=== PATIENT | female | born 1945 | race Caucasian/White ===

== ENCOUNTER → 2017-07-02 | Outpatient (CLI) | payer MEDICARE ==
--- NOTE | 2017-07-02 13:10 | RADIOLOGY REPORT (SQ) ---
EXAM DESCRIPTION: CHEST PA/LATERAL COMPLETED DATE/TIME: 07/02/2017 12:53 pm REASON FOR STUDY: PNEUMONIA, UNSPECIFIED ORGANISM COMPARISON: Chest films 01/21/2016, 07/30/2016, 08/10/2016 EXAM PARAMETERS: NUMBER OF VIEWS: two views TECHNIQUE: Digital Frontal and Lateral radiographic views of the chest acquired. RADIATION DOSE: NA LIMITATIONS: none FINDINGS: LUNGS AND PLEURA: No opacities, masses or pneumothorax. No pleural effusion. MEDIASTINUM AND HILAR STRUCTURES: No masses or contour abnormalities. HEART AND VASCULAR STRUCTURES: Heart normal size. No evidence for failure. BONES: Old left lateral rib fractures HARDWARE: Surgical clips left chest post left mastectomy. Right-sided permanent central line tip sup erior vena cava OTHER: No other significant finding. IMPRESSION: No acute finding TECHNICAL DOCUMENTATION: JOB ID: [id number]- All Rights Reserved
== END ==
LOC: OD 12:43
PROVIDERS: ATTEND Family Medicine
DX: J18.9 Pneumonia, unspecified organism (principal)
CPT/HCPCS: 71020

== ENCOUNTER 2017-07-03 13:16 | Observation (INO) | payer MEDICARE ==
[2017-07-03] MEDS ORDERED: HYDROCODONE/ACETAMINOPHEN 5-325 MG TABLET PO ONE (14:14)
--- NOTE | 2017-07-03 14:15 | ER Document Report ---
ED Medical Screen (RME) - General Chief Complaint: Chest Pain Stated Complaint: CHEST PAIN Time Seen by Provider: 07/03/17 14:07 Notes: 71-year-old female patient past history of CHF and aortic stenosis but no coronary artery disease. She is allergic to aspirin, she is taking Plavix. She has had URI symptoms with a cough for several days, complained of chest tightness for several days. Was seen by her PCP yesterday had a chest x-ray done at this facility which was read as normal. She was diagnosed with pneumonia and started on antibiotics. She reports onset today of sharp chest pain in the right parasternal region which is made worse with deep breath and cough. It is a reproducible pain on palpation and deep breathing and cough. I have greeted and performed a rapid initial assessment of this patient. A comprehensive ED assessment and evaluation of the patient, analysis of test results and completion of the medical decision making process will be conducted by additional ED providers. TRAVEL OUTSIDE OF THE [place] IN LAST 30 DAYS: No - Related Data Allergies/Adverse Reactions: aspirin [Aspirin] Allergy (Verified 07/03/17 13:32) azithromycin Allergy (Verified 07/03/17 14:05) codeine [Codeine] Allergy (Verified 07/03/17 13:32) erythromycin base [Erythromycin Base] Allergy (Verified 07/03/17 13:32) hydrocodone Allergy (Verified 07/03/17 13:32) levofloxacin [From Levaquin] Allergy (Verified 07/03/17 13:32) Penicillins Allergy (Verified 07/03/17 13:32) Sulfa (Sulfonamide Antibiotics) Allergy (Verified 07/03/17 13:32) Home Medications: Current Home Medications Allopurinol [Zyloprim 100 mg Tablet] 100 mg PO BID 07/03/17 [History] Cefdinir 300 mg PO BID 07/03/17 [History] Furosemide [Lasix 20 mg Tablet] 20 mg PO Q48HP PRN 07/03/17 [History] Gabapentin 300 mg PO QHS 07/03/17 [History] Past Medical History - Past Medical History Cardiac Medical History: Reports: Hx Congestive Heart Failure, Hx Coronary Artery Disease, Hx Hypertension, Hx Heart Murmur Pulmonary Medical History: Reports: Hx Bronchitis Neurological Medical History: Denies: Hx Migraine, Hx Seizures Renal/ Medical History: Denies: Hx Peritoneal Dialysis Malignancy Medical History: Reports: Hx Breast Cancer - left Musculoskeltal Medical History: Reports Hx Arthritis, Reports Hx Musculoskeletal Trauma Psychiatric Medical History: Denies: Hx Depression Traumatic Medical History: Reports: Hx Fractures Past Surgical History: Reports: Hx Abdominal Surgery - umbilical hernia, Hx Appendectomy, Hx Breast Surgery - L breast mast 2004, Hx Hysterectomy, Hx Tonsillectomy, Hx Umbilical Hernia - Immunizations Immunizations up to date: Yes Hx Diphtheria, Pertussis, Tetanus Vaccination: Yes - 2006 Physical Exam - Vital signs Vitals: Temp Pulse Resp BP Pulse Ox 98.4 F 72 22 H 102/59 L 99 07/03/17 13:35 07/03/17 13:35 07/03/17 13:35 07/03/17 13:35 07/03/17 13:35 Course - Vital Signs Vital signs: Temp Pulse Resp BP Pulse Ox 98.4 F 72 22 H 102/59 L 99 07/03/17 13:35 07/03/17 13:35 07/03/17 13:35 07/03/17 13:35 07/03/17 13:35
[2017-07-03 14:52] LABS: ABSOLUTE EOSINOPHILS # (AUTO) 0.1 10^3/uL (0.0-0.6); ABSOLUTE LYMPHOCYTES (AUTO) 0.8 10^3/uL (0.5-4.7); ABSOLUTE MONOCYTES (AUTO) 0.5 10^3/uL (0.1-1.4); ABSOLUTE NEUT (AUTO) 3.9 10^3/uL (1.7-8.2); BASOPHILS % (AUTO) 0.6 % (0-2); HEMATOCRIT 31.9 % (36.0-47.0); HEMOGLOBIN 10.8 g/dL (12.0-15.5); HGB HCT DIFFERENCE 0.5; LYMPHOCYTES % (AUTO) 14.6 % (13-45); MEAN CORPUSCULAR HGB CONC 33.9 g/dL (32.0-36.0); MEAN CORPUSCULAR VOLUME 103 fl (80-97); MONOCYTES % (AUTO) 8.6 % (3-13); RED BLOOD COUNT 3.09 10^6/uL (3.72-5.28); RED CELL DISTRIBUTION WIDTH 14.1 % (11.5-14.0); SEGMENTED NEUTROPHILS % (AUTO) 74.2 % (42-78); WHITE BLOOD COUNT 5.3 10^3/uL (4.0-10.5)
--- NOTE | 2017-07-03 15:02 | ER Document Report ---
ED Cardiac - General Chief Complaint: Chest Pain Stated Complaint: CHEST PAIN Time Seen by Provider: 07/03/17 14:07 Mode of Arrival: Ambulatory Information source: Patient TRAVEL OUTSIDE OF THE [place] IN LAST 30 DAYS: No - HPI Patient complains to provider of: Chest pain Was the onset of pain: Sudden When did pain begin: THIS AM Is the pain a: New problem Chest pain location: Under breast Quality of pain: Pressure Chest pain radiation location: None Severity now: Mild Severity at worst: Moderate Pain level currently: 1 Chest pain precipitating factors: At Rest Cardiac risk factors: Hypertension, Hx MT Positive cardiac history: Yes Associated symptoms: Nausea/vomiting, Shortness of breath Exacerbated by: Other - WALKING FROM [id number] Relieved by: NTG - SLIGHT Similar symptoms previously: Yes - NOT RECENT Recently seen / treated by doctor: No - Related Data Allergies/Adverse Reactions: aspirin [Aspirin] Allergy (Verified 07/03/17 13:32) azithromycin Allergy (Verified 07/03/17 14:05) codeine [Codeine] Allergy (Verified 07/03/17 13:32) erythromycin base [Erythromycin Base] Allergy (Verified 07/03/17 13:32) hydrocodone Allergy (Verified 07/03/17 13:32) levofloxacin [From Levaquin] Allergy (Verified 07/03/17 13:32) Penicillins Allergy (Verified 07/03/17 13:32) Sulfa (Sulfonamide Antibiotics) Allergy (Verified 07/03/17 13:32) Home Medications: Current Home Medications Allopurinol [Zyloprim 100 mg Tablet] 100 mg PO BID 07/03/17 [History] Cefdinir [Omnicef 300 mg Capsule] 300 mg PO BID 07/03/17 [History] Cholecalciferol (Vitamin D3) [Vitamin D3 400 Unit Tablet] 400 unit PO DAILY 08/11 [History] Clopidogrel Bisulfate [Plavix 75 mg Tablet] 75 mg PO DAILY 07/03/17 [History] Furosemide [Lasix 20 mg Tablet] 20 mg PO Q2D 07/03/17 [History] Gabapentin [Neurontin 300 mg Capsule] 300 mg PO QHS 07/03/17 [History] Lisinopril [Prinivil] 20 mg PO Q12 07/03/17 [History] Metoprolol Succinate [Toprol Xl 25 mg Tab.sr] 25 mg PO QAM 07/03/17 [History] Potassium Chloride [Klor-Con 10] 10 meq PO DAILY 07/03/17 [History] Sertraline HCl [Zoloft 50 mg Tablet] 50 mg PO DAILY 07/03/17 [History] Simvastatin [Zocor 20 mg Tablet] 20 mg PO QHS 07/03/17 [History] Past Medical History - General Information source: Patient - Social History Smoking Status: Never Smoker Cigarette use (# per day): No Chew tobacco use (# tins/day): No Frequency of alcohol use: None Drug Abuse: None Family History: Reviewed & Not Pertinent Patient has suicidal ideation: No - Past Medical History Cardiac Medical History: Reports: Hx Congestive Heart Failure, Hx Coronary Artery Disease, Hx Hypertension, Hx Heart Murmur Pulmonary Medical History: Reports: Hx Bronchitis Neurological Medical History: Denies: Hx Migraine, Hx Seizures Endocrine Medical History: Reports: None Renal/ Medical History: Denies: Hx Peritoneal Dialysis Malignancy Medical History: Reports: Hx Breast Cancer - left Musculoskeltal Medical History: Reports Hx Arthritis, Reports Hx Musculoskeletal Trauma Psychiatric Medical History: Denies: Hx Depression Traumatic Medical History: Reports: Hx Fractures Past Surgical History: Reports: Hx Abdominal Surgery - umbilical hernia, Hx Appendectomy, Hx Breast Surgery - L breast mast 2004, Hx Hysterectomy, Hx Tonsillectomy, Hx Umbilical Hernia - Immunizations Immunizations up to date: Yes Hx Diphtheria, Pertussis, Tetanus Vaccination: Yes - 2006 Hx Pneumococcal Vaccination: 11/26/13 Review of Systems - Review of Systems Constitutional: No symptoms reported EENT: No symptoms reported Cardiovascular: See HPI Respiratory: See HPI Gastrointestinal: See HPI Female Genitourinary: Post menopausal Musculoskeletal: No symptoms reported Skin: No symptoms reported Neurological/Psychological: No symptoms reported Physical Exam - Vital signs Vitals: Temp Pulse Resp BP Pulse Ox 98.4 F 72 22 H 102/59 L 99 07/03/17 13:35 07/03/17 13:35 07/03/17 13:35 07/03/17 13:35 07/03/17 13:35 Interpretation: Hypotensive, Tachypneic. No: Tachycardic, Febrile - General General appearance: Appears well, Alert In distress: None - HEENT Head: Normocephalic Eyes: Normal Conjunctiva: Normal Ears: Normal Nasal: Normal Mouth/Lips: Normal Mucous membranes: Normal Neck: Normal - Respiratory Respiratory status: No respiratory distress Chest status: Nontender Breath sounds: Normal - Cardiovascular Rhythm: Regular Heart sounds: Normal auscultation Murmur: No - Abdominal Inspection: Normal Distension: No distension Bowel sounds: Normal - Extremities General upper extremity: Normal inspection General lower extremity: Normal inspection. No: Edema - Neurological Neuro grossly intact: Yes Cognition: Normal Orientation: AAOx4 - Psychological Associated symptoms: Normal affect, Normal mood - Skin Skin Temperature: Warm Skin Moisture: Dry Skin Color: Normal Skin Turgor: Elastic Course - Vital Signs Vital signs: Temp Pulse Resp BP Pulse Ox 98.4 F 72 15 113/59 L 100 07/03/17 13:35 07/03/17 13:35 07/03/17 21:04 07/03/17 21:04 07/03/17 21:04 - Laboratory Result Diagrams: 07/03/17 14:20 07/03/17 14:20 Laboratory results interpreted by me: 07/03/17 07/03/17 14:20 14:20 RBC 3.09 L Hgb 10.8 L Hct 31.9 L MCV 103 H MCH 35.0 H RDW 14.1 H Potassium 5.1 H BUN 32 H Creatinine 1.49 H Est GFR ( Amer) 42 L Est GFR (Non-Af Amer) 35 L Alkaline Phosphatase 138 H - Diagnostic Test Radiology reviewed: Image reviewed, Reports reviewed - EKG Interpretation by Tx EKG shows normal: Sinus rhythm. abnormal: [place], QRS Complexes Rate: Normal Rhythm: NSR [place]/QRS: LBBB When compared to previous EKG there are: No significant change - Consults DR. CAST Time consulted: 17:32 Consulted provider: will come to ER Discharge - Discharge Clinical Impression: Hyperkalemia Chest pain Qualifiers: Chest pain type: unspecified Qualified Code(s): R07.9 - Chest pain, unspecified Admitting Provider: Hospitalist Unit Admitted: Telemetry
[2017-07-03 15:20] LABS: ALANINE AMINOTRANSFERASE 28 U/L (9-52); ALBUMIN 3.7 g/dL (3.5-5.0); ALKALINE PHOSPHATASE 138 U/L (38-126); ANION GAP 11 (5-19); ASPARTATE AMINO TRANSFERASE 19 U/L (14-36); BILIRUBIN,DIRECT 0.4 mg/dL (0.0-0.4); BILIRUBIN,TOTAL 0.4 mg/dL (0.2-1.3); BLOOD UREA NITROGEN 32 mg/dL (7-20); CALCIUM 8.7 mg/dL (8.4-10.2); CARBON DIOXIDE 22 mmol/L (22-30); CHLORIDE 106 mmol/L (98-107); CREATINE KINASE 63 U/L (30-135); CREATININE RESULT 1.49 mg/dL (0.52-1.25); GLUCOSE 110 mg/dL (75-110); POTASSIUM 5.1 mmol/L (3.6-5.0); SODIUM 139.3 mmol/L (137-145); TOTAL PROTEIN 6.8 g/dL (6.3-8.2)
[2017-07-03] MEDS ORDERED: NITROGLYCERIN 2% OINTMENT 1 GM PACKET TP ONE (16:02)
[2017-07-03] MEDS ORDERED: NORMAL SALINE 1000 ML 500 ML IV ONE (16:07)
[2017-07-03] MEDS ORDERED: ONDANSETRON HCL INJ/PF 4 MG/2 ML SDV IV PRN (17:44)
[2017-07-03] MEDS: NORMAL SALINE 1000 ML 1,000 ML IV PRN (18:13)
[2017-07-03] MEDS ORDERED: HYDRALAZINE HCL INJ/PF 20 MG/1 ML SDV IV PRN (18:32)
--- NOTE | 2017-07-03 18:37 | PDOC H&P ---
History of Present Illness Admission Date/PCP: 07/03/17 18:07 JENAE MARS MD Patient complains of: Chest pain History of Present Illness: ENE HOLGUIN is a 71 year old female with past medical history of coronary artery disease, congestive heart failure secondary to moderate aortic stenosis presents with onset this morning of substernal chest pain. Pain was nonradiating. She had associated nausea but no vomiting. She had no shortness of breath. Pain was partially relieved at home by nitroglycerin sublingual 2. Apparently patient has known coronary artery disease with last cardiac cath in 2014 showing nonamenable coronary artery disease according to her daughter is present at the bedside. Daughter states that she had a "60% blockage" and that she had a "leaky valve". Review of prior records show that she had echocardiogram 08/14/2016 with normal EF, grade 2/4 diastolic dysfunction, moderate aortic stenosis. It is also noted that patient was started on antibiotics yesterday for pneumonia. Chest x-ray however showed no acute airspace disease. She has been having a cough. No documented fevers. Past Medical History Cardiac Medical History: Reports: Congestive Heart Failure, Coronary Artery Disease, Hypertension, Heart Murmur Pulmonary Medical History: Reports: Bronchitis Neurological Medical History: Denies: Migraine, Seizures Malignancy Medical History: Reports: Breast Cancer - left Musculoskeltal Medical History: Reports: Arthritis Psychiatric Medical History: Denies: Depression Past Surgical History Past Surgical History: Reports: Appendectomy, Hysterectomy, Tonsillectomy Social History Information Source: Patient Lives with: Spouse/Significant other Smoking Status: Never Smoker Frequency of Alcohol Use: None Hx Recreational Drug Use: No Hx Prescription Drug Abuse: No - Advance Directive Resuscitation Status: Full Code Family History Family History: Reviewed & Not Pertinent Parental Family History Reviewed: Yes Children Family History Reviewed: Yes Sibling(s) Family History Reviewed.: Yes Medication/Allergy Home Medications: Metoprolol Succinate 25 mg PO DAILY 01/21/16 Simvastatin 20 mg PO QHS 01/21/16 Clopidogrel Bisulfate [Clopidogrel] 75 mg PO DAILY 05/22/16 Potassium Chloride 10 meq PO DAILY 05/22/16 Sertraline HCl 50 mg PO DAILY 05/22/16 Lisinopril 20 mg PO DAILY #30 08/14/16 Allopurinol [Zyloprim 100 mg Tablet] 100 mg PO BID 07/03/17 Cefdinir 300 mg PO BID 07/03/17 Furosemide [Lasix 20 mg Tablet] 20 mg PO Q48HP PRN 07/03/17 Gabapentin 300 mg PO QHS 07/03/17 Allergies/Adverse Reactions: aspirin [Aspirin] Allergy (Verified 07/03/17 13:32) azithromycin Allergy (Verified 07/03/17 14:05) codeine [Codeine] Allergy (Verified 07/03/17 13:32) erythromycin base [Erythromycin Base] Allergy (Verified 07/03/17 13:32) hydrocodone Allergy (Verified 07/03/17 13:32) levofloxacin [From Levaquin] Allergy (Verified 07/03/17 13:32) Penicillins Allergy (Verified 07/03/17 13:32) Sulfa (Sulfonamide Antibiotics) Allergy (Verified 07/03/17 13:32) Review of Systems Constitutional: ABSENT: chills, fever(s), headache(s), weight gain, weight loss Eyes: ABSENT: visual disturbances Ears: ABSENT: hearing changes Cardiovascular: PRESENT: chest pain. ABSENT: dyspnea on exertion, edema, orthropnea, palpitations Respiratory: PRESENT: cough. ABSENT: hemoptysis Gastrointestinal: ABSENT: abdominal pain, constipation, diarrhea, hematemesis, hematochezia, nausea, vomiting Genitourinary: ABSENT: dysuria, hematuria Musculoskeletal: ABSENT: joint swelling Integumentary: ABSENT: rash, wounds Neurological: ABSENT: abnormal gait, abnormal speech, confusion, dizziness, focal weakness, syncope Psychiatric: ABSENT: anxiety, depression, homidical ideation, suicidal ideation Endocrine: ABSENT: cold intolerance, heat intolerance, polydipsia, polyuria Hematologic/Lymphatic: ABSENT: easy bleeding, easy bruising Physical Exam Vital Signs: Temp Pulse Resp BP Pulse Ox 98.4 F 72 22 H 102/59 L 99 07/03/17 13:35 07/03/17 13:35 07/03/17 13:35 07/03/17 13:35 07/03/17 13:35 PHYSICAL EXAM: GENERAL: Appears well, no acute distress HEENT: Normocephalic, no scleral icterus, conjunctiva clear, EOEM intact, PERRLA , moist mucous membranes NECK: trachea midline, no thyromegally RESPIRATORY: Clear to auscultation, no wheezes/rhonchi CARDIAC: Regular rate and rhythm, systolic murmur noted ABDOMEN: Soft, no distension, no tenderness, no guarding, normal bowel sounds, negative Contreras sign RECTAL: deferred : deferred EXTREMITIES: No edema, cyanosis, clubbing MUSCULOSKELETAL: No joint swelling or deformity VASCULAR: normal peripheral pulses NEUROLOGIC: Alert, oriented to person/place/time, normal speech, cranial nerves grossly intact, 5/5 strength in all extremities, tactile sensation intact in all extremities SKIN: No rash, no wounds, no worrisome skin lesions PSYCHIATRIC: Normal mood, normal affect Results Laboratory Results: Labs- All tests 24 hr 07/03/17 07/03/17 07/03/17 14:20 14:20 14:20 WBC 5.3 RBC 3.09 L Hgb 10.8 L Hct 31.9 L MCV 103 H MCH 35.0 H MCHC 33.9 RDW 14.1 H Plt Count 206 Seg Neutrophils % 74.2 Lymphocytes % 14.6 Monocytes % 8.6 Eosinophils % 2.0 Basophils % 0.6 Absolute Neutrophils 3.9 Absolute Lymphocytes 0.8 Absolute Monocytes 0.5 Absolute Eosinophils 0.1 Absolute Basophils 0.0 Sodium 139.3 Potassium 5.1 H Chloride 106 Carbon Dioxide 22 Anion Gap 11 BUN 32 H Creatinine 1.49 H Est GFR ( Amer) 42 L Est GFR (Non-Af Amer) 35 L Glucose 110 Calcium 8.7 Total Bilirubin 0.4 Direct Bilirubin 0.4 Indirect Bilirubin Not Reportable Neonat Total Bilirubin Not Reportable AST 19 ALT 28 Alkaline Phosphatase 138 H Creatine Kinase 63 Troponin I < 0.012 Total Protein 6.8 Albumin 3.7 EKG Comments: Sinus rhythm, old left bundle branch block Impressions: Chest x-ray 07/02/2017: No acute findings Assessment & Plan - Diagnosis (1) Chest pain Qualifiers: Chest pain type: unspecified Qualified Code(s): R07.9 - Chest pain, unspecified Is this a current diagnosis for this admission?: YesPlan: Placed in observation status on telemetry monitoring. Serial cardiac enzymes. Continue Plavix, statin. Stress test in a.m. Patient is normally followed by Dr. Mooney of cardiology as an outpatient. (2) CAD (coronary artery disease) Qualifiers: Coronary Disease-Associated Artery/Lesion type: [place] artery [place] vs. transplanted heart: [place] heart Associated angina: without angina Qualified Code(s): I25.10 - Atherosclerotic heart disease of [place] coronary artery without angina pectoris Is this a current diagnosis for this admission?: Yes (3) Hyperkalemia Is this a current diagnosis for this admission?: YesPlan: Hold KHALIF inhibitor and potassium supplement. Gentle IV fluid. (4) Acute renal failure Qualifiers: Acute renal failure type: unspecified Qualified Code(s): N17.9 - Acute kidney failure, unspecified Is this a current diagnosis for this admission?: YesPlan: Hold KHALIF inhibitor. Gentle IV fluid. Repeat renal function in the morning. (5) Bronchitis Is this a current diagnosis for this admission?: YesPlan: Continue cefpodoxime prescribed on 07/02/2017. (6) Chronic diastolic (congestive) heart failure Is this a current diagnosis for this admission?: YesPlan: Clinically compensated at this time. Hold metoprolol for stress test. (7) HTN (hypertension) Is this a current diagnosis for this admission?: Yes (8) Left bundle branch block Is this a current diagnosis for this admission?: YesPlan: Old is compared to prior EKG - Time Time Spent: Greater than 70 Minutes
[2017-07-03 20:16] LABS: CREATINE KINASE MB 1.77 ng/mL (<4.55)
[2017-07-03 20:18] LABS: TROPONIN I < 0.012 ng/mL
[2017-07-03] MEDS ORDERED: SIMVASTATIN 10 MG TABLET PO SCH (22:00)
[2017-07-03] MEDS ORDERED: (PENDING PHARMACY ID) (Simvastatin [Simvastatin] 20 MG) PO SCH (22:00)
[2017-07-03] MEDS ORDERED: GABAPENTIN 300 MG CAPSULE PO SCH (22:00)
[2017-07-03] MEDS: ACETAMINOPHEN 325 MG TABLET PO PRN (22:11)
[2017-07-03] MEDS: HEPARIN SOD (PORCINE) 5,000 UNIT/ML 1 ML SYRINGE SUBCUT SCH (22:20)
[2017-07-04 01:52] LABS: CREATINE KINASE MB 2.16 ng/mL (<4.55)
[2017-07-04 02:00] LABS: TROPONIN I < 0.012 ng/mL
[2017-07-04] MEDS: HEPARIN SOD (PORCINE) 5,000 UNIT/ML 1 ML SYRINGE SUBCUT SCH ×2 (05:21→14:41)
[2017-07-04] MEDS: ACETAMINOPHEN 325 MG TABLET PO PRN ×2 (06:14→12:00)
[2017-07-04] MEDS: NORMAL SALINE 1000 ML 1,000 ML IV PRN (07:30)
[2017-07-04 08:11] LABS: ABSOLUTE EOSINOPHILS # (AUTO) 0.1 10^3/uL (0.0-0.6); ABSOLUTE LYMPHOCYTES (AUTO) 0.8 10^3/uL (0.5-4.7); ABSOLUTE MONOCYTES (AUTO) 0.3 10^3/uL (0.1-1.4); ABSOLUTE NEUT (AUTO) 2.8 10^3/uL (1.7-8.2); BASOPHILS % (AUTO) 0.6 % (0-2); EOSINOPHILS % (AUTO) 3.7 % (0-6); HEMATOCRIT 26.9 % (36.0-47.0); HEMOGLOBIN 9.2 g/dL (12.0-15.5); HGB HCT DIFFERENCE 0.7; LYMPHOCYTES % (AUTO) 18.8 % (13-45); MEAN CORPUSCULAR HEMOGLOBIN 35.3 pg (27.0-33.4); MEAN CORPUSCULAR HGB CONC 34.2 g/dL (32.0-36.0); MEAN CORPUSCULAR VOLUME 103 fl (80-97); MONOCYTES % (AUTO) 8.1 % (3-13); RED BLOOD COUNT 2.61 10^6/uL (3.72-5.28); RED CELL DISTRIBUTION WIDTH 13.9 % (11.5-14.0); SEGMENTED NEUTROPHILS % (AUTO) 68.8 % (42-78)
[2017-07-04 08:28] LABS: ANION GAP 10 (5-19); BLOOD UREA NITROGEN 21 mg/dL (7-20); CALCIUM 8.2 mg/dL (8.4-10.2); CARBON DIOXIDE 19 mmol/L (22-30); CHLORIDE 112 mmol/L (98-107); CREATININE RESULT 1.01 mg/dL (0.52-1.25); GLUCOSE 88 mg/dL (75-110); SODIUM 140.9 mmol/L (137-145)
[2017-07-04 08:34] LABS: POTASSIUM 4.1 mmol/L (3.6-5.0)
[2017-07-04 08:39] LABS: CREATINE KINASE MB 1.64 ng/mL (<4.55)
[2017-07-04 08:44] LABS: TROPONIN I < 0.012 ng/mL
[2017-07-04] MEDS ORDERED: SERTRALINE HCL 50 MG TABLET PO SCH (10:00)
[2017-07-04] MEDS ORDERED: CLOPIDOGREL BISULFATE 75 MG TABLET PO SCH (10:00)
[2017-07-04] MEDS ORDERED: METOPROLOL SUCCINATE 25 MG TAB.SR.24H PO SCH (10:00)
[2017-07-04] MEDS ORDERED: CEFDINIR 300 MG PO SCH (10:00)
--- NOTE | 2017-07-04 13:23 | EKG REPORT ---
SEVERITY:- ABNORMAL ECG - SINUS RHYTHM LEFT BUNDLE BRANCH BLOCK : Confirmed by: Kaitlyn Beckman 04-Jul-2017 13:23:04
[2017-07-04] MEDS ORDERED: REGADENOSON INJ 0.4 MG/5 ML DISP.SYRIN IV ONE (13:25)
[2017-07-04] MEDS ORDERED: ONDANSETRON HCL INJ/PF 4 MG/2 ML SDV IV PRN (14:41)
[2017-07-04 15:31] VITALS: BP 123/48
--- NOTE | 2017-07-04 16:59 | PDOC DISCHARGE SUMMARY ---
General - Admit/Disc Date/PCP Admission Date/Primary Care Provider: 07/03/17 17:44 JENAE MARS MD Discharge Date: 07/04/17 - Discharge Diagnosis (1) Chest pain Is this a current diagnosis for this admission?: Yes (2) CAD (coronary artery disease) Is this a current diagnosis for this admission?: Yes (3) Hyperkalemia Is this a current diagnosis for this admission?: Yes (4) Acute renal failure Is this a current diagnosis for this admission?: Yes (5) Bronchitis Is this a current diagnosis for this admission?: Yes (6) Chronic diastolic (congestive) heart failure Is this a current diagnosis for this admission?: Yes (7) HTN (hypertension) Is this a current diagnosis for this admission?: Yes (8) Left bundle branch block Is this a current diagnosis for this admission?: Yes - Additional Information Resuscitation Status: Full Code Discharge Diet: Cardiac Discharge Activity: Activity As Tolerated Home Medications: Allopurinol [Zyloprim 100 mg Tablet] 100 mg PO BID 07/03/17 Cefdinir [Omnicef 300 mg Capsule] 300 mg PO BID 07/03/17 Cholecalciferol (Vitamin D3) [Vitamin D3 400 Unit Tablet] 400 unit PO DAILY 08/11 Clopidogrel Bisulfate [Plavix 75 mg Tablet] 75 mg PO DAILY 07/03/17 Furosemide [Lasix 20 mg Tablet] 20 mg PO Q2D 07/03/17 Gabapentin [Neurontin 300 mg Capsule] 300 mg PO QHS 07/03/17 Metoprolol Succinate [Toprol Xl 25 mg Tab.sr] 25 mg PO QAM 07/03/17 Sertraline HCl [Zoloft 50 mg Tablet] 50 mg PO DAILY 07/03/17 Simvastatin [Zocor 20 mg Tablet] 20 mg PO QHS 07/03/17 History of Present Illness Patient complains of: Chest pain History of Present Illness: ENE HOLGUIN is a 71 year old female with past medical history of coronary artery disease, congestive heart failure secondary to moderate aortic stenosis presents with onset this morning of substernal chest pain. Pain was nonradiating. She had associated nausea but no vomiting. She had no shortness of breath. Pain was partially relieved at home by nitroglycerin sublingual 2. Apparently patient has known coronary artery disease with last cardiac cath in 2014 showing nonamenable coronary artery disease according to her daughter is present at the bedside. Daughter states that she had a "60% blockage" and that she had a "leaky valve". Review of prior records show that she had echocardiogram 08/14/2016 with normal EF, grade 2/4 diastolic dysfunction, moderate aortic stenosis. It is also noted that patient was started on antibiotics yesterday for pneumonia. Chest x-ray however showed no acute airspace disease. She has been having a cough. No documented fevers. Hospital Course Hospital Course: Patient was admitted to telemetry monitoring. Serial cardiac enzymes negative. Stress test negative per Dr. Mooney of cardiology. Dr. Mooney has evaluated patient and will see patient as an outpatient. He is advised discharge home. Patient is in stable condition at time of discharge. With regard to acute kidney injury patient was taken off lisinopril. She was given gentle IV fluids and kidney function significantly improved over course of hospitalization. We will have her stay off of lisinopril and potassium supplement until follow-up with her primary care provider. Physical Exam Vital Signs: Temp Pulse Resp BP Pulse Ox 98.3 F 85 15 123/48 L 96 07/04/17 15:29 07/04/17 15:29 07/04/17 15:29 07/04/17 15:29 07/04/17 15:29 Intake & Output 07/03/17 07/04/17 07/05/17 06:59 06:59 06:59 Intake Total 1434 570 Balance 1434 570 Weight 71.2 kg Results Laboratory Results: 07/04/17 07:49 07/04/17 07:49 07/04/17 07/04/17 07:49 07:49 WBC 4.0 RBC 2.61 L Hgb 9.2 L Hct 26.9 L MCV 103 H MCH 35.3 H MCHC 34.2 RDW 13.9 Plt Count 161 Seg Neutrophils % 68.8 Lymphocytes % 18.8 Monocytes % 8.1 Eosinophils % 3.7 Basophils % 0.6 Absolute Neutrophils 2.8 Absolute Lymphocytes 0.8 Absolute Monocytes 0.3 Absolute Eosinophils 0.1 Absolute Basophils 0.0 Sodium 140.9 Potassium 4.1 D Chloride 112 H Carbon Dioxide 19 L Anion Gap 10 BUN 21 H Creatinine 1.01 Est GFR ( Amer) > 60 Est GFR (Non-Af Amer) 54 L Glucose 88 Calcium 8.2 L 07/03/17 07/03/17 07/04/17 18:55 18:55 01:04 Creatine Kinase 80 82 CK-MB (CK-2) 1.77 Troponin I < 0.012 07/04/17 07/04/17 07/04/17 01:04 07:49 07:49 Creatine Kinase 81 CK-MB (CK-2) 2.16 1.64 Troponin I < 0.012 < 0.012 Labs- Entire Visit 07/03/17 07/03/17 07/03/17 14:20 14:20 14:20 WBC 5.3 RBC 3.09 L Hgb 10.8 L Hct 31.9 L MCV 103 H MCH 35.0 H MCHC 33.9 RDW 14.1 H Plt Count 206 Seg Neutrophils % 74.2 Lymphocytes % 14.6 Monocytes % 8.6 Eosinophils % 2.0 Basophils % 0.6 Absolute Neutrophils 3.9 Absolute Lymphocytes 0.8 Absolute Monocytes 0.5 Absolute Eosinophils 0.1 Absolute Basophils 0.0 Sodium 139.3 Potassium 5.1 H Chloride 106 Carbon Dioxide 22 Anion Gap 11 BUN 32 H Creatinine 1.49 H Est GFR ( Amer) 42 L Est GFR (Non-Af Amer) 35 L Glucose 110 Calcium 8.7 Total Bilirubin 0.4 Direct Bilirubin 0.4 Indirect Bilirubin Not Reportable Neonat Total Bilirubin Not Reportable AST 19 ALT 28 Alkaline Phosphatase 138 H Creatine Kinase 63 CK-MB (CK-2) Troponin I < 0.012 Total Protein 6.8 Albumin 3.7 07/03/17 07/03/17 07/04/17 18:55 18:55 01:04 WBC RBC Hgb Hct MCV MCH MCHC RDW Plt Count Seg Neutrophils % Lymphocytes % Monocytes % Eosinophils % Basophils % Absolute Neutrophils Absolute Lymphocytes Absolute Monocytes Absolute Eosinophils Absolute Basophils Sodium Potassium Chloride Carbon Dioxide Anion Gap BUN Creatinine Est GFR ( Amer) Est GFR (Non-Af Amer) Glucose Calcium Total Bilirubin Direct Bilirubin Indirect Bilirubin Neonat Total Bilirubin AST ALT Alkaline Phosphatase Creatine Kinase 80 82 CK-MB (CK-2) 1.77 Troponin I < 0.012 Total Protein Albumin 07/04/17 07/04/17 07/04/17 01:04 07:49 07:49 WBC RBC Hgb Hct MCV MCH MCHC RDW Plt Count Seg Neutrophils % Lymphocytes % Monocytes % Eosinophils % Basophils % Absolute Neutrophils Absolute Lymphocytes Absolute Monocytes Absolute Eosinophils Absolute Basophils Sodium Potassium Chloride Carbon Dioxide Anion Gap BUN Creatinine Est GFR ( Amer) Est GFR (Non-Af Amer) Glucose Calcium Total Bilirubin Direct Bilirubin Indirect Bilirubin Neonat Total Bilirubin AST ALT Alkaline Phosphatase Creatine Kinase 81 CK-MB (CK-2) 2.16 1.64 Troponin I < 0.012 < 0.012 Total Protein Albumin 07/04/17 07/04/17 07:49 07:49 WBC 4.0 RBC 2.61 L Hgb 9.2 L Hct 26.9 L MCV 103 H MCH 35.3 H MCHC 34.2 RDW 13.9 Plt Count 161 Seg Neutrophils % 68.8 Lymphocytes % 18.8 Monocytes % 8.1 Eosinophils % 3.7 Basophils % 0.6 Absolute Neutrophils 2.8 Absolute Lymphocytes 0.8 Absolute Monocytes 0.3 Absolute Eosinophils 0.1 Absolute Basophils 0.0 Sodium 140.9 Potassium 4.1 D Chloride 112 H Carbon Dioxide 19 L Anion Gap 10 BUN 21 H Creatinine 1.01 Est GFR ( Amer) > 60 Est GFR (Non-Af Amer) 54 L Glucose 88 Calcium 8.2 L Total Bilirubin Direct Bilirubin Indirect Bilirubin Neonat Total Bilirubin AST ALT Alkaline Phosphatase Creatine Kinase CK-MB (CK-2) Troponin I Total Protein Albumin Qualifiers PATEINT BEING DISCHARGED WITH ANY OF THE FOLLOWING DIAGNOSIS?: No Plan Time Spent: Less than 30 Minutes
--- NOTE | 2017-07-04 18:55 | DRAGON STRESS TEST REPORT ---
Intravenous Lexiscan Cardiolite stress test using single photon emmision computerized tomography. Date of procedure: 07/04/2017 Ordering Provider: Dr. Garth Dwyer. Patient's status: In patient. Indication: Chest pain. Coronary risk factors: Age, hypertension, dyslipidemia , and family history of coronary artery disease. Resting EKG: Sinus Rhythm. Left bundle branch block pattern. Stress EKG: Due to left bundle branch block pattern EKG is nondiagnostic of ischemia. Reason for termination: Protocol. The patient had no chest pain or discomfort, and there were no arrhythmias seen. Conclusions: Normal EKG and hemodynamic response to IV Lexiscan. Nuclear data: At rest the patient was given 10.1 month millicuries of technetium 99m sestamibi injected intravenously. As per protocol rest non gated SPECT images were obtained. Subsequently the patient was given intravenous Lexiscan at a dose of 0.4 mg in 5 mL intravenously, followed by flush with normal saline. Subsequently the stress dose of 29.7 millicuries of technetium 99m sestamibi was injected intravenously. As per protocol stress gated images were obtained. Nuclear interpretation: Review of images showed that all segments of the myocardium had normal perfusion at rest, and normal perfusion post stress with IV Lexiscan. All segments of the myocardium had normal motion, contraction, and thickening by gated study. T. I D. ratio was read as abnormal at 1.26. Visually P IT ratio is normal. Computer read rest, and stress left ventricular ejection fraction were 51 %, and 54 %, respectively. Visually both the stress and rest ejection fractions were normal, and greater than 55%. Conclusion: 1. There is no scintigraphic evidence of Lexiscan induced myocardial ischemia. 2. There is no scintigraphic evidence of myocardial infarction/scar. Recommendations: Aggressive risk factor modification, and treating the underlying co- morbidities. [facility]
== END 2017-07-04 16:47 | disposition home or self-care (01) ==
LOC: ER 13:16 → EH 17:44 → UNDOADMOB 18:07 → EH 18:07 → 4S 21:55 → EH 21:55
PROVIDERS: ADMIT Family Medicine; ATTEND Family Medicine
DX: R07.9 Chest pain, unspecified (principal); I25.10 Atherosclerotic heart disease of native coronary artery without angina pectoris; E87.5 Hyperkalemia; N17.9 Acute kidney failure, unspecified; J40 Bronchitis, not specified as acute or chronic; I11.0 Hypertensive heart disease with heart failure; I50.32 Chronic diastolic (congestive) heart failure; I44.7 Left bundle-branch block, unspecified; I35.0 Nonrheumatic aortic (valve) stenosis; I95.9 Hypotension, unspecified; R06.82 Tachypnea, not elsewhere classified; I25.2 Old myocardial infarction; Z79.899 Other long term (current) drug therapy; Z79.02 Long term (current) use of antithrombotics/antiplatelets; Z85.3 Personal history of malignant neoplasm of breast; Z90.49 Acquired absence of other specified parts of digestive tract
CPT/HCPCS: 93005; 99285; 36415 ×2; 82553 ×2; 82550 ×2; 85025 ×2; 80048; 80053; 84484 ×2; 93017; 78452; 93010; G0378 ×3; A9500; J2785; A9270 ×8; J7030 ×2; Q9969; J1644

== ENCOUNTER 2018-04-04 14:12 | Emergency (ER) | payer MEDICARE ==
[2018-04-04] MEDS ORDERED: IPRATROPIUM/ALBUTEROL 0.5-2.5 MG/3 ML AMPUL NEB ONE (14:15)
--- NOTE | 2018-04-04 14:25 | ER Document Report ---
ED General - General Chief Complaint: Shortness Of Breath Stated Complaint: DIFFICULTY BREATHING Time Seen by Provider: 04/04/18 14:15 Mode of Arrival: Medic Information source: Patient, Emergency Med Personnel TRAVEL OUTSIDE OF THE [place] IN LAST 30 DAYS: No - Related Data Allergies/Adverse Reactions: aspirin [Aspirin] Allergy (Verified 04/04/18 14:13) azithromycin Allergy (Verified 04/04/18 14:13) codeine [Codeine] Allergy (Verified 04/04/18 14:13) erythromycin base [Erythromycin Base] Allergy (Verified 04/04/18 14:13) hydrocodone Allergy (Verified 04/04/18 14:13) levofloxacin [From Levaquin] Allergy (Verified 04/04/18 14:13) Penicillins Allergy (Verified 04/04/18 14:13) Sulfa (Sulfonamide Antibiotics) Allergy (Verified 04/04/18 14:13) Past Medical History - Social History Family History: Reviewed & Not Pertinent - Past Medical History Cardiac Medical History: Reports: Hx Congestive Heart Failure, Hx Coronary Artery Disease, Hx Hypertension, Hx Heart Murmur Pulmonary Medical History: Reports: Hx Bronchitis Neurological Medical History: Denies: Hx Migraine, Hx Seizures Renal/ Medical History: Denies: Hx Peritoneal Dialysis Malignancy Medical History: Reports: Hx Breast Cancer - left Musculoskeltal Medical History: Reports Hx Arthritis, Reports Hx Musculoskeletal Trauma Psychiatric Medical History: Denies: Hx Depression Traumatic Medical History: Reports: Hx Fractures Past Surgical History: Reports: Hx Abdominal Surgery - umbilical hernia, Hx Appendectomy, Hx Breast Surgery - L breast mast 2004, Hx Hysterectomy, Hx Tonsillectomy, Hx Umbilical Hernia - Immunizations Immunizations up to date: Yes Hx Diphtheria, Pertussis, Tetanus Vaccination: Yes - 2006 Hx Pneumococcal Vaccination: 11/26/13
--- NOTE | 2018-04-04 15:17 | ER Document Report ---
ED Medical Screen (RME) - General Chief Complaint: Shortness Of Breath Stated Complaint: DIFFICULTY BREATHING Time Seen by Provider: 04/04/18 14:15 Mode of Arrival: Ambulatory Information source: Patient, Relative TRAVEL OUTSIDE OF THE [place] IN LAST 30 DAYS: No - HPI Notes: 04/04/18 15:15 RAPID MEDICAL EVALUATION DISCLOSURE I have seen this patient as part of a Rapid Medical Evaluation and, if applicable, placed any initially appropriate orders. The patient will be seen and fully evaluated, including a full history and physical exam, by a provider ( in Main ED or Fast Track) when a room becomes available. Pt. c/o SOB, worse with exertion over last few days. Mild CP as well. No wheezing, fevers, N/V/D. +nonproductive cough. H/O CHF. - Related Data Allergies/Adverse Reactions: aspirin [Aspirin] Allergy (Verified 04/04/18 14:13) azithromycin Allergy (Verified 04/04/18 14:13) codeine [Codeine] Allergy (Verified 04/04/18 14:13) erythromycin base [Erythromycin Base] Allergy (Verified 04/04/18 14:13) hydrocodone Allergy (Verified 04/04/18 14:13) levofloxacin [From Levaquin] Allergy (Verified 04/04/18 14:13) Penicillins Allergy (Verified 04/04/18 14:13) Sulfa (Sulfonamide Antibiotics) Allergy (Verified 04/04/18 14:13) Past Medical History - Social History Chew tobacco use (# tins/day): No Frequency of alcohol use: None Drug Abuse: None - Past Medical History Cardiac Medical History: Reports: Hx Congestive Heart Failure, Hx Coronary Artery Disease, Hx Hypertension, Hx Heart Murmur Pulmonary Medical History: Reports: Hx Bronchitis Neurological Medical History: Denies: Hx Migraine, Hx Seizures Renal/ Medical History: Denies: Hx Peritoneal Dialysis Malignancy Medical History: Reports: Hx Breast Cancer - left Musculoskeltal Medical History: Reports Hx Arthritis, Reports Hx Musculoskeletal Trauma Psychiatric Medical History: Denies: Hx Depression Traumatic Medical History: Reports: Hx Fractures Past Surgical History: Reports: Hx Abdominal Surgery - umbilical hernia, Hx Appendectomy, Hx Breast Surgery - L breast mast 2004, Hx Hysterectomy, Hx Tonsillectomy, Hx Umbilical Hernia - Immunizations Immunizations up to date: Yes Hx Diphtheria, Pertussis, Tetanus Vaccination: Yes - 2006 Physical Exam - Vital signs Vitals: Temp Pulse Resp BP Pulse Ox 98.7 F 77 18 138/80 H 96 04/04/18 14:26 04/04/18 14:26 04/04/18 14:26 04/04/18 14:26 04/04/18 14:26 Course - Vital Signs Vital signs: Temp Pulse Resp BP Pulse Ox 98.7 F 77 18 138/80 H 96 04/04/18 14:26 04/04/18 14:26 04/04/18 14:26 04/04/18 14:26 04/04/18 14:26 Doctor's Discharge - Discharge Referrals: JENAE MARS MD [Primary Care Provider] - Follow up as needed
--- NOTE | 2018-04-04 16:11 | RADIOLOGY REPORT (SQ) ---
EXAM DESCRIPTION: CHEST SINGLE VIEW COMPLETED DATE/TIME: 04/04/2018 4:01 pm REASON FOR STUDY: sob COMPARISON: 08/10/2016 EXAM PARAMETERS: NUMBER OF VIEWS: One view. TECHNIQUE: Single frontal radiographic view of the chest acquired. RADIATION DOSE: NA LIMITATIONS: None. FINDINGS: LUNGS AND PLEURA: Pulmonary vascular congestion. Cannot exclude mild pulmonary edema. MEDIASTINUM AND HILAR STRUCTURES: No masses. Contour normal. HEART AND VASCULAR STRUCTURES: Cardiomegaly. Cannot exclude mild pulmonary edema. BONES: No acute findings. HARDWARE: Injection port on the right. Surgical clips in the left axilla. OTHER: No other significant finding. IMPRESSION: Cardiomegaly. Cannot exclude mild pulmonary edema. TECHNICAL DOCUMENTATION: JOB ID: [id number] [employer]- All Rights Reserved Reading location - IP/workstation name: [email or web address]
[2018-04-04 16:31] LABS: ABSOLUTE BASOPHILS # (AUTO) 0.1 10^3/uL (0.0-0.2); ABSOLUTE EOSINOPHILS # (AUTO) 0.6 10^3/uL (0.0-0.6); ABSOLUTE LYMPHOCYTES (AUTO) 1.6 10^3/uL (0.5-4.7); ABSOLUTE MONOCYTES (AUTO) 0.8 10^3/uL (0.1-1.4); ABSOLUTE NEUT (AUTO) 6.6 10^3/uL (1.7-8.2); BASOPHILS % (AUTO) 0.5 % (0-2); EOSINOPHILS % (AUTO) 6.1 % (0-6); HEMATOCRIT 35.1 % (36.0-47.0); HEMOGLOBIN 11.6 g/dL (12.0-15.5); LYMPHOCYTES % (AUTO) 16.7 % (13-45); MEAN CORPUSCULAR HEMOGLOBIN 33.8 pg (27.0-33.4); MEAN CORPUSCULAR VOLUME 103 fl (80-97); MONOCYTES % (AUTO) 8.2 % (3-13); PLATELET COUNT 278 10^3/uL (150-450); RED BLOOD COUNT 3.42 10^6/uL (3.72-5.28); RED CELL DISTRIBUTION WIDTH 14.8 % (11.5-14.0); SEGMENTED NEUTROPHILS % (AUTO) 68.5 % (42-78); TOTAL CELLS COUNTED % (AUTO) 100 %; WHITE BLOOD COUNT 9.6 10^3/uL (4.0-10.5)
[2018-04-04 16:50] LABS: ALANINE AMINOTRANSFERASE 31 U/L (9-52); ALBUMIN 4.3 g/dL (3.5-5.0); ALKALINE PHOSPHATASE 180 U/L (38-126); ANION GAP 14 (5-19); ASPARTATE AMINO TRANSFERASE 30 U/L (14-36); BILIRUBIN,DIRECT 0.3 mg/dL (0.0-0.4); BILIRUBIN,TOTAL 0.4 mg/dL (0.2-1.3); BLOOD UREA NITROGEN 27 mg/dL (7-20); CALCIUM 9.7 mg/dL (8.4-10.2); CARBON DIOXIDE 28 mmol/L (22-30); CHLORIDE 102 mmol/L (98-107); GLUCOSE 99 mg/dL (75-110); POTASSIUM 4.4 mmol/L (3.6-5.0); TOTAL PROTEIN 7.5 g/dL (6.3-8.2)
[2018-04-04 17:04] LABS: NT PRO BNP 3000 pg/mL (5-900)
[2018-04-04 17:06] LABS: TROPONIN I < 0.012 ng/mL
[2018-04-04] MEDS ORDERED: FUROSEMIDE INJ/PF 40 MG/4 ML SDV IV ONE (17:06)
[2018-04-04] MEDS ORDERED: FUROSEMIDE 40 MG TABLET PO ONE (17:19)
--- NOTE | 2018-04-04 17:20 | ER Document Report ---
ED General - General Chief Complaint: Shortness Of Breath Stated Complaint: DIFFICULTY BREATHING Time Seen by Provider: 04/04/18 14:15 Mode of Arrival: Ambulatory TRAVEL OUTSIDE OF THE [place] IN LAST 30 DAYS: No - HPI Patient complains to provider of: Dyspnea Notes: Patient coming in today for dyspnea. Ongoing for the last few weeks. Patient coming in with dyspnea on exertion and also lying flat. Patient does have history of CHF. Patient states compliance with her medication regimen. Denies any fevers chills nausea vomiting denies any cough. Patient denies anyRecent travel denies any chest pain at this time. Patient resting comfortably - Related Data Allergies/Adverse Reactions: aspirin [Aspirin] Allergy (Verified 04/04/18 14:13) azithromycin Allergy (Verified 04/04/18 14:13) codeine [Codeine] Allergy (Verified 04/04/18 14:13) erythromycin base [Erythromycin Base] Allergy (Verified 04/04/18 14:13) hydrocodone Allergy (Verified 04/04/18 14:13) levofloxacin [From Levaquin] Allergy (Verified 04/04/18 14:13) Penicillins Allergy (Verified 04/04/18 14:13) Sulfa (Sulfonamide Antibiotics) Allergy (Verified 04/04/18 14:13) Past Medical History - General Information source: Patient, Relative - Social History Smoking Status: Former Smoker Chew tobacco use (# tins/day): No Frequency of alcohol use: None Drug Abuse: None Family History: Reviewed & Not Pertinent Patient has suicidal ideation: No Patient has homicidal ideation: No - Past Medical History Cardiac Medical History: Reports: Hx Congestive Heart Failure, Hx Coronary Artery Disease, Hx Hypertension, Hx Heart Murmur Pulmonary Medical History: Reports: Hx Bronchitis Neurological Medical History: Denies: Hx Migraine, Hx Seizures Renal/ Medical History: Denies: Hx Peritoneal Dialysis Malignancy Medical History: Reports: Hx Breast Cancer - left Musculoskeltal Medical History: Reports Hx Arthritis, Reports Hx Musculoskeletal Trauma Psychiatric Medical History: Denies: Hx Depression Traumatic Medical History: Reports: Hx Fractures Past Surgical History: Reports: Hx Abdominal Surgery - umbilical hernia, Hx Appendectomy, Hx Breast Surgery - L breast mast 2004, Hx Hysterectomy, Hx Tonsillectomy, Hx Umbilical Hernia - Immunizations Immunizations up to date: Yes Hx Diphtheria, Pertussis, Tetanus Vaccination: Yes - 2006 Hx Pneumococcal Vaccination: 11/26/13 Review of Systems - Review of Systems Constitutional: No symptoms reported EENT: No symptoms reported Cardiovascular: No symptoms reported Respiratory: No symptoms reported Gastrointestinal: Abdominal pain Genitourinary: No symptoms reported Female Genitourinary: No symptoms reported Musculoskeletal: No symptoms reported Skin: No symptoms reported Hematologic/Lymphatic: No symptoms reported Neurological/Psychological: No symptoms reported -: Yes All other systems reviewed and negative Physical Exam - Vital signs Vitals: Temp Pulse Resp BP Pulse Ox 98.7 F 77 18 138/80 H 96 04/04/18 14:26 04/04/18 14:26 04/04/18 14:26 04/04/18 14:04/04/18 14:26 Interpretation: Normal - General General appearance: Appears well, Alert - HEENT Head: Normocephalic, Atraumatic Eyes: Normal Pupils: PERRL - Respiratory Respiratory status: No respiratory distress Chest status: Nontender Breath sounds: Normal Chest palpation: Normal - Cardiovascular Rhythm: Regular Heart sounds: Normal auscultation Murmur: No - Abdominal Inspection: Normal Distension: No distension Bowel sounds: Normal Tenderness: Nontender Organomegaly: No organomegaly - Back Back: Normal, Nontender - Extremities General upper extremity: Normal inspection, Nontender, Normal color, Normal ROM , Normal temperature General lower extremity: Normal inspection, Nontender, Normal color, Normal ROM , Normal temperature, Normal weight bearing. No: William's sign - Neurological Neuro grossly intact: Yes Cognition: Normal Orientation: AAOx4 [place] Coma Scale Eye Opening: Spontaneous [place] Coma Scale Verbal: Oriented [place] Coma Scale Motor: Obeys Commands [place] Coma Scale Total: 15 Speech: Normal Motor strength normal: LUE, RUE, LLE, RLE Sensory: Normal - Psychological Associated symptoms: Normal affect, Normal mood - Skin Skin Temperature: Warm Skin Moisture: Dry Skin Color: Normal Course - Re-evaluation Re-evalutation: 04/04/18 22:57 Patient coming with slight elevation in her BNP is and slight changes on chest x -ray showing for her CHF. Otherwise patient remained stable here no signs of hypoxia. And tachycardia and tachypnea. Do believe the patient be stable for discharge homeWith increasing her Lasix 40 mg twice daily for the next 48 hours. Family and patient agree with this plan. - Vital Signs Vital signs: Temp Pulse Resp BP Pulse Ox 98.7 F 77 21 H 126/73 H 97 04/04/18 14:26 04/04/18 14:26 04/04/18 17:47 04/04/18 17:47 04/04/18 17:47 - Laboratory Result Diagrams: 04/04/18 13:51 04/04/18 13:51 Laboratory results interpreted by me: 04/04/18 04/04/18 04/04/18 13:51 13:51 13:51 RBC 3.42 L Hgb 11.6 L Hct 35.1 L MCV 103 H MCH 33.8 H RDW 14.8 H Eosinophils % 6.1 H BUN 27 H Est GFR ( Amer) 58 L Est GFR (Non-Af Amer) 48 L Alkaline Phosphatase 180 H NT-Pro-B Natriuret Pep 3000 H Discharge - Discharge Clinical Impression: CHF (congestive heart failure) Qualifiers: Heart failure type: other Qualified Code(s): I50.9 - Heart failure, unspecified Dyspnea Qualifiers: Dyspnea type: unspecified Qualified Code(s): R06.00 - Dyspnea, unspecified Condition: Good Disposition: HOME, SELF-CARE Instructions: Congestive Heart Failure ([facility]), Lasix Additional Instructions: Your laboratory studies today EKG did not show any significant pathology. Your chest x-ray shows very mild fluid overload and you have a slight elevation in your congestive heart failure laboratory studies call your BMP. I do believe with vital signs being normal that we would just give you an extra dose of Lasix today an extra dose of Lasix tomorrow. Please make sure you watch her water intake and your sodium intake. Return to ER symptoms worsen follow-up with your primary care physician in the next 3-5 days. Referrals: JENAE MARS MD [Primary Care Provider] - Follow up as needed
[2018-04-04 17:57] VITALS: BP 126/73
--- NOTE | 2018-04-04 18:50 | EKG REPORT ---
SEVERITY:- ABNORMAL ECG - SINUS RHYTHM LEFT BUNDLE BRANCH BLOCK : Confirmed by: Robel Mena MD 04-Apr-2018 18:49:57
== END 2018-04-04 17:57 | disposition home or self-care (01) ==
LOC: ER 14:12
DX: I11.0 Hypertensive heart disease with heart failure (principal); I50.9 Heart failure, unspecified; Z79.899 Other long term (current) drug therapy; I25.10 Atherosclerotic heart disease of native coronary artery without angina pectoris; Z88.6 Allergy status to analgesic agent; Z88.1 Allergy status to other antibiotic agents; Z88.5 Allergy status to narcotic agent; Z88.0 Allergy status to penicillin; Z88.2 Allergy status to sulfonamides; Z87.891 Personal history of nicotine dependence; Z85.3 Personal history of malignant neoplasm of breast
CPT/HCPCS: 93005; 99285; 96374; 36415; 83735; 85025; 80053; 84484; 83880; 71045; 93010; J1940; A9270

== ENCOUNTER 2018-06-15 11:29 | Inpatient (IN) | payer MEDICARE ==
--- NOTE | 2018-06-15 11:38 | ER Document Report ---
ED Respiratory Problem - General Stated Complaint: RESPIRATORY DISTRESS Time Seen by Provider: 06/15/18 11:37 Notes: 72-year-old female to the emergency department with chief complaint of respiratory distress. Patient has some baseline dementia. DNR, DNI. History of COPD. History of congestive heart failure. EMS arrived and patient had oxygen saturations in the 70s. Placed on BiPAP. Solu-Medrol. Albuterol given. Patient sleepy and somnolent on arrival. Family members are present on arrival to the ER and confirm the patient is a DO NOT RESUSCITATE. DO NOT INTUBATE. Patient denies any complaints at this time. Sleepy. TRAVEL OUTSIDE OF THE [place] IN LAST 30 DAYS: No - HPI Patient complains to provider of: CHF, COPD, Cough, Short of breath - Related Data Allergies/Adverse Reactions: aspirin [Aspirin] Allergy (Verified 04/04/18 14:13) azithromycin Allergy (Verified 04/04/18 14:13) codeine [Codeine] Allergy (Verified 04/04/18 14:13) erythromycin base [Erythromycin Base] Allergy (Verified 04/04/18 14:13) hydrocodone Allergy (Verified 04/04/18 14:13) levofloxacin [From Levaquin] Allergy (Verified 04/04/18 14:13) Penicillins Allergy (Verified 04/04/18 14:13) Sulfa (Sulfonamide Antibiotics) Allergy (Verified 04/04/18 14:13) Past Medical History - General Information source: Relative, [facility] Records Cannot obtain history due to: Altered mental status - Social History Smoking Status: Former Smoker Cigarette use (# per day): No Frequency of alcohol use: None Drug Abuse: None Lives with: Family Family History: Reviewed & Not Pertinent - Past Medical History Cardiac Medical History: Reports: Hx Congestive Heart Failure, Hx Coronary Artery Disease, Hx Hypertension, Hx Heart Murmur Pulmonary Medical History: Reports: Hx Bronchitis Neurological Medical History: Denies: Hx Migraine, Hx Seizures Renal/ Medical History: Denies: Hx Peritoneal Dialysis Malignancy Medical History: Reports: Hx Breast Cancer - left Musculoskeletal Medical History: Reports Hx Arthritis, Reports Hx Musculoskeletal Trauma Psychiatric Medical History: Denies: Hx Depression Traumatic Medical History: Reports: Hx Fractures Past Surgical History: Reports: Hx Abdominal Surgery - umbilical hernia, Hx Appendectomy, Hx Breast Surgery - L breast mast 2004, Hx Hysterectomy, Hx Tonsillectomy, Hx Umbilical Hernia - Immunizations Immunizations up to date: Yes Hx Diphtheria, Pertussis, Tetanus Vaccination: Yes - 2006 Hx Pneumococcal Vaccination: 11/26/13 Review of Systems - Review of Systems -: Yes ROS unobtainable due to patient's medical condition - Altered mental status Physical Exam - Vital signs Vitals: Resp Pulse Ox 23 H 99 06/15/18 11:39 06/15/18 11:39 Interpretation: Normal, Tachycardic, Hypoxic, Tachypneic - General General appearance: Lethargic In distress: Moderate - HEENT Head: Normocephalic, Atraumatic Eyes: Normal Pupils: PERRL - Respiratory Respiratory status: Respiratory distress, Labored, Tachypnea Chest status: Nontender Breath sounds: Rales, Rhonchi Chest palpation: Normal - Cardiovascular Rhythm: Tachycardia Heart sounds: Normal auscultation Murmur: No - Abdominal Inspection: Normal Distension: No distension Bowel sounds: Normal Tenderness: Nontender Organomegaly: No organomegaly - Back Back: Normal, Nontender - Extremities General upper extremity: Normal inspection, Nontender, Normal color, Normal ROM , Normal temperature General lower extremity: Normal inspection, Nontender, Normal color, Normal ROM , Normal temperature, Normal weight bearing. No: Edema, William's sign - Neurological Neuro grossly intact: Yes Cognition: Confused Falcon Coma Scale Eye Opening: Spontaneous Falcon Coma Scale Motor: Obeys Commands Speech: Normal Motor strength normal: LUE, RUE, LLE, RLE Sensory: Normal - Skin Skin Temperature: Warm Skin Moisture: Dry Skin Color: Normal Course - Re-evaluation Re-evalutation: 06/15/18 12:24 Patient in severe respiratory distress on arrival. BiPAP started. Patient sounded extremely wet on exam. Rales bilaterally. History of CHF so gave 20 of Lasix IV. IV established. Patient with a wide complex tachycardia with left bundle branch block. Concerning. Amiodarone bolus ordered. Amiodarone drip started. Advised the family members of patient's critical status at this time. Patient does not want to be shocked or intubated or resuscitated. Patient could have pneumonia as well based on her history of COPD. Chest x-ray shows pulmonary edema and questionable infiltrates. Blood cultures and lactic acid obtained. Antibiotics started however antibiotics are going to be suboptimal based on all of the patient's allergies. Patient has allergy to penicillin, sulfa, macrolides as well as Levaquin. Will start on Rocephin right now. Tolerating BiPAP at this time. Heart rate coming down now after amiodarone bolus and BiPAP. Anticipate admission at this time. She is in guarded condition. 06/15/18 12:36 Laboratory 06/15/18 06/15/18 06/15/18 11:34 11:34 11:34 WBC 24.6 H RBC 3.52 L Hgb 11.9 L Hct 36.9 MCV 105 H MCH 33.8 H MCHC 32.3 RDW 14.8 H Plt Count 457 H Total Counted 100 Seg Neutrophils % Not Reportable Seg Neuts % (Manual) 90 H Lymphocytes % Not Reportable Lymphocytes % (Manual) 8 L Monocytes % Not Reportable Monocytes % (Manual) 2 L Eosinophils % Not Reportable Eosinophils % (Manual) 0 Basophils % Not Reportable Basophils % (Manual) 0 Absolute Neutrophils Not Reportable Abs Neuts (Manual) 22.1 H Absolute Lymphocytes Not Reportable Abs Lymphs (Manual) 2.0 Absolute Monocytes Not Reportable Abs Monocytes (Manual) 0.5 Absolute Eosinophils Not Reportable Absolute Eos (Manual) 0.0 Absolute Basophils Not Reportable Abs Basophils (Manual) 0.0 Clumped Platelets PRESENT Platelet Comment INCREASED Anisocytosis SLIGHT Macrocytosis 2+ Carbonic Acid HCO3/H2CO3 Ratio ABG pH ABG pCO2 ABG pO2 ABG HCO3 ABG Total CO2 ABG O2 Saturation ABG Base Excess FiO2 Sodium 144.1 Potassium 4.1 Chloride 104 Carbon Dioxide 24 Anion Gap 16 BUN 19 Creatinine 0.96 Est GFR ( Amer) > 60 Est GFR (Non-Af Amer) 57 L Glucose 171 H Lactic Acid Calcium 9.3 Total Bilirubin 0.5 Direct Bilirubin 0.3 Neonat Total Bilirubin Not Reportable Neonat Direct Bilirubin Not Reportable Neonat Indirect Bili Not Reportable AST 36 ALT 32 Alkaline Phosphatase 173 H Creatine Kinase 517 H CK-MB (CK-2) 16.60 H Troponin I 0.240 NT-Pro-B Natriuret Pep 44022 H Total Protein 7.7 Albumin 4.3 06/15/18 06/15/18 11:34 11:40 WBC RBC Hgb Hct MCV MCH MCHC RDW Plt Count Total Counted Seg Neutrophils % Seg Neuts % (Manual) Lymphocytes % Lymphocytes % (Manual) Monocytes % Monocytes % (Manual) Eosinophils % Eosinophils % (Manual) Basophils % Basophils % (Manual) Absolute Neutrophils Abs Neuts (Manual) Absolute Lymphocytes Abs Lymphs (Manual) Absolute Monocytes Abs Monocytes (Manual) Absolute Eosinophils Absolute Eos (Manual) Absolute Basophils Abs Basophils (Manual) Clumped Platelets Platelet Comment Anisocytosis Macrocytosis Carbonic Acid 1.70 H HCO3/H2CO3 Ratio 13:1 ABG pH 7.23 L ABG pCO2 56.5 H ABG pO2 99.7 ABG HCO3 23.3 ABG Total CO2 25.0 ABG O2 Saturation 96.3 ABG Base Excess -4.8 FiO2 40% Sodium Potassium Chloride Carbon Dioxide Anion Gap BUN Creatinine Est GFR ( Amer) Est GFR (Non-Af Amer) Glucose Lactic Acid 1.5 Calcium Total Bilirubin Direct Bilirubin Neonat Total Bilirubin Neonat Direct Bilirubin Neonat Indirect Bili AST ALT Alkaline Phosphatase Creatine Kinase CK-MB (CK-2) Troponin I NT-Pro-B Natriuret Pep Total Protein Albumin Chest X-Ray 06/15/18 11:38 IMPRESSION: Cardiomegaly with bilateral pulmonary interstitial infiltrates consistent with interstitial edema. - Vital Signs Vital signs: Temp Pulse Resp BP Pulse Ox 23 H 99 06/15/18 11:39 06/15/18 11:39 - Laboratory Result Diagrams: 06/15/18 11:34 06/15/18 11:34 Laboratory results interpreted by me: 06/15/18 06/15/18 06/15/18 11:34 11:34 11:34 WBC 24.6 H RBC 3.52 L Hgb 11.9 L MCV 105 H MCH 33.8 H RDW 14.8 H Plt Count 457 H Seg Neuts % (Manual) 90 H Lymphocytes % (Manual) 8 L Monocytes % (Manual) 2 L Abs Neuts (Manual) 22.1 H Carbonic Acid ABG pH ABG pCO2 Est GFR (Non-Af Amer) 57 L Glucose 171 H Alkaline Phosphatase 173 H Creatine Kinase 517 H CK-MB (CK-2) 16.60 H NT-Pro-B Natriuret Pep 52203 H 06/15/18 11:40 WBC RBC Hgb MCV MCH RDW Plt Count Seg Neuts % (Manual) Lymphocytes % (Manual) Monocytes % (Manual) Abs Neuts (Manual) Carbonic Acid 1.70 H ABG pH 7.23 L ABG pCO2 56.5 H Est GFR (Non-Af Amer) Glucose Alkaline Phosphatase Creatine Kinase CK-MB (CK-2) NT-Pro-B Natriuret Pep Critical Care Note - Critical Care Note Total time excluding time spent on procedures (mins): 45 Comments: Respiratory distress, altered mental status, acidosis Discharge - Discharge Clinical Impression: Acute respiratory failure Qualifiers: Respiratory failure complication: hypercapnia Qualified Code(s): J96.02 - Acute respiratory failure with hypercapnia Condition: Poor Disposition: ADMITTED INPATIENT Admitting Provider: Hospitalist - [facility] Admitted: IMCU Referrals: JENAE MARS MD [Primary Care Provider] - Follow up as needed
[2018-06-15] MEDS ORDERED: FUROSEMIDE INJ/PF 20 MG/2 ML SDV IV ONE (11:39)
[2018-06-15] MEDS ORDERED: AMIODARONE HCL 150 MG in DEXTROSE 5%-WATER 100 ML IV ONE (11:42)
[2018-06-15] MEDS ORDERED: AMIODARONE HCL INJ 150 MG/3 ML VIAL IV ONE ×2 (11:53→12:34)
[2018-06-15 11:54] LABS: HEMATOCRIT 36.9 % (36.0-47.0); HEMOGLOBIN 11.9 g/dL (12.0-15.5); MEAN CORPUSCULAR HEMOGLOBIN 33.8 pg (27.0-33.4); MEAN CORPUSCULAR HGB CONC 32.3 g/dL (32.0-36.0); MEAN CORPUSCULAR VOLUME 105 fl (80-97); PLATELET COUNT 457 10^3/uL (150-450); RED BLOOD COUNT 3.52 10^6/uL (3.72-5.28); RED CELL DISTRIBUTION WIDTH 14.8 % (11.5-14.0); WHITE BLOOD COUNT 24.6 10^3/uL (4.0-10.5)
[2018-06-15 11:59] LABS: ARTERIAL BLOOD BASE EXCESS -4.8 mmol/L; ARTERIAL BLOOD HCO3 23.3 mmol/L (20-26); ARTERIAL BLOOD O2 SATURATION 96.3 % (94-98); ARTERIAL BLOOD PCO2 56.5 mmHg (35-45); ARTERIAL BLOOD PH 7.23 (7.35-7.45); ARTERIAL BLOOD PO2 99.7 mmHg (80-100)
[2018-06-15 12:00] LABS: ARTERIAL BLOOD FIO2 40%
[2018-06-15 12:14] LABS: ABSOLUTE MONOCYTES # (MANUAL) 0.5 10^3/uL (0.1-1.4); ABSOLUTE NEUTROPHILS# (MANUAL) 22.1 10^3/uL (1.7-8.2); BASOPHILS % (MANUAL) 0 % (0-2); EOSINOPHILS % (MANUAL) 0 % (0-6); LYMPHOCYTES % (MANUAL) 8 % (13-45); MONOCYTES % (MANUAL) 2 % (3-13); SEGMENTED NEUTROPHILS % (MAN) 90 % (42-78); TOTAL CELLS COUNTED 100
[2018-06-15 12:15] LABS: ANISOCYTOSIS SLIGHT; PLATELET CLUMPS PRESENT; PLATELET COMMENT INCREASED
[2018-06-15] MEDS ORDERED: CEFTRIAXONE 1 GM/D5W RTU 1 GM/50 ML RTUPB IV ONE (12:17)
[2018-06-15] MEDS ORDERED: DEXTROSE 5%-WATER 500 ML with AMIODARONE HCL 900 MG IV PRN ×2 (12:20)
--- NOTE | 2018-06-15 12:20 | RADIOLOGY REPORT (SQ) ---
EXAM DESCRIPTION: CHEST SINGLE VIEW COMPLETED DATE/TIME: 06/15/2018 12:03 pm REASON FOR STUDY: sob COMPARISON: 04/04/2018. EXAM PARAMETERS: NUMBER OF VIEWS: One view. TECHNIQUE: Single frontal radiographic view of the chest acquired. RADIATION DOSE: NA LIMITATIONS: None. FINDINGS: LUNGS AND PLEURA: Bilateral pulmonary interstitial infiltrates more prominent on the right . . MEDIASTINUM AND HILAR STRUCTURES: No masses. Contour normal. HEART AND VASCULAR STRUCTURES: Borderline cardiomegaly and aortic atherosclerosis. BONES: Dorsal spon dylosis. Old healed left rib fracture. HARDWARE: Port-A-Cath with tip overlying SVC. OTHER: Surgical clips left axilla. IMPRESSION: Cardiomegaly with bilateral pulmonary interstitial infiltrates consistent with interstit ial edema. TECHNICAL DOCUMENTATION: JOB ID: [id number] [id number] 2010 [employer]- All Rights Reserved Reading location - IP/workstation name: [email or web address]
[2018-06-15 12:21] LABS: ALANINE AMINOTRANSFERASE 32 U/L (9-52); ALBUMIN 4.3 g/dL (3.5-5.0); ALKALINE PHOSPHATASE 173 U/L (38-126); ANION GAP 16 (5-19); ASPARTATE AMINO TRANSFERASE 36 U/L (14-36); BILIRUBIN,DIRECT 0.3 mg/dL (0.0-0.4); BILIRUBIN,TOTAL 0.5 mg/dL (0.2-1.3); BLOOD UREA NITROGEN 19 mg/dL (7-20); CALCIUM 9.3 mg/dL (8.4-10.2); CARBON DIOXIDE 24 mmol/L (22-30); CHLORIDE 104 mmol/L (98-107); CREATINE KINASE 517 U/L (30-135); GLUCOSE 171 mg/dL (75-110); POTASSIUM 4.1 mmol/L (3.6-5.0); SODIUM 144.1 mmol/L (137-145); TOTAL PROTEIN 7.7 g/dL (6.3-8.2)
[2018-06-15 12:26] LABS: CREATINE KINASE MB 16.6 ng/mL (<4.55)
[2018-06-15 12:30] LABS: TROPONIN I 0.24 ng/mL
[2018-06-15] MEDS ORDERED: ASPIRIN 300 MG SUPP, RECTAL PR ONE (12:35)
[2018-06-15] MEDS ORDERED: CEFTRIAXONE INJ 1000 MG VIAL ONE (12:41)
[2018-06-15] MEDS ORDERED: NITROGLYCERIN 0.4 MG/TAB 25 TAB/BOTTLE SL PRN (13:11)
[2018-06-15] MEDS ORDERED: MAG HYDROX/AL HYDROX/SIMETH SUSP 30 ML UDCUP PO PRN (13:11)
[2018-06-15] MEDS ORDERED: ONDANSETRON 4 MG TAB.RAPDIS PO PRN (13:11)
--- NOTE | 2018-06-15 16:07 | PDOC H&P ---
History of Present Illness Admission Date/PCP: 06/15/18 12:49 JENAE MARS MD Patient complains of: Dyspnea History of Present Illness: ENE HOLGUIN is a 72 year old female with past medical history of grade 2/4 diastolic dysfunction, moderate aortic stenosis, COPD not on home oxygen and mild dementia; was found by her son this morning to be in acute respiratory distress. EMS was called. Patient was found to have an oxygen saturation 70% on room air and heart rate of 140s. She was placed on nonrebreather and transported to [place] emergency department. ABG on arrival shows the patient to be hypercapnic with a PCO2 of 56, PaO2 had improved to 99 on 40% FiO2. She was placed on BiPAP therapy. Chest x-ray shows pulmonary vasculature overload and cardiomegaly. She was given Lasix 20 mg IV 1. She was started on IV amiodarone for her wide-complex tachycardia. Blood pressure was noted to be 130 /90. Patient remains on BiPAP at the present time. She is initially lethargic but does awaken with verbal stimuli. She is able to answer questions appropriately. Her daughter is at the bedside, much of her history is obtained from her. Past Medical History Cardiac Medical History: Reports: Congestive Heart Failure, Coronary Artery Disease, Hypertension, Heart Murmur Pulmonary Medical History: Reports: Bronchitis Neurological Medical History: Denies: Migraine, Seizures Renal/ Medical History: Reports: None Malignancy Medical History: Reports: Breast Cancer - left GI Medical History: Reports: None Musculoskeltal Medical History: Reports: Arthritis Skin Medical History: Reports: None Psychiatric Medical History: Reports: Dementia Denies: Depression Traumatic Medical History: Reports: None Hematology: Reports: None Infectious Medical History: Reports: None Past Surgical History Past Surgical History: Reports: Appendectomy, Hysterectomy, Tonsillectomy Social History Information Source: Relative, Emergency Med Personnel, [facility] Records Lives with: Family Smoking Status: Former Smoker Frequency of Alcohol Use: None Hx Recreational Drug Use: No Hx Prescription Drug Abuse: No - Advance Directive Resuscitation Status: Do Not Resuscitate Surrogate healthcare decision maker:: DaughterDena Family History Family History: Hypertension Parental Family History Reviewed: Yes Children Family History Reviewed: Yes Sibling(s) Family History Reviewed.: Yes Medication/Allergy Home Medications: Allopurinol [Zyloprim 100 mg Tablet] 100 mg PO ACHS 07/03/17 Cholecalciferol (Vitamin D3) [Vitamin D3 400 Unit Tablet] 400 unit PO DAILY 08/11 Clopidogrel Bisulfate [Plavix 75 mg Tablet] 75 mg PO DAILY 07/03/17 Furosemide [Lasix 20 mg Tablet] 40 mg PO DAILY 07/03/17 Gabapentin [Neurontin 300 mg Capsule] 300 mg PO QHS 07/03/17 Metoprolol Succinate [Toprol Xl 25 mg Tab.sr] 25 mg PO QAM 07/03/17 Sertraline HCl [Zoloft 50 mg Tablet] 50 mg PO QPM 07/03/17 Simvastatin [Zocor 20 mg Tablet] 20 mg PO QHS 07/03/17 Fexofenadine/Pseudoephedrine [Mercedes-D 24 Hour Tablet] 1 each PO DAILY Folic Acid 1 mg PO DAILY 04/04/18 Simvastatin 20 mg PO QPM 04/04/18 Allergies/Adverse Reactions: aspirin [Aspirin] Allergy (Verified 04/04/18 14:13) azithromycin Allergy (Verified 04/04/18 14:13) codeine [Codeine] Allergy (Verified 04/04/18 14:13) erythromycin base [Erythromycin Base] Allergy (Verified 04/04/18 14:13) hydrocodone Allergy (Verified 04/04/18 14:13) levofloxacin [From Levaquin] Allergy (Verified 04/04/18 14:13) Penicillins Allergy (Verified 04/04/18 14:13) Sulfa (Sulfonamide Antibiotics) Allergy (Verified 04/04/18 14:13) Review of Systems ROS unobtainable: Due to mental status Physical Exam Vital Signs: Temp Pulse Resp BP Pulse Ox 98.1 F 26 H 100/45 L 98 06/15/18 11:35 06/15/18 13:01 06/15/18 13:01 06/15/18 13:01 General appearance: PRESENT: no acute distress, well-developed, well-nourished, other - lethargic on BIPAP Head exam: PRESENT: atraumatic, normocephalic Eye exam: PRESENT: conjunctiva pink, EOMI, PERRLA. ABSENT: scleral icterus Ear exam: PRESENT: normal external ear exam Mouth exam: PRESENT: moist, tongue midline Neck exam: ABSENT: carotid bruit, JVD, lymphadenopathy, thyromegaly Respiratory exam: PRESENT: crackles - bilaterally, symmetrical, unlabored Cardiovascular exam: PRESENT: RRR, +S1, +S2 - 2/6 systolic murmur, systolic murmur Pulses: PRESENT: normal carotid pulses, normal radial pulses Vascular exam: PRESENT: normal capillary refill GI/Abdominal exam: PRESENT: normal bowel sounds, soft. ABSENT: distended, guarding, mass, organolmegaly, rebound, tenderness Rectal exam: PRESENT: deferred Extremities exam: PRESENT: full ROM Musculoskeletal exam: PRESENT: full ROM, normal inspection Neurological exam: PRESENT: alert, awake, oriented to person, oriented to place , CN II-XII grossly intact. ABSENT: motor sensory deficit Psychiatric exam: PRESENT: other - lethargic Skin exam: PRESENT: dry, intact, warm. ABSENT: cyanosis, rash Results Impressions: Chest X-Ray 06/15/18 11:38 IMPRESSION: Cardiomegaly with bilateral pulmonary interstitial infiltrates consistent with interstitial edema. Assessment & Plan - Diagnosis (1) Acute and chronic respiratory failure with hypoxia Is this a current diagnosis for this admission?: Yes Plan: Patient was placed on BiPAP presently on 40% FiO2 15/10. She was diuresed and given 1 dose of IV Rocephin (2) Acute on chronic diastolic heart failure due to valvular disease Is this a current diagnosis for this admission?: Yes Plan: Patient is a NTBMP is elevated at 12,800. He has a history of grade 2/4 diastolic dysfunction secondary to moderate aortic stenosis. Her daughter states she had a complete cardiac workup done by her clocksmith Dr. Fuller 2 months ago, with a stress test and echocardiogram. States her mother has not had any upper respiratory type symptoms prior to today. (3) CAD (coronary artery disease) Qualifiers: Coronary Disease-Associated Artery/Lesion type: [place] artery [place] vs. transplanted heart: [place] heart Associated angina: without angina Qualified Code(s): I25.10 - Atherosclerotic heart disease of [place] coronary artery without angina pectoris Is this a current diagnosis for this admission?: Yes Plan: She has not had any chest pain recently. Daughter reports a negative stress test in 2 months ago (4) Leukocytosis Qualifiers: Leukocytosis type: unspecified Qualified Code(s): D72.829 - Elevated white blood cell count, unspecified Is this a current diagnosis for this admission?: Yes Plan: WBCs elevated at 24,000, daughter reports no upper respiratory symptoms prior to today. She reports no nausea, vomiting, diarrhea or dysuria. She was given 1 dose of IV ceftriaxone in the emergency department. Blood cultures 2 were obtained prior. (5) Elevated troponin Is this a current diagnosis for this admission?: Yes Plan: Likely type II from hypoxemia and tachycardia. EKG showed left bundle branch block she has had prior (6) HTN (hypertension) Qualifiers: Hypertension type: essential hypertension Qualified Code(s): I10 - Essential (primary) hypertension Is this a current diagnosis for this admission?: Yes (10) Atrial fib/flutter, transient Is this a current diagnosis for this admission?: Yes Plan: IV amiodarone she is now normal sinus rhythm with heart rate of 80 - Time Time Spent: 50 to 70 Minutes Critical Time spent with patient: 25-34 minutes Medications reviewed and adjusted accordingly: Yes - Inpatient Certification Based on my medical assessment, after consideration of the patient's comorbidities, presenting symptoms, or acuity I expect that the services needed warrant INPATIENT care.: Yes I certify that my determination is in accordance with my understanding of Medicare's requirements for reasonable and necessary INPATIENT services [42 CFR 412.3e].: Yes Medical Necessity: Significant Comorbidiites Make Outpatient Treatment Too Risky , Need For Continuous Telemetry Monitoring, Risk of Complication if Not Cared For in Hospital
[2018-06-15] MEDS ORDERED: (PENDING PHARMACY ID) (Simvastatin [Simvastatin] 20 MG) PO SCH (18:00)
--- NOTE | 2018-06-15 18:43 | PDOC CONSULTATION ---
Consultation Consult Date: 06/15/18 Attending physician:: ANTONI ALMARAZ Consult reason:: A FIB rvr History of Present Illness Admission Date/PCP: 06/15/18 12:49 JENAE MARS MD Patient complains of: Shortness of breath History of Present Illness: ENE HOLGUIN is a 72 year old female with past medical history of grade 2/4 diastolic dysfunction, moderate aortic stenosis, COPD not on home oxygen and mild dementia; was found by her son this morning to be in acute respiratory distress. EMS was called. Patient was found to have an oxygen saturation 70% on room air and heart rate of 140s. She was placed on nonrebreather and transported to [facility] emergency department. ABG on arrival shows the patient to be hypercapnic with a PCO2 of 56, PaO2 had improved to 99 on 40% FiO2. She was placed on BiPAP therapy. Chest x-ray shows pulmonary vasculature overload and cardiomegaly. She was given Lasix 20 mg IV 1. She was started on IV amiodarone for her wide-complex tachycardia. Blood pressure was noted to be 130 /90. Patient remains on BiPAP at the present time. She is initially lethargic but does awaken with verbal stimuli. She is able to answer questions appropriately. Her daughter is at the bedside, much of her history is obtained from her. Patient's daughter is the surrogate decision maker. On questioning, there is no prior history of myocardial infarction, atrial fibrillation, left bundle branch block pattern, prior strokes or mini strokes. Patient claims that she did have recent cardiac evaluation with a 2D echo and nuclear stress test but these were noted to be relatively unremarkable and nothing was mentioned being abnormal. Past Medical History Cardiac Medical History: Reports: Congestive Heart Failure, Coronary Artery Disease, Hypertension, Heart Murmur Pulmonary Medical History: Reports: Bronchitis Neurological Medical History: Denies: Migraine, Seizures Renal/ Medical History: Reports: None Malignancy Medical History: Reports: Breast Cancer - left GI Medical History: Reports: None Musculoskeltal Medical History: Reports: Arthritis Skin Medical History: Reports: None Psychiatric Medical History: Reports: Dementia Denies: Depression Traumatic Medical History: Reports: None Hematology: Reports: None Infectious Medical History: Reports: None Past Surgical History Past Surgical History: Reports: Appendectomy, Hysterectomy, Tonsillectomy Social History Information Source: Patient Lives with: Family Smoking Status: Former Smoker Frequency of Alcohol Use: None Hx Recreational Drug Use: No Hx Prescription Drug Abuse: No - Advance Directive Resuscitation Status: Do Not Resuscitate Surrogate healthcare decision maker:: Patient's daughter is the surrogate decision-maker Family History Family History: Hypertension Parental Family History Reviewed: Yes Children Family History Reviewed: Yes Sibling(s) Family History Reviewed.: Yes Medication/Allergy Home Medications: Allopurinol [Zyloprim 100 mg Tablet] 100 mg PO Q12 06/15/18 Cholecalciferol (Vitamin D3) [Vitamin D3 400 Unit Tablet] 400 unit PO DAILY Clopidogrel Bisulfate [Plavix 75 mg Tablet] 75 mg PO DAILY 06/15/18 Folic Acid [Folvite 1 mg Tablet] 1 mg PO DAILY 06/15/18 Furosemide [Lasix 40 mg Tablet] 40 mg PO DAILY 06/15/18 Gabapentin [Neurontin 300 mg Capsule] 300 mg PO QHS 06/15/18 Metoprolol Succinate [Toprol Xl 25 mg Tab.sr] 25 mg PO DAILY 06/15/18 Potassium Chloride [Klor-Con 10 Meq Capsule ER] 10 meq PO DAILY 06/15/18 Sertraline HCl [Zoloft 50 mg Tablet] 50 mg PO QPM 06/15/18 Simvastatin [Zocor 20 mg Tablet] 20 mg PO QHS 06/15/18 Allergies/Adverse Reactions: aspirin [Aspirin] Allergy (Verified 04/04/18 14:13) azithromycin Allergy (Verified 04/04/18 14:13) codeine [Codeine] Allergy (Verified 04/04/18 14:13) erythromycin base [Erythromycin Base] Allergy (Verified 04/04/18 14:13) hydrocodone Allergy (Verified 04/04/18 14:13) levofloxacin [From Levaquin] Allergy (Verified 04/04/18 14:13) Penicillins Allergy (Verified 04/04/18 14:13) Sulfa (Sulfonamide Antibiotics) Allergy (Verified 04/04/18 14:13) Review of Systems ROS unobtainable: Other - Patient in severe respiratory distress on BiPAP therapy. However currently not having any chest pains. Physical Exam Vital Signs: Temp Pulse Resp BP Pulse Ox 98.1 F 22 H 95/51 L 97 06/15/18 11:35 06/15/18 16:30 06/15/18 14:01 06/15/18 16:30 Pulse Oximeter Continuous Start: 06/15/18 13: 14 Freq: RTQ4 Status: Active Document 06/15/18 16:30 JDR (Rec: 06/15/18 17:07 JDR [id number]) Pulse Oximetry Assessment Equipment Usage Equipment Standby Continuous SpO2 Machine # 0 Additional RT Notes Other pt on er monitor Exam: GENERAL: well-nourished and in no acute distress. Alert and oriented x3 HEAD: Atraumatic, normocephalic. EYES: Pupils equal round and reactive to light, extraocular movements intact, sclera anicteric, conjunctiva are normal. ENT: TMs normal, nares patent, oropharynx clear without exudates. Moist mucous membranes. No oral ulcerations or bleeding gums noted NECK: supple without lymphadenopathy. Trachea is central. No cervical or axillary lymphadenopathy noted. Carotids are 2+, JVD 10 cm LUNGS: Respiration seems nonlabored, no significant accessory muscle action noted. Bibasilar fine crackles and few a scattered wheezes rales or rhonchi noted. No significant dullness noted on percussion. CHEST: Palpation of the chest wall shows no significant chest wall tenderness. HEART: [place] H[employer]OWER, No PSH, 1/6 JASON aortic area, 1/6 becker systolic murmur mitral area, no rubs, no gallops. ABDOMEN: Soft, no significant tenderness appreciated, normoactive bowel sounds. No guarding, no rebound. No rigidity noted . No masses appreciated. EXTREMITIES: Pedal pulses are 1-2+, no calf tenderness noted. No clubbing or cyanosis. 1-2+ pedal edema noted NEUROLOGICAL: Focused neurological exam showed no significant neurologic deficit. Normal speech, no focal weakness appreciated. PSYCH: Normal mood, normal affect. Judgment and insight within normal limits. SKIN: No significant ecchymosis, skin is noted to be warm. MUSCULOSKELETAL EXAM: No significant acute joint swelling noted. Results Laboratory Results: 06/15/18 17:25 Troponin I 0.292 EKG Comments: Twelve-lead EKG shows wide-complex tachycardia, possibly ventricular tachycardia versus atrial flutter with 2-1 conduction and underlying left bundle branch block. Impressions: Chest X-Ray 06/15/18 11:38 IMPRESSION: Cardiomegaly with bilateral pulmonary interstitial infiltrates consistent with interstitial edema. Assessment & Plan - Diagnosis (1) Non-STEMI (non-ST elevated myocardial infarction) Is this a current diagnosis for this admission?: Yes (2) Acute and chronic respiratory failure with hypoxia Is this a current diagnosis for this admission?: Yes (3) Acute on chronic diastolic heart failure due to valvular disease Is this a current diagnosis for this admission?: Yes (4) Elevated troponin Is this a current diagnosis for this admission?: Yes (5) Chronic diastolic (congestive) heart failure Is this a current diagnosis for this admission?: Yes (6) Nonsustained ventricular tachycardia Is this a current diagnosis for this admission?: Yes (7) CAD (coronary artery disease) Qualifiers: Coronary Disease-Associated Artery/Lesion type: [place] artery [place] vs. transplanted heart: [place] heart Associated angina: without angina Qualified Code(s): I25.10 - Atherosclerotic heart disease of [place] coronary artery without angina pectoris Is this a current diagnosis for this admission?: Yes (8) HTN (hypertension) Qualifiers: Hypertension type: essential hypertension Qualified Code(s): I10 - Essential (primary) hypertension Is this a current diagnosis for this admission?: Yes (9) Left bundle branch block Is this a current diagnosis for this admission?: Yes (10) Atrial flutter with rapid ventricular response Is this a current diagnosis for this admission?: Yes - Notes Notes: Non-STEMI: Most likely type II brought on by supply demand mismatch because of cardiac dysrhythmia. At this point will continue antiplatelet therapy, statins , beta-bill, add Ranexa. Recommend Lovenox therapy. Atrial flutter fibrillation with rapid ventricular response: Patient noted to have this and is suspected to have this. Patient responded to amiodarone IV bolus and drip protocol. Will recommend continuing amiodarone as she does not tolerate going into atrial flutter fibrillation possibly because of aortic stenosis. Acute on chronic respiratory failure with hypoxemia: Patient gives history of COPD. Current respiratory failure predominantly related to pulmonary edema from CHF. CHF precipitated by cardiac dysrhythmia. Recommend diuretic therapy , continue with intermittent positive pressure ventilation, oxygen supplementation etc. Acute on chronic diastolic heart failure: Treated with diuretics, Ranexa, rate controlled with beta-blockers, may use Cardizem. Aortic stenosis/valvular heart disease: Patient is noted to have moderate aortic stenosis. Possibly it could be worse. Will consider repeating a 2D echo. Coronary artery disease: Managed with risk factor modification and medical management. Patient declines to pursue heart catheterization. Hypertension: Blood pressure goal should be 140/90 but a more stricter goal of 135/85 can be entertained. Left bundle branch block: Presumably new onset possibly ischemia related possibly rate related. Will follow expectantly. As noted above patient does not want invasive evaluation. - Time Time Spent: 50 to 70 Minutes - CODE STATUS : was discussed, patient remains DO NOT RESUSCITATE. Surrogate decision-maker unchanged. Multiple medical problems were addressed. More than 50% of the time spent coordinating care, discussing management plans with involved caregivers. Management plans discussed with involved personnels. Medical decision making was of moderate to high complexity, patient's has multiple comorbidities. Medications reviewed and adjusted accordingly: Yes
[2018-06-15] MEDS: SIMVASTATIN 10 MG TABLET PO SCH (18:54)
[2018-06-15] MEDS: SERTRALINE HCL 50 MG TABLET PO SCH (18:54)
[2018-06-15] MEDS: GABAPENTIN 300 MG CAPSULE PO SCH (21:52)
[2018-06-15] MEDS: RANOLAZINE 500 MG TAB.SR.12H PO SCH (21:52)
[2018-06-15] MEDS: ALLOPURINOL 100 MG TABLET PO SCH (21:52)
[2018-06-15] MEDS: ENOXAPARIN SODIUM INJ 80 MG/0.8 ML DISP.SYRIN SUBCUT SCH (21:53)
[2018-06-15] MEDS: FUROSEMIDE INJ/PF 40 MG/4 ML SDV IV SCH (21:54)
--- NOTE | 2018-06-15 23:06 | EKG REPORT ---
SEVERITY:- ABNORMAL ECG - SINUS RHYTHM LEFT BUNDLE BRANCH BLOCK : Confirmed by: Kaitlyn Beckman 15-Jun-2018 23:06:04
--- NOTE | 2018-06-15 23:06 | EKG REPORT ---
SEVERITY:- ABNORMAL ECG - WIDE COMPLEX TACHYCARDIA LEFT BUNDLE BRANCH BLOCK : Confirmed by: Kaitlyn Beckman 15-Jun-2018 23:06:16
[2018-06-16 06:06] LABS: ABSOLUTE LYMPHOCYTES (AUTO) 0.8 10^3/uL (0.5-4.7); ABSOLUTE MONOCYTES (AUTO) 0.5 10^3/uL (0.1-1.4); ABSOLUTE NEUT (AUTO) 12.3 10^3/uL (1.7-8.2); HEMATOCRIT 26.9 % (36.0-47.0); LYMPHOCYTES % (AUTO) 5.8 % (13-45); MEAN CORPUSCULAR HEMOGLOBIN 33.9 pg (27.0-33.4); MEAN CORPUSCULAR HGB CONC 33.1 g/dL (32.0-36.0); MEAN CORPUSCULAR VOLUME 103 fl (80-97); MONOCYTES % (AUTO) 3.8 % (3-13); PLATELET COUNT 259 10^3/uL (150-450); RED BLOOD COUNT 2.62 10^6/uL (3.72-5.28); RED CELL DISTRIBUTION WIDTH 14.5 % (11.5-14.0); SEGMENTED NEUTROPHILS % (AUTO) 90.4 % (42-78); TOTAL CELLS COUNTED % (AUTO) 100 %; WHITE BLOOD COUNT 13.6 10^3/uL (4.0-10.5)
[2018-06-16 06:19] LABS: HEMOGLOBIN 8.9 g/dL (12.0-15.5)
[2018-06-16 06:25] LABS: ANION GAP 14 (5-19); BLOOD UREA NITROGEN 35 mg/dL (7-20); CALCIUM 8.9 mg/dL (8.4-10.2); CARBON DIOXIDE 23 mmol/L (22-30); CHLORIDE 102 mmol/L (98-107); GLUCOSE 134 mg/dL (75-110); POTASSIUM 4.6 mmol/L (3.6-5.0); SODIUM 138.8 mmol/L (137-145)
[2018-06-16] MEDS: ALLOPURINOL 100 MG TABLET PO SCH ×4 (09:15→21:33)
[2018-06-16] MEDS: DOCUSATE SODIUM 100 MG CAPSULE PO SCH (09:15)
[2018-06-16] MEDS: RANOLAZINE 500 MG TAB.SR.12H PO SCH ×2 (09:15→21:33)
[2018-06-16] MEDS: METOPROLOL SUCCINATE 25 MG TAB.SR.24H PO SCH (09:19)
[2018-06-16] MEDS: FUROSEMIDE INJ/PF 40 MG/4 ML SDV IV SCH ×2 (09:19→21:33)
[2018-06-16] MEDS: FOLIC ACID 1 MG TABLET PO SCH (09:23)
--- NOTE | 2018-06-16 09:28 | PDOC PROGRESS REPORT ---
Subjective Progress Note for:: 06/16/18 Subjective:: Patient is seen resting in bed. She is awake, alert and oriented 3. She is now on nasal cannula 2 L/min. Oxygen saturations have been good overnight. She has had no more shortness of breath or dyspnea at rest. She has been diuresing. She denies any chest pain or palpitations. She denies any nausea, vomiting, or abdominal pain. She denies diarrhea. She states she feels slightly weak but overall much better than yesterday. Remaining review of systems are negative. Reason For Visit: ACUTE ON CHRONIC RESPIRATORY FAILURE WITH HYPOXIA Physical Exam Vital Signs: Temp Pulse Resp BP Pulse Ox 98.2 F 75 19 95/62 L 100 06/16/18 07:13 06/16/18 07:13 06/16/18 07:13 06/16/18 07:13 06/16/18 07:13 Pulse Oximeter Continuous Start: 06/15/18 13: 14 Freq: RTQ4 Status: Active Document 06/16/18 04:00 LRO (Rec: 06/16/18 04:50 LRO [id number]) Pulse Oximetry Assessment Oxygen Saturation (92-100) 97 Oxygen Delivery Method Bi-pap Fraction of Inspired Oxygen (FIO2) 28 Equipment Usage Equipment Standby Continuous SpO2 Machine # 0 Intake & Output 06/15/18 06/16/18 06/17/18 06:59 06:59 06:59 Intake Total 208 Output Total 275 Balance -67 Weight 81.5 kg General appearance: PRESENT: no acute distress, obese, well-developed, well- nourished Head exam: PRESENT: atraumatic, normocephalic Eye exam: PRESENT: conjunctiva pale, PERRLA Ear exam: PRESENT: normal external ear exam Mouth exam: PRESENT: moist, tongue midline Neck exam: ABSENT: carotid bruit, JVD, lymphadenopathy, thyromegaly Respiratory exam: PRESENT: crackles - Bibasilar, symmetrical, unlabored Cardiovascular exam: PRESENT: +S1, +S2, systolic murmur - 3/6 at left sternal border Pulses: PRESENT: normal carotid pulses, normal radial pulses Vascular exam: PRESENT: normal capillary refill GI/Abdominal exam: PRESENT: normal bowel sounds, soft. ABSENT: distended, guarding, mass, organolmegaly, rebound, tenderness Rectal exam: PRESENT: deferred Extremities exam: PRESENT: full ROM, pedal edema, +1 edema Musculoskeletal exam: PRESENT: ambulatory, full ROM, normal inspection Neurological exam: PRESENT: alert, awake, oriented to person, oriented to place , oriented to time, oriented to situation, CN II-XII grossly intact. ABSENT: motor sensory deficit Psychiatric exam: PRESENT: appropriate affect, normal mood. ABSENT: homicidal ideation, suicidal ideation Skin exam: PRESENT: dry, intact, warm. ABSENT: cyanosis, rash Results Laboratory Results: 06/16/18 05:20 06/16/18 05:20 06/16/18 06/16/18 05:20 05:20 WBC 13.6 H RBC 2.62 L Hgb 8.9 L D Hct 26.9 L MCV 103 H MCH 33.9 H MCHC 33.1 RDW 14.5 H Plt Count 259 Seg Neutrophils % 90.4 H Lymphocytes % 5.8 L Monocytes % 3.8 Eosinophils % 0.0 Basophils % 0.0 Absolute Neutrophils 12.3 H Absolute Lymphocytes 0.8 Absolute Monocytes 0.5 Absolute Eosinophils 0.0 Absolute Basophils 0.0 Sodium 138.8 Potassium 4.6 Chloride 102 Carbon Dioxide 23 Anion Gap 14 BUN 35 H Creatinine 1.37 H Est GFR ( Amer) 46 L Est GFR (Non-Af Amer) 38 L Glucose 134 H Calcium 8.9 Magnesium 2.3 06/15/18 06/15/18 06/16/18 17:25 23:17 05:20 Troponin I 0.292 0.274 0.243 NT-Pro-B Natriuret Pep 06/16/18 05:20 Troponin I NT-Pro-B Natriuret Pep [id number] H Impressions: Chest X-Ray 06/15/18 11:38 IMPRESSION: Cardiomegaly with bilateral pulmonary interstitial infiltrates consistent with interstitial edema. Assessment & Plan - Diagnosis (1) Acute and chronic respiratory failure with hypoxia Is this a current diagnosis for this admission?: Yes Plan: Patient was placed on BiPAP presently on 40% FiO2 15/10. She was diuresed and given 1 dose of IV Rocephin (2) Acute on chronic diastolic heart failure due to valvular disease Is this a current diagnosis for this admission?: Yes Plan: Patient is a NTBMP is elevated at 12,800. He has a history of grade 2/4 diastolic dysfunction secondary to moderate aortic stenosis. Her daughter states she had a complete cardiac workup done by her aircraft engine dismantler Dr. Fuller 2 months ago, with a stress test and echocardiogram. States her mother has not had any upper respiratory type symptoms prior to today. (3) CAD (coronary artery disease) Qualifiers: Coronary Disease-Associated Artery/Lesion type: [place] artery [place] vs. transplanted heart: [place] heart Associated angina: without angina Qualified Code(s): I25.10 - Atherosclerotic heart disease of [place] coronary artery without angina pectoris Is this a current diagnosis for this admission?: Yes Plan: She has not had any chest pain recently. Daughter reports a negative stress test in 2 months ago (4) Leukocytosis Qualifiers: Leukocytosis type: unspecified Qualified Code(s): D72.829 - Elevated white blood cell count, unspecified Is this a current diagnosis for this admission?: Yes Plan: WBCs elevated at 24,000, daughter reports no upper respiratory symptoms prior to today. Today WBCs are 13.9k. She reports no nausea, vomiting, diarrhea or dysuria. She was given 1 dose of IV ceftriaxone in the emergency department. Blood cultures 2 were obtained prior and are pending. (5) Elevated troponin Is this a current diagnosis for this admission?: Yes Plan: Likely type II from hypoxemia and tachycardia. Cardiology is following EKG showed left bundle branch block she has had prior (6) HTN (hypertension) Qualifiers: Hypertension type: essential hypertension Qualified Code(s): I10 - Essential (primary) hypertension Is this a current diagnosis for this admission?: Yes Plan: She is presently normotensive (7) History of malignant neoplasm of left breast Is this a current diagnosis for this admission?: Yes (8) Hyperlipidemia Is this a current diagnosis for this admission?: Yes Plan: Continue statin (9) Left bundle branch block Is this a current diagnosis for this admission?: Yes Plan: Chronic (10) Atrial fib/flutter, transient Is this a current diagnosis for this admission?: Yes Plan: IV amiodarone. She quickly converted to NSR. She is on full dose lovenox for now - Time Time Spent with patient: 25-34 minutes Total Critical Time (Minutes): 20 Medications reviewed and adjusted accordingly: Yes Anticipated discharge: Home with Homehealth
[2018-06-16] MEDS ORDERED: CLOPIDOGREL BISULFATE 75 MG TABLET PO SCH (10:00)
[2018-06-16] MEDS ORDERED: ENOXAPARIN SODIUM INJ 40 MG/0.4 ML DISP.SYRIN SUBCUT SCH (10:00)
[2018-06-16] MEDS: ENOXAPARIN SODIUM INJ 80 MG/0.8 ML DISP.SYRIN SUBCUT SCH ×2 (10:58→21:33)
[2018-06-16] MEDS ORDERED: AMIODARONE HCL 200 MG TABLET PO ONE (14:00)
[2018-06-16] MEDS: SERTRALINE HCL 50 MG TABLET PO SCH (17:58)
[2018-06-16] MEDS: SIMVASTATIN 10 MG TABLET PO SCH (17:59)
--- NOTE | 2018-06-16 19:55 | PDOC PROGRESS REPORT ---
Subjective Progress Note for:: 06/16/18 Subjective:: Patient seems to be doing better with gradual improvement. Pt is denying any chest arm or neck discomfort. Patient denying any PND, orthopnea. Patient denied any sustained palpitations, dizziness, syncope, near syncope. Patient denying any fever chills. Patient denying any other significant discomfort. Patient is maintaining sinus rhythm, having converted from sinus rhythm. Review of systems: Rest review of systems negative. Medications: Medications have been reviewed. Reason For Visit: ACUTE ON CHRONIC RESPIRATORY FAILURE WITH HYPOXIA Physical Exam Vital Signs: Temp Pulse Resp BP Pulse Ox 98.8 F 85 18 93/68 L 99 06/16/18 19:09 06/16/18 19:09 06/16/18 19:09 06/16/18 19:09 06/16/18 19:09 Pulse Oximeter Continuous Start: 06/15/18 13: 14 Freq: RTQ4 Status: Complete Document 06/16/18 12:00 LDA (Rec: 06/16/18 12:43 LDA [id number]) Pulse Oximetry Assessment Equipment Usage Equipment Standby Continuous SpO2 Machine # 0 Intake & Output 06/15/18 06/16/18 06/17/18 06:59 06:59 06:59 Intake Total 208 620 Output Total 275 525 Balance -67 95 Weight 81.5 kg 81.5 kg Exam: GENERAL: well-nourished and in no acute distress. Alert and oriented x3 HEAD: Atraumatic, normocephalic. EYES: Pupils equal round and reactive to light, extraocular movements intact, sclera anicteric, conjunctiva are normal. ENT: TMs normal, nares patent, oropharynx clear without exudates. Moist mucous membranes. No oral ulcerations or bleeding gums noted NECK: supple without lymphadenopathy. Trachea is central. No cervical or axillary lymphadenopathy noted. Carotids are 2+, JVD WNL LUNGS: Respiration seems nonlabored, no significant accessory muscle action noted. Breath sounds clear to auscultation bilaterally and equal noted. No wheezes rales or rhonchi noted. No significant dullness noted on percussion. CHEST: Palpation of the chest wall shows no significant chest wall tenderness. 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 ABDOMEN: Soft, no significant tenderness appreciated, normoactive bowel sounds. No guarding, no rebound. No rigidity noted . No masses appreciated. EXTREMITIES: Pedal pulses are 1-2+, no calf tenderness noted. No clubbing or cyanosis. negative pedal edema noted NEUROLOGICAL: Focused neurological exam showed no significant neurologic deficit. Normal speech, no focal weakness appreciated. PSYCH: Normal mood, normal affect. Judgment and insight within normal limits. SKIN: No significant ecchymosis, skin is noted to be warm. MUSCULOSKELETAL EXAM: No significant acute joint swelling noted. Results Laboratory Results: 06/16/18 05:20 06/16/18 05:20 06/16/18 06/16/18 05:20 05:20 WBC 13.6 H RBC 2.62 L Hgb 8.9 L D Hct 26.9 L MCV 103 H MCH 33.9 H MCHC 33.1 RDW 14.5 H Plt Count 259 Seg Neutrophils % 90.4 H Lymphocytes % 5.8 L Monocytes % 3.8 Eosinophils % 0.0 Basophils % 0.0 Absolute Neutrophils 12.3 H Absolute Lymphocytes 0.8 Absolute Monocytes 0.5 Absolute Eosinophils 0.0 Absolute Basophils 0.0 Sodium 138.8 Potassium 4.6 Chloride 102 Carbon Dioxide 23 Anion Gap 14 BUN 35 H Creatinine 1.37 H Est GFR ( Amer) 46 L Est GFR (Non-Af Amer) 38 L Glucose 134 H Calcium 8.9 Magnesium 2.3 06/15/18 06/15/18 06/16/18 17:25 23:17 05:20 Troponin I 0.292 0.274 0.243 NT-Pro-B Natriuret Pep 06/16/18 05:20 Troponin I NT-Pro-B Natriuret Pep [id number] H Impressions: Chest X-Ray 06/15/18 11:38 IMPRESSION: Cardiomegaly with bilateral pulmonary interstitial infiltrates consistent with interstitial edema. Assessment & Plan - Diagnosis (1) Non-STEMI (non-ST elevated myocardial infarction) Is this a current diagnosis for this admission?: Yes (2) Acute and chronic respiratory failure with hypoxia Is this a current diagnosis for this admission?: Yes (3) Acute on chronic diastolic heart failure due to valvular disease Is this a current diagnosis for this admission?: Yes (4) Elevated troponin Is this a current diagnosis for this admission?: Yes (5) Chronic diastolic (congestive) heart failure Is this a current diagnosis for this admission?: Yes (6) Nonsustained ventricular tachycardia Is this a current diagnosis for this admission?: Yes (7) CAD (coronary artery disease) Qualifiers: Coronary Disease-Associated Artery/Lesion type: [place] artery [place] vs. transplanted heart: [place] heart Associated angina: without angina Qualified Code(s): I25.10 - Atherosclerotic heart disease of [place] coronary artery without angina pectoris Is this a current diagnosis for this admission?: Yes (8) HTN (hypertension) Qualifiers: Hypertension type: essential hypertension Qualified Code(s): I10 - Essential (primary) hypertension Is this a current diagnosis for this admission?: Yes (9) Left bundle branch block Is this a current diagnosis for this admission?: Yes (10) Atrial flutter with rapid ventricular response Is this a current diagnosis for this admission?: Yes - Notes Notes: Continue current management plan, patient noted to be improving on current therapeutic plan. Non-STEMI: Most likely type II brought on by supply demand mismatch because of cardiac dysrhythmia. At this point will continue antiplatelet therapy, statins , beta-bill, continue Ranexa. Recommend Lovenox therapy. May consider switch to Eliquis at a later date. Atrial flutter fibrillation with rapid ventricular response: Patient noted to have this and is suspected to have this. Patient responded to amiodarone IV bolus and drip protocol. Will recommend continuing amiodarone as she does not tolerate going into atrial flutter fibrillation possibly because of aortic stenosis. Acute on chronic respiratory failure with hypoxemia: Patient gives history of COPD. Current respiratory failure predominantly related to pulmonary edema from CHF. CHF precipitated by cardiac dysrhythmia. Recommend diuretic therapy , continue with intermittent positive pressure ventilation, oxygen supplementation etc. Acute on chronic diastolic heart failure: Treated with diuretics, Ranexa, rate controlled with beta-blockers, may use Cardizem if additional agents are needed. Aortic stenosis/valvular heart disease: Patient is noted to have moderate aortic stenosis. Possibly it could be worse. Will consider repeating a 2D echo. Coronary artery disease: Managed with risk factor modification and medical management. Patient declines to pursue heart catheterization. Hypertension: Blood pressure goal should be 140/90 but a more stricter goal of 135/85 can be entertained. Left bundle branch block: Presumably new onset possibly ischemia related possibly rate related. Will follow expectantly. As noted above patient does not want invasive evaluation. - Time Time with patient: Greater than 35 minutes - CODE STATUS : was discussed, patient remains DO NOT RESUSCITATE. Surrogate decision-maker unchanged. Multiple medical problems were addressed. More than 50% of the time spent coordinating care, discussing management plans with involved caregivers. Management plans discussed with involved personnels. Medical decision making was of moderate to high complexity, patient's has multiple comorbidities. Medications reviewed and adjusted accordingly: Yes
[2018-06-16] MEDS: AMIODARONE HCL 200 MG TABLET PO SCH (21:33)
[2018-06-16] MEDS: GABAPENTIN 300 MG CAPSULE PO SCH (21:33)
[2018-06-16] MEDS: ACETAMINOPHEN 325 MG TABLET PO PRN (21:39)
[2018-06-17 05:25] LABS: ABSOLUTE EOSINOPHILS # (AUTO) 0.1 10^3/uL (0.0-0.6); ABSOLUTE LYMPHOCYTES (AUTO) 1.7 10^3/uL (0.5-4.7); ABSOLUTE MONOCYTES (AUTO) 0.8 10^3/uL (0.1-1.4); ABSOLUTE NEUT (AUTO) 9.2 10^3/uL (1.7-8.2); BASOPHILS % (AUTO) 0.2 % (0-2); EOSINOPHILS % (AUTO) 0.9 % (0-6); HEMATOCRIT 27.7 % (36.0-47.0); HEMOGLOBIN 9.2 g/dL (12.0-15.5); LYMPHOCYTES % (AUTO) 14.2 % (13-45); MEAN CORPUSCULAR HEMOGLOBIN 34.1 pg (27.0-33.4); MEAN CORPUSCULAR HGB CONC 33.1 g/dL (32.0-36.0); MEAN CORPUSCULAR VOLUME 103 fl (80-97); MONOCYTES % (AUTO) 6.6 % (3-13); PLATELET COUNT 269 10^3/uL (150-450); RED BLOOD COUNT 2.69 10^6/uL (3.72-5.28); RED CELL DISTRIBUTION WIDTH 14.3 % (11.5-14.0); SEGMENTED NEUTROPHILS % (AUTO) 78.1 % (42-78); TOTAL CELLS COUNTED % (AUTO) 100 %; WHITE BLOOD COUNT 11.8 10^3/uL (4.0-10.5)
[2018-06-17 05:57] LABS: ANION GAP 12 (5-19); BLOOD UREA NITROGEN 51 mg/dL (7-20); CALCIUM 9.1 mg/dL (8.4-10.2); CARBON DIOXIDE 25 mmol/L (22-30); CHLORIDE 105 mmol/L (98-107); GLUCOSE 99 mg/dL (75-110); POTASSIUM 4.4 mmol/L (3.6-5.0); SODIUM 141.5 mmol/L (137-145)
[2018-06-17] MEDS: METOPROLOL SUCCINATE 25 MG TAB.SR.24H PO SCH (08:12)
[2018-06-17] MEDS: ALLOPURINOL 100 MG TABLET PO SCH ×4 (08:12→22:26)
[2018-06-17] MEDS: DOCUSATE SODIUM 100 MG CAPSULE PO SCH (10:07)
[2018-06-17] MEDS: FOLIC ACID 1 MG TABLET PO SCH (10:07)
[2018-06-17] MEDS: AMIODARONE HCL 200 MG TABLET PO SCH ×2 (10:07→22:26)
[2018-06-17] MEDS: ENOXAPARIN SODIUM INJ 80 MG/0.8 ML DISP.SYRIN SUBCUT SCH ×2 (10:07→22:26)
[2018-06-17] MEDS: RANOLAZINE 500 MG TAB.SR.12H PO SCH ×2 (10:07→22:26)
[2018-06-17] MEDS: FUROSEMIDE INJ/PF 40 MG/4 ML SDV IV SCH ×2 (10:07→22:26)
--- NOTE | 2018-06-17 15:41 | PDOC PROGRESS REPORT ---
Subjective Progress Note for:: 06/17/18 Subjective:: Admitted with difficulty breathing and shortness of breath. Currently on BiPAP. She appears to be quite comfortable Reason For Visit: ACUTE ON CHRONIC RESPIRATORY FAILURE WITH HYPOXIA Physical Exam Vital Signs: Temp Pulse Resp BP Pulse Ox 98.2 F 79 16 110/55 L 99 06/17/18 13:04 06/17/18 14:00 06/17/18 13:04 06/17/18 13:04 06/17/18 13:04 Pulse Oximeter Continuous Start: 06/15/18 13: 14 Freq: RTQ4 Status: Complete Document 06/16/18 12:00 LDA (Rec: 06/16/18 12:43 LDA [id number]) Pulse Oximetry Assessment Equipment Usage Equipment Standby Continuous SpO2 Machine # 0 Intake & Output 06/16/18 06/17/18 06/18/18 06:59 06:59 06:59 Intake Total 208 1164 540 Output Total 275 1325 1675 Balance -67 161 1133 Weight 81.5 kg 81.2 kg General appearance: PRESENT: no acute distress, well-developed, well-nourished Head exam: PRESENT: atraumatic, normocephalic Eye exam: PRESENT: conjunctiva pink, EOMI, PERRLA. ABSENT: scleral icterus Ear exam: PRESENT: normal external ear exam Mouth exam: PRESENT: moist, tongue midline Neck exam: ABSENT: carotid bruit, JVD, lymphadenopathy, thyromegaly Respiratory exam: PRESENT: clear to auscultation isael. ABSENT: rales, rhonchi, wheezes Cardiovascular exam: PRESENT: RRR. ABSENT: diastolic murmur, rubs, systolic murmur Pulses: PRESENT: normal dorsalis pedis pul Vascular exam: PRESENT: normal capillary refill GI/Abdominal exam: PRESENT: normal bowel sounds, soft. ABSENT: distended, guarding, mass, organolmegaly, rebound, tenderness Rectal exam: PRESENT: deferred Extremities exam: PRESENT: full ROM. ABSENT: calf tenderness, clubbing, pedal edema Neurological exam: PRESENT: alert, oriented to time. ABSENT: motor sensory deficit Psychiatric exam: ABSENT: homicidal ideation, suicidal ideation Skin exam: PRESENT: dry, intact, warm. ABSENT: cyanosis, rash Results Laboratory Results: 06/17/18 04:44 06/17/18 04:44 06/17/18 06/17/18 04:44 04:44 WBC 11.8 H RBC 2.69 L Hgb 9.2 L Hct 27.7 L MCV 103 H MCH 34.1 H MCHC 33.1 RDW 14.3 H Plt Count 269 Seg Neutrophils % 78.1 H Lymphocytes % 14.2 Monocytes % 6.6 Eosinophils % 0.9 Basophils % 0.2 Absolute Neutrophils 9.2 H Absolute Lymphocytes 1.7 Absolute Monocytes 0.8 Absolute Eosinophils 0.1 Absolute Basophils 0.0 Sodium 141.5 Potassium 4.4 Chloride 105 Carbon Dioxide 25 Anion Gap 12 BUN 51 H Creatinine 1.66 H Est GFR ( Amer) 37 L Est GFR (Non-Af Amer) 31 L Glucose 99 Calcium 9.1 Magnesium 2.4 H 06/15/18 06/15/18 06/16/18 17:25 23:17 05:20 Troponin I 0.292 0.274 0.243 NT-Pro-B Natriuret Pep 06/16/18 05:20 Troponin I NT-Pro-B Natriuret Pep 13456 H Impressions: Chest X-Ray 06/15/18 11:38 IMPRESSION: Cardiomegaly with bilateral pulmonary interstitial infiltrates consistent with interstitial edema. Assessment & Plan - Time Time Spent with patient: 15-24 minutes Medications reviewed and adjusted accordingly: Yes Anticipated discharge: SNF Within: within 48 hours - Plan Summary Plan Summary: 1. Acute on chronic respiratory failure currently being weaned off BiPAP. We will continue to taper as tolerated 2. Acute on chronic diastolic heart failure with a BNP of more than 12,000 3. Stable coronary artery disease 4. Leukocytosis 5. Elevated troponin secondary to hypoxemia and tachycardia. Patient has a chronic left bundle branch block #6 hypertension controlled 7. Atrial fibrillation flutter paroxysmal. She is currently in sinus rhythm
[2018-06-17] MEDS: SIMVASTATIN 10 MG TABLET PO SCH (17:07)
[2018-06-17] MEDS: SERTRALINE HCL 50 MG TABLET PO SCH (17:08)
[2018-06-17] MEDS: GABAPENTIN 300 MG CAPSULE PO SCH (22:26)
[2018-06-18] MEDS: ALLOPURINOL 100 MG TABLET PO SCH ×4 (07:59→22:56)
[2018-06-18] MEDS: METOPROLOL SUCCINATE 25 MG TAB.SR.24H PO SCH (07:59)
[2018-06-18] MEDS: AMIODARONE HCL 200 MG TABLET PO SCH ×2 (09:04→22:56)
[2018-06-18] MEDS: RANOLAZINE 500 MG TAB.SR.12H PO SCH ×2 (09:04→22:56)
[2018-06-18] MEDS: DOCUSATE SODIUM 100 MG CAPSULE PO SCH (09:05)
[2018-06-18] MEDS: ENOXAPARIN SODIUM INJ 80 MG/0.8 ML DISP.SYRIN SUBCUT SCH ×2 (09:05→22:57)
[2018-06-18] MEDS: FOLIC ACID 1 MG TABLET PO SCH (09:05)
[2018-06-18] MEDS: FUROSEMIDE INJ/PF 40 MG/4 ML SDV IV SCH ×2 (09:05→22:57)
[2018-06-18] MEDS: ACETAMINOPHEN 325 MG TABLET PO PRN ×2 (10:14→22:58)
--- NOTE | 2018-06-18 14:50 | PDOC PROGRESS REPORT ---
Subjective Progress Note for:: 06/18/18 Subjective:: patient is much better today in fact she is awake and alert and sitting up in bed and says she feels like a new person Reason For Visit: ACUTE ON CHRONIC RESPIRATORY FAILURE WITH HYPOXIA Physical Exam Vital Signs: Temp Pulse Resp BP Pulse Ox 98.0 F 75 16 127/47 H 97 06/18/18 07:59 06/18/18 14:00 06/18/18 07:59 06/18/18 07:59 06/18/18 07:59 Pulse Oximeter Continuous Start: 06/15/18 13: 14 Freq: RTQ4 Status: Complete Document 06/16/18 12:00 LDA (Rec: 06/16/18 12:43 LDA [id number]) Pulse Oximetry Assessment Equipment Usage Equipment Standby Continuous SpO2 Machine # 0 Intake & Output 06/17/18 06/18/18 06/19/18 06:59 06:59 06:59 Intake Total 1164 1788 Output Total 1325 2975 Balance -161 -1187 Weight 81.2 kg 80.1 kg General appearance: PRESENT: no acute distress, well-developed, well-nourished Head exam: PRESENT: atraumatic, normocephalic Eye exam: PRESENT: conjunctiva pink, EOMI, PERRLA. ABSENT: scleral icterus Ear exam: PRESENT: normal external ear exam Mouth exam: PRESENT: moist, tongue midline Neck exam: ABSENT: carotid bruit, JVD, lymphadenopathy, thyromegaly Respiratory exam: PRESENT: clear to auscultation isael. ABSENT: rales, rhonchi, wheezes Cardiovascular exam: PRESENT: RRR. ABSENT: diastolic murmur, rubs, systolic murmur Pulses: PRESENT: normal dorsalis pedis pul Vascular exam: PRESENT: normal capillary refill GI/Abdominal exam: PRESENT: normal bowel sounds, soft. ABSENT: distended, guarding, mass, organolmegaly, rebound, tenderness Rectal exam: PRESENT: deferred Extremities exam: PRESENT: full ROM. ABSENT: calf tenderness, clubbing, pedal edema Neurological exam: PRESENT: alert, awake, oriented to person, oriented to place , oriented to time, oriented to situation, CN II-XII grossly intact. ABSENT: motor sensory deficit Psychiatric exam: PRESENT: appropriate affect, normal mood. ABSENT: homicidal ideation, suicidal ideation Skin exam: PRESENT: dry, intact, warm. ABSENT: cyanosis, rash Results Laboratory Results: 06/17/18 04:44 06/17/18 04:44 06/15/18 06/15/18 06/16/18 17:25 23:17 05:20 Troponin I 0.292 0.274 0.243 NT-Pro-B Natriuret Pep 06/16/18 05:20 Troponin I NT-Pro-B Natriuret Pep 08855 H Impressions: Chest X-Ray 06/15/18 11:38 IMPRESSION: Cardiomegaly with bilateral pulmonary interstitial infiltrates consistent with interstitial edema. Assessment & Plan - Time Time Spent with patient: 15-24 minutes Medications reviewed and adjusted accordingly: Yes Anticipated discharge: Home Within: within 24 hours - Plan Summary Plan Summary: Acute non-STEMI likely type II secondary to respiratory status and cardiac dysrhythmia. 2. Atrial fibrillation and flutter treated with IV amiodarone 3. Acute on chronic respiratory failure with hypoxemia-tracheal status is improved and patient is currently off BiPAP with hopes to get off oxygen as tolerated 4. Acute on chronic diastolic heart failure as per cardiology 5. Aortic stenosis as noted on echo 6. Coronary artery disease-patient has apparently declined cardiac catheterization 7. Plan is for DC home in a.m. if stable
[2018-06-18] MEDS: SIMVASTATIN 10 MG TABLET PO SCH (17:30)
[2018-06-18] MEDS: SERTRALINE HCL 50 MG TABLET PO SCH (17:30)
--- NOTE | 2018-06-18 19:55 | PDOC PROGRESS REPORT ---
Subjective Progress Note for:: 06/18/18 Subjective:: Patient was seen on morning rounds. Patient seems to be doing better with gradual improvement. Patient however has not ambulated much. She was encouraged to ambulate. Pt is denying any chest arm or neck discomfort. Patient denying any PND, orthopnea. Patient denied any sustained palpitations, dizziness, syncope, near syncope. Patient denying any fever chills. Patient denying any other significant discomfort. Patient is maintaining sinus rhythm, having converted from sinus rhythm. Review of systems: Rest review of systems negative. Medications: Medications have been reviewed. Reason For Visit: ACUTE ON CHRONIC RESPIRATORY FAILURE WITH HYPOXIA Physical Exam Vital Signs: Temp Pulse Resp BP Pulse Ox 98.6 F 75 18 117/50 L 96 06/18/18 19:43 06/18/18 19:43 06/18/18 19:43 06/18/18 19:43 06/18/18 19:43 Pulse Oximeter Continuous Start: 06/15/18 13: 14 Freq: RTQ4 Status: Complete Document 06/16/18 12:00 [facility] (Rec: 06/16/18 12:43 [facility] [id number]) Pulse Oximetry Assessment Equipment Usage Equipment Standby Continuous SpO2 Machine # 0 Intake & Output 06/17/18 06/18/18 06/19/18 06:59 06:59 06:59 Intake Total 1164 1788 1039 Output Total 1325 2975 1050 Balance -161 -1187 -11 Weight 81.2 kg 80.1 kg Exam: GENERAL: well-nourished and in no acute distress. Alert and oriented x3 HEAD: Atraumatic, normocephalic. EYES: Pupils equal round and reactive to light, extraocular movements intact, sclera anicteric, conjunctiva are normal. ENT: TMs normal, nares patent, oropharynx clear without exudates. Moist mucous membranes. No oral ulcerations or bleeding gums noted NECK: supple without lymphadenopathy. Trachea is central. No cervical or axillary lymphadenopathy noted. Carotids are 2+, JVD WNL LUNGS: Respiration seems nonlabored, no significant accessory muscle action noted. Few bibasilar crackles are noted. No wheezes rales or rhonchi noted. No significant dullness noted on percussion. CHEST: Palpation of the chest wall shows no significant chest wall tenderness. 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 ABDOMEN: Soft, no significant tenderness appreciated, normoactive bowel sounds. No guarding, no rebound. No rigidity noted . No masses appreciated. EXTREMITIES: Pedal pulses are 1-2+, no calf tenderness noted. No clubbing or cyanosis. 1+ pedal edema noted NEUROLOGICAL: Focused neurological exam showed no significant neurologic deficit. Normal speech, no focal weakness appreciated. PSYCH: Normal mood, normal affect. Judgment and insight within normal limits. SKIN: No significant ecchymosis, skin is noted to be warm. MUSCULOSKELETAL EXAM: No significant acute joint swelling noted. Results Laboratory Results: 06/17/18 04:44 06/17/18 04:44 06/15/18 06/15/18 06/16/18 17:25 23:17 05:20 Troponin I 0.292 0.274 0.243 NT-Pro-B Natriuret Pep 06/16/18 05:20 Troponin I NT-Pro-B Natriuret Pep [id number] H EKG Comments: Telemetry shows patient maintaining sinus rhythm with occasional APCs and VPCs. Impressions: Chest X-Ray 06/15/18 11:38 IMPRESSION: Cardiomegaly with bilateral pulmonary interstitial infiltrates consistent with interstitial edema. Assessment & Plan - Diagnosis (1) Non-STEMI (non-ST elevated myocardial infarction) Is this a current diagnosis for this admission?: Yes (2) Acute and chronic respiratory failure with hypoxia Is this a current diagnosis for this admission?: Yes (3) Acute on chronic diastolic heart failure due to valvular disease Is this a current diagnosis for this admission?: Yes (4) Elevated troponin Is this a current diagnosis for this admission?: Yes (5) Chronic diastolic (congestive) heart failure Is this a current diagnosis for this admission?: Yes (6) Nonsustained ventricular tachycardia Is this a current diagnosis for this admission?: Yes (7) CAD (coronary artery disease) Qualifiers: Coronary Disease-Associated Artery/Lesion type: [place] artery [place] vs. transplanted heart: [place] heart Associated angina: without angina Qualified Code(s): I25.10 - Atherosclerotic heart disease of [place] coronary artery without angina pectoris Is this a current diagnosis for this admission?: Yes (8) HTN (hypertension) Qualifiers: Hypertension type: essential hypertension Qualified Code(s): I10 - Essential (primary) hypertension Is this a current diagnosis for this admission?: Yes (9) Left bundle branch block Is this a current diagnosis for this admission?: Yes (10) Atrial flutter with rapid ventricular response Is this a current diagnosis for this admission?: Yes - Notes Notes: Continue current management plans. Patient seems stable on current regimen. Non-STEMI: Most likely type II brought on by supply demand mismatch because of cardiac dysrhythmia. Continue with antiplatelet therapy, statins, beta-bill , add Ranexa. Continue Lovenox therapy. Chronic anticoagulation issue may be best to left with admissions representative and primary care web engineer. Atrial flutter fibrillation with rapid ventricular response: Patient noted to have this and is suspected to have this. Patient responded to amiodarone IV bolus and drip protocol. Will recommend continuing amiodarone as she does not tolerate going into atrial flutter fibrillation possibly because of aortic stenosis. Recommend amiodarone at 200 mg p.o. twice daily for at least a month if not longer. Duration to be decided on follow-up. Acute on chronic respiratory failure with hypoxemia: Patient gives history of COPD. Current respiratory failure predominantly related to pulmonary edema from CHF. CHF precipitated by cardiac dysrhythmia. Recommend diuretic therapy , continue with intermittent positive pressure ventilation as needed, oxygen supplementation etc. Acute on chronic diastolic heart failure: Treated with diuretics, Ranexa, rate controlled with beta-blockers. Today seems compensated on clinical exam. Aortic stenosis/valvular heart disease: Patient is noted to have moderate aortic stenosis. Possibly it could be worse. Will consider repeating a 2D echo. Coronary artery disease: Managed with risk factor modification and medical management. Patient declines to pursue heart catheterization. Hypertension: Blood pressure goal should be 140/90 but a more stricter goal of 135/85 can be entertained. Left bundle branch block: Presumably new onset possibly ischemia related possibly rate related. Will follow expectantly. As noted above patient does not want invasive evaluation. Patient has been encouraged to ambulate. - Time Time with patient: 15-25 minutes - CODE STATUS : was discussed, patient remains DO NOT RESUSCITATE. Surrogate decision-maker unchanged. Multiple medical problems were addressed. More than 50% of the time spent coordinating care, discussing management plans with involved caregivers. Management plans discussed with involved personnels. Medical decision making was of moderate to high complexity, patient's has multiple comorbidities. Medications reviewed and adjusted accordingly: Yes
[2018-06-18] MEDS: GABAPENTIN 300 MG CAPSULE PO SCH (22:56)
[2018-06-19] MEDS: ALLOPURINOL 100 MG TABLET PO SCH ×2 (07:49→10:29)
[2018-06-19] MEDS: METOPROLOL SUCCINATE 25 MG TAB.SR.24H PO SCH (07:49)
[2018-06-19] MEDS: RANOLAZINE 500 MG TAB.SR.12H PO SCH (10:29)
[2018-06-19] MEDS: FOLIC ACID 1 MG TABLET PO SCH (10:29)
[2018-06-19] MEDS: AMIODARONE HCL 200 MG TABLET PO SCH (10:29)
[2018-06-19] MEDS: DOCUSATE SODIUM 100 MG CAPSULE PO SCH (10:29)
[2018-06-19] MEDS: FUROSEMIDE INJ/PF 40 MG/4 ML SDV IV SCH (10:29)
[2018-06-19] MEDS: ENOXAPARIN SODIUM INJ 80 MG/0.8 ML DISP.SYRIN SUBCUT SCH (10:30)
--- NOTE | 2018-06-19 10:48 | PDOC DISCHARGE SUMMARY ---
General - Admit/Disc Date/PCP Admission Date/Primary Care Provider: 06/15/18 12:49 JENAE MARS MD Discharge Date: 06/19/18 - Discharge Diagnosis (1) Acute and chronic respiratory failure with hypoxia Is this a current diagnosis for this admission?: Yes (2) Acute on chronic diastolic heart failure Is this a current diagnosis for this admission?: Yes (3) Atrial fib/flutter, transient Is this a current diagnosis for this admission?: Yes (4) Non-STEMI (non-ST elevated myocardial infarction) Is this a current diagnosis for this admission?: Yes (5) Acute renal failure Is this a current diagnosis for this admission?: Yes (6) Nonsustained ventricular tachycardia Is this a current diagnosis for this admission?: Yes (7) CAD (coronary artery disease) Is this a current diagnosis for this admission?: Yes (8) Elevated troponin Is this a current diagnosis for this admission?: Yes (9) Leukocytosis Is this a current diagnosis for this admission?: Yes (10) Left bundle branch block Is this a current diagnosis for this admission?: Yes (11) Anemia Is this a current diagnosis for this admission?: Yes Summary: Chronic, stable - Additional Information Resuscitation Status: Do Not Resuscitate Discharge Diet: Cardiac Discharge Activity: Activity As Tolerated, Balance Activity w/Rest, Weigh Daily Prescriptions: Butalb/Acetaminophen/Caffeine [Fioricet (50-325-40 mg) Tablet] 1 tab PO Q6HP PRN #30 tab PRN Reason: For Headache Amiodarone HCl [Cordarone 200 mg Tablet] 200 mg PO Q12 #60 tablet Apixaban [Eliquis 5 mg Tablet] 5 mg PO BID #60 tablet Ranolazine [Ranexa 500 mg Tab.sr] 500 mg PO Q12 #60 tab.sr.12h Home Medications: Allopurinol [Zyloprim 100 mg Tablet] 100 mg PO Q12 06/15/18 Cholecalciferol (Vitamin D3) [Vitamin D3 400 Unit Tablet] 400 unit PO DAILY Clopidogrel Bisulfate [Plavix 75 mg Tablet] 75 mg PO DAILY 06/15/18 Folic Acid [Folvite 1 mg Tablet] 1 mg PO DAILY 06/15/18 Furosemide [Lasix 40 mg Tablet] 40 mg PO DAILY 06/15/18 Gabapentin [Neurontin 300 mg Capsule] 300 mg PO QHS 06/15/18 Metoprolol Succinate [Toprol Xl 25 mg Tab.sr] 25 mg PO DAILY 06/15/18 Potassium Chloride [Klor-Con 10 Meq Capsule ER] 10 meq PO DAILY 06/15/18 Sertraline HCl [Zoloft 50 mg Tablet] 50 mg PO QPM 06/15/18 Simvastatin [Zocor 20 mg Tablet] 20 mg PO QHS 06/15/18 Amiodarone HCl [Cordarone 200 mg Tablet] 200 mg PO Q12 #60 tablet 06/19/18 Apixaban [Eliquis 5 mg Tablet] 5 mg PO BID #60 tablet 06/19/18 Butalb/Acetaminophen/Caffeine [Fioricet (50-325-40 mg) Tablet] 1 tab PO Q6HP PRN #30 tab 06/19/18 Ranolazine [Ranexa 500 mg Tab.sr] 500 mg PO Q12 #60 tab.sr.12h 06/19/18 History of Present Illness History of Present Illness: ENE HOLGUIN is a 72 year old female with past medical history of grade 2/4 diastolic dysfunction, moderate aortic stenosis, COPD not on home oxygen and mild dementia; was found by her son this morning to be in acute respiratory distress. EMS was called. Patient was found to have an oxygen saturation 70% on room air and heart rate of 140s. She was placed on nonrebreather and transported to [place] emergency department. ABG on arrival shows the patient to be hypercapnic with a PCO2 of 56, PaO2 had improved to 99 on 40% FiO2. She was placed on BiPAP therapy. Chest x-ray shows pulmonary vasculature overload and cardiomegaly. She was given Lasix 20 mg IV 1. She was started on IV amiodarone for her wide-complex tachycardia. Blood pressure was noted to be 130/90. Patient remains on BiPAP at the present time. She is initially lethargic but does awaken with verbal stimuli. She is able to answer questions appropriately. Her daughter is at the bedside, much of her history is obtained from her. Hospital Course Hospital Course: Patient was admitted with difficulty breathing and shortness of breath found to be in acute respiratory distress. She was initially placed on BiPAP. She was treated for acutely decompensated CHF. She was seen by cardiology due to the CHF. Patient does have a history of moderate aortic stenosis. No echocardiogram was done during this admission as she apparently had a recent one. She was also found to have a non-STEMI which was thought to be due to the 5 demand mismatch because of a cardiac arrhythmia and respiratory failure. She was continued on chronic anti-anginal medications and Lovenox was added to her regimen while in hospital but she has been discharged on Eliquis as patient also had atrial flutter with fibrillation with a rapid ventricular response. She was treated with amiodarone IV bolus and drip protocol and she is being discharged on oral amiodarone to be reevaluated as of patient. Although patient has a known history of coronary artery disease it appears she has declined to pursue heart catheterization and so she is been medically managed. Patient had initial white count of 24.6 as well as thrombocytosis and she was started on intravenous antibiotics however since her leukocytosis was thought to be reactive antibiotics have been stopped and her white count has normalized. Physical Exam Vital Signs: Temp Pulse Resp BP Pulse Ox 98.3 F 67 17 111/48 L 95 06/19/18 07:17 06/19/18 07:17 06/19/18 07:17 06/19/18 07:17 06/19/18 07:17 Pulse Oximeter Continuous Start: 06/15/18 13: 14 Freq: RTQ4 Status: Complete Document 06/16/18 12:00 [facility] (Rec: 06/16/18 12:43 [facility] [id number]) Pulse Oximetry Assessment Equipment Usage Equipment Standby Continuous SpO2 Machine # 0 Intake & Output 06/18/18 06/19/18 06/20/18 06:59 06:59 06:59 Intake Total 1788 1601 Output Total 0849 5547 Balance -1187 349 Weight 80.1 kg 78.5 kg General appearance: PRESENT: no acute distress, well-developed, well-nourished Head exam: PRESENT: atraumatic, normocephalic Eye exam: PRESENT: conjunctiva pink, EOMI, PERRLA. ABSENT: scleral icterus Ear exam: PRESENT: normal external ear exam Mouth exam: PRESENT: moist, tongue midline Neck exam: ABSENT: carotid bruit, JVD, lymphadenopathy, thyromegaly Respiratory exam: PRESENT: clear to auscultation isael. ABSENT: rales, rhonchi, wheezes Cardiovascular exam: PRESENT: RRR, +S1, +S2, systolic murmur. ABSENT: diastolic murmur, rubs Pulses: PRESENT: normal dorsalis pedis pul Vascular exam: PRESENT: normal capillary refill GI/Abdominal exam: PRESENT: normal bowel sounds, soft. ABSENT: distended, guarding, mass, organolmegaly, rebound, tenderness Rectal exam: PRESENT: deferred Extremities exam: PRESENT: full ROM. ABSENT: calf tenderness, clubbing, pedal edema Neurological exam: PRESENT: alert, awake, oriented to person, oriented to place , oriented to time, oriented to situation, CN II-XII grossly intact. ABSENT: motor sensory deficit Psychiatric exam: PRESENT: appropriate affect, normal mood. ABSENT: homicidal ideation, suicidal ideation Skin exam: PRESENT: dry, intact, warm. ABSENT: cyanosis, rash Results Laboratory Results: 06/17/18 04:44 06/17/18 04:44 06/15/18 06/15/18 06/16/18 17:25 23:17 05:20 Troponin I 0.292 0.274 0.243 NT-Pro-B Natriuret Pep 06/16/18 05:20 Troponin I NT-Pro-B Natriuret Pep [id number] H Impressions: Chest X-Ray 06/15/18 11:38 IMPRESSION: Cardiomegaly with bilateral pulmonary interstitial infiltrates consistent with interstitial edema. Qualifiers - * PATIENT BEING DISCHARGED WITH ANY OF THE FOLLOWING DIAGNOSIS: OH OH Pt being discharged on Aspirin therapy?: Yes OH Pt being discharged on Statins?: Yes OH Pt discharged ACEI/ARBS?: Yes HF Pt with Afib discharged with Warfarin?: Yes HF Pt discharged on evidence-based Beta Sylvain:: Yes Plan Time Spent: Greater than 30 Minutes
[2018-06-19 11:09] VITALS: BP 128/78
--- NOTE | 2018-06-19 19:21 | PDOC PROGRESS REPORT ---
Subjective Progress Note for:: 06/17/18 Subjective:: Patient was seen on morning rounds but somehow progress report got missed. Patient seems to be doing better with gradual improvement. Pt is denying any chest arm or neck discomfort. Patient denying any PND, orthopnea. Patient denied any sustained palpitations, dizziness, syncope, near syncope. Patient denying any fever chills. Patient denying any other significant discomfort. Patient is maintaining sinus rhythm, having converted from sinus rhythm. Review of systems: Rest review of systems negative. Medications: Medications have been reviewed. Reason For Visit: ACUTE ON CHRONIC RESPIRATORY FAILURE WITH HYPOXIA Physical Exam Vital Signs: Temp Pulse Resp BP Pulse Ox 98.6 F 75 18 117/50 L 96 06/18/18 19:43 06/18/18 19:43 06/18/18 19:43 06/18/18 19:43 06/18/18 19:43 Pulse Oximeter Continuous Start: 06/15/18 13: 14 Freq: RTQ4 Status: Complete Document 06/16/18 12:00 LDA (Rec: 06/16/18 12:43 LDA [id number]) Pulse Oximetry Assessment Equipment Usage Equipment Standby Continuous SpO2 Machine # 0 Intake & Output 06/17/18 06/18/18 06/19/18 06:59 06:59 06:59 Intake Total 1164 1788 1039 Output Total 1325 2975 1050 Balance -161 -1187 -11 Weight 81.2 kg 80.1 kg Exam: GENERAL: well-nourished and in no acute distress. Alert and oriented x3 HEAD: Atraumatic, normocephalic. EYES: Pupils equal round and reactive to light, extraocular movements intact, sclera anicteric, conjunctiva are normal. ENT: TMs normal, nares patent, oropharynx clear without exudates. Moist mucous membranes. No oral ulcerations or bleeding gums noted NECK: supple without lymphadenopathy. Trachea is central. No cervical or axillary lymphadenopathy noted. Carotids are 2+, JVD WNL LUNGS: Respiration seems nonlabored, no significant accessory muscle action noted. Bibasilar fine crackles are noted. No wheezes rales or rhonchi noted. No significant dullness noted on percussion. CHEST: Palpation of the chest wall shows no significant chest wall tenderness. HEART: [place] [employer], No PSH, 2-3/6 JASON aortic area, 1/6 becker systolic murmur mitral area, no rubs, no gallops. ABDOMEN: Soft, no significant tenderness appreciated, normoactive bowel sounds. No guarding, no rebound. No rigidity noted . No masses appreciated. EXTREMITIES: Pedal pulses are 1-2+, no calf tenderness noted. No clubbing or cyanosis. 1+ pedal edema noted NEUROLOGICAL: Focused neurological exam showed no significant neurologic deficit. Normal speech, no focal weakness appreciated. PSYCH: Normal mood, normal affect. Judgment and insight within normal limits. SKIN: No significant ecchymosis, skin is noted to be warm. MUSCULOSKELETAL EXAM: No significant acute joint swelling noted. Results Laboratory Results: 06/17/18 04:44 06/17/18 04:44 06/15/18 06/15/18 06/16/18 17:25 23:17 05:20 Troponin I 0.292 0.274 0.243 NT-Pro-B Natriuret Pep 06/16/18 05:20 Troponin I NT-Pro-B Natriuret Pep 54471 H Impressions: Chest X-Ray 06/15/18 11:38 IMPRESSION: Cardiomegaly with bilateral pulmonary interstitial infiltrates consistent with interstitial edema. Assessment & Plan - Diagnosis (1) Non-STEMI (non-ST elevated myocardial infarction) Is this a current diagnosis for this admission?: Yes (2) Acute and chronic respiratory failure with hypoxia Is this a current diagnosis for this admission?: Yes (3) Acute on chronic diastolic heart failure due to valvular disease Is this a current diagnosis for this admission?: Yes (4) Elevated troponin Is this a current diagnosis for this admission?: Yes (5) Chronic diastolic (congestive) heart failure Is this a current diagnosis for this admission?: Yes (6) Nonsustained ventricular tachycardia Is this a current diagnosis for this admission?: Yes (7) CAD (coronary artery disease) Qualifiers: Coronary Disease-Associated Artery/Lesion type: [place] artery [place] vs. transplanted heart: [place] heart Associated angina: without angina Qualified Code(s): I25.10 - Atherosclerotic heart disease of [place] coronary artery without angina pectoris Is this a current diagnosis for this admission?: Yes (8) HTN (hypertension) Qualifiers: Hypertension type: essential hypertension Qualified Code(s): I10 - Essential (primary) hypertension Is this a current diagnosis for this admission?: Yes (9) Left bundle branch block Is this a current diagnosis for this admission?: Yes (10) Atrial flutter with rapid ventricular response Is this a current diagnosis for this admission?: Yes - Notes Notes: Remains very stable on current regimen. No medication changes recommended. Telemetry strips reviewed shows patient maintaining sinus rhythm. Non-STEMI: Most likely type II brought on by supply demand mismatch because of cardiac dysrhythmia. At this point will continue antiplatelet therapy, statins , beta-bill, add Ranexa. Continue Lovenox therapy. Atrial flutter fibrillation with rapid ventricular response: Patient noted to have this and is suspected to have this. Patient responded to amiodarone IV bolus and drip protocol. Will recommend continuing amiodarone as she does not tolerate going into atrial flutter fibrillation possibly because of aortic stenosis. Acute on chronic respiratory failure with hypoxemia: Patient gives history of COPD. Current respiratory failure predominantly related to pulmonary edema from CHF. CHF precipitated by cardiac dysrhythmia. Recommend diuretic therapy , continue with intermittent positive pressure ventilation as needed, oxygen supplementation etc. Acute on chronic diastolic heart failure: Treated with diuretics, Ranexa, rate controlled with beta-blockers. Aortic stenosis/valvular heart disease: Patient is noted to have moderate aortic stenosis. Possibly it could be worse. Will consider repeating a 2D echo. Coronary artery disease: Managed with risk factor modification and medical management. Patient declines to pursue heart catheterization. Hypertension: Blood pressure goal should be 140/90 but a more stricter goal of 135/85 can be entertained. Left bundle branch block: Presumably new onset possibly ischemia related possibly rate related. Will follow expectantly. As noted above patient does not want invasive evaluation. Patient has been encouraged to ambulate. - Time Time with patient: Greater than 35 minutes - CODE STATUS : was discussed, patient remains DO NOT RESUSCITATE. Surrogate decision-maker unchanged. Multiple medical problems were addressed. More than 50% of the time spent coordinating care, discussing management plans with involved caregivers. Management plans discussed with involved personnels. Medical decision making was of moderate to high complexity, patient's has multiple comorbidities. Medications reviewed and adjusted accordingly: Yes
--- NOTE | 2018-06-19 19:29 | PDOC PROGRESS REPORT ---
Subjective Progress Note for:: 06/19/18 Subjective:: Patient was seen on morning rounds. Patient is suspecting to be discharged today. Medical regimen reviewed with the patient and also hospitalist. Patient has made significant improvement. Patient claims she is ready to get discharged. This was confirmed with the hospitalist. She was encouraged to ambulate. Pt is denying any chest arm or neck discomfort. Patient denying any PND, orthopnea. Patient denied any sustained palpitations, dizziness, syncope, near syncope. Patient denying any fever chills. Patient denying any other significant discomfort. Patient is maintaining sinus rhythm, no other significant cardiac dysrhythmia noted. Review of systems: Rest review of systems negative. Medications: Medications have been reviewed. Reason For Visit: ACUTE ON CHRONIC RESPIRATORY FAILURE WITH HYPOXIA Physical Exam Vital Signs: Temp Pulse Resp BP Pulse Ox 98.3 F 67 17 128/78 H 95 06/19/18 11:08 06/19/18 11:08 06/19/18 11:08 06/19/18 11:08 06/19/18 11:08 Pulse Oximeter Continuous Start: 06/15/18 13: 14 Freq: RTQ4 Status: Complete Document 06/16/18 12:00 LDA (Rec: 06/16/18 12:43 LDA [id number]) Pulse Oximetry Assessment Equipment Usage Equipment Standby Continuous SpO2 Machine # 0 Intake & Output 06/18/18 06/19/18 06/20/18 06:59 06:59 06:59 Intake Total 1788 1601 Output Total 2975 9164 Balance -1187 -349 Weight 80.1 kg 78.5 kg Exam: GENERAL: well-nourished and in no acute distress. Alert and oriented x3 HEAD: Atraumatic, normocephalic. EYES: Pupils equal round and reactive to light, extraocular movements intact, sclera anicteric, conjunctiva are normal. ENT: TMs normal, nares patent, oropharynx clear without exudates. Moist mucous membranes. No oral ulcerations or bleeding gums noted NECK: supple without lymphadenopathy. Trachea is central. No cervical or axillary lymphadenopathy noted. Carotids are 2+, JVD WNL LUNGS: Respiration seems nonlabored, no significant accessory muscle action noted. Breath sounds clear to auscultation bilaterally and equal noted. No wheezes rales or rhonchi noted. No significant dullness noted on percussion. CHEST: Palpation of the chest wall shows no significant chest wall tenderness. HEART: [place] [employer], No PSH, 2-3/6 JASON aortic area, 1/6 becker systolic murmur mitral area, no rubs, no gallops. ABDOMEN: Soft, no significant tenderness appreciated, normoactive bowel sounds. No guarding, no rebound. No rigidity noted . No masses appreciated. EXTREMITIES: Pedal pulses are 1-2+, no calf tenderness noted. No clubbing or cyanosis. Trace to 1+ pedal edema noted NEUROLOGICAL: Focused neurological exam showed no significant neurologic deficit. Normal speech, no focal weakness appreciated. PSYCH: Normal mood, normal affect. Judgment and insight within normal limits. SKIN: No significant ecchymosis, skin is noted to be warm. MUSCULOSKELETAL EXAM: No significant acute joint swelling noted. Results Laboratory Results: 06/17/18 04:44 06/17/18 04:44 06/15/18 06/15/18 06/16/18 17:25 23:17 05:20 Troponin I 0.292 0.274 0.243 NT-Pro-B Natriuret Pep 06/16/18 05:20 Troponin I NT-Pro-B Natriuret Pep 76276 H EKG Comments: Telemetry shows sinus rhythm without any sustained tachycardia or bradycardia. Impressions: Chest X-Ray 06/15/18 11:38 IMPRESSION: Cardiomegaly with bilateral pulmonary interstitial infiltrates consistent with interstitial edema. Assessment & Plan - Diagnosis (1) Non-STEMI (non-ST elevated myocardial infarction) Is this a current diagnosis for this admission?: Yes (2) Acute and chronic respiratory failure with hypoxia Is this a current diagnosis for this admission?: Yes (3) Acute on chronic diastolic heart failure due to valvular disease Is this a current diagnosis for this admission?: Yes (4) Elevated troponin Is this a current diagnosis for this admission?: Yes (5) Chronic diastolic (congestive) heart failure Is this a current diagnosis for this admission?: Yes (6) Nonsustained ventricular tachycardia Is this a current diagnosis for this admission?: Yes (7) CAD (coronary artery disease) Qualifiers: Coronary Disease-Associated Artery/Lesion type: [place] artery [place] vs. transplanted heart: [place] heart Associated angina: without angina Qualified Code(s): I25.10 - Atherosclerotic heart disease of [place] coronary artery without angina pectoris Is this a current diagnosis for this admission?: Yes (8) HTN (hypertension) Qualifiers: Hypertension type: essential hypertension Qualified Code(s): I10 - Essential (primary) hypertension Is this a current diagnosis for this admission?: Yes (9) Left bundle branch block Is this a current diagnosis for this admission?: Yes (10) Atrial flutter with rapid ventricular response Is this a current diagnosis for this admission?: Yes - Notes Notes: Medical management plans and discharge medications reviewed with the patient and hospitalist. Non-STEMI: Most likely type II brought on by supply demand mismatch because of cardiac dysrhythmia. At this point will continue antiplatelet therapy, statins , beta-bill, continue with Ranexa. Patient switch to Eliquis at 5 mg p.o. twice daily. Atrial flutter fibrillation with rapid ventricular response: Patient noted to have this and is suspected to have this. Patient responded to amiodarone IV bolus and drip protocol. Will recommend continuing amiodarone as she does not tolerate going into atrial flutter fibrillation possibly because of aortic stenosis. Recommend continuing amiodarone at 200 mg p.o. twice daily for at least a month. Further adjustment can be made by primary care teacher associate. Have also recommended that patient goes on to Eliquis at 5 mg p.o. twice daily. Further adjustment can be made by the primary care teacher associate. Acute on chronic respiratory failure with hypoxemia: Patient gives history of COPD. Current respiratory failure predominantly related to pulmonary edema from CHF. CHF precipitated by cardiac dysrhythmia. Recommend maintenance p.o. Lasix at 40 mg p.o. daily. Acute on chronic diastolic heart failure: Treated with diuretics, Ranexa, rate controlled with beta-blockers. Today noted to be compensated at Lasix 40 mg p.o. daily. Aortic stenosis/valvular heart disease: Patient is noted to have moderate aortic stenosis. Possibly it could be worse. May consider repeating the 2D echo but will leave this decision to primary care teacher associate.. Coronary artery disease: Managed with risk factor modification and medical management. Patient declines to pursue heart catheterization. Hypertension: Blood pressure goal should be 140/90 but a more stricter goal of 135/85 can be entertained. Left bundle branch block: Presumably new onset possibly ischemia related possibly rate related. Will follow expectantly. As noted above patient does not want invasive evaluation. Patient to report any angina or angina equivalent symptoms. Patient was informed about this. Patient has been encouraged to ambulate. - Time Time with patient: Greater than 35 minutes - CODE STATUS was discussed, patient remains DNR. Surrogate decision-maker unchanged. Multiple medical problems were addressed. More than 50% of the time spent coordinating care, discussing management plans with involved caregivers. Management plans discussed with involved personnels. Medical decision making was of moderate to high complexity , patient's has multiple comorbidities. Medications reviewed and adjusted accordingly: Yes
--- NOTE | 2018-06-25 19:46 | PDOC H&P ---
History of Present Illness Admission Date/PCP: 06/15/18 12:49 JENAE MARS MD Patient complains of: SOB History of Present Illness: ENE HOLGUIN is a 72 year old female with a past medical history of grade 2/4 diastolic dysfunction, moderate aortic stenosis, COPD not on home oxygen and mild dementia who presented with increasing shortness of breath. Patient was recently admitted for CHF exacerbation and was discharged on June 20. She said that she has been compliant with salt and fluid restriction since she was discharged. She has also been compliant with her home medications. However since then the she has been having recurrence of increasing shortness of breath again. She also had mild increase in her pedal edema. She also had worsening orthopnea. She denies chest pain. She did mention she had minimal nonproductive cough. She denies any fever or chills. In the ER, patient was noted to be initially hypoxic at 88% on room air. This improved to 90 5% on 2 L of nasal cannula. Patient's x-ray was also noted to have pulmonary congestion. She was given 40 mg of Lasix and she diuresed well. She did get some relief from the shortness of breath after the diuresis. Past Medical History Cardiac Medical History: Reports: Congestive Heart Failure, Coronary Artery Disease, Hypertension, Heart Murmur Pulmonary Medical History: Reports: Bronchitis Neurological Medical History: Denies: Migraine, Seizures Renal/ Medical History: Reports: None Malignancy Medical History: Reports: Breast Cancer - left GI Medical History: Reports: None Musculoskeltal Medical History: Reports: Arthritis Skin Medical History: Reports: None Psychiatric Medical History: Reports: Dementia Denies: Depression Traumatic Medical History: Reports: None Hematology: Reports: None Infectious Medical History: Reports: None Past Surgical History Past Surgical History: Reports: Appendectomy, Hysterectomy, Tonsillectomy Social History Lives with: Family Smoking Status: Former Smoker Cigarettes Packs Per Day: 0.1 Number of Years Smokin Last Time Smoked: 1981 Frequency of Alcohol Use: None Hx Recreational Drug Use: No Hx Prescription Drug Abuse: No - Advance Directive Resuscitation Status: Do Not Resuscitate Family History Family History: Hypertension Parental Family History Reviewed: Yes Children Family History Reviewed: No Sibling(s) Family History Reviewed.: No Medication/Allergy Home Medications: Allopurinol [Zyloprim 100 mg Tablet] 100 mg PO BID 06/25/18 Amiodarone HCl [Cordarone 200 mg Tablet] 200 mg PO Q12 06/25/18 Apixaban [Eliquis] 5 mg PO Q12 06/25/18 Fluticasone Propionate [Flonase Nasal [place] 50 Mcg/[place] 16 gm] 1 spray NASL DAILY 06/25/18 Folic Acid [Folvite 1 mg Tablet] 1 mg PO DAILY 06/25/18 Furosemide [Lasix 40 mg Tablet] 40 mg PO DAILY 06/25/18 Gabapentin [Neurontin 300 mg Capsule] 300 mg PO QHS 06/25/18 Metoprolol Succinate [Toprol Xl 25 mg Tab.sr] 25 mg PO DAILY 06/25/18 Nitroglycerin [Nitro-Dur 2.5 mg (0.1 mg/Hr) Transdermal Ptch] 1 patch TOP DAILY 06/25/18 Potassium Chloride [Klor-Con M10] 10 meq PO DAILY 06/25/18 Ranolazine [Ranexa] 500 mg PO Q12 06/25/18 Sertraline HCl [Zoloft 50 mg Tablet] 50 mg PO QPM 06/25/18 Simvastatin [Zocor 20 mg Tablet] 20 mg PO QPM 06/25/18 Allergies/Adverse Reactions: aspirin [Aspirin] Allergy (Verified 04/04/18 14:13) azithromycin Allergy (Verified 04/04/18 14:13) codeine [Codeine] Allergy (Verified 04/04/18 14:13) erythromycin base [Erythromycin Base] Allergy (Verified 04/04/18 14:13) hydrocodone Allergy (Verified 04/04/18 14:13) levofloxacin [From Levaquin] Allergy (Verified 04/04/18 14:13) Penicillins Allergy (Verified 04/04/18 14:13) Sulfa (Sulfonamide Antibiotics) Allergy (Verified 04/04/18 14:13) Review of Systems Constitutional: ABSENT: chills, fever(s), headache(s), weight gain, weight loss Eyes: ABSENT: visual disturbances Cardiovascular: PRESENT: as per HPI Respiratory: PRESENT: as per HPI Gastrointestinal: ABSENT: abdominal pain, constipation, diarrhea, hematemesis, hematochezia, nausea, vomiting Genitourinary: ABSENT: dysuria, hematuria Musculoskeletal: PRESENT: as per HPI Integumentary: ABSENT: rash, wounds Neurological: ABSENT: abnormal gait, abnormal speech, confusion, dizziness, focal weakness, syncope Physical Exam Vital Signs: Temp Pulse Resp BP Pulse Ox 98.3 F 67 17 128/78 H 95 06/19/18 11:08 06/19/18 11:08 06/19/18 11:08 06/19/18 11:08 06/19/18 11:08 Pulse Oximeter Continuous Start: 06/15/18 13: 14 Freq: RTQ4 Status: Complete Document 06/16/18 12:00 LDA (Rec: 06/16/18 12:43 LDA [id number]) Pulse Oximetry Assessment Equipment Usage Equipment Standby Continuous SpO2 Machine # 0 General appearance: PRESENT: no acute distress, other - Patient does not appear to be in acute distress but appears slightly tachypneic. Head exam: PRESENT: atraumatic, normocephalic Neck exam: ABSENT: carotid bruit, JVD, lymphadenopathy, thyromegaly Respiratory exam: PRESENT: crackles, other - Crackles in mid to base lung mcdonald bilaterally. Cardiovascular exam: PRESENT: systolic murmur, tachycardia - Note of a grade 2/ 6 systolic murmur more prominent on the aortic area with radiation to the carotid area. Pulses: PRESENT: normal dorsalis pedis pul Vascular exam: PRESENT: normal capillary refill GI/Abdominal exam: PRESENT: normal bowel sounds, soft. ABSENT: distended, guarding, mass, organolmegaly, rebound, tenderness Rectal exam: PRESENT: deferred Extremities exam: PRESENT: pedal edema, +2 edema Neurological exam: PRESENT: alert, awake, oriented to person, oriented to place , oriented to time, oriented to situation, CN II-XII grossly intact. ABSENT: motor sensory deficit Skin exam: PRESENT: dry, intact, warm. ABSENT: cyanosis, rash Results Laboratory Results: 06/17/18 04:44 06/17/18 04:44 06/15/18 06/15/18 06/16/18 17:25 23:17 05:20 Troponin I 0.292 0.274 0.243 NT-Pro-B Natriuret Pep 06/16/18 05:20 Troponin I NT-Pro-B Natriuret Pep [id number] H Impressions: Chest X-Ray 06/15/18 11:38 IMPRESSION: Cardiomegaly with bilateral pulmonary interstitial infiltrates consistent with interstitial edema. Assessment & Plan - Diagnosis (1) Acute respiratory failure with hypoxia Is this a current diagnosis for this admission?: Yes Plan: Acute hypoxic respiratory failure secondary to acute exacerbation of CHF. Patient's saturation improved after placing her on 2 L of nasal cannula. We will continue to monitor respiratory status. (2) Acute on chronic diastolic heart failure Is this a current diagnosis for this admission?: Yes Plan: Patient has received 4 milligrams of IV Lasix. We will continue to diurese her with 40 mg of IV Lasix twice daily. Strict ROGELIO's. Patient was supposed to follow-up with Dr. Princess ocampo. Will consult Dr. Mooney for further recommendations. Patient's daughter reports that patient had a recent echo in April which showed an EF of 50%. Her echo on record in 2015 showed moderate aortic stenosis and grade 2 diastolic dysfunction. (3) Atrial fibrillation Qualifiers: Atrial fibrillation type: paroxysmal Qualified Code(s): I48.0 - Paroxysmal atrial fibrillation Is this a current diagnosis for this admission?: Yes Plan: Patient has a history of paroxysmal atrial fibrillation. Patient is currently not in A. fib at the moment. We will hold off on beta-blockers for now due to acute congestive heart failure. We will resume Eliquis. (4) Left bundle branch block Is this a current diagnosis for this admission?: Yes Plan: EKG shows left bundle branch block. This is not a new LBBB. Per Sgarbossa's criteria, patient scored 2 points and unlikely has ID. Troponin is within normal limits. Patient does not complain of chest pain.
== END 2018-06-19 12:15 | disposition home health service (06) | DRG 280 ==
LOC: ER 11:29 → EH 12:49 → 3W 19:16
PROVIDERS: ADMIT Internal Medicine; ATTEND Internal Medicine
PROC: 5A09557 Assistance with Respiratory Ventilation, Greater than 96 Consecutive Hours, Continuous Positive Airway Pressure (ICD-10-PCS; principal; 2018-06-15)
DX: I11.0 Hypertensive heart disease with heart failure (principal); J96.02 Acute respiratory failure with hypercapnia; I21.A1 Myocardial infarction type 2; N17.9 Acute kidney failure, unspecified; I50.43 Acute on chronic combined systolic (congestive) and diastolic (congestive) heart failure; F03.90 Unspecified dementia, unspecified severity, without behavioral disturbance, psychotic disturbance, mood disturbance, and anxiety; Z66 Do not resuscitate; J44.9 Chronic obstructive pulmonary disease, unspecified; I25.10 Atherosclerotic heart disease of native coronary artery without angina pectoris; I48.0 Paroxysmal atrial fibrillation; I44.7 Left bundle-branch block, unspecified; I35.0 Nonrheumatic aortic (valve) stenosis; M19.90 Unspecified osteoarthritis, unspecified site; Z88.6 Allergy status to analgesic agent; Z88.2 Allergy status to sulfonamides; Z88.0 Allergy status to penicillin; Z88.1 Allergy status to other antibiotic agents; Z87.891 Personal history of nicotine dependence; Z85.3 Personal history of malignant neoplasm of breast; Z90.49 Acquired absence of other specified parts of digestive tract; Z90.710 Acquired absence of both cervix and uterus; Z82.49 Family history of ischemic heart disease and other diseases of the circulatory system; Z79.02 Long term (current) use of antithrombotics/antiplatelets
CPT/HCPCS: 36415; 36600; 51702; 71045; 80048; 80053; 82550; 82553; 82803; 83605; 83735; 83880; 84484; 85025; 87040; 93005; 93010; 94660; 96374; 96375; 96376; 99291; J0282; J0696; J1650; J1940; J3490; J7060

== ENCOUNTER 2018-06-25 12:21 | Observation (INO) | payer MEDICARE ==
[2018-06-25 12:48] LABS: ABSOLUTE BASOPHILS # (AUTO) 0.1 10^3/uL (0.0-0.2); ABSOLUTE EOSINOPHILS # (AUTO) 0.1 10^3/uL (0.0-0.6); ABSOLUTE LYMPHOCYTES (AUTO) 1.1 10^3/uL (0.5-4.7); ABSOLUTE MONOCYTES (AUTO) 0.8 10^3/uL (0.1-1.4); ABSOLUTE NEUT (AUTO) 9.7 10^3/uL (1.7-8.2); BASOPHILS % (AUTO) 0.5 % (0-2); EOSINOPHILS % (AUTO) 0.8 % (0-6); HEMOGLOBIN 10.6 g/dL (12.0-15.5); LYMPHOCYTES % (AUTO) 9.2 % (13-45); MEAN CORPUSCULAR HGB CONC 33.1 g/dL (32.0-36.0); MEAN CORPUSCULAR VOLUME 103 fl (80-97); MONOCYTES % (AUTO) 7.1 % (3-13); PLATELET COUNT 281 10^3/uL (150-450); RED BLOOD COUNT 3.12 10^6/uL (3.72-5.28); RED CELL DISTRIBUTION WIDTH 14.5 % (11.5-14.0); SEGMENTED NEUTROPHILS % (AUTO) 82.4 % (42-78); TOTAL CELLS COUNTED % (AUTO) 100 %; WHITE BLOOD COUNT 11.7 10^3/uL (4.0-10.5)
--- NOTE | 2018-06-25 12:50 | ER Document Report ---
ED General - General Chief Complaint: Breathing Difficulty Stated Complaint: DEFICULTY BREATHING Time Seen by Provider: 06/25/18 12:39 TRAVEL OUTSIDE OF THE [place] IN LAST 30 DAYS: No - HPI Notes: 72-year-old female presents to the emergency department complaining of difficulty breathing. Patient has a history of CHF. Patient began having difficulty breathing last night. Describes cough orthopnea and difficulty will getting up and walking around. Patient has not noticed any leg swelling. No calf pain. Denies any fever chills has had a nonproductive cough. The patient was recently admitted and had to be on BiPAP for most of the day. She states she is only on 20 mg of Lasix however increasing the Lasix will cause her to go into kidney failure. - Related Data Allergies/Adverse Reactions: aspirin [Aspirin] Allergy (Verified 04/04/18 14:13) azithromycin Allergy (Verified 04/04/18 14:13) codeine [Codeine] Allergy (Verified 04/04/18 14:13) erythromycin base [Erythromycin Base] Allergy (Verified 04/04/18 14:13) hydrocodone Allergy (Verified 04/04/18 14:13) levofloxacin [From Levaquin] Allergy (Verified 04/04/18 14:13) Penicillins Allergy (Verified 04/04/18 14:13) Sulfa (Sulfonamide Antibiotics) Allergy (Verified 04/04/18 14:13) Past Medical History - Social History Smoking Status: Unknown if Ever Smoked Family History: Hypertension - Past Medical History Cardiac Medical History: Reports: Hx Congestive Heart Failure, Hx Coronary Artery Disease, Hx Hypertension, Hx Heart Murmur Pulmonary Medical History: Reports: Hx Bronchitis Neurological Medical History: Denies: Hx Migraine, Hx Seizures Renal/ Medical History: Denies: Hx Peritoneal Dialysis Malignancy Medical History: Reports: Hx Breast Cancer - left Musculoskeletal Medical History: Reports Hx Arthritis, Reports Hx Musculoskeletal Trauma Psychiatric Medical History: Reports: Hx Dementia Denies: Hx Depression Traumatic Medical History: Reports: Hx Fractures Past Surgical History: Reports: Hx Abdominal Surgery - umbilical hernia, Hx Appendectomy, Hx Breast Surgery - L breast mast 2004, Hx Hysterectomy, Hx Tonsillectomy, Hx Umbilical Hernia - Immunizations Immunizations up to date: Yes Hx Diphtheria, Pertussis, Tetanus Vaccination: Yes - 2006 Hx Pneumococcal Vaccination: 07/26/17 Review of Systems - Review of Systems Cardiovascular: denies: Chest pain Respiratory: Cough, Hemoptysis, Short of breath Gastrointestinal: denies: Nausea, Vomiting -: Yes All other systems reviewed and negative Physical Exam - Vital signs Vitals: Resp BP 20 131/94 H 06/25/18 12:28 06/25/18 12:28 - Notes Notes: GENERAL_APPEARANCE: well_nourished, alert, cooperative, peers to have noticeable difficulty breathing VITALS: reviewed, see vital signs table. HEAD: no_swelling\tenderness on the head. EYES: PERRL, EOMI, conjunctiva_clear. NOSE: no_nasal_discharge. MOUTH: (-)decreased moisture. THROAT:no_airway_obstruction. no_lymphadenopathy NECK: supple, no_neck_tenderness, (-)thyromegaly. BACK: no_back_tenderness. CHEST_WALL: no_chest_tenderness. LUNGS: no_wheezing, basilar_rales, no_rhonchi, (-)accessory muscle use, good air exchange bilateral. HEART: normal_rate, normal_rhythm, 5/6 systolic ejection murmur ABDOMEN: soft, no_abd_tenderness, (-)guarding, (-)rebound, no_organomegaly, no_ abd_masses. EXTREMITIES: good pulses in all_extremities, no_swelling\tenderness in the extremities, 1+_edema. SKIN: warm, dry, good_color, no_rash. MENTAL_STATUS: speech_clear, oriented_X_3, normal_affect, responds_ appropriately to questions. Course - Re-evaluation Re-evalutation: 06/25/18 12:49 72-year-old female presents with difficulty breathing. Patient has history of rheumatic heart disease as a child and set a murmur since age 9. The patient has a history of CHF and has been admitted for before. She comes in with difficulty breathing was 88% on room air but seems to have stabilized. Patient will have a workup for CHF. 06/25/18 15:51 The patient's BNP is elevated at 11,500. She does have an oxygen requirement I given the patient additional Lasix. I spoke with the daughter who works here as a healthcare provider. She is not comfortable taking her home this is more likely mild exacerbation which she has had in the past and will keep her overnight and continue to diurese her. - Vital Signs Vital signs: Temp Pulse Resp BP Pulse Ox 17 108/47 L 98 06/25/18 15:01 06/25/18 15:01 06/25/18 15:01 - Laboratory Result Diagrams: 06/25/18 12:29 06/25/18 12:29 Laboratory results interpreted by me: 06/25/18 06/25/18 06/25/18 12:29 12:29 12:29 WBC 11.7 H RBC 3.12 L Hgb 10.6 L Hct 32.0 L MCV 103 H MCH 34.0 H RDW 14.5 H Seg Neutrophils % 82.4 H Lymphocytes % 9.2 L Absolute Neutrophils 9.7 H BUN 21 H Est GFR ( Amer) 58 L Est GFR (Non-Af Amer) 48 L Glucose 122 H Alkaline Phosphatase 142 H NT-Pro-B Natriuret Pep 77788 H - Diagnostic Test Radiology reviewed: Image reviewed Radiology results interpreted by me: 06/25/18 15:53 Chest X-Ray 06/25/18 12:30 IMPRESSION: STABLE CARDIOMEGALY. INTERSTITIAL EDEMA HAS IMPROVED COMPARED TO THE PRIOR STUDY. - EKG Interpretation by Me EKG shows normal: Sinus rhythm Rate: Normal Rhythm: NSR Voltage: Consistant with LVH Discharge - Discharge Clinical Impression: Acute on chronic diastolic heart failure due to valvular disease Condition: Fair Disposition: ADMITTED OBSERVATION Unit Admitted: Telemetry Referrals: JENAE MARS MD [Primary Care Provider] - Follow up as needed
--- NOTE | 2018-06-25 13:06 | RADIOLOGY REPORT (SQ) ---
EXAM DESCRIPTION: CHEST SINGLE VIEW COMPLETED DATE/TIME: 06/25/2018 12:58 pm REASON FOR STUDY: sob COMPARISON: 06/15/2018. EXAM PARAMETERS: NUMBER OF VIEWS: One view. TECHNIQUE: Single frontal radiographic view of the chest acquired. RADIATION DOSE: NA LIMITATIONS: None. FINDINGS: LUNGS AND PLEURA: Interstitial prominence has improved since the prior study. No large pl eural effusion. MEDIASTINUM AND HILAR STRUCTURES: No masses. Contour normal. HEART AND VASCULAR STRUCTURES: Stable cardiomegaly. BONES: No acute findings. HARDWARE: Vascular access port. Surgical clips in the soft tissues on the left. OTHER: No other significant finding. IMPRESSION: STABLE CARDIOMEGALY. INTERSTITIAL EDEMA HAS IMPROVED COMPARED TO THE PRIOR STUDY. TECHNICAL DOCUMENTATION: JOB ID: [id number] [employer]- All Rights Reserved Reading location - IP/workstation name: [facility]
[2018-06-25 13:10] LABS: ALANINE AMINOTRANSFERASE 25 U/L (9-52); ALBUMIN 3.9 g/dL (3.5-5.0); ALKALINE PHOSPHATASE 142 U/L (38-126); ANION GAP 10 (5-19); ASPARTATE AMINO TRANSFERASE 25 U/L (14-36); BILIRUBIN,DIRECT 0.3 mg/dL (0.0-0.4); BILIRUBIN,TOTAL 0.6 mg/dL (0.2-1.3); BLOOD UREA NITROGEN 21 mg/dL (7-20); CALCIUM 8.9 mg/dL (8.4-10.2); CARBON DIOXIDE 30 mmol/L (22-30); CHLORIDE 103 mmol/L (98-107); CREATINE KINASE 84 U/L (30-135); GLUCOSE 122 mg/dL (75-110); POTASSIUM 4.2 mmol/L (3.6-5.0); TOTAL PROTEIN 7.2 g/dL (6.3-8.2)
[2018-06-25 13:22] LABS: CREATINE KINASE MB 2.86 ng/mL (<4.55); TROPONIN I 0.029 ng/mL
[2018-06-25] MEDS ORDERED: FUROSEMIDE INJ/PF 40 MG/4 ML SDV IV ONE (15:24)
[2018-06-25 16:20] LABS: APPEARANCE,URINE CLEAR; BILIRUBIN,URINE NEGATIVE (NEGATIVE); COLOR,URINE YELLOW; GLUCOSE, URINE NEGATIVE (NEGATIVE); KETONES,URINE NEGATIVE (NEGATIVE); LEUKOCYTE ESTERASE,URINE NEGATIVE (NEGATIVE); NITRITE,URINE NEGATIVE (NEGATIVE); PROTEIN,URINE NEGATIVE (NEGATIVE); URINE SPECIFIC GRAVITY 1.013; UROBILINOGEN,URINE NEGATIVE mg/dL (<2.0)
[2018-06-25] MEDS ORDERED: APIXABAN 5 MG TABLET PO SCH (18:00)
--- NOTE | 2018-06-25 21:58 | EKG REPORT ---
SEVERITY:- ABNORMAL ECG - SINUS RHYTHM LEFT BUNDLE BRANCH BLOCK : Confirmed by: Kaitlyn Beckman 25-Jun-2018 21:58:04
--- NOTE | 2018-06-25 21:58 | EKG REPORT ---
SEVERITY:- ABNORMAL ECG - SINUS RHYTHM LEFT BUNDLE BRANCH BLOCK : Confirmed by: Kaitlyn Beckman 25-Jun-2018 21:57:53
[2018-06-25] MEDS: APIXABAN 5 MG TABLET PO SCH (22:36)
[2018-06-25] MEDS: FUROSEMIDE INJ/PF 40 MG/4 ML SDV IV SCH (22:37)
[2018-06-26] MEDS ORDERED: ACETAMINOPHEN 325 MG TABLET PO ONE (06:15)
[2018-06-26 07:13] LABS: ANION GAP 12 (5-19); BLOOD UREA NITROGEN 23 mg/dL (7-20); CALCIUM 8.6 mg/dL (8.4-10.2); CARBON DIOXIDE 28 mmol/L (22-30); CHLORIDE 102 mmol/L (98-107); GLUCOSE 101 mg/dL (75-110); POTASSIUM 4.1 mmol/L (3.6-5.0); SODIUM 141.9 mmol/L (137-145)
[2018-06-26] MEDS: APIXABAN 5 MG TABLET PO SCH ×2 (10:33→22:18)
[2018-06-26] MEDS: FUROSEMIDE INJ/PF 40 MG/4 ML SDV IV SCH ×2 (10:33→22:18)
[2018-06-26] MEDS: CLOPIDOGREL BISULFATE 75 MG TABLET PO SCH (10:35)
[2018-06-26] MEDS: ACETAMINOPHEN 325 MG TABLET PO PRN (15:51)
--- NOTE | 2018-06-26 17:13 | PDOC H&P ---
History of Present Illness Admission Date/PCP: 06/25/18 16:48 JENAE MARS MD Patient complains of: SOB History of Present Illness: ENE HOLGUIN is a 72 year old female with a past medical history of congestive heart failure, grade 2 diastolic dysfunction, moderate aortic stenosis, COPD, mild dementia, coronary artery disease and atrial fibrillation on Eliquis who presented with progressive shortness of breath. She was recently admitted for CHF exacerbation and was just discharged on June 19 to same episode. During the time, patient apparently developed atrial fibrillation and was treated for her A. fib and was sent home on Eliquis. Patient says that she was discharged home and then on Saturday she started developing progressive shortness of breath again. She also noticed increasing leg swelling and orthopnea. She denies palpitations or chest pain. No dizziness or headaches. She says she has been compliant with her salt restriction and fluid oral intake restriction. She denies noncompliance to her medications. Past Medical History Cardiac Medical History: Reports: Atrial Fibrillation, Congestive Heart Failure , Coronary Artery Disease, Myocardial Infarction, Hypertension, Heart Murmur Pulmonary Medical History: Reports: Bronchitis, Chronic Obstructive Pulmonary Disease (COPD), Pneumonia Neurological Medical History: Denies: Migraine, Seizures Malignancy Medical History: Reports: Breast Cancer - left GI Medical History: Reports: Gastroesophageal Reflux Disease Musculoskeltal Medical History: Reports: Arthritis Psychiatric Medical History: Reports: Dementia Denies: Depression Hematology: Reports: Anemia Past Surgical History Past Surgical History: Reports: Appendectomy, Hysterectomy, Tonsillectomy Social History Smoking Status: Never Smoker Frequency of Alcohol Use: None Hx Recreational Drug Use: No Drugs: None Hx Prescription Drug Abuse: No - Advance Directive Resuscitation Status: Do Not Resuscitate Family History Family History: Hypertension Parental Family History Reviewed: Yes Children Family History Reviewed: No Sibling(s) Family History Reviewed.: No Medication/Allergy Home Medications: Allopurinol [Zyloprim 100 mg Tablet] 100 mg PO BID 06/25/18 Amiodarone HCl [Cordarone 200 mg Tablet] 200 mg PO Q12 06/25/18 Apixaban [Eliquis] 5 mg PO Q12 06/25/18 Fluticasone Propionate [Flonase Nasal [place] 50 Mcg/[place] 16 gm] 1 spray NASL DAILY 06/25/18 Folic Acid [Folvite 1 mg Tablet] 1 mg PO DAILY 06/25/18 Furosemide [Lasix 40 mg Tablet] 40 mg PO DAILY 06/25/18 Gabapentin [Neurontin 300 mg Capsule] 300 mg PO QHS 06/25/18 Metoprolol Succinate [Toprol Xl 25 mg Tab.sr] 25 mg PO DAILY 06/25/18 Nitroglycerin [Nitro-Dur 2.5 mg (0.1 mg/Hr) Transdermal Ptch] 1 patch TOP DAILY 06/25/18 Potassium Chloride [Klor-Con M10] 10 meq PO DAILY 06/25/18 Ranolazine [Ranexa] 500 mg PO Q12 06/25/18 Sertraline HCl [Zoloft 50 mg Tablet] 50 mg PO QPM 06/25/18 Simvastatin [Zocor 20 mg Tablet] 20 mg PO QPM 06/25/18 Allergies/Adverse Reactions: aspirin [Aspirin] Allergy (Verified 04/04/18 14:13) azithromycin Allergy (Verified 04/04/18 14:13) codeine [Codeine] Allergy (Verified 04/04/18 14:13) erythromycin base [Erythromycin Base] Allergy (Verified 04/04/18 14:13) hydrocodone Allergy (Verified 04/04/18 14:13) levofloxacin [From Levaquin] Allergy (Verified 04/04/18 14:13) Penicillins Allergy (Verified 04/04/18 14:13) Sulfa (Sulfonamide Antibiotics) Allergy (Verified 04/04/18 14:13) Review of Systems All systems: reviewed and no additional remarkable complaints except as stated - As mentioned in HPI Physical Exam Vital Signs: Temp Pulse Resp BP Pulse Ox 98.8 F 80 18 115/45 L 93 06/26/18 11:57 06/26/18 11:57 06/26/18 11:57 06/26/18 11:57 06/26/18 11:57 Pulse Oximeter Continuous Start: 06/25/18 17: 48 Freq: RTQ4 Status: Active Document 06/26/18 11:28 [facility] (Rec: 06/26/18 11:29 [facility] [id number]) Pulse Oximetry Assessment Oxygen Saturation (92-100) 93 Oxygen Delivery Method Room Air Equipment Usage Equipment in Use Continuous SpO2 Machine # 3 Intake & Output 06/25/18 06/26/18 06/27/18 06:59 06:59 06:59 Intake Total 300 Output Total 4300 Balance -4000 Weight 171 lb 11.841 oz General appearance: PRESENT: mild distress Head exam: PRESENT: atraumatic, normocephalic Eye exam: PRESENT: conjunctiva pink, EOMI, PERRLA. ABSENT: scleral icterus Neck exam: ABSENT: carotid bruit, JVD, lymphadenopathy, thyromegaly Respiratory exam: PRESENT: crackles, other - Note of crackles on bilateral lung mcdonald Cardiovascular exam: PRESENT: systolic murmur, tachycardia Pulses: PRESENT: normal dorsalis pedis pul GI/Abdominal exam: PRESENT: normal bowel sounds, soft. ABSENT: distended, guarding, mass, organolmegaly, rebound, tenderness Rectal exam: PRESENT: deferred Extremities exam: PRESENT: +2 edema Musculoskeletal exam: PRESENT: full ROM Neurological exam: PRESENT: alert, awake, oriented to person, oriented to place , oriented to time, oriented to situation, CN II-XII grossly intact. ABSENT: motor sensory deficit Skin exam: PRESENT: dry, intact, warm. ABSENT: cyanosis, rash Results Laboratory Results: 06/26/18 05:52 06/26/18 05:52 Sodium 141.9 Potassium 4.1 Chloride 102 Carbon Dioxide 28 Anion Gap 12 BUN 23 H Creatinine 1.18 Est GFR ( Amer) 55 L Est GFR (Non-Af Amer) 45 L Glucose 101 Calcium 8.6 06/25/18 20:15 Troponin I 0.030 Impressions: Chest X-Ray 06/25/18 12:30 IMPRESSION: STABLE CARDIOMEGALY. INTERSTITIAL EDEMA HAS IMPROVED COMPARED TO THE PRIOR STUDY. Assessment & Plan - Diagnosis (1) Acute respiratory failure with hypoxia Is this a current diagnosis for this admission?: Yes Plan: This is secondary to acute exacerbation of CHF. She was given IV Lasix in the ER and she diuresed well. This also gave her significant relief. We will continue diuresis with IV Lasix. Continue strict ROGELIO's. Continue salt and fluid restriction. (2) Acute on chronic diastolic heart failure due to valvular disease Is this a current diagnosis for this admission?: Yes Plan: Per patient's daughter, patient had a recent echo in April 2018 which showed an EF of 50%. BNP is elevated at 11,400. Ask daughter to provide us a copy of the echo report. Her last echo in record shows a preserved EF with moderate aortic stenosis and grade 2 diastolic dysfunction. Patient was supposed to follow-up soon with Dr. Sánchez but unfortunately developed CHF exacerbation symptoms. We will consult Dr. Sánchez for further recommendations. (3) Atrial fibrillation Qualifiers: Atrial fibrillation type: paroxysmal Qualified Code(s): I48.0 - Paroxysmal atrial fibrillation Plan: Patient is currently not in atrial fibrillation. We will resume Eliquis. Hold beta-blockers for neurology to acute exacerbation. - Time Time Spent: 50 to 70 Minutes Critical Time spent with patient: 25-34 minutes
--- NOTE | 2018-06-26 17:15 | PDOC PROGRESS REPORT ---
Subjective Progress Note for:: 06/26/18 Subjective:: Patient was admitted for acute exacerbation of seizure. No acute event overnight. Patient says that her breathing is much better and she is close to her baseline. She is saturating well on nasal cannula. She has been very single. She is tolerating that well. Denies any chest pain or palpitations. No fever chills. No cough. Reason For Visit: CHF EXACERBATION Physical Exam Vital Signs: Temp Pulse Resp BP Pulse Ox 98.8 F 80 18 115/45 L 93 06/26/18 11:57 06/26/18 11:57 06/26/18 11:57 06/26/18 11:57 06/26/18 11:57 Pulse Oximeter Continuous Start: 06/25/18 17: 48 Freq: RTQ4 Status: Active Document 06/26/18 11:28 [facility] (Rec: 06/26/18 11:29 [facility] [id number]) Pulse Oximetry Assessment Oxygen Saturation (92-100) 93 Oxygen Delivery Method Room Air Equipment Usage Equipment in Use Continuous SpO2 Machine # 3 Intake & Output 06/25/18 06/26/18 06/27/18 06:59 06:59 06:59 Intake Total 300 Output Total 4300 Balance -4000 Weight 171 lb 11.841 oz General appearance: PRESENT: no acute distress Head exam: PRESENT: atraumatic, normocephalic Eye exam: PRESENT: conjunctiva pink, EOMI, PERRLA. ABSENT: scleral icterus Neck exam: ABSENT: carotid bruit, JVD, lymphadenopathy, thyromegaly Respiratory exam: PRESENT: crackles - Occasional crackles in the bases Cardiovascular exam: PRESENT: systolic murmur Vascular exam: PRESENT: normal capillary refill GI/Abdominal exam: PRESENT: normal bowel sounds, soft. ABSENT: distended, guarding, mass, rebound, tenderness Rectal exam: PRESENT: deferred Extremities exam: PRESENT: full ROM, +1 edema. ABSENT: calf tenderness, clubbing, pedal edema Neurological exam: PRESENT: alert, awake, oriented to person, oriented to place , oriented to time, oriented to situation, CN II-XII grossly intact. ABSENT: motor sensory deficit Skin exam: PRESENT: abrasion Results Laboratory Results: 06/26/18 05:52 06/26/18 05:52 Sodium 141.9 Potassium 4.1 Chloride 102 Carbon Dioxide 28 Anion Gap 12 BUN 23 H Creatinine 1.18 Est GFR ( Amer) 55 L Est GFR (Non-Af Amer) 45 L Glucose 101 Calcium 8.6 06/25/18 20:15 Troponin I 0.030 Impressions: Chest X-Ray 06/25/18 12:30 IMPRESSION: STABLE CARDIOMEGALY. INTERSTITIAL EDEMA HAS IMPROVED COMPARED TO THE PRIOR STUDY. Assessment & Plan - Diagnosis (1) Acute respiratory failure with hypoxia Is this a current diagnosis for this admission?: Yes Plan: This is secondary to acute exacerbation of CHF. Respiratory status is continuing to improve. Patient is not requiring BiPAP and he saturating well on nasal cannula. (2) Acute on chronic diastolic heart failure due to valvular disease Is this a current diagnosis for this admission?: Yes Plan: Continue diuresis with 40 mg of IV Lasix. A follow-up on further cardiac recommendations. - Time Time Spent with patient: 15-24 minutes
[2018-06-27] MEDS: ACETAMINOPHEN 325 MG TABLET PO PRN (03:41)
[2018-06-27] MEDS: CLOPIDOGREL BISULFATE 75 MG TABLET PO SCH (10:33)
[2018-06-27] MEDS: FUROSEMIDE INJ/PF 40 MG/4 ML SDV IV SCH (10:33)
[2018-06-27] MEDS: APIXABAN 5 MG TABLET PO SCH (10:33)
--- NOTE | 2018-06-27 10:49 | RADIOLOGY REPORT (SQ) ---
EXAM DESCRIPTION: CT CHEST WITHOUT COMPLETED DATE/TIME: 06/27/2018 10:08 am REASON FOR STUDY: HI-RES : AMIODARONE TOXICITY COMPARISON: Chest x-ray 06/25/2018 TECHNIQUE: CT scan performed of the chest without intravenous contrast. Images reviewed with lung, soft tissue and bone windows. Reconstructed coronal and sagittal MPR images reviewed. All images st ored on PACS. All CT scanners at this facility use dose modulation, iterative reconstruction, and/or weight based d osing when appropriate to reduce radiation dose to as low as reasonably achievable (ALARA). [facility]: Dose Right [facility]: CareDose [facility]: Dose Right [facility]: Teradose 4D [facility]: Smart [employer] RADIATION DOSE: CT Rad equipment meets quality standard of care and radiation dose reduction techniq ues were employed. CTDIvol: 2.2 mGy. DLP: 129 mGy-cm. mGy. LIMITATIONS: No technical limitations. FINDINGS: LUNGS AND PLEURA: There is a 23 mm mass in the right upper lobe. Small scattered areas of ground-glass infiltrate are present in the upper lobes. Mild uncomplicated bronchiectasis is seen p redominantly in the lower lobes. HILAR AND MEDIASTINAL STRUCTURES: No identified masses or abnormal nodes. No obvious aneurysm. HEART AND VASCULAR STRUCTURES: No aneurysm. No pericardial effusion. UPPER ABDOMEN: No significant findings. Limited exam. THYROID AND OTHER SOFT TISSUES: No masses. No adenopathy. BONES: No significant finding. HARDWARE: Injection port on the right. OTHER: No other significant findings. IMPRESSION: 1. 23 mm right upper lobe pulmonary mass. Recommend PET-CT. 2. Small scattered areas of ground-glass infiltrate in the upper lobes suggestive of chronic interst itial changes versus limited interstitial edema. Atypical infectious/ inflammatory processes can cau se this appearance. 3. Uncomplicated bronchiectasis. TECHNICAL DOCUMENTATION: JOB ID: [id number] Quality ID # [id number]: Final reports with documentation of one or more dose reduction techniques (e.g., Au tomated exposure control, adjustment of the mA and/or kV according to patient size, use of iterative reconstruction technique) 2010 [email or web address] Rights Reserved Reading location - IP/workstation name: [email or web address]
[2018-06-27 13:40] VITALS: BP 117/48
--- NOTE | 2018-06-27 14:07 | PDOC DISCHARGE SUMMARY ---
General - Admit/Disc Date/PCP Admission Date/Primary Care Provider: 06/25/18 16:48 JENAE MARS MD Discharge Date: 06/27/18 - Discharge Diagnosis (1) Acute respiratory failure with hypoxia Is this a current diagnosis for this admission?: Yes (2) Acute on chronic diastolic heart failure due to valvular disease Is this a current diagnosis for this admission?: Yes - Additional Information Resuscitation Status: Do Not Resuscitate Discharge Diet: Cardiac Discharge Activity: Activity As Tolerated, Slowly Increase Activity, Weigh Daily Prescriptions: Lisinopril 5 mg PO DAILY 30 Days #30 tablet Home Medications: Allopurinol [Zyloprim 100 mg Tablet] 100 mg PO BID 06/25/18 Apixaban [Eliquis] 5 mg PO Q12 06/25/18 Fluticasone Propionate [Flonase Nasal [place] 50 Mcg/[place] 16 gm] 1 spray NASL DAILY 06/25/18 Folic Acid [Folvite 1 mg Tablet] 1 mg PO DAILY 06/25/18 Furosemide [Lasix 40 mg Tablet] 40 mg PO DAILY 06/25/18 Gabapentin [Neurontin 300 mg Capsule] 300 mg PO QHS 06/25/18 Metoprolol Succinate [Toprol Xl 25 mg Tab.sr] 25 mg PO DAILY 06/25/18 Nitroglycerin [Nitro-Dur 2.5 mg (0.1 mg/Hr) Transdermal Ptch] 1 patch TOP DAILY 06/25/18 Potassium Chloride [Klor-Con M10] 10 meq PO DAILY 06/25/18 Ranolazine [Ranexa] 500 mg PO Q12 06/25/18 Sertraline HCl [Zoloft 50 mg Tablet] 50 mg PO QPM 06/25/18 Simvastatin [Zocor 20 mg Tablet] 20 mg PO QPM 06/25/18 Clopidogrel Bisulfate [Plavix 75 mg Tablet] 75 mg PO DAILY tablet 06/27/18 Lisinopril 5 mg PO DAILY 30 Days #30 tablet 06/27/18 History of Present Illness History of Present Illness: ENE HUDSON is a 72 year old female with a past medical history of congestive heart failure, grade 2 diastolic dysfunction, moderate aortic stenosis, COPD, mild dementia, coronary artery disease and atrial fibrillation on Eliquis who presented with progressive shortness of breath. She was recently admitted for CHF exacerbation and was just discharged on June 19 to 4 same episode. During the time, patient apparently developed atrial fibrillation and was treated for her A. fib and was sent home on Eliquis. Patient says that she was discharged home and then on Saturday she started developing progressive shortness of breath again. She also noticed increasing leg swelling and orthopnea. She denies palpitations or chest pain. No dizziness or headaches. She says she has been compliant with her salt restriction and fluid oral intake restriction. She denies noncompliance to her medications. Hospital Course Hospital Course: Ms. Hudson is a 72-year-old female with a past medical history of atrial fibrillation and chronic systolic heart failure who presented with increasing shortness of breath in bilateral leg swelling. Patient was recently discharged on 06/19 and was recently treated for acute exacerbation of her CHF. Patient was noted to have significant vascular congestion on presentation. She was diuresed from the ED. She had good diuresis and clinically improved. Cardiology also evaluated the patient. CT of the chest was done on this hospital course and these revealed 23 mm mass in the right upper lung. Discussed results with liquefied petroleum gasfitter, Dr. Dumont who will see the patient next week for further workup of the newly found mass possibly planning for bronchoscopy and PET scan as outpatient. On day of discharge, patient is back to baseline. She will be sent back on her home CHF regimen. She is also sent home on KHALIF inhibitor. Physical Exam Vital Signs: Temp Pulse Resp BP Pulse Ox 98.4 F 80 20 117/48 L 98 06/27/18 13:29 06/27/18 13:29 06/27/18 13:29 06/27/18 13:29 06/27/18 13:29 Pulse Oximeter Continuous Start: 06/25/18 17: 48 Freq: RTQ4 Status: Active Document 06/27/18 10:51 [facility] [place] (Rec: 06/27/18 10:52 [facility] [place] [id number]) Pulse Oximetry Assessment Oxygen Saturation (92-100) 93 Oxygen Delivery Method Room Air Fraction of Inspired Oxygen (FIO2) 21 Equipment Usage Equipment Discontinued Continuous SpO2 Machine # N 3 Additional RT Notes Other pt discharging Intake & Output 06/26/18 06/27/18 06/28/18 06:59 06:59 06:59 Intake Total 300 1725 503 Output Total 4300 2400 1700 Balance -7669 -673 -5446 Weight 171 lb 11.841 oz 145 lb 4.554 oz General appearance: PRESENT: no acute distress Head exam: PRESENT: atraumatic, normocephalic Eye exam: PRESENT: conjunctiva pink, EOMI, PERRLA. ABSENT: scleral icterus Neck exam: ABSENT: carotid bruit, JVD, lymphadenopathy, thyromegaly Respiratory exam: PRESENT: clear to auscultation isael. ABSENT: rales, rhonchi, wheezes Cardiovascular exam: PRESENT: RRR Pulses: PRESENT: normal dorsalis pedis pul Vascular exam: PRESENT: normal capillary refill GI/Abdominal exam: PRESENT: normal bowel sounds, soft. ABSENT: distended, guarding, mass, organolmegaly, rebound, tenderness Rectal exam: PRESENT: deferred Extremities exam: PRESENT: other - Trace pedal edema Musculoskeletal exam: PRESENT: ambulatory Neurological exam: PRESENT: alert, awake, oriented to person, oriented to place , oriented to time, oriented to situation, CN II-XII grossly intact. ABSENT: motor sensory deficit Results Laboratory Results: 06/26/18 05:52 06/25/18 20:15 Troponin I 0.030 Impressions: Chest X-Ray 06/25/18 12:30 IMPRESSION: STABLE CARDIOMEGALY. INTERSTITIAL EDEMA HAS IMPROVED COMPARED TO THE PRIOR STUDY. Chest CT 06/27/18 06:00 IMPRESSION: 1. 23 mm right upper lobe pulmonary mass. Recommend PET-CT. 2. Small scattered areas of ground-glass infiltrate in the upper lobes suggestive of chronic interstitial changes versus limited interstitial edema. Atypical infectious/ inflammatory processes can cause this appearance. 3. Uncomplicated bronchiectasis. Qualifiers - * PATIENT BEING DISCHARGED WITH ANY OF THE FOLLOWING DIAGNOSIS: Heart Failure VTE patient discharged on overlapping Therapy?: No Stroke Pt being discharged on Anti-coagulation therapy?: Yes HF Pt being discharged on ACEI for LVEF less than 40%?: Yes HF Pt being discharged on ARBS for LVEF less than 40%?: Yes HF Pt with Afib discharged with Warfarin?: No Reason(s) for not prescribing Warfarin:: Medical Contraindication - Patient is already on Eliquis. HF Pt discharged on evidence-based Beta Sylvain:: Yes
--- NOTE | 2018-06-27 14:08 | CONSULTATION REPORT E ---
Consultation Report NAME: ENE HOLGUIN : 1945 AGE: 72Y DATE: 06/26/2018 434 A TO: MARIFER GODFREY M.D. FROM: THIAGO BERMUDEZ M.D. Requesting Physician TIME: 8:30 a.m. A total of 55 minutes spent on this patient with more than 50% of the time spent in direct patient care. REASON FOR CONSULTATION: Patient reported to have ST segment elevation on EKG and also her EKG was read as atrial flutter. HISTORY OF PRESENT ILLNESS: The patient is a 72-year-old female with a past medical history of combined systolic and diastolic heart failure with LV ejection fraction around 50%, which is mildly reduced, moderate aortic stenosis, COPD, chronic kidney disease stage 3, and coronary artery disease and mild dementia, who states she, since the past few days, has been having increasing shortness of breath with orthopnea, leg edema, and cough productive of greenish-yellow sputum. The patient denies any fever, chills, or rigors. There are no anginal symptoms. There are no rapid heartbeats. The patient was admitted here in the later part of May 2018 and her initial EKG with a heart rate of 139 was read as wide complex tachycardia. In fact, looking at the EKG, it looks more like sinus tachycardia with the patient having chronic left bundle branch block pattern and not atrial flutter, but a diagnosis of atrial flutter was made and the patient has been placed on amiodarone and also on Eliquis. There are no TIA or CVA symptoms. The patient denies any syncope. There are no symptoms. The patient claims that her shortness of breath is much improved. She did complain of wheezing along with the shortness of breath. She has a history of COPD and has a history of recurrent bronchitis. There is no dysphagia to suggest aspiration. PAST MEDICAL HISTORY: Positive for history of hypertension, history of coronary artery disease. She had a stress test in 2015, which was mildly abnormal and the patient initially did not want to have cardiac catheterization, but due to chest pain, she ended up in November of 2015 having cardiac catheterization. This showed that the left vein had narrowing. In the mid distal LAD, there was bridging. The left circumflex was tortuous with 40% distal stenosis. The dominant right coronary artery with approximate 40% tubular sclerosis. Hence, the patient had no significant coronary artery disease. She has nonobstructive CAD. She also claims a history of UT, but I cannot verify this from my old records. She, in the past, has had a CT of the head with mild cerebral atrophy, otherwise normal study, and she has mild dementia. She also has moderate aortic stenosis. She also had mildly dilated cardiomyopathy with an LV ejection fraction of 50%, which is mildly reduced. She has no history of TIA, CVA recently, but in the past, has had a stroke for which she has completely recovered. There is no history of syncope. There is no history of diabetes mellitus. No history of thyroid disease. She has a history of hypertension. PAST SURGICAL HISTORY: Positive for breast biopsy for left breast cancer, lumpectomy, and subsequently a left mastectomy. She had a tooth extraction, tubal ligation. She had a hip repair and hernia surgery. She had a port placed in the left chest. She also has had a cardiac catheterization. FAMILY HISTORY: Positive for myocardial infarction in father and mother. SOCIAL HISTORY: She is a former smoker, quit smoking in 1979. ALLERGIES: She is allergic to: 1. ASPIRIN. 2. CODEINE. 3. ERYTHROMYCIN. 4. OXYCODONE. 5. PENICILLIN. 6. SULFONAMIDES. MEDICATIONS: As per medication administration record. I have reviewed it. REVIEW OF SYSTEMS: CONSTITUTIONAL: Denies any fever, chills, or rigors. She has moderate fatigue and has decreased appetite and also has gained weight due to fluid retention. HEAD: Denies headaches or head injury. There is no history of vertigo. EYES: No history of amblyopia or diplopia. No history of amaurosis fugax. EARS: No history of tinnitus. No history of hearing loss. No history of recurrent ear infections. NOSE: There is no history of hay fever. No history of nosebleed. No history of nasal polyps. MOUTH: No altered taste sensation. No ulcers in the mouth. THROAT: No odynophagia or dysphagia. No history of recurrent sore throats. SKIN: No history of pruritus. No yellowish discoloration of the skin. No history of psoriasis. No history of skin cancer. NECK: No swelling in the neck. No goiter. LUNGS: History of COPD recent suggestive of bronchitis with yellowish sputum and wheezing. No history of sleep apnea. No history of pulmonary embolism. No history of hemoptysis. No history of pleuritic chest pain. CARDIAC: History of hypertension. History of non-obstructive coronary artery disease. Patient claims to have a history of myocardial infarction in the past. She has a history of congestive heart failure secondary to acute on chronic systolic and diastolic heart failure with mildly reduced cardiomyopathy with mildly reduced LV ejection fraction. She has also moderate aortic stenosis. There is no syncope. The patient does have some leg edema and orthopnea and increasing shortness of breath. GASTROINTESTINAL: No history of GI bleed. History of GERD present. No history of fatty food intolerance. No hematemesis or melena. No history of GI bleed. MUSCULOSKELETAL: Has some arthritis, but no history of collagen vascular disease. RENAL: History of chronic kidney disease stage 3. No symptoms of UTI. No hematuria, pyuria, or dysuria. ENDOCRINE: No history of diabetes mellitus. No history of thyroid disease. No history of polydipsia, polyuria. No history of heat or cold intolerance. METABOLIC: History of hyperlipidemia present. No history of obesity. No history of gout. CENTRAL NERVOUS SYSTEM: Past history of CVA from which she has fully recovered. There is no history of headaches, migraines, or seizures. PSYCHIATRIC: No history of anxiety or depression. VASCULAR: No history of cough or buttock claudication. No history of DVT. HEMATOLOGICAL: No history of bleeding diathesis. No history of clotting disorders. DISPOSITION: The patient is a DNR. Her daughter is the surrogate healthcare power of store stock associate. PHYSICAL EXAMINATION: GENERAL: The patient is well built, looks older than her stated age, and appears chronically ill. VITAL SIGNS: She is afebrile with a temperature of 98.5 degrees Fahrenheit, pulse is 95 beats per minute, blood pressure 114/40, respirations are 16 per minute, O2 saturations are 94% on room air. HEAD: Atraumatic, normocephalic. EYES: Pupils are equal, round, regular, reactive to light and accommodation. Extraocular movements are normal. There is no conjunctival pallor. There is no scleral icterus. EARS: Tympanic membranes are intact. External auditory canals are clear. NOSE: There is no deviated nasal septum. There is no inflammation of the nasal mucous membrane. MOUTH: Mucous membranes of the mouth are moist. Tongue is moist. There are no ulcers. There is no bleeding from the gums. THROAT: There is no redness of the oropharynx. There are no exudates. SKIN: There are no skin rashes. There are no skin lesions. There is no petechia or ecchymosis. CHEST: There is no chest wall tenderness. There is evidence of left mastectomy. NECK: Supple. There is no JVD. Carotids are equal. There is no bruit. There is transmitted aortic stenosis murmur radiating over the carotids. There is no significant carotid delay. There is no lymphadenopathy. There is no goiter. Trachea is central. LUNGS: Diminished air entry, prolonged expiration with a few scattered rhonchi. There are a few bibasilar rales and CHF is very minimal. HEART: S1 and S2 are heard. There is no S3 gallop. There is no S4 gallop. There is systolic murmur left sternal border of the apex. There is no rub. ABDOMEN: Soft, nontender. There is no hepatosplenomegaly. Bowel sounds are well heard. EXTREMITIES: Femorals are diminished. There are no femoral bruits. Leg pulses are diminished. There is trace pedal edema. There is no DVT or cellulitis. There is no calf tenderness. CENTRAL NERVOUS SYSTEM: The patient is conscious, awake, alert, oriented x3 with no focal deficit. PSYCHIATRIC: The patient's judgment and insight are intact. Her affect is normal. DIAGNOSTIC STUDIES: Chest x-ray is suggestive of mild CHF. There is also a suggestion that there might be some changes suspicious for amiodarone-induced toxicity. EKG shows sinus rhythm with left bundle branch block pattern and hence ST segment elevation is not reliable. Also, the patient's rhythm is sinus rhythm and not as read by the computer. The patient's sodium is 141.9, potassium 4.1, chloride is 102, CO2 is 28. The patient's BUN is 23, creatinine is 1.18. GFR is 45, which is stage 3 chronic kidney disease. Glucose is 101, calcium is 8.6. The patient's troponin I is 0.029 and 0.030. Her NT proBNP is 11,400. Her albumin is 3.9, total protein is 7.2. The patient's white count is 11,700, hemoglobin is 10.6, hematocrit is 32, and the platelet count is 281,000. IMPRESSION: 1. Acute on chronic systolic and diastolic heart failure secondary to aortic stenosis, LV diastolic dysfunction, and volume overload due to chronic kidney disease. 2. Bronchitis. Would recommend starting the patient on antibiotic and respiratory treatments. 3. Mild cardiomyopathy with LV ejection fraction around 50% by prior echo. 4. Coronary artery disease, non-obstructive ? history of UT in the past. 5. COPD, although the patient and the daughter deny COPD. 6. History of left breast cancer status post mastectomy. 7. Chronic kidney disease stage 3. 8. Hypertension. 9. Arthritis. 10. Mild dementia. 11. Hyperlipidemia. 12. Need to exclude possibility and hence need to exclude amiodarone-induced cardiomyopathy. RECOMMENDATIONS: NOTE: Would recommend holding the patient's amiodarone. Continue the other current medications. Continue Lasix. Need to be cautious with the patient's diuretics since the of the patient's renal function worsened. Will get her high resolution CT of the chest without contrast to see indeed if there are some interstitial changes associated or suggestive of amiodarone-induced toxicity. Also, I have discussed that I am not sure if the patient does have true atrial flutter, but would recommend to continue the patient's Eliquis for now and later would recommend the patient get a 30-day event monitor. Of note, the patient recently in April had a stress test in the office and this nuclear Cardiolite stress test was negative for ischemia or UT. All of the above discussed with the patient and the patient's daughter. The patient was seen at 8:30 a.m. and 55 minutes spent on the patient with more than 50% of the time spent in direct patient care. Immunizations have been reviewed. Discussed with the attending physician on the case. NOTE: This admission, there is no evidence of atrial flutter. Will follow with you. DICTATING PHYSICIAN: MARIFER GODFREY M.D. [id number] PHY#: [id number] ID: [id number] JOB#: [id number] ACCT: [id number] cc:MARIFER GODFREY M.D. >
--- NOTE | 2018-06-27 22:35 | PROGRESS NOTE E ---
Progress Note NAME: ENE HOLGUIN : 1945 AGE: 72Y DATE: 06/27/2018 ROOM: 434 SUBJECTIVE: The patient denies any chest pain or discomfort. There is no shortness of breath at rest. There is no PND. There is no recurrence of atrial flutter. She denies any palpitations. She is able to lie down flat now. Her leg edema is resolved. There is no dizziness or syncope or near-syncope. There are no palpitations. *------* OBJECTIVE: VITAL SIGNS: On examination, the patient is afebrile, with a temperature of 98.4 degrees Fahrenheit. Pulse is 80 beats per minute. Blood pressure 117/48, respirations are 20 per minute. O2 sats are 98% on room air. HEENT: Head is atraumatic, normocephalic. Eyes: Pupils are equal, round, regular, reactive to light and accommodation. There is no conjunctival pallor. There is no scleral icterus. ENT is negative. NECK: Supple. There is no JVD. Carotids are equal. There is no bruit. There is no goiter. There is no lymphadenopathy. Trachea is central. LUNGS: Show a few scattered rhonchi and a few dry crackles bilaterally. There are no rales or CHF. HEART: S1, S2 heard. No S3 gallop. S1 is of normal intensity. There is no S4 gallop heard. There is murmur of aortic stenosis present, but preserved A2 sound. There is no carotid delay. There is a transmitted aortic murmur over both carotids. There is no carotid delay. There are no gallops. There is no rub. ABDOMEN: Soft, nontender. There is no hepatosplenomegaly. Bowel sounds are well-heard. EXTREMITIES: Femorals are diminished. Femorals have no bruits. Leg pulses are diminished. There is no pedal edema. There is no DVT or cellulitis. There is no calf tenderness. ALIGNING INSPECTOR: The patient is conscious, awake, alert, oriented x3, with no focal deficit. There is no cyanosis or clubbing. DIAGNOSTICS: The patient's high resolution CT of the chest without contrast shows a 23-mm mass in the right upper lobe. This looks like cancer, and a PET CT has been ordered. Also, there are small scattered areas of ground-glass infiltrate in the upper lobes suggestive of chronic interstitial changes versus limited interstitial edema. Atypical infectious inflammatory process can cause this. The reason for getting this high resolution CT was for suspected amiodarone toxicity. IMPRESSION: 1. RIGHT UPPER LOBE MASS, MOST LIKELY MALIGNANT. The patient will have an outpatient PET CT. 2. ACUTE ON CHRONIC SYSTOLIC AND DIASTOLIC HEART FAILURE, SECONDARY TO AORTIC STENOSIS, LV SYSTOLIC DYSFUNCTION AND VOLUME OVERLOAD DUE TO CHRONIC KIDNEY DISEASE, AT PRESENT COMPENSATED. 3. BRONCHITIS. Seems to be improved. 4. HIGH SUSPICION FOR AMIODARONE-INDUCED LUNG TOXICITY. 5. MILD CARDIOMYOPATHY WITH *------* CONTRACTION AROUND 50%. 6. CORONARY ARTERY DISEASE, NONOBSTRUCTIVE. Questionable history of WA in the past. Patient without any anginal symptoms. 7. COPD. At present, stable. 8. HISTORY OF LEFT BREAST CANCER, STATUS POST MASTECTOMY. The question is whether a right lung mass is metastasis from the breast cancer. 9. CHRONIC KIDNEY DISEASE, STAGE 3. 10. HYPERTENSION. 11. ARTHRITIS. 12. MILD DEMENTIA. At present, the patient appears to be awake, alert and oriented x3, with no focal deficits and with judgment and insight being intact. 13. HYPERLIPIDEMIA. RECOMMENDATIONS: Would recommend discontinuing the patient's amiodarone. Will not place the patient on a beta bill, since amiodarone takes some time to get washed out of the body. Will get a 30-day event monitor. Until then, will keep the patient on Eliquis. If there is no evidence of paroxysmal atrial flutter or fibrillation, then would discontinue the patient's Eliquis. Will repeat the chest CT in about 3 months to make sure that it is resolved. Also the patient will get a PET CT as an outpatient to define the right upper lobe mass. Note, 40 minutes spent on this patient, with more than 50% of the time spent in direct patient care. Her medication has been reviewed and medications adjusted. Medical decision-making is of high complexity, but the patient is stable to be discharged home. Will follow the patient up in the office. Will have the company mail the patient's event monitor to her home. Discussed with the patient and patient's daughter. The patient would be at considerable risk for wedge resection, if that is needed for the lung cancer, but we will come to that when it is proven that it is malignant, and will see what her treatment options are. DICTATING PHYSICIAN: MARIFER GODFREY M.D. [id number] SERGEI#: [id number] ID: [id number] JOB#: [id number] ACCT: [id number] cc: >
== END 2018-06-27 14:47 | disposition home or self-care (01) ==
LOC: ER 12:21 → EH 16:48 → 4S 18:05
PROVIDERS: ADMIT Internal Medicine; ATTEND Internal Medicine
DX: J96.01 Acute respiratory failure with hypoxia (principal); I50.43 Acute on chronic combined systolic (congestive) and diastolic (congestive) heart failure; I35.0 Nonrheumatic aortic (valve) stenosis; I25.10 Atherosclerotic heart disease of native coronary artery without angina pectoris; I48.91 Unspecified atrial fibrillation; F03.90 Unspecified dementia, unspecified severity, without behavioral disturbance, psychotic disturbance, mood disturbance, and anxiety; R91.8 Other nonspecific abnormal finding of lung field; I13.0 Hypertensive heart and chronic kidney disease with heart failure and stage 1 through stage 4 chronic kidney disease, or unspecified chronic kidney disease; N18.3 Chronic kidney disease, stage 3 (moderate); I48.92 Unspecified atrial flutter; I44.7 Left bundle-branch block, unspecified; I48.0 Paroxysmal atrial fibrillation; I42.0 Dilated cardiomyopathy; E78.5 Hyperlipidemia, unspecified; M19.90 Unspecified osteoarthritis, unspecified site; J44.9 Chronic obstructive pulmonary disease, unspecified; Z66 Do not resuscitate; Z79.899 Other long term (current) drug therapy; Z79.02 Long term (current) use of antithrombotics/antiplatelets; Z85.3 Personal history of malignant neoplasm of breast; Z90.12 Acquired absence of left breast and nipple; Z82.49 Family history of ischemic heart disease and other diseases of the circulatory system; Z87.891 Personal history of nicotine dependence; Z90.49 Acquired absence of other specified parts of digestive tract
CPT/HCPCS: 93005 ×2; 99285; 51702; 96374; 36415 ×2; 82553; 82550; 85025; 80048; 80053; 81001; 84484; 83880; 71045; 71250; 93010; 94762 ×3; G0378 ×3; A9270 ×7; J1940 ×3; J3490 ×2

== ENCOUNTER → 2018-08-03 | Outpatient (CLI) | payer MEDICARE ==
--- NOTE | 2018-08-04 10:37 | RADIOLOGY REPORT (SQ) ---
EXAM DESCRIPTION: PET CT SKULL/THIGH COMPLETED DATE/TIME: 08/03/2018 6:37 pm REASON FOR STUDY: ABNORMAL FINDINGS IN LUNG FIELD RIGHT R91.8 OTHER NONSPECIFIC ABNORMAL FINDING OF LUNG FIELD COMPARISON: CT chest 06/27/2018 Chest films 06/25/2018, 04/04/2018, 07/02/2017 RADIONUCLIDE AND DOSE: 11.2 mCi F18 FDG The route of agent administration: Intravenous FASTING BLOOD SUGAR: 105 mg/dl CONTRAST TYPE AND DOSE: No CT contrast given. TECHNIQUE: Blood glucose level was verified. Above dose of FDG was injected intravenously. 2-D seg mented attenuation correction images were obtained from the base of the skull to the midthighs. Nonc ontrast CT images were obtained for attenuation correction and fusion with emission images. CT image s were performed without oral or intravenous contrast and are not sensitive for parenchymal lesions. A series of overlapping emission PET images were obtained. Images reviewed and manipulated at [facility] work station by the radiologist. Images stored on PACS. LIMITATIONS: None. FINDINGS: HEAD AND NECK: No areas of abnormal metabolic activity in the soft tissues of the head and neck. CHEST: A 2.5 x 2 cm right upper lobe pulmonary mass is present on axial image 56, SUV 8.6. Along the right upper hilum, there are two lymph nodes which are less than 1 cm in size on axial imag es 66-68, with SUV 3.1. ABDOMEN AND PELVIS: No areas of abnormal metabolic activity in the abdomen or pelvis. Expected physi ologic activity is present in the genitourinary system and bowel. PROXIMAL LOWER EXTREMITIES: No areas of abnormal metabolic activity in the soft tissues of the lower extremities. BONES: There is increased activity in a bandlike distribution in the L5 vertebral body with L5 verteb ral body loss of height worrisome for subacute compression deformity. This has marrow activity SUV o f 3.3. ADDITIONAL CT FINDINGS: Post left mastectomy and hysterectomy. Right permanent central line tip supe rior vena cava. Calcified aortic and mitral valves, carotid bifurcations, origins of the visceral ar teries. Left total hip replacement OTHER: Liver background activity 2.7 SUV. Blood pool background activity 1.7 SUV. IMPRESSION: Malignant 2.5 x 2 cm right upper lobe mass with worrisome adenopathy in the right upper hilum. TECHNICAL DOCUMENTATION: JOB ID: [id number] [employer]- All Rights Reserved Reading location - IP/workstation name: [email or web address]
== END ==
LOC: RAD 14:56
PROVIDERS: ATTEND Internal Medicine Pulmonary Disease
DX: C34.11 Malignant neoplasm of upper lobe, right bronchus or lung (principal)
CPT/HCPCS: 78815; A9552

== ENCOUNTER 2018-10-20 18:33 | Inpatient (IN) | payer MEDICARE ==
[2018-10-20] MEDS ORDERED: CEFEPIME 2 GM/D5W RTU 2 GM/50 ML RTUPB IV ONE (18:55)
--- NOTE | 2018-10-20 18:58 | ER Document Report ---
ED General - General Stated Complaint: DIFFICULTY BREATHING Time Seen by Provider: 10/20/18 18:53 Mode of Arrival: Stretcher Information source: Patient, Relative Notes: This is a 73-year-old female with a history of COPD, CHF, recurrent pneumonia and a recent right lung mass biopsy. The patient presents to the emergency room with 2 days of productive cough of yellow sputum, fever, congestion, shortness of breath. Patient was given 2 nebulizers in the ambulance as well as 125 mg of Solu-Medrol. Patient has not been told whether or not the lung mass was cancer. She does have a remote history of breast cancer (she was followed by Dr. Hewitt at that time). She is followed by Dr. Porter of pulmonology as well as Dr. Peterson of thoracic surgery at [facility]. Allergies: Penicillin, azithromycin, sulfa, Levaquin. Patient is accompanied by her daughter states she has had cephalosporins in the past without problem. Primary CARE physician: Dr. Espinoza CODE STATUS: DNR TRAVEL OUTSIDE OF THE [place] IN LAST 30 DAYS: No - HPI Onset: Last week Onset/Duration: Gradual Quality of pain: No pain Severity: None Pain Level: Denies Associated symptoms: Productive cough, Fever, Shortness of breath Exacerbated by: Movement Relieved by: Remaining still Similar symptoms previously: Yes Recently seen / treated by doctor: Yes - Related Data Allergies/Adverse Reactions: aspirin [Aspirin] Allergy (Verified 04/04/18 14:13) azithromycin Allergy (Verified 04/04/18 14:13) codeine [Codeine] Allergy (Verified 04/04/18 14:13) erythromycin base [Erythromycin Base] Allergy (Verified 04/04/18 14:13) hydrocodone Allergy (Verified 04/04/18 14:13) levofloxacin [From Levaquin] Allergy (Verified 04/04/18 14:13) Penicillins Allergy (Verified 04/04/18 14:13) Sulfa (Sulfonamide Antibiotics) Allergy (Verified 04/04/18 14:13) Past Medical History - General Information source: Patient - Social History Smoking Status: Never Smoker Cigarette use (# per day): No Chew tobacco use (# tins/day): No Frequency of alcohol use: None Drug Abuse: None Lives with: Spouse/Significant other Family History: Hypertension Patient has suicidal ideation: No Patient has homicidal ideation: No - Past Medical History Cardiac Medical History: Reports: Hx Atrial Fibrillation, Hx Congestive Heart Failure, Hx Coronary Artery Disease, Hx Heart Attack, Hx Hypertension, Hx Heart Murmur Pulmonary Medical History: Reports: Hx Bronchitis, Hx COPD, Hx Pneumonia Neurological Medical History: Denies: Hx Migraine, Hx Seizures Renal/ Medical History: Denies: Hx Peritoneal Dialysis Malignancy Medical History: Reports: Hx Breast Cancer - left GI Medical History: Reports: Hx Gastroesophageal Reflux Disease Musculoskeletal Medical History: Reports Hx Arthritis, Reports Hx Musculoskeletal Trauma Psychiatric Medical History: Reports: Hx Dementia Denies: Hx Depression Traumatic Medical History: Reports: Hx Fractures Past Surgical History: Reports: Hx Abdominal Surgery - umbilical hernia, Hx Appendectomy, Hx Breast Surgery - L breast mast 2004, Hx Hysterectomy, Hx Tonsillectomy, Hx Umbilical Hernia - Immunizations Immunizations up to date: Yes Hx Diphtheria, Pertussis, Tetanus Vaccination: Yes - 2006 Hx Pneumococcal Vaccination: 07/26/17 Review of Systems - Review of Systems Constitutional: Chills, Fever EENT: No symptoms reported Cardiovascular: denies: Chest pain, Palpitations, Heart racing Respiratory: Cough, Short of breath Gastrointestinal: No symptoms reported Genitourinary: No symptoms reported Female Genitourinary: No symptoms reported Musculoskeletal: No symptoms reported Skin: No symptoms reported Hematologic/Lymphatic: No symptoms reported Neurological/Psychological: No symptoms reported Physical Exam - Vital signs Vitals: Temp Resp BP Pulse Ox 100.7 F H 30 H 115/56 L 100 10/20/18 18:36 10/20/18 18:36 10/20/18 18:36 10/20/18 18:36 Notes: Physical exam: GENERAL: Patient is alert and oriented x3, mild respiratory distress, coughing. HEAD: Atraumatic, normocephalic. EYES: Pupils equal round and reactive to light, extraocular movements intact, sclera anicteric, conjunctiva are normal. ENT: TMs normal, nares patent, oropharynx clear without exudates. Moist mucous membranes. NECK: Normal range of motion, supple without obvious mass or JVD. LUNGS: Diffuse wheezes bilaterally HEART: Regular rate and rhythm without murmurs, rubs or gallops. ABDOMEN: Soft, normoactive bowel sounds. No tenderness to palpation. No guarding, no rebound. No masses appreciated. EXTREMITIES: Normal range of motion, no pitting or edema. No clubbing or cyanosis. NEUROLOGICAL: Cranial nerves II through XII grossly intact. Normal speech, moving all extremities. PSYCH: Normal mood, normal affect. SKIN: Warm, Dry, normal turgor, no rashes or lesions noted. Course - Re-evaluation Re-evalutation: 10/21/18 01:13 Patient has underlying COPD and right lung mass which was biopsied recently ( results unknown). She does have a history of recurrent pneumonia. She presents with fever, productive cough and worsening shortness of breath over the last few days. While the chest x-ray shows no obvious pneumonia, mom certainly concerned that she is developing a pneumonia in the setting of underlying lung disease. She is allergic to multiple medicines but tolerates cephalosporins: She was started on cefepime. She is received steroids and nebulizers. Patient is DNR at this time. - Vital Signs Vital signs: Temp Pulse Resp BP Pulse Ox 97.4 F 17 103/59 L 98 10/21/18 02:53 10/21/18 02:49 10/21/18 02:49 10/21/18 02:58 - Laboratory Result Diagrams: 10/20/18 18:43 10/20/18 18:43 Laboratory results interpreted by me: 10/20/18 10/20/18 10/20/18 18:43 18:43 18:43 WBC 12.9 H RBC 2.91 L Hgb 9.9 L Hct 29.9 L MCV 103 H MCH 34.0 H Absolute Neutrophils 9.2 H BUN 21 H Est GFR (Non-Af Amer) 59 L Glucose 134 H Alkaline Phosphatase 156 H NT-Pro-B Natriuret Pep 5590 H Albumin 3.4 L - Diagnostic Test Radiology reviewed: Image reviewed, Reports reviewed - Test x-ray shows no obvious infiltrates Critical Care Note - Critical Care Note Total time excluding time spent on procedures (mins): 60 Discharge - Discharge Clinical Impression: COPD exacerbation Condition: Stable Disposition: ADMITTED INPATIENT Admitting Provider: Hospitalist - dr haley Unit Admitted: Telemetry
[2018-10-20 18:59] LABS: ABSOLUTE EOSINOPHILS # (AUTO) 0.2 10^3/uL (0.0-0.6); ABSOLUTE LYMPHOCYTES (AUTO) 2.3 10^3/uL (0.5-4.7); ABSOLUTE MONOCYTES (AUTO) 1.2 10^3/uL (0.1-1.4); ABSOLUTE NEUT (AUTO) 9.2 10^3/uL (1.7-8.2); BASOPHILS % (AUTO) 0.1 % (0-2); EOSINOPHILS % (AUTO) 1.2 % (0-6); HEMATOCRIT 29.9 % (36.0-47.0); HEMOGLOBIN 9.9 g/dL (12.0-15.5); LYMPHOCYTES % (AUTO) 17.9 % (13-45); MEAN CORPUSCULAR HGB CONC 33.1 g/dL (32.0-36.0); MEAN CORPUSCULAR VOLUME 103 fl (80-97); MONOCYTES % (AUTO) 9.1 % (3-13); PLATELET COUNT 242 10^3/uL (150-450); RED BLOOD COUNT 2.91 10^6/uL (3.72-5.28); RED CELL DISTRIBUTION WIDTH 13.5 % (11.5-14.0); SEGMENTED NEUTROPHILS % (AUTO) 71.7 % (42-78); TOTAL CELLS COUNTED % (AUTO) 100 %; WHITE BLOOD COUNT 12.9 10^3/uL (4.0-10.5)
[2018-10-20 19:08] LABS: ALANINE AMINOTRANSFERASE 18 U/L (9-52); ALBUMIN 3.4 g/dL (3.5-5.0); ALKALINE PHOSPHATASE 156 U/L (38-126); ANION GAP 14 (5-19); ASPARTATE AMINO TRANSFERASE 17 U/L (14-36); BILIRUBIN,DIRECT 0.2 mg/dL (0.0-0.4); BILIRUBIN,TOTAL 0.3 mg/dL (0.2-1.3); BLOOD UREA NITROGEN 21 mg/dL (7-20); CALCIUM 8.7 mg/dL (8.4-10.2); CARBON DIOXIDE 26 mmol/L (22-30); CHLORIDE 102 mmol/L (98-107); CREATINE KINASE 47 U/L (30-135); GLUCOSE 134 mg/dL (75-110); POTASSIUM 3.8 mmol/L (3.6-5.0); SODIUM 141.8 mmol/L (137-145); TOTAL PROTEIN 6.3 g/dL (6.3-8.2)
--- NOTE | 2018-10-20 19:09 | RADIOLOGY REPORT (SQ) ---
EXAM DESCRIPTION: CHEST SINGLE VIEW COMPLETED DATE/TIME: 10/20/2018 6:51 pm REASON FOR STUDY: bed 15 db COMPARISON: 04/04/2018. EXAM PARAMETERS: NUMBER OF VIEWS: One view. TECHNIQUE: Single frontal radiographic view of the chest acquired. RADIATION DOSE: NA LIMITATIONS: None. FINDINGS: LUNGS AND PLEURA: Mild interstitial prominence. No infiltrates, masses or pneumothorax. N o pleural effusion. MEDIASTINUM AND HILAR STRUCTURES: No masses. Contour normal. HEART AND VASCULAR STRUCTURES: Borderline cardiomegaly. BONES: No acute findings. HARDWARE: Vascular port. Surgical clips. OTHER: No other significant finding. IMPRESSION: NO ACUTE RADIOGRAPHIC FINDING IN THE CHEST. TECHNICAL DOCUMENTATION: JOB ID: [id number] [employer]- All Rights Reserved Reading location - IP/workstation name: [email or web address]
[2018-10-20 19:14] LABS: VENOUS BLOOD HCO3 27.3 mmol/L (20-32); VENOUS BLOOD PCO2 49.4 mmHg (35-63); VENOUS BLOOD PH 7.36 (7.30-7.42)
[2018-10-20 19:19] LABS: CREATINE KINASE MB 0.76 ng/mL (<4.55); TROPONIN I 0.014 ng/mL
[2018-10-20 19:31] LABS: A TYPE INFLUENZA AG NEGATIVE (NEGATIVE); B INFLUENZA AG NEGATIVE (NEGATIVE)
[2018-10-20] MEDS ORDERED: FUROSEMIDE INJ/PF 40 MG/4 ML SDV IV ONE (21:12)
[2018-10-20] MEDS ORDERED: IPRATROPIUM/ALBUTEROL 0.5-2.5 MG/3 ML AMPUL NEB ONE (21:27)
[2018-10-21] MEDS ORDERED: CHLORPHENIRAMINE MALEATE 4 MG TABLET PO ONE (01:13)
[2018-10-21] MEDS ORDERED: HYDRALAZINE HCL INJ/PF 20 MG/1 ML SDV IV PRN (01:13)
[2018-10-21] MEDS ORDERED: IPRATROPIUM/ALBUTEROL 0.5-2.5 MG/3 ML AMPUL NEB PRN (01:13)
[2018-10-21 01:37] LABS: ABSOLUTE RETICS # 0.041 10^6/uL (0.028-0.122); RETICULOCYTE COUNT (AUTO) 1.39 % (0.66-2.85)
[2018-10-21] MEDS ORDERED: CHLORPHENIRAMINE MALEATE 4 MG TABLET ONE (02:04)
[2018-10-21 03:11] LABS: APPEARANCE,URINE SLIGHTLY-CLOUDY; BILIRUBIN,URINE NEGATIVE (NEGATIVE); COLOR,URINE YELLOW; GLUCOSE, URINE NEGATIVE (NEGATIVE); KETONES,URINE NEGATIVE (NEGATIVE); LEUKOCYTE ESTERASE,URINE SMALL (NEGATIVE); NITRITE,URINE NEGATIVE (NEGATIVE); PROTEIN,URINE NEGATIVE (NEGATIVE); URINE SPECIFIC GRAVITY 1.008; UROBILINOGEN,URINE NEGATIVE mg/dL (<2.0)
[2018-10-21] MEDS: ACETAMINOPHEN 325 MG TABLET PO PRN ×3 (03:58→15:24)
[2018-10-21 05:22] LABS: IRON(TIBC) < 10.1 ug/dL (37-170)
[2018-10-21 05:23] LABS: FOLATE > 20.00 ng/mL (>2.76)
[2018-10-21] MEDS: HEPARIN SOD (PORCINE) 5,000 UNIT/ML 1 ML SYRINGE SUBCUT SCH ×3 (05:46→22:26)
[2018-10-21] MEDS ORDERED: IRON SUCROSE COMPLEX INJ/PF 100 MG/5 ML SDV IV ONE ×2 (06:32→08:30)
--- NOTE | 2018-10-21 06:40 | PDOC H&P ---
History of Present Illness Admission Date/PCP: 10/21/18 01:49 JENAE MARS MD Patient complains of: Shortness of breath and cough History of Present Illness: ENE HOLGUIN is a 73 year old female with a past medical history of breast cancer, congestive heart failure, stage II diastolic dysfunction, left bundle branch block, moderate aortic stenosis, COPD, dementia, coronary artery disease and atrial fibrillation on Eliquis. She was recently diagnosed with a right upper lobe lung mass status post biopsy pending results. She presents with 1 week of productive cough of [place] sputum, denying fever chills, chest pain nausea or vomiting. In the emergency room she is found to have fever of 100.7, shortness of breath, cough and rhonchi. She receives empiric antibiotics and referred to the hospitalist for admission. Past Medical History Cardiac Medical History: Reports: Atrial Fibrillation, Congestive Heart Failure , Coronary Artery Disease, Myocardial Infarction, Hypertension, Heart Murmur Pulmonary Medical History: Reports: Bronchitis, Chronic Obstructive Pulmonary Disease (COPD), Pneumonia Neurological Medical History: Denies: Migraine, Seizures Malignancy Medical History: Reports: Breast Cancer - left GI Medical History: Reports: Gastroesophageal Reflux Disease Musculoskeltal Medical History: Reports: Arthritis Psychiatric Medical History: Reports: Dementia Denies: Depression Hematology: Reports: Anemia Past Surgical History Past Surgical History: Reports: Appendectomy, Hysterectomy, Tonsillectomy Social History Information Source: Patient Lives with: Spouse/Significant other Smoking Status: Never Smoker Frequency of Alcohol Use: None Hx Recreational Drug Use: No Drugs: None Hx Prescription Drug Abuse: No - Advance Directive Resuscitation Status: Do Not Resuscitate Family History Family History: COPD, Hypertension Parental Family History Reviewed: No Children Family History Reviewed: No Sibling(s) Family History Reviewed.: No Medication/Allergy Home Medications: Allopurinol [Zyloprim 100 mg Tablet] 100 mg PO BID 06/25/18 Apixaban [Eliquis] 5 mg PO Q12 06/25/18 Fluticasone Propionate [Flonase Nasal [place] 50 Mcg/[place] 16 gm] 1 spray NASL DAILY 06/25/18 Folic Acid [Folvite 1 mg Tablet] 1 mg PO DAILY 06/25/18 Gabapentin [Neurontin 300 mg Capsule] 300 mg PO QHS 06/25/18 Metoprolol Succinate [Toprol Xl 25 mg Tab.sr] 25 mg PO DAILY 06/25/18 Nitroglycerin [Nitro-Dur 2.5 mg (0.1 mg/Hr) Transdermal Ptch] 1 patch TOP DAILY 06/25/18 Potassium Chloride [Klor-Con M10] 10 meq PO DAILY 06/25/18 Ranolazine [Ranexa] 500 mg PO Q12 06/25/18 Sertraline HCl [Zoloft 50 mg Tablet] 50 mg PO QPM 06/25/18 Simvastatin [Zocor 20 mg Tablet] 20 mg PO QPM 06/25/18 Clopidogrel Bisulfate [Plavix 75 mg Tablet] 75 mg PO DAILY tablet 06/27/18 Lisinopril 5 mg PO DAILY 30 Days #30 tablet 06/27/18 Bumetanide [Bumex 0.5 mg Tablet] 1 tab PO DAILY 07/25/18 Allergies/Adverse Reactions: aspirin [Aspirin] Allergy (Verified 04/04/18 14:13) azithromycin Allergy (Verified 04/04/18 14:13) codeine [Codeine] Allergy (Verified 04/04/18 14:13) erythromycin base [Erythromycin Base] Allergy (Verified 04/04/18 14:13) hydrocodone Allergy (Verified 04/04/18 14:13) levofloxacin [From Levaquin] Allergy (Verified 04/04/18 14:13) Penicillins Allergy (Verified 04/04/18 14:13) Sulfa (Sulfonamide Antibiotics) Allergy (Verified 04/04/18 14:13) Review of Systems Constitutional: PRESENT: as per HPI, anorexia, fever(s) Eyes: ABSENT: visual disturbances Ears: ABSENT: hearing changes Cardiovascular: ABSENT: chest pain, dyspnea on exertion, edema, orthropnea, palpitations Respiratory: PRESENT: as per HPI, cough, dyspnea, sputum Gastrointestinal: ABSENT: abdominal pain, constipation, diarrhea, hematemesis, hematochezia, nausea, vomiting Genitourinary: ABSENT: dysuria, hematuria Musculoskeletal: ABSENT: joint swelling Integumentary: ABSENT: rash, wounds Neurological: ABSENT: abnormal gait, abnormal speech, confusion, dizziness, focal weakness, syncope Psychiatric: ABSENT: anxiety, depression, homidical ideation, suicidal ideation Endocrine: ABSENT: cold intolerance, heat intolerance, polydipsia, polyuria Hematologic/Lymphatic: ABSENT: easy bleeding, easy bruising Physical Exam Vital Signs: Temp Pulse Resp BP Pulse Ox 98.4 F 86 16 103/65 97 10/21/18 03:25 10/21/18 03:32 10/21/18 03:25 10/21/18 03:25 10/21/18 03:25 Intake & Output 10/19/18 10/20/18 10/21/18 11:59 11:59 11:59 Weight 78.4 kg General appearance: PRESENT: cooperative, mild distress. ABSENT: hard of hearing Head exam: PRESENT: atraumatic, normocephalic Eye exam: PRESENT: conjunctiva pink, EOMI, PERRLA. ABSENT: scleral icterus Ear exam: PRESENT: normal external ear exam Mouth exam: PRESENT: moist, tongue midline Neck exam: ABSENT: carotid bruit, JVD, lymphadenopathy, thyromegaly Respiratory exam: PRESENT: accessory muscle use, crackles, prolonged expiratory phas, retraction, rhonchi, tachypnea Cardiovascular exam: PRESENT: RRR. ABSENT: diastolic murmur, rubs, systolic murmur Pulses: PRESENT: normal dorsalis pedis pul Vascular exam: PRESENT: normal capillary refill GI/Abdominal exam: PRESENT: normal bowel sounds, soft. ABSENT: distended, guarding, mass, organolmegaly, rebound, tenderness Rectal exam: PRESENT: deferred Extremities exam: PRESENT: full ROM. ABSENT: calf tenderness, clubbing, pedal edema Neurological exam: PRESENT: alert, awake, oriented to person, oriented to place , oriented to time, oriented to situation, CN II-XII grossly intact. ABSENT: motor sensory deficit Psychiatric exam: PRESENT: appropriate affect, normal mood. ABSENT: homicidal ideation, suicidal ideation Skin exam: PRESENT: dry, intact, warm. ABSENT: cyanosis, rash Results Laboratory Results: 10/21/18 02:30 Urine Color YELLOW Urine Appearance SLIGHTLY-CLOUDY Urine pH 5.0 Ur Specific [place] 1.008 Urine Protein NEGATIVE Urine Glucose (UA) NEGATIVE Urine Ketones NEGATIVE Urine Blood NEGATIVE Urine Nitrite NEGATIVE Ur Leukocyte Esterase SMALL H Urine WBC (Auto) 13 Urine RBC (Auto) 0 Impressions: Chest X-Ray 10/20/18 18:38 IMPRESSION: NO ACUTE RADIOGRAPHIC FINDING IN THE CHEST. Assessment & Plan - Diagnosis (1) Pneumonia Is this a current diagnosis for this admission?: Yes Plan: Pneumonia care set, incentive spirometry, flutter valve, follow-up CBC and blood culture (2) COPD exacerbation Is this a current diagnosis for this admission?: Yes Plan: Secondary to #1, flutter valve, prednisone, BiPAP as needed (3) Lung mass Is this a current diagnosis for this admission?: Yes Plan: Pathology pending, consider consult with pulmonology and/or Dr. Hewitt for whom she sees for breast cancer. (4) Acute exacerbation of congestive heart failure Is this a current diagnosis for this admission?: Yes Plan: Exacerbation secondary to pneumonia and COPD exacerbation, limit volume, optimize respiratory status. - Time Time Spent: 50 to 70 Minutes - Inpatient Certification Medical Necessity: Need Close Monitoring Due to Risk of Patient Decompensation
[2018-10-21] MEDS: IPRATROPIUM/ALBUTEROL 0.5-2.5 MG/3 ML AMPUL NEB SCH ×2 (07:55→16:38)
--- NOTE | 2018-10-21 07:56 | EKG REPORT ---
SEVERITY:- ABNORMAL ECG - SINUS RHYTHM LEFT BUNDLE BRANCH BLOCK : Confirmed by: Robel Mena MD 21-Oct-2018 07:55:46
[2018-10-21] MEDS: FUROSEMIDE INJ/PF 40 MG/4 ML SDV IV SCH (09:53)
[2018-10-21] MEDS: CLOPIDOGREL BISULFATE 75 MG TABLET PO SCH (09:54)
[2018-10-21] MEDS: FLUTICASONE NASAL SPRAY 50 MCG/SPRY 120 SPRAY/16 GM NASL SCH ×2 (09:55→22:25)
[2018-10-21] MEDS: APIXABAN 5 MG TABLET PO SCH ×2 (09:55→22:24)
[2018-10-21] MEDS: CEFEPIME 2 GM/D5W RTU 2 GM/50 ML RTUPB IV SCH ×2 (10:12→22:26)
[2018-10-21] MEDS: METOPROLOL SUCCINATE 25 MG TAB.SR.24H PO SCH (10:12)
[2018-10-21] MEDS: SERTRALINE HCL 50 MG TABLET PO SCH (17:19)
[2018-10-21] MEDS: BUTALB/ACETAMINOPHEN/CAFFEINE 1 TAB EACH PO PRN ×2 (18:31→22:54)
[2018-10-21] MEDS: GABAPENTIN 300 MG CAPSULE PO SCH (22:24)
[2018-10-22] MEDS: IPRATROPIUM/ALBUTEROL 0.5-2.5 MG/3 ML AMPUL NEB SCH ×3 (00:18→16:29)
[2018-10-22 05:05] LABS: ABSOLUTE EOSINOPHILS # (AUTO) 0.1 10^3/uL (0.0-0.6); ABSOLUTE LYMPHOCYTES (AUTO) 1.8 10^3/uL (0.5-4.7); ABSOLUTE MONOCYTES (AUTO) 1.1 10^3/uL (0.1-1.4); ABSOLUTE NEUT (AUTO) 14.6 10^3/uL (1.7-8.2); BASOPHILS % (AUTO) 0.1 % (0-2); EOSINOPHILS % (AUTO) 0.4 % (0-6); HEMATOCRIT 29.7 % (36.0-47.0); HEMOGLOBIN 9.8 g/dL (12.0-15.5); LYMPHOCYTES % (AUTO) 10.4 % (13-45); MEAN CORPUSCULAR HEMOGLOBIN 34.4 pg (27.0-33.4); MEAN CORPUSCULAR VOLUME 104 fl (80-97); PLATELET COUNT 262 10^3/uL (150-450); RED BLOOD COUNT 2.85 10^6/uL (3.72-5.28); RED CELL DISTRIBUTION WIDTH 13.8 % (11.5-14.0); SEGMENTED NEUTROPHILS % (AUTO) 83.1 % (42-78); TOTAL CELLS COUNTED % (AUTO) 100 %; WHITE BLOOD COUNT 17.5 10^3/uL (4.0-10.5)
[2018-10-22 05:24] LABS: ANION GAP 12 (5-19); BLOOD UREA NITROGEN 43 mg/dL (7-20); CALCIUM 9.2 mg/dL (8.4-10.2); CARBON DIOXIDE 26 mmol/L (22-30); CHLORIDE 103 mmol/L (98-107); GLUCOSE 111 mg/dL (75-110); POTASSIUM 4.8 mmol/L (3.6-5.0); SODIUM 140.9 mmol/L (137-145)
[2018-10-22] MEDS: HEPARIN SOD (PORCINE) 5,000 UNIT/ML 1 ML SYRINGE SUBCUT SCH ×3 (05:54→22:05)
[2018-10-22] MEDS: BUTALB/ACETAMINOPHEN/CAFFEINE 1 TAB EACH PO PRN ×3 (08:00→17:16)
[2018-10-22] MEDS: CLOPIDOGREL BISULFATE 75 MG TABLET PO SCH (10:34)
[2018-10-22] MEDS: FUROSEMIDE INJ/PF 40 MG/4 ML SDV IV SCH (10:34)
[2018-10-22] MEDS: APIXABAN 5 MG TABLET PO SCH ×2 (10:35→21:55)
[2018-10-22] MEDS: CEFEPIME 2 GM/D5W RTU 2 GM/50 ML RTUPB IV SCH ×2 (10:35→21:57)
[2018-10-22] MEDS: METOPROLOL SUCCINATE 25 MG TAB.SR.24H PO SCH (10:35)
[2018-10-22] MEDS: FLUTICASONE NASAL SPRAY 50 MCG/SPRY 120 SPRAY/16 GM NASL SCH ×2 (13:07→21:56)
--- NOTE | 2018-10-22 14:10 | PDOC PROGRESS REPORT ---
Subjective Progress Note for:: 10/22/18 Subjective:: Patient says she is not feeling better today, still wheezing, Cough better No chest pain Reason For Visit: COPD AND CHF EXACERBATION PNEUMONIA Physical Exam Vital Signs: Temp Pulse Resp BP Pulse Ox 98.9 F 78 17 99/59 L 98 10/22/18 11:54 10/22/18 11:54 10/22/18 11:54 10/22/18 11:54 10/22/18 11:54 Intake & Output 10/21/18 10/22/18 10/23/18 06:59 06:59 06:59 Intake Total 776 50 Balance 776 50 Weight 78.4 kg 78.4 kg General appearance: PRESENT: no acute distress, well-developed, well-nourished Head exam: PRESENT: atraumatic, normocephalic Eye exam: PRESENT: conjunctiva pink, EOMI, PERRLA. ABSENT: scleral icterus Neck exam: ABSENT: carotid bruit, JVD, lymphadenopathy, thyromegaly Respiratory exam: PRESENT: crackles, rhonchi, unlabored, wheezes GI/Abdominal exam: PRESENT: normal bowel sounds, soft. ABSENT: distended, guarding, mass, organolmegaly, rebound, tenderness Rectal exam: PRESENT: deferred Extremities exam: PRESENT: full ROM. ABSENT: calf tenderness, clubbing, pedal edema Neurological exam: PRESENT: alert, awake, oriented to person, oriented to place , oriented to time, oriented to situation, CN II-XII grossly intact. ABSENT: motor sensory deficit Psychiatric exam: PRESENT: appropriate affect, normal mood. ABSENT: homicidal ideation, suicidal ideation Results Laboratory Results: 10/22/18 04:22 10/22/18 04:22 10/22/18 10/22/18 04:22 04:22 WBC 17.5 H RBC 2.85 L Hgb 9.8 L Hct 29.7 L MCV 104 H MCH 34.4 H MCHC 33.0 RDW 13.8 Plt Count 262 Seg Neutrophils % 83.1 H Lymphocytes % 10.4 L Monocytes % 6.0 Eosinophils % 0.4 Basophils % 0.1 Absolute Neutrophils 14.6 H Absolute Lymphocytes 1.8 Absolute Monocytes 1.1 Absolute Eosinophils 0.1 Absolute Basophils 0.0 Sodium 140.9 Potassium 4.8 Chloride 103 Carbon Dioxide 26 Anion Gap 12 BUN 43 H Creatinine 1.32 H Est GFR ( Amer) 48 L Est GFR (Non-Af Amer) 40 L Glucose 111 H Calcium 9.2 10/21/18 10/22/18 06:27 04:22 Troponin I < 0.012 0.015 Impressions: Chest X-Ray 10/20/18 18:38 IMPRESSION: NO ACUTE RADIOGRAPHIC FINDING IN THE CHEST. Assessment & Plan - Diagnosis (1) Acute exacerbation of congestive heart failure Qualifiers: Heart failure type: unspecified Qualified Code(s): I50.9 - Heart failure, unspecified Is this a current diagnosis for this admission?: Yes Plan: Last echo in computer was 2015,but as per Dr. Sánchez's note from 07/12 she has diastolic dysfunction with preserved EF. Defer Echo for now BNP elevated. Will continue diuresis (2) COPD exacerbation Is this a current diagnosis for this admission?: Yes Plan: Patient still bronchospastic, Noticed she is on no steroids. Will add IV steroid to regimen (3) Lung mass Is this a current diagnosis for this admission?: Yes Plan: Has Lung cancer under Oncologist care (4) Acute and chronic respiratory failure with hypoxia Is this a current diagnosis for this admission?: Yes - Time Time Spent with patient: 15-24 minutes Medications reviewed and adjusted accordingly: Yes Anticipated discharge: Home Within: within 48 hours - Inpatient Certification Based on my medical assessment, after consideration of the patient's comorbidities, presenting symptoms, or acuity I expect that the services needed warrant INPATIENT care.: Yes Medical Necessity: Need Close Monitoring Due to Risk of Patient Decompensation, Need for Nebulizer Therapy and Monitoring of Response, Risk of Complication if Not Cared For in Hospital
[2018-10-22] MEDS: METHYLPREDNISOLONE INJ 125 MG/2 ML SDV IV SCH ×2 (16:10→21:56)
[2018-10-22] MEDS: SERTRALINE HCL 50 MG TABLET PO SCH (17:22)
[2018-10-22] MEDS: GABAPENTIN 300 MG CAPSULE PO SCH (21:55)
[2018-10-23] MEDS: IPRATROPIUM/ALBUTEROL 0.5-2.5 MG/3 ML AMPUL NEB SCH ×4 (00:01→20:34)
[2018-10-23] MEDS: BUTALB/ACETAMINOPHEN/CAFFEINE 1 TAB EACH PO PRN ×4 (00:44→22:15)
[2018-10-23] MEDS: METHYLPREDNISOLONE INJ 125 MG/2 ML SDV IV SCH ×3 (05:56→17:14)
[2018-10-23 05:58] LABS: ABSOLUTE LYMPHOCYTES (AUTO) 0.5 10^3/uL (0.5-4.7); ABSOLUTE MONOCYTES (AUTO) 0.1 10^3/uL (0.1-1.4); ABSOLUTE NEUT (AUTO) 7.9 10^3/uL (1.7-8.2); HEMATOCRIT 29.2 % (36.0-47.0); HEMOGLOBIN 9.6 g/dL (12.0-15.5); LYMPHOCYTES % (AUTO) 5.6 % (13-45); MEAN CORPUSCULAR HEMOGLOBIN 34.3 pg (27.0-33.4); MEAN CORPUSCULAR VOLUME 104 fl (80-97); PLATELET COUNT 245 10^3/uL (150-450); RED BLOOD COUNT 2.81 10^6/uL (3.72-5.28); RED CELL DISTRIBUTION WIDTH 14.3 % (11.5-14.0); SEGMENTED NEUTROPHILS % (AUTO) 93.4 % (42-78); TOTAL CELLS COUNTED % (AUTO) 100 %; WHITE BLOOD COUNT 8.4 10^3/uL (4.0-10.5)
[2018-10-23] MEDS: HEPARIN SOD (PORCINE) 5,000 UNIT/ML 1 ML SYRINGE SUBCUT SCH (05:59)
[2018-10-23 06:25] LABS: ANION GAP 13 (5-19); BLOOD UREA NITROGEN 41 mg/dL (7-20); CALCIUM 9.1 mg/dL (8.4-10.2); CARBON DIOXIDE 25 mmol/L (22-30); CHLORIDE 106 mmol/L (98-107); GLUCOSE 157 mg/dL (75-110); POTASSIUM 5.3 mmol/L (3.6-5.0); SODIUM 143.5 mmol/L (137-145)
[2018-10-23] MEDS: FLUTICASONE NASAL SPRAY 50 MCG/SPRY 120 SPRAY/16 GM NASL SCH ×2 (10:32→22:01)
[2018-10-23] MEDS: CEFEPIME 2 GM/D5W RTU 2 GM/50 ML RTUPB IV SCH (10:33)
[2018-10-23] MEDS: APIXABAN 5 MG TABLET PO SCH ×2 (10:33→22:02)
[2018-10-23] MEDS: FUROSEMIDE INJ/PF 40 MG/4 ML SDV IV SCH (10:33)
[2018-10-23] MEDS: CLOPIDOGREL BISULFATE 75 MG TABLET PO SCH (10:33)
[2018-10-23] MEDS: METOPROLOL SUCCINATE 25 MG TAB.SR.24H PO SCH (10:33)
--- NOTE | 2018-10-23 10:52 | PDOC PROGRESS REPORT ---
Subjective Progress Note for:: 10/23/18 Subjective:: Patient says she is breathing better though still wheezing, Cough better No chest pain Reason For Visit: COPD AND CHF EXACERBATION PNEUMONIA Physical Exam Vital Signs: Temp Pulse Resp BP Pulse Ox 99.1 F 84 18 125/64 99 10/23/18 08:04 10/23/18 08:04 10/23/18 08:04 10/23/18 08:04 10/23/18 08:04 Intake & Output 10/22/18 10/23/18 10/24/18 06:59 06:59 06:59 Intake Total 776 603 Balance 776 603 Weight 78.4 kg 78.2 kg General appearance: PRESENT: no acute distress, well-developed, well-nourished Head exam: PRESENT: atraumatic, normocephalic Eye exam: PRESENT: conjunctiva pink, EOMI, PERRLA. ABSENT: scleral icterus Ear exam: PRESENT: normal external ear exam Mouth exam: PRESENT: moist, tongue midline Neck exam: ABSENT: carotid bruit, JVD, lymphadenopathy, thyromegaly Respiratory exam: PRESENT: rhonchi, symmetrical, unlabored, wheezes. ABSENT: clear to auscultation isael, rales Cardiovascular exam: PRESENT: RRR. ABSENT: diastolic murmur, rubs, systolic murmur Pulses: PRESENT: normal dorsalis pedis pul Vascular exam: PRESENT: normal capillary refill GI/Abdominal exam: PRESENT: normal bowel sounds, soft. ABSENT: distended, guarding, mass, organolmegaly, rebound, tenderness Rectal exam: PRESENT: deferred Extremities exam: PRESENT: full ROM. ABSENT: calf tenderness, clubbing, pedal edema Musculoskeletal exam: PRESENT: other - restless, involuntary lower extremity movements Neurological exam: PRESENT: alert, awake, oriented to person, oriented to place , oriented to time, oriented to situation, CN II-XII grossly intact. ABSENT: motor sensory deficit Psychiatric exam: PRESENT: appropriate affect, normal mood. ABSENT: homicidal ideation, suicidal ideation Skin exam: PRESENT: dry, intact, warm. ABSENT: cyanosis, rash Results Laboratory Results: 10/23/18 04:50 10/23/18 04:50 10/23/18 10/23/18 04:50 04:50 WBC 8.4 RBC 2.81 L Hgb 9.6 L Hct 29.2 L MCV 104 H MCH 34.3 H MCHC 33.0 RDW 14.3 H Plt Count 245 Seg Neutrophils % 93.4 H Lymphocytes % 5.6 L Monocytes % 1.0 L Eosinophils % 0.0 Basophils % 0.0 Absolute Neutrophils 7.9 Absolute Lymphocytes 0.5 Absolute Monocytes 0.1 Absolute Eosinophils 0.0 Absolute Basophils 0.0 Sodium 143.5 Potassium 5.3 H Chloride 106 Carbon Dioxide 25 Anion Gap 13 BUN 41 H Creatinine 1.24 Est GFR ( Amer) 52 L Est GFR (Non-Af Amer) 43 L Glucose 157 H Calcium 9.1 10/21/18 10/22/18 10/23/18 06:27 04:22 04:50 Troponin I < 0.012 0.015 NT-Pro-B Natriuret Pep 4930 H Impressions: Chest X-Ray 10/20/18 18:38 IMPRESSION: NO ACUTE RADIOGRAPHIC FINDING IN THE CHEST. Assessment & Plan - Diagnosis (1) Acute exacerbation of congestive heart failure Qualifiers: Heart failure type: unspecified Qualified Code(s): I50.9 - Heart failure, unspecified Is this a current diagnosis for this admission?: Yes Plan: Last echo in computer was 2015,but as per Dr. Sánchez's note from 07/12 she has diastolic dysfunction with preserved EF. Defer Echo for now BNP improved Will continue diuresis (2) COPD exacerbation Is this a current diagnosis for this admission?: Yes Plan: Patient still bronchospastic although improved, Continue steroids at same dose and taper as appropriate. (3) Lung mass Is this a current diagnosis for this admission?: Yes Plan: F/u with Oncologist (4) Acute and chronic respiratory failure with hypoxia Is this a current diagnosis for this admission?: Yes - Time Time Spent with patient: 15-24 minutes Medications reviewed and adjusted accordingly: Yes Anticipated discharge: Home Within: within 48 hours - Inpatient Certification Based on my medical assessment, after consideration of the patient's comorbidities, presenting symptoms, or acuity I expect that the services needed warrant INPATIENT care.: Yes Medical Necessity: Need Close Monitoring Due to Risk of Patient Decompensation, Need For Continuous Telemetry Monitoring
[2018-10-23] MEDS ORDERED: IPRATROPIUM/ALBUTEROL 0.5-2.5 MG/3 ML AMPUL NEB PRN (10:54)
[2018-10-23] MEDS: FERROUS SULFATE 325 MG TABLET PO SCH ×2 (12:43→17:14)
[2018-10-23] MEDS: SERTRALINE HCL 50 MG TABLET PO SCH (17:15)
[2018-10-23] MEDS: GABAPENTIN 300 MG CAPSULE PO SCH (22:02)
[2018-10-23] MEDS: DOXYCYCLINE HYCLATE 100 MG in DEXTROSE 5%-WATER 250 ML IV SCH (22:09)
[2018-10-24] MEDS: METHYLPREDNISOLONE INJ 125 MG/2 ML SDV IV SCH ×4 (00:33→21:35)
[2018-10-24] MEDS: IPRATROPIUM/ALBUTEROL 0.5-2.5 MG/3 ML AMPUL NEB SCH ×4 (02:08→20:07)
[2018-10-24] MEDS: FERROUS SULFATE 325 MG TABLET PO SCH ×3 (08:40→18:27)
[2018-10-24] MEDS: BUTALB/ACETAMINOPHEN/CAFFEINE 1 TAB EACH PO PRN ×3 (08:43→22:53)
[2018-10-24] MEDS: FUROSEMIDE INJ/PF 40 MG/4 ML SDV IV SCH (10:48)
[2018-10-24] MEDS: METOPROLOL SUCCINATE 25 MG TAB.SR.24H PO SCH (10:48)
[2018-10-24] MEDS: CLOPIDOGREL BISULFATE 75 MG TABLET PO SCH (10:48)
[2018-10-24] MEDS: APIXABAN 5 MG TABLET PO SCH ×2 (10:48→21:35)
[2018-10-24] MEDS: FLUTICASONE NASAL SPRAY 50 MCG/SPRY 120 SPRAY/16 GM NASL SCH ×2 (11:34→21:35)
[2018-10-24] MEDS: DOXYCYCLINE HYCLATE 100 MG in DEXTROSE 5%-WATER 250 ML IV SCH ×2 (11:34→21:36)
--- NOTE | 2018-10-24 15:58 | PDOC PROGRESS REPORT ---
Subjective Progress Note for:: 10/24/18 Subjective:: Patient admitted with COPD exacerbation. She has history of severe COPD however she had not been on any home oxygen. Patient's breathing continues to improve and she is much less bronchospastic today. Steroid dose was increased to 60 mg every 6 hours yesterday she was very bronchospastic so begin to taper her today she sounds much better. Reason For Visit: COPD AND CHF EXACERBATION PNEUMONIA Physical Exam Vital Signs: Temp Pulse Resp BP Pulse Ox 98.6 F 88 16 120/57 L 98 10/24/18 11:28 10/24/18 13:51 10/24/18 13:51 10/24/18 11:28 10/24/18 13:51 Intake & Output 10/23/18 10/24/18 10/25/18 06:59 06:59 06:59 Intake Total 603 1297 Balance 603 1297 Weight 78.2 kg 77.1 kg General appearance: PRESENT: no acute distress, well-developed, well-nourished Head exam: PRESENT: atraumatic, normocephalic Eye exam: PRESENT: conjunctiva pink, EOMI, PERRLA. ABSENT: scleral icterus Ear exam: PRESENT: normal external ear exam Mouth exam: PRESENT: moist, tongue midline Neck exam: ABSENT: carotid bruit, JVD, lymphadenopathy, thyromegaly Respiratory exam: PRESENT: decreased breath sounds, wheezes - Scattered. ABSENT : rales, rhonchi Cardiovascular exam: PRESENT: RRR. ABSENT: diastolic murmur, rubs, systolic murmur Pulses: PRESENT: normal dorsalis pedis pul Vascular exam: PRESENT: normal capillary refill GI/Abdominal exam: PRESENT: normal bowel sounds, soft. ABSENT: distended, guarding, mass, organolmegaly, rebound, tenderness Rectal exam: PRESENT: deferred Extremities exam: PRESENT: full ROM. ABSENT: calf tenderness, clubbing, pedal edema Neurological exam: PRESENT: alert, awake, oriented to person, oriented to place , oriented to time, oriented to situation, CN II-XII grossly intact. ABSENT: motor sensory deficit Psychiatric exam: PRESENT: appropriate affect, normal mood. ABSENT: homicidal ideation, suicidal ideation Skin exam: PRESENT: dry, intact, warm. ABSENT: cyanosis, rash Results Laboratory Results: 10/23/18 04:50 10/23/18 04:50 10/21/18 10/22/18 10/23/18 06:27 04:22 04:50 Troponin I < 0.012 0.015 NT-Pro-B Natriuret Pep 4930 H Impressions: Chest X-Ray 10/20/18 18:38 IMPRESSION: NO ACUTE RADIOGRAPHIC FINDING IN THE CHEST. Assessment & Plan - Diagnosis (1) Acute exacerbation of congestive heart failure Qualifiers: Heart failure type: unspecified Qualified Code(s): I50.9 - Heart failure, unspecified Is this a current diagnosis for this admission?: Yes Plan: Last echo in computer was 2015,but as per Dr. Sánchez's note from 07/12 she has diastolic dysfunction with preserved EF. Patient states she has had echo done in Dr. Mooney's office and she is actually due for one right about now. This can be followed up as outpatient. BNP improved Will continue diuresis (2) COPD exacerbation Is this a current diagnosis for this admission?: Yes Plan: Patient still bronchospastic although much improved, Will begin to taper steroids (3) Lung mass Is this a current diagnosis for this admission?: Yes Plan: F/u with Oncologist (4) Acute respiratory failure Qualifiers: Respiratory failure complication: hypercapnia Qualified Code(s): J96.02 - Acute respiratory failure with hypercapnia Is this a current diagnosis for this admission?: Yes Plan: Patient was hypoxemic and tachypneic on initial presentation with saturation is low as 88%. Patient does not have a history of chronic respiratory failure. He is on empiric antibiotics with no evidence of pneumonia and this can be discontinued as per her clinical response - Time Time Spent with patient: 15-24 minutes Medications reviewed and adjusted accordingly: Yes Anticipated discharge: Home Within: within 72 hours - Inpatient Certification Based on my medical assessment, after consideration of the patient's comorbidities, presenting symptoms, or acuity I expect that the services needed warrant INPATIENT care.: Yes Medical Necessity: Need For Continuous Telemetry Monitoring, Need for Nebulizer Therapy and Monitoring of Response, Risk of Complication if Not Cared For in Hospital
[2018-10-24] MEDS: SERTRALINE HCL 50 MG TABLET PO SCH (18:27)
[2018-10-24] MEDS: GABAPENTIN 300 MG CAPSULE PO SCH (21:35)
[2018-10-24] MEDS ORDERED: METHYLPREDNISOLONE INJ 125 MG/2 ML SDV IV SCH (22:00)
[2018-10-25] MEDS: IPRATROPIUM/ALBUTEROL 0.5-2.5 MG/3 ML AMPUL NEB SCH ×4 (01:35→20:05)
[2018-10-25 04:32] LABS: HEMATOCRIT 28.5 % (36.0-47.0); HEMOGLOBIN 9.6 g/dL (12.0-15.5); MEAN CORPUSCULAR HEMOGLOBIN 34.4 pg (27.0-33.4); MEAN CORPUSCULAR HGB CONC 33.5 g/dL (32.0-36.0); MEAN CORPUSCULAR VOLUME 103 fl (80-97); PLATELET COUNT 293 10^3/uL (150-450); RED BLOOD COUNT 2.78 10^6/uL (3.72-5.28); WHITE BLOOD COUNT 14.3 10^3/uL (4.0-10.5)
[2018-10-25] MEDS: BUTALB/ACETAMINOPHEN/CAFFEINE 1 TAB EACH PO PRN ×3 (04:38→21:56)
[2018-10-25 04:52] LABS: ANION GAP 13 (5-19); BLOOD UREA NITROGEN 51 mg/dL (7-20); CALCIUM 9.6 mg/dL (8.4-10.2); CARBON DIOXIDE 27 mmol/L (22-30); CHLORIDE 100 mmol/L (98-107); GLUCOSE 158 mg/dL (75-110); SODIUM 139.7 mmol/L (137-145)
[2018-10-25 04:55] LABS: ABSOLUTE LYMPHOCYTES# (MANUAL) 0.7 10^3/uL (0.5-4.7); ABSOLUTE MONOCYTES # (MANUAL) 0.9 10^3/uL (0.1-1.4); ABSOLUTE NEUTROPHILS# (MANUAL) 12.7 10^3/uL (1.7-8.2); BASOPHILS % (MANUAL) 0 % (0-2); EOSINOPHILS % (MANUAL) 0 % (0-6); LYMPHOCYTES % (MANUAL) 5 % (13-45); MONOCYTES % (MANUAL) 6 % (3-13); SEGMENTED NEUTROPHILS % (MAN) 89 % (42-78); TOTAL CELLS COUNTED 100
[2018-10-25 04:56] LABS: PLATELET COMMENT ADEQUATE; RBC MORPHOLOGY COMMENT NORMO-CYTIC/CHROMIC
[2018-10-25] MEDS: FERROUS SULFATE 325 MG TABLET PO SCH ×3 (07:55→18:21)
[2018-10-25] MEDS: CLOPIDOGREL BISULFATE 75 MG TABLET PO SCH (10:29)
[2018-10-25] MEDS: APIXABAN 5 MG TABLET PO SCH ×2 (10:29→21:42)
[2018-10-25] MEDS: FLUTICASONE NASAL SPRAY 50 MCG/SPRY 120 SPRAY/16 GM NASL SCH ×2 (10:29→21:42)
[2018-10-25] MEDS: FUROSEMIDE INJ/PF 40 MG/4 ML SDV IV SCH (10:29)
[2018-10-25] MEDS: METHYLPREDNISOLONE INJ 125 MG/2 ML SDV IV SCH ×2 (10:29→21:43)
[2018-10-25] MEDS: METOPROLOL SUCCINATE 25 MG TAB.SR.24H PO SCH (10:30)
[2018-10-25] MEDS: DOXYCYCLINE HYCLATE 100 MG in DEXTROSE 5%-WATER 250 ML IV SCH ×2 (10:30→21:43)
[2018-10-25] MEDS: SERTRALINE HCL 50 MG TABLET PO SCH (18:21)
--- NOTE | 2018-10-25 18:24 | PDOC PROGRESS REPORT ---
Subjective Progress Note for:: 10/25/18 Subjective:: The patient is still complaining of a pronounced cough. She reports that the mucus is thick. Reason For Visit: COPD AND CHF EXACERBATION PNEUMONIA Physical Exam Vital Signs: Temp Pulse Resp BP Pulse Ox 98.6 F 81 16 126/48 H 95 10/25/18 12:12 10/25/18 14:08 10/25/18 14:08 10/25/18 12:12 10/25/18 14:08 Intake & Output 10/24/18 10/25/18 10/26/18 06:59 06:59 06:59 Intake Total 1297 1715 250 Output Total 2 Balance 1297 1713 250 Weight 77.1 kg 78.9 kg General appearance: PRESENT: cooperative, mild distress, well-developed, other - Frail Head exam: PRESENT: atraumatic, normocephalic Eye exam: PRESENT: conjunctiva pale. ABSENT: scleral icterus Ear exam: PRESENT: normal external ear exam Mouth exam: PRESENT: moist, tongue midline Respiratory exam: PRESENT: prolonged expiratory phas, rhonchi - Congested rhonchorous cough. ABSENT: wheezes Cardiovascular exam: PRESENT: RRR, +S1, +S2, systolic murmur - 3/6 GI/Abdominal exam: PRESENT: normal bowel sounds, soft. ABSENT: distended, guarding, tenderness Neurological exam: PRESENT: alert, awake, oriented to person, oriented to place , oriented to situation Psychiatric exam: PRESENT: flat affect. ABSENT: agitated, anxious Skin exam: PRESENT: dry, normal color, warm Results Laboratory Results: 10/25/18 04:08 10/25/18 04:08 10/25/18 10/25/18 04:08 04:08 WBC 14.3 H RBC 2.78 L Hgb 9.6 L Hct 28.5 L MCV 103 H MCH 34.4 H MCHC 33.5 RDW 14.0 Plt Count 293 Seg Neutrophils % Not Reportable Lymphocytes % Not Reportable Monocytes % Not Reportable Eosinophils % Not Reportable Basophils % Not Reportable Absolute Neutrophils Not Reportable Absolute Lymphocytes Not Reportable Absolute Monocytes Not Reportable Absolute Eosinophils Not Reportable Absolute Basophils Not Reportable Sodium 139.7 Potassium 5.0 Chloride 100 Carbon Dioxide 27 Anion Gap 13 BUN 51 H Creatinine 1.14 Est GFR ( Amer) 57 L Est GFR (Non-Af Amer) 47 L Glucose 158 H Calcium 9.6 10/21/18 10/22/18 10/23/18 06:27 04:22 04:50 Troponin I < 0.012 0.015 NT-Pro-B Natriuret Pep 4930 H 10/25/18 04:08 Troponin I NT-Pro-B Natriuret Pep 7600 H Impressions: Chest X-Ray 10/20/18 18:38 IMPRESSION: NO ACUTE RADIOGRAPHIC FINDING IN THE CHEST. Assessment & Plan - Diagnosis (1) Acute exacerbation of congestive heart failure Qualifiers: Heart failure type: unspecified Qualified Code(s): I50.9 - Heart failure, unspecified Is this a current diagnosis for this admission?: Yes Plan: The patient is normally on Bumex at home. She takes 0.5 mg. I will discontinue her furosemide and start Bumex 1 mg IV daily and monitor the patient. She has had a positive fluid balance yesterday and so far today. I will continue to monitor I's and O's and adjust her diuretic therapy accordingly. (2) COPD exacerbation Is this a current diagnosis for this admission?: Yes Plan: I did add guaifenesin for her thick mucus. We can begin to decrease her steroid dose as well. (3) Lung mass Is this a current diagnosis for this admission?: Yes Plan: I believe the patient has a history of malignancy. She is following with oncology. A palliative care consult has been ordered due to her multiple comorbidities. (4) Chronic renal disease, stage 3, moderately decreased glomerular filtration rate (GFR) between 30-59 mL/min/1.73 square meter Is this a current diagnosis for this admission?: Yes Plan: The patient has stage III chronic kidney disease. Reviewing her labs it appears that this started in 2016. With her diuresis we will monitor her closely so as not to markedly decrease her renal function. - Time Time Spent with patient: 15-24 minutes Medications reviewed and adjusted accordingly: Yes
[2018-10-25] MEDS: GUAIFENESIN 600 MG TABLET.SA PO SCH (21:42)
[2018-10-25] MEDS: GABAPENTIN 300 MG CAPSULE PO SCH (21:42)
[2018-10-26] MEDS: IPRATROPIUM/ALBUTEROL 0.5-2.5 MG/3 ML AMPUL NEB SCH ×4 (02:08→19:50)
[2018-10-26] MEDS: FERROUS SULFATE 325 MG TABLET PO SCH ×3 (08:22→18:30)
[2018-10-26] MEDS: METOPROLOL SUCCINATE 25 MG TAB.SR.24H PO SCH (09:42)
[2018-10-26] MEDS: APIXABAN 5 MG TABLET PO SCH ×2 (09:42→21:33)
[2018-10-26] MEDS: METHYLPREDNISOLONE INJ 125 MG/2 ML SDV IV SCH (09:42)
[2018-10-26] MEDS: CLOPIDOGREL BISULFATE 75 MG TABLET PO SCH (09:42)
[2018-10-26] MEDS: BUTALB/ACETAMINOPHEN/CAFFEINE 1 TAB EACH PO PRN ×3 (09:42→23:35)
[2018-10-26] MEDS: DOXYCYCLINE HYCLATE 100 MG in DEXTROSE 5%-WATER 250 ML IV SCH (09:43)
[2018-10-26] MEDS: FLUTICASONE NASAL SPRAY 50 MCG/SPRY 120 SPRAY/16 GM NASL SCH ×2 (09:43→21:32)
[2018-10-26] MEDS: GUAIFENESIN 600 MG TABLET.SA PO SCH ×2 (09:43→21:33)
[2018-10-26] MEDS: BUMETANIDE INJ/PF 1 MG/4 ML SDV IV SCH (09:50)
[2018-10-26] MEDS ORDERED: METHYLPREDNISOLONE INJ 125 MG/2 ML SDV IV SCH (14:02)
--- NOTE | 2018-10-26 14:05 | PDOC PROGRESS REPORT ---
Subjective Progress Note for:: 10/26/18 Subjective:: 10/25/2018-the patient is still complaining of a pronounced cough. She reports that the mucus is thick. October 26, 2018-the patient reports that the mucus is thinner. She is coughing less. She actually feels slightly worse than yesterday. Reason For Visit: COPD AND CHF EXACERBATION PNEUMONIA Physical Exam Vital Signs: Temp Pulse Resp BP Pulse Ox 98.1 F 87 17 120/57 L 100 10/26/18 12:00 10/26/18 12:00 10/26/18 12:00 10/26/18 12:00 10/26/18 12:00 Intake & Output 10/25/18 10/26/18 10/27/18 06:59 06:59 06:59 Intake Total 1715 1852 Output Total 2 Balance 1713 1852 Weight 78.9 kg 78.9 kg General appearance: PRESENT: no acute distress, cooperative, well-developed Head exam: PRESENT: atraumatic, normocephalic Mouth exam: PRESENT: moist, tongue midline Respiratory exam: PRESENT: clear to auscultation isael, symmetrical, unlabored. ABSENT: accessory muscle use, rales, rhonchi, wheezes Cardiovascular exam: PRESENT: RRR, +S1, +S2 GI/Abdominal exam: PRESENT: normal bowel sounds, soft. ABSENT: distended, guarding, tenderness Musculoskeletal exam: PRESENT: normal inspection Neurological exam: PRESENT: alert, awake, oriented to person, oriented to place , oriented to time, oriented to situation, CN II-XII grossly intact Psychiatric exam: PRESENT: appropriate affect, normal mood. ABSENT: agitated, anxious Focused psych exam: ABSENT: restlessness Results Laboratory Results: 10/25/18 04:08 10/25/18 04:08 10/21/18 10/22/18 10/23/18 06:27 04:22 04:50 Troponin I < 0.012 0.015 NT-Pro-B Natriuret Pep 4930 H 10/25/18 04:08 Troponin I NT-Pro-B Natriuret Pep 7600 H Impressions: Chest X-Ray 10/20/18 18:38 IMPRESSION: NO ACUTE RADIOGRAPHIC FINDING IN THE CHEST. Assessment & Plan - Diagnosis (1) Acute exacerbation of congestive heart failure Qualifiers: Heart failure type: unspecified Qualified Code(s): I50.9 - Heart failure, unspecified Is this a current diagnosis for this admission?: Yes Plan: 10/25/2018-the patient is normally on Bumex at home. She takes 0.5 mg. I will discontinue her furosemide and start Bumex 1 mg IV daily and monitor the patient. She has had a positive fluid balance yesterday and so far today. I will continue to monitor I's and O's and adjust her diuretic therapy accordingly. October 26, 2018-I did switch the diuretic to Bumex yesterday. It will take several days to check the effectiveness. She is on a slightly higher dose than she was at home. (2) COPD exacerbation Is this a current diagnosis for this admission?: Yes Plan: 10/25/2018-I did add guaifenesin for her thick mucus. We can begin to decrease her steroid dose as well. October 26, 2018-the patient does report slight improvement in the cough with slightly thin her mucus. She is starting to cough up some mucus. I will continue her current regimen as well as the addition of guaifenesin. (3) Lung mass Is this a current diagnosis for this admission?: Yes Plan: 10/25/2018-I believe the patient has a history of malignancy. She is following with oncology. A palliative care consult has been ordered due to her multiple comorbidities. Some second 2017-this topic was discussed further. The patient has a history of breast cancer. More recently she is being worked up for a lung mass. Bronchoscopy was unable to reach the area of concern for biopsy. She is not a candidate for needle biopsy. She in fact states that radiation therapy has been offered but she is most likely not going to go through with it. She refuses chemotherapy. Palliative care is consulted. (4) Chronic renal disease, stage 3, moderately decreased glomerular filtration rate (GFR) between 30-59 mL/min/1.73 square meter Is this a current diagnosis for this admission?: Yes Plan: 10/25/2018-the patient has stage III chronic kidney disease. Reviewing her labs it appears that this started in 2016. With her diuresis we will monitor her closely so as not to markedly decrease her renal function. October 26, 2018-I will recheck her at work tomorrow with the change in diuretic therapy. - Time Time Spent with patient: 15-24 minutes Medications reviewed and adjusted accordingly: Yes Anticipated discharge: Home - The patient's 55 anniversary is tomorrow. She would like to go home. I am hoping to accomplish this.
[2018-10-26] MEDS ORDERED: PREDNISONE 20 MG TABLET PO SCH (18:00)
[2018-10-26] MEDS: SERTRALINE HCL 50 MG TABLET PO SCH (18:30)
[2018-10-26] MEDS: DOXYCYCLINE HYCLATE 100 MG TABLET PO SCH (18:30)
[2018-10-26] MEDS: GABAPENTIN 300 MG CAPSULE PO SCH (21:32)
[2018-10-27] MEDS: IPRATROPIUM/ALBUTEROL 0.5-2.5 MG/3 ML AMPUL NEB SCH ×3 (02:15→14:11)
[2018-10-27] MEDS: DOXYCYCLINE HYCLATE 100 MG TABLET PO SCH (06:35)
[2018-10-27 06:43] LABS: HEMATOCRIT 30.7 % (36.0-47.0); HEMOGLOBIN 10.3 g/dL (12.0-15.5); MEAN CORPUSCULAR HEMOGLOBIN 34.2 pg (27.0-33.4); MEAN CORPUSCULAR HGB CONC 33.4 g/dL (32.0-36.0); MEAN CORPUSCULAR VOLUME 102 fl (80-97); PLATELET COUNT 310 10^3/uL (150-450); RED BLOOD COUNT 2.99 10^6/uL (3.72-5.28); RED CELL DISTRIBUTION WIDTH 14.1 % (11.5-14.0); WHITE BLOOD COUNT 14.9 10^3/uL (4.0-10.5)
[2018-10-27 07:27] LABS: ANION GAP 12 (5-19); BLOOD UREA NITROGEN 52 mg/dL (7-20); CALCIUM 9.3 mg/dL (8.4-10.2); CARBON DIOXIDE 27 mmol/L (22-30); CHLORIDE 101 mmol/L (98-107); GLUCOSE 131 mg/dL (75-110); SODIUM 140.3 mmol/L (137-145)
[2018-10-27] MEDS: FERROUS SULFATE 325 MG TABLET PO SCH ×3 (08:46→16:50)
[2018-10-27] MEDS: METOPROLOL SUCCINATE 25 MG TAB.SR.24H PO SCH (09:40)
[2018-10-27] MEDS: CLOPIDOGREL BISULFATE 75 MG TABLET PO SCH (09:40)
[2018-10-27] MEDS: FLUTICASONE NASAL SPRAY 50 MCG/SPRY 120 SPRAY/16 GM NASL SCH (09:40)
[2018-10-27] MEDS: APIXABAN 5 MG TABLET PO SCH (09:40)
[2018-10-27] MEDS: BUMETANIDE INJ/PF 1 MG/4 ML SDV IV SCH (09:40)
[2018-10-27] MEDS: GUAIFENESIN 600 MG TABLET.SA PO SCH (09:40)
--- NOTE | 2018-10-27 11:31 | PDOC CONSULTATION ---
Consultation Consult Date: 10/22/18 Attending physician:: SABINO TOLENTINO Consult reason:: Respiratory failure/COPD History of Present Illness Admission Date/PCP: 10/21/18 01:49 JENAE MARS MD History of Present Illness: ENE HOLGUIN is a 73 year old female,Presented to ER if short of breath and coughing yellow phlegm she is well known to [facility] for emphysema and prior lung cancer and current lung mass. She denies any hemoptysis nausea vomiting or diarrhea no fever . Past Medical History Cardiac Medical History: Reports: Atrial Fibrillation, Congestive Heart Failure , Coronary Artery Disease, Myocardial Infarction, Hypertension, Heart Murmur Pulmonary Medical History: Reports: Bronchitis, Chronic Obstructive Pulmonary Disease (COPD), Pneumonia, Respiratory Failure EENT Medical History: Reports: Cataracts Neurological Medical History: Denies: Migraine, Seizures Malignancy Medical History: Reports: Breast Cancer - left GI Medical History: Reports: Gastroesophageal Reflux Disease Denies: Crohn's Disease, Ulcerative Colitis Musculoskeltal Medical History: Reports: Arthritis Psychiatric Medical History: Reports: Dementia Denies: Depression Hematology: Reports: Anemia Past Surgical History Past Surgical History: Reports: Appendectomy, Hysterectomy, Tonsillectomy Social History Information Source: Patient, Relative, DrDannielle Post, [facility] Records Lives with: Spouse/Significant other Smoking Status: Former Smoker Passive smoke exposure as: Both Frequency of Alcohol Use: None Hx Recreational Drug Use: No Drugs: None Hx Prescription Drug Abuse: No Do you have pets?: No Have you had any respiratory illnesses as a child?: No Have you been exposed to any sick contacts recently?: No Have you had any recent respiratory illnesses?: No Have you travelled outside of [place] in the past 12 months?: No - Advance Directive Resuscitation Status: Do Not Resuscitate Family History Family History: COPD, Hypertension Parental Family History Reviewed: Yes Children Family History Reviewed: Yes Sibling(s) Family History Reviewed.: Yes Medication/Allergy Home Medications: Bumetanide [Bumex 0.5 mg Tablet] 0.5 mg PO QAM 10/21/18 Cholecalciferol (Vitamin D3) [Vitamin D3 400 Unit Tablet] 400 unit PO QAM Clopidogrel Bisulfate [Plavix 75 mg Tablet] 75 mg PO QAM 10/21/18 Folic Acid [Folvite 1 mg Tablet] 1 mg PO QAM 10/21/18 Gabapentin [Neurontin 300 mg Capsule] 300 mg PO QHS 10/21/18 Lisinopril [Zestril] 5 mg PO QAM 10/21/18 Metoprolol Succinate [Toprol Xl 25 mg Tab.sr] 25 mg PO QAM 10/21/18 Sertraline HCl [Zoloft 50 mg Tablet] 50 mg PO QPM 10/21/18 Simvastatin [Zocor 20 mg Tablet] 20 mg PO QPM 10/21/18 Allergies/Adverse Reactions: aspirin [Aspirin] Allergy (Verified 04/04/18 14:13) azithromycin Allergy (Verified 04/04/18 14:13) codeine [Codeine] Allergy (Verified 04/04/18 14:13) erythromycin base [Erythromycin Base] Allergy (Verified 04/04/18 14:13) hydrocodone Allergy (Verified 04/04/18 14:13) levofloxacin [From Levaquin] Allergy (Verified 04/04/18 14:13) Penicillins Allergy (Verified 04/04/18 14:13) Sulfa (Sulfonamide Antibiotics) Allergy (Verified 04/04/18 14:13) Review of Systems Constitutional: PRESENT: fatigue, weakness. ABSENT: headache(s) Eyes: ABSENT: visual disturbances Ears: ABSENT: hearing changes Nose, Mouth, and Throat: ABSENT: mouth pain Cardiovascular: PRESENT: dyspnea on exertion. ABSENT: palpitations Respiratory: PRESENT: cough, dyspnea, sputum. ABSENT: hemoptysis Gastrointestinal: ABSENT: abdominal pain, bloating, coffee ground emesis, dysphagia, hematemesis, hematochezia, melena Genitourinary: ABSENT: dysuria, hematuria Musculoskeletal: ABSENT: deformity, joint swelling Integumentary: ABSENT: pruritus, rash Neurological: ABSENT: abnormal gait, abnormal movements, abnormal speech, confusion, focal weakness, frequent falls, lack of coordination, memory loss Psychiatric: ABSENT: hallucinations, homidical ideation, suicidal ideation Endocrine: ABSENT: cold intolerance, heat intolerance, polydipsia, polyuria Hematologic/Lymphatic: ABSENT: easy bruising, lymphadenopathy Physical Exam Vital Signs: Temp Pulse Resp BP Pulse Ox 98.2 F 78 18 134/57 H 96 10/24/18 08:00 10/24/18 08:11 10/24/18 08:11 10/24/18 08:00 10/24/18 08:11 Intake & Output 10/23/18 10/24/18 10/25/18 06:59 06:59 06:59 Intake Total 603 1297 Balance 603 1297 Weight 78.2 kg 77.1 kg General appearance: PRESENT: cooperative, disheveled, well-developed, well- nourished Head exam: PRESENT: atraumatic, normocephalic Eye exam: PRESENT: conjunctiva pale, EOMI. ABSENT: nystagmus Mouth exam: PRESENT: dry mucosa, neck supple, tongue midline Neck exam: ABSENT: carotid bruit, JVD, lymphadenopathy, thyromegaly, tracheal deviation, tracheostomy Respiratory exam: PRESENT: decreased breath sounds, prolonged expiratory phas, rales, rhonchi, unlabored, wheezes. ABSENT: retraction, stridor, tachypnea Cardiovascular exam: PRESENT: RRR, +S1, +S2 Pulses: PRESENT: normal radial pulses GI/Abdominal exam: PRESENT: soft - 96856. ABSENT: tenderness Extremities exam: PRESENT: pedal edema. ABSENT: calf tenderness, clubbing, joint swelling Musculoskeletal exam: ABSENT: deformity, dislocation Neurological exam: PRESENT: alert, awake Psychiatric exam: PRESENT: appropriate affect - [id number] Skin exam: PRESENT: dry, warm - 98644 Results Laboratory Results: 10/23/18 04:50 10/23/18 04:50 10/21/18 10/22/18 10/23/18 06:27 04:22 04:50 Troponin I < 0.012 0.015 NT-Pro-B Natriuret Pep 4930 H Impressions: Chest X-Ray 10/20/18 18:38 IMPRESSION: NO ACUTE RADIOGRAPHIC FINDING IN THE CHEST. Assessment & Plan - Diagnosis (1) COPD exacerbation Is this a current diagnosis for this admission?: Yes Plan: Generic Name Dose Route Start Last Admin Trade Name Freq PRN Reason Stop Dose Admin Fluticasone Propionate 2 spray 10/21/18 10:00 10/27/18 09:40 Flonase Nasal Rose 50 Mcg/Rose 16 Gm NASL 11/20/18 09:59 2 spray Q12 NALLELY Prednisone 40 mg 10/26/18 18:00 10/26/18 18:30 Deltasone 20 Mg Tablet PO 11/25/18 17:59 40 mg QPM NALLELY Albuterol/Ipratropium 3 ml 10/23/18 14:00 10/27/18 08:06 Duoneb 3 Ml Ampul NEB 11/22/18 13:59 3 ml RTQ6 NALLELY Albuterol/Ipratropium 3 ml 10/23/18 10:54 Duoneb 3 Ml Ampul NEB 11/22/18 10:51 RTQ3HP PRN SHORTNESS OF BREATH Guaifenesin 600 mg 10/25/18 22:00 10/27/18 09:40 Mucinex Sr 600 Mg Tablet.Sa PO 11/24/18 21:59 600 mg Q12 NALLELY Influenza Virus Vaccine Quadrival 0.5 ml 10/21/18 04:23 Fluarix Adlt Quad Vac 0.5 Ml Syr IM 11/20/18 04:22 .DISCHARGE PRN THIS MED IS NOT "PRN" (2) Lung mass Is this a current diagnosis for this admission?: Yes Plan: followed by oncology as well as thoracic surgery (3) Acute and chronic respiratory failure with hypoxia Is this a current diagnosis for this admission?: Yes Plan: Supplemental oxygen NIPPV as needed (4) Cough Is this a current diagnosis for this admission?: Yes Plan: Antitussive agents as tolerated
[2018-10-27 17:02] VITALS: BP 124/55
--- NOTE | 2018-10-27 21:59 | PDOC DISCHARGE SUMMARY ---
General - Admit/Disc Date/PCP Admission Date/Primary Care Provider: 10/21/18 01:49 JENAE MARS MD Discharge Date: 10/27/18 - Discharge Diagnosis (1) Acute exacerbation of congestive heart failure Is this a current diagnosis for this admission?: Yes Summary: The patient will return home continuing on her inhaler regimen. Additionally she will continue her home oxygen therapy. I prescribed a nebulizer machine and nebulizer therapy to augment her inhaler regimen. (2) COPD exacerbation Is this a current diagnosis for this admission?: Yes Summary: The patient is back to baseline at the time of discharge. (3) Lung mass Is this a current diagnosis for this admission?: Yes Summary: The patient is follow-up with her thoracic surgeon next week. She will likely discuss future plans. The patient does not want to participate in chemotherapy or radiation therapy. (4) Chronic renal disease, stage 3, moderately decreased glomerular filtration rate (GFR) between 30-59 mL/min/1.73 square meter Is this a current diagnosis for this admission?: Yes Summary: The patient's GFR did improve during her hospitalization but she remains stage III chronic kidney disease. - Additional Information Resuscitation Status: Do Not Resuscitate Discharge Diet: As Tolerated Discharge Activity: Balance Activity w/Rest, Weigh Daily Prescriptions: Apixaban [Eliquis 5 mg Tablet] 5 mg PO Q12 30 Days #60 tablet Butalb/Acetaminophen/Caffeine [Fioricet (50-325-40 mg) Tablet] 1 tab PO Q6HP PRN #30 each PRN Reason: Doxycycline Hyclate [Vibramycin 100 mg Tablet] 100 mg PO Q12A 7 Days #14 tablet Fluticasone Propionate [Flonase Nasal [place] 50 Mcg/[place] 16 gm] 2 spray NASL Q12 #1 spray.pump Ipratropium/Albuterol Sulfate [Duoneb 3 ml Ampul] 3 ml NEB RTQ6 30 Days #120 vial.neb Home Medications: Bumetanide [Bumex 0.5 mg Tablet] 0.5 mg PO QAM 10/21/18 Cholecalciferol (Vitamin D3) [Vitamin D3 400 Unit Tablet] 400 unit PO QAM Clopidogrel Bisulfate [Plavix 75 mg Tablet] 75 mg PO QAM 10/21/18 Folic Acid [Folvite 1 mg Tablet] 1 mg PO QAM 10/21/18 Gabapentin [Neurontin 300 mg Capsule] 300 mg PO QHS 10/21/18 Lisinopril [Zestril] 5 mg PO QAM 10/21/18 Metoprolol Succinate [Toprol Xl 25 mg Tab.sr] 25 mg PO QAM 10/21/18 Sertraline HCl [Zoloft 50 mg Tablet] 50 mg PO QPM 10/21/18 Simvastatin [Zocor 20 mg Tablet] 20 mg PO QPM 10/21/18 Apixaban [Eliquis 5 mg Tablet] 5 mg PO Q12 30 Days #60 tablet 10/27/18 Butalb/Acetaminophen/Caffeine [Fioricet (50-325-40 mg) Tablet] 1 tab PO Q6HP PRN #30 each 10/27/18 Clopidogrel Bisulfate [Plavix 75 mg Tablet] 75 mg PO DAILY tablet 10/27/18 Doxycycline Hyclate [Vibramycin 100 mg Tablet] 100 mg PO Q12A 7 Days #14 tablet 10/27/18 Ferrous Sulfate [Feosol 325 mg Tablet] 325 mg PO MEALS tablet 10/27/18 Fluticasone Propionate [Flonase Nasal [place] 50 Mcg/[place] 16 gm] 2 spray NASL Q12 #1 spray.pump 10/27/18 Gabapentin [Neurontin 300 mg Capsule] 300 mg PO QHS capsule 10/27/18 Guaifenesin [Mucinex Sr 600 mg Tablet.sa] 600 mg PO Q12 tablet.sa 10/27/18 Ipratropium/Albuterol Sulfate [Duoneb 3 ml Ampul] 3 ml NEB RTQ6 30 Days #120 vial.neb 10/27/18 Metoprolol Succinate [Toprol Xl 25 mg Tab.sr] 25 mg PO DAILY tab.sr.24h Sertraline HCl [Zoloft 50 mg Tablet] 50 mg PO QPM tablet 10/27/18 History of Present Illness Patient complains of: Shortness of breath History of Present Illness: ENE HOLGUIN is a 73 year old female who presented on October 21 with a one- week history of progressively increasing shortness of breath, productive cough and fever. She has a very complex medical history including a new lung mass felt to be malignant, history of breast cancer, chronic obstructive pulmonary disease and congestive heart failure. Initial evaluation revealed pneumonia. Hospital Course Hospital Course: Patient had a benign hospital course. With antibiotic therapy and aggressive pulmonary toilet including the addition of guaifenesin she slowly improved. Today is her 55rd wed anniversary and she is anxious discharge. Physical Exam Vital Signs: Temp Pulse Resp BP Pulse Ox 98.5 F 74 16 124/55 L 98 10/27/18 17:00 10/27/18 17:00 10/27/18 17:00 10/27/18 17:00 10/27/18 17:00 Intake & Output 10/26/18 10/27/18 10/28/18 06:59 06:59 06:59 Intake Total 1852 923 Balance 1852 923 Weight 78.9 kg General appearance: PRESENT: no acute distress, cooperative, well-developed Respiratory exam: PRESENT: clear to auscultation isael, symmetrical, unlabored. ABSENT: rales, rhonchi, wheezes Cardiovascular exam: PRESENT: RRR, +S1, +S2 GI/Abdominal exam: PRESENT: normal bowel sounds, soft. ABSENT: guarding, tenderness Extremities exam: PRESENT: pedal edema Neurological exam: PRESENT: alert, awake, oriented to person, oriented to place , oriented to time, oriented to situation, CN II-XII grossly intact Psychiatric exam: PRESENT: flat affect Results Laboratory Results: 10/27/18 05:39 10/27/18 05:39 10/27/18 10/27/18 05:39 05:39 WBC 14.9 H RBC 2.99 L Hgb 10.3 L Hct 30.7 L MCV 102 H MCH 34.2 H MCHC 33.4 RDW 14.1 H Plt Count 310 Sodium 140.3 Potassium 5.0 Chloride 101 Carbon Dioxide 27 Anion Gap 12 BUN 52 H Creatinine 0.99 Est GFR ( Amer) > 60 Est GFR (Non-Af Amer) 55 L Glucose 131 H Calcium 9.3 Magnesium 2.4 H 10/21/18 10/22/18 10/23/18 06:27 04:22 04:50 Troponin I < 0.012 0.015 NT-Pro-B Natriuret Pep 4930 H 10/25/18 04:08 Troponin I NT-Pro-B Natriuret Pep 7600 H Impressions: Chest X-Ray 10/20/18 18:38 IMPRESSION: NO ACUTE RADIOGRAPHIC FINDING IN THE CHEST. Qualifiers - * PATIENT BEING DISCHARGED WITH ANY OF THE FOLLOWING DIAGNOSIS: No Plan Discharge Plan: The patient returned home. As noted above she will follow with her thoracic surgeon as well as pulmonology and primary care. Time Spent: Less than 30 Minutes
== END 2018-10-27 17:14 | disposition home health service (06) | DRG 193 ==
LOC: ER 18:33 → EH 10-21 01:49 → 4N 10-21 03:31
PROVIDERS: ADMIT Internal Medicine; ATTEND Internal Medicine
PROC: 3E0F73Z Introduction of Anti-inflammatory into Respiratory Tract, Via Natural or Artificial Opening (ICD-10-PCS; 2018-10-20)
PROC: 5A09457 Assistance with Respiratory Ventilation, 24-96 Consecutive Hours, Continuous Positive Airway Pressure (ICD-10-PCS; principal; 2018-10-21)
PROC: 3E02340 Introduction of Influenza Vaccine into Muscle, Percutaneous Approach (ICD-10-PCS; 2018-10-27)
DX: J18.9 Pneumonia, unspecified organism (principal); J96.21 Acute and chronic respiratory failure with hypoxia; I50.33 Acute on chronic diastolic (congestive) heart failure; J96.02 Acute respiratory failure with hypercapnia; I13.0 Hypertensive heart and chronic kidney disease with heart failure and stage 1 through stage 4 chronic kidney disease, or unspecified chronic kidney disease; J44.0 Chronic obstructive pulmonary disease with (acute) lower respiratory infection; Z66 Do not resuscitate; N18.3 Chronic kidney disease, stage 3 (moderate); J43.9 Emphysema, unspecified; I25.10 Atherosclerotic heart disease of native coronary artery without angina pectoris; K21.9 Gastro-esophageal reflux disease without esophagitis; M19.90 Unspecified osteoarthritis, unspecified site; F03.90 Unspecified dementia, unspecified severity, without behavioral disturbance, psychotic disturbance, mood disturbance, and anxiety; D64.9 Anemia, unspecified; I44.7 Left bundle-branch block, unspecified; I48.2 Chronic atrial fibrillation; I25.2 Old myocardial infarction; Z23 Encounter for immunization; Z99.81 Dependence on supplemental oxygen; Z79.899 Other long term (current) drug therapy; Z85.3 Personal history of malignant neoplasm of breast; Z90.710 Acquired absence of both cervix and uterus; Z87.891 Personal history of nicotine dependence; Z88.6 Allergy status to analgesic agent; Z88.3 Allergy status to other anti-infective agents; Z88.0 Allergy status to penicillin; Z88.2 Allergy status to sulfonamides; Z79.01 Long term (current) use of anticoagulants; Z90.12 Acquired absence of left breast and nipple; Z83.6 Family history of other diseases of the respiratory system; Z82.49 Family history of ischemic heart disease and other diseases of the circulatory system
CPT/HCPCS: 36415; 71045; 80048; 80053; 81001; 82550; 82553; 82607; 82728; 82746; 82803; 83540; 83550; 83605; 83735; 83880; 84484; 85025; 85027; 85045; 87040; 87804; 90471; 90686; 93005; 93010; 94640; 94660; 94667; 94668; 96365; 99291; G0008; J0692; J1644; J1756; J1940; J2930; J3490; J7060; J7512; J7620

== ENCOUNTER 2019-04-20 23:46 | Inpatient (IN) | payer MEDICARE ==
[2019-04-20] MEDS ORDERED: ALBUTEROL SULFATE 0.083% NEB 2.5 MG/3 ML AMPUL NEB ONE (23:59)
--- NOTE | 2019-04-21 00:03 | ER Document Report ---
ED General - General Stated Complaint: RESPIRATORY DISTRESS Time Seen by Provider: 04/20/19 23:57 Cannot obtain history due to: Unstable vital signs Notes: Patient is a 73-year-old female with a past medical history of advanced COPD, CHF, presents with complaints of 3 days of progressively worsening shortness of breath, cough and sputum production. Symptoms have been progressing but became much worse this evening. EMS was called when daughter noted how poorly the patient was breathing. The patient has had improvement on CPAP by EMS. No obvious exacerbating factor. States he has had similar symptoms in the past with COPD exacerbations. Patient noted to have a fever on arrival. Patient has not seen her primary care physician regarding today's concerns. History is otherwise limited secondary to patient's respiratory distress. TRAVEL OUTSIDE OF THE [place] IN LAST 30 DAYS: No - Related Data Allergies/Adverse Reactions: aspirin [Aspirin] Allergy (Verified 04/04/18 14:13) azithromycin Allergy (Verified 04/04/18 14:13) codeine [Codeine] Allergy (Verified 04/04/18 14:13) erythromycin base [Erythromycin Base] Allergy (Verified 04/04/18 14:13) hydrocodone Allergy (Verified 04/04/18 14:13) levofloxacin [From Levaquin] Allergy (Verified 04/04/18 14:13) Penicillins Allergy (Verified 04/04/18 14:13) Sulfa (Sulfonamide Antibiotics) Allergy (Verified 04/04/18 14:13) Past Medical History - General Information source: Patient, Relative - Social History Smoking Status: Former Smoker Frequency of alcohol use: None Drug Abuse: None Lives with: Alone Family History: COPD, Hypertension - Past Medical History Cardiac Medical History: Reports: Hx Atrial Fibrillation, Hx Congestive Heart Failure, Hx Coronary Artery Disease, Hx Heart Attack, Hx Hypertension, Hx Heart Murmur Pulmonary Medical History: Reports: Hx Bronchitis, Hx COPD, Hx Pneumonia, Hx Respiratory Failure Neurological Medical History: Denies: Hx Migraine, Hx Seizures Renal/ Medical History: Denies: Hx Peritoneal Dialysis Malignancy Medical History: Reports: Hx Breast Cancer - left GI Medical History: Reports: Hx Gastroesophageal Reflux Disease. Denies: Hx Crohn's Disease, Hx Ulcerative Colitis Musculoskeletal Medical History: Reports Hx Arthritis, Reports Hx Musculoskeletal Trauma Psychiatric Medical History: Reports: Hx Dementia Denies: Hx Depression Traumatic Medical History: Reports: Hx Fractures Past Surgical History: Reports: Hx Abdominal Surgery - umbilical hernia, Hx Appendectomy, Hx Breast Surgery - L breast mast 2004, Hx Hysterectomy, Hx Tonsillectomy, Hx Umbilical Hernia - Immunizations Immunizations up to date: Yes Hx Diphtheria, Pertussis, Tetanus Vaccination: Yes - 2006 Hx Pneumococcal Vaccination: 07/26/17 Review of Systems - Review of Systems Notes: Constitutional: Positive for fever. HENT: Negative for sore throat. Eyes: Negative for visual changes. Cardiovascular: Negative for chest pain. Respiratory: Positive for shortness of breath. Gastrointestinal: Negative for abdominal pain, vomiting or diarrhea. Genitourinary: Negative for dysuria. Musculoskeletal: Negative for back pain. Skin: Negative for rash. Neurological: Negative for headaches, weakness or numbness. 10 point ROS negative except as marked above and in HPI. Physical Exam - Vital signs Vitals: Resp BP Pulse Ox 16 127/65 H 95 04/21/19 00:00 04/21/19 00:00 04/21/19 00:00 Interpretation: Tachycardic, Hypoxic, Tachypneic Notes: PHYSICAL EXAMINATION: GENERAL: Ill in appearance, in moderate respiratory distress with increased work of breathing HEAD: Atraumatic, normocephalic. EYES: Pupils equal round and reactive to light, extraocular movements intact, sclera anicteric, conjunctiva are normal. ENT: nares patent, oropharynx clear without exudates. Moderately dry mucous membranes. NECK: Normal range of motion, supple without lymphadenopathy LUNGS: Coarse expiratory wheezing in all lung mcdonald. Globally diminished air movement throughout. Moderate respiratory distress with increased labor of nayana thing with respiratory rate of 38 at time of initial assessment. Unable to speak in complete sentences. HEART: Regular tachycardia without murmurs ABDOMEN: Soft, nontender, normoactive bowel sounds. No guarding, no rebound. No masses appreciated. EXTREMITIES: Normal range of motion, no pitting or edema. No cyanosis. NEUROLOGICAL: No focal neurological deficits. Moves all extremities sponta neously and on command. PSYCH: Normal mood, normal affect. SKIN: Warm, Dry, normal turgor, no rashes or lesions noted. Course - Re-evaluation Re-evalutation: 04/21/19 00:00 Patient presents in moderate respiratory distress, labored in her breathing with coarse wheezing and tight air movement in all lung mcdonald. Patient has a hi story of advanced COPD, has a MOLST form with her that indicates DNR/DNI. The patient had been on CPAP in route to the hospital with some improvement of her symptoms and has been transitioned to her BiPAP. The patient appears to be having a severe COPD exacerbation. Given steroids in route to the hospital. IV magnesium and ongoing in-line albuterol and advisors will be initiated is in guarded condition and will be reassessed at regular intervals. 04/21/19 01:05 Patient is noted to be febrile. Work of breathing gradually improving on BiPAP. Suspect underlying pneumonia. Doxycycline IV has been started. Awaiting chest x-ray. Labs pending. Will continue to reassess at regular intervals. 04/21/19 02:02 Patient is continued to clinically improve on BiPAP. Labs overall unremarkable. Chest x-ray does not show an overt pneumonia although clinically the patient has a pneumonia with a fever of 102 F cough with sputum production worsening shortness of breath over the last 3 days. I have discussed with Dr. Campos who is accepted the patient to [facility]. - Vital Signs Vital signs: Temp Pulse Resp BP Pulse Ox 102.0 F H 20 102/61 97 04/21/19 00:31 04/21/19 03:53 04/21/19 03:01 04/21/19 03:01 - Laboratory Result Diagrams: 04/21/19 00:48 04/21/19 00:48 Laboratory results interpreted by me: 04/21/19 04/21/19 04/21/19 00:48 00:48 00:48 RBC 3.05 L Hgb 10.3 L Hct 31.1 L MCV 102 H MCH 33.8 H Seg Neutrophils % 82.4 H Lymphocytes % 10.3 L BUN 34 H Creatinine 1.50 H Est GFR ( Amer) 41 L Est GFR (Non-Af Amer) 34 L Glucose 174 H Alkaline Phosphatase 179 H NT-Pro-B Natriuret Pep 4430 H - Diagnostic Test Radiology reviewed: Image reviewed, Reports reviewed Radiology results interpreted by me: 04/21/19 02:02 Chest x-ray: No obvious infiltrate - EKG Interpretation by Me Additional EKG results interpreted by me: 04/21/19 02:03 Sinus tachycardia, rate 100. No ST elevations or depressions. Left bundle branch block unchanged from previous. QTC 537. Critical Care Note - Critical Care Note Total time excluding time spent on procedures (mins): 38 Comments: Critical care time spent obtaining history from patient or surrogate, discussions with consultants, development of treatment plan with patient or surrogate, evaluation of patient's response to treatment, examination of patient, ordering and performing treatments and interventions, ordering and review of laboratory studies, re-evaluation of patient's condition, ordering and review of radiographic studies and review of old charts Discharge - Discharge Clinical Impression: Respiratory distress, COPD exacerbation Pneumonia Qualifiers: Pneumonia type: due to unspecified organism Laterality: unspecified laterality Lung location: unspecified part of lung Qualified Code(s): J18.9 - Pneumonia, unspecified organism Condition: Fair Disposition: ADMITTED INPATIENT Admitting Provider: Andres (Hospitalist) Unit Admitted: [facility]
[2019-04-21] MEDS: MAGNESIUM SULFATE/D5W 1 GM/100 ML RTUPB IV SCH ×2 (00:22→00:27)
[2019-04-21 01:04] LABS: ABSOLUTE EOSINOPHILS # (AUTO) 0.1 10^3/uL (0.0-0.6); ABSOLUTE LYMPHOCYTES (AUTO) 0.9 10^3/uL (0.5-4.7); ABSOLUTE MONOCYTES (AUTO) 0.5 10^3/uL (0.1-1.4); ABSOLUTE NEUT (AUTO) 6.9 10^3/uL (1.7-8.2); TOTAL CELLS COUNTED % (AUTO) 100 %
[2019-04-21] MEDS ORDERED: DOXYCYCLINE HYCLATE INJ 100 MG VIAL IV ONE (01:04)
[2019-04-21 01:07] LABS: BASOPHILS % (AUTO) 0.3 % (0-2); EOSINOPHILS % (AUTO) 0.9 % (0-6); HEMATOCRIT 31.1 % (36.0-47.0); HEMOGLOBIN 10.3 g/dL (12.0-15.5); LYMPHOCYTES % (AUTO) 10.3 % (13-45); MEAN CORPUSCULAR HEMOGLOBIN 33.8 pg (27.0-33.4); MEAN CORPUSCULAR HGB CONC 33.1 g/dL (32.0-36.0); MEAN CORPUSCULAR VOLUME 102 fl (80-97); MONOCYTES % (AUTO) 6.1 % (3-13); RED BLOOD COUNT 3.05 10^6/uL (3.72-5.28); RED CELL DISTRIBUTION WIDTH 13.8 % (11.5-14.0); SEGMENTED NEUTROPHILS % (AUTO) 82.4 % (42-78); WHITE BLOOD COUNT 8.3 10^3/uL (4.0-10.5)
[2019-04-21 01:25] LABS: TROPONIN I 0.017 ng/mL
[2019-04-21 01:29] LABS: PLATELET COUNT 204 10^3/uL (150-450)
--- NOTE | 2019-04-21 01:31 | RADIOLOGY REPORT (SQ) ---
CLINICAL HISTORY: sob COMPARISON: August 03, 2018 PET/CT. TECHNIQUE: XR CHEST 1 VIEW 04/20/2019 11:59 PM CDT FINDINGS: The heart is enlarged. There is a right upper lobe vague nodule. There is no pleural effusion. There is no pneumothorax. There are no acute osseous findings. Right chest port catheter tip is in the upper SVC. There are surgical clips in the left axilla. IMPRESSION: Persistent right upper lobe pulmonary nodule. No definite pneumonia.
[2019-04-21 01:35] LABS: ALANINE AMINOTRANSFERASE 21 U/L (9-52); ALKALINE PHOSPHATASE 179 U/L (38-126); ANION GAP 14 (5-19); ASPARTATE AMINO TRANSFERASE 22 U/L (14-36); BILIRUBIN,DIRECT 0.3 mg/dL (0.0-0.4); BILIRUBIN,TOTAL 0.3 mg/dL (0.2-1.3); BLOOD UREA NITROGEN 34 mg/dL (7-20); CALCIUM 8.8 mg/dL (8.4-10.2); CARBON DIOXIDE 23 mmol/L (22-30); CHLORIDE 105 mmol/L (98-107); GLUCOSE 174 mg/dL (75-110); POTASSIUM 4.1 mmol/L (3.6-5.0); SODIUM 141.7 mmol/L (137-145); TOTAL PROTEIN 7.4 g/dL (6.3-8.2)
[2019-04-21] MEDS ORDERED: ACETAMINOPHEN 325 MG TABLET PO ONE (01:58)
[2019-04-21] MEDS ORDERED: ALBUTEROL SULFATE 0.083% NEB 2.5 MG/3 ML AMPUL NEB ONE (01:58)
[2019-04-21] MEDS ORDERED: RINGERS SOLUTION,LACTATED 500 ML IV ONE (01:59)
[2019-04-21] MEDS ORDERED: IPRATROPIUM/ALBUTEROL 0.5-2.5 MG/3 ML AMPUL NEB PRN (02:07)
[2019-04-21] MEDS ORDERED: ONDANSETRON HCL INJ/PF 4 MG/2 ML SDV IV ONE (02:19)
[2019-04-21] MEDS ORDERED: AZTREONAM 1 GM in DEXTROSE 5%-WATER 50 ML IV SCH (02:30)
[2019-04-21] MEDS: CHLORPHENIRAMINE MALEATE 4 MG TABLET PO SCH ×4 (03:06→17:52)
[2019-04-21] MEDS: FLUTICASONE NASAL SPRAY 50 MCG/SPRY 120 SPRAY/16 GM NASL SCH ×3 (03:07→21:51)
[2019-04-21] MEDS: APIXABAN 5 MG TABLET PO SCH ×3 (03:07→21:50)
[2019-04-21] MEDS: IPRATROPIUM/ALBUTEROL 0.5-2.5 MG/3 ML AMPUL NEB SCH ×2 (03:13→07:29)
[2019-04-21] MEDS ORDERED: AZTREONAM INJ 1 GM VIAL ONE (04:41)
[2019-04-21 05:47] LABS: ABSOLUTE RETICS # 0.037 10^6/uL (0.028-0.122); HEMATOCRIT 28.9 % (36.0-47.0); HEMOGLOBIN 9.5 g/dL (12.0-15.5); MEAN CORPUSCULAR HEMOGLOBIN 33.9 pg (27.0-33.4); MEAN CORPUSCULAR VOLUME 103 fl (80-97); PLATELET COUNT 188 10^3/uL (150-450); RED BLOOD COUNT 2.81 10^6/uL (3.72-5.28); RED CELL DISTRIBUTION WIDTH 13.8 % (11.5-14.0); RETICULOCYTE COUNT (AUTO) 1.31 % (0.66-2.85)
[2019-04-21 05:57] LABS: ANION GAP 17 (5-19); BLOOD UREA NITROGEN 33 mg/dL (7-20); CALCIUM 8.6 mg/dL (8.4-10.2); CARBON DIOXIDE 21 mmol/L (22-30); CHLORIDE 102 mmol/L (98-107); GLUCOSE 257 mg/dL (75-110); IRON(TIBC) 18.1 ug/dL (37-170); POTASSIUM 3.7 mmol/L (3.6-5.0); SODIUM 140.3 mmol/L (137-145)
[2019-04-21 06:17] LABS: ABSOLUTE LYMPHOCYTES# (MANUAL) 0.1 10^3/uL (0.5-4.7); ABSOLUTE NEUTROPHILS# (MANUAL) 5.9 10^3/uL (1.7-8.2); BASOPHILS % (MANUAL) 0 % (0-2); EOSINOPHILS % (MANUAL) 0 % (0-6); LYMPHOCYTES % (MANUAL) 1 % (13-45); MONOCYTES % (MANUAL) 0 % (3-13); PLATELET COMMENT ADEQUATE; RBC MORPHOLOGY COMMENT NORMO-CYTIC/CHROMIC; SEGMENTED NEUTROPHILS % (MAN) 99 % (42-78); TOTAL CELLS COUNTED 100
[2019-04-21] MEDS ORDERED: CYANOCOBALAMIN (VITAMIN B-12) INJ 1000 MCG/1 ML VIAL IM ONE (06:23)
--- NOTE | 2019-04-21 06:23 | PDOC H&P ---
History of Present Illness Admission Date/PCP: 04/21/19 02:21 JENAE MARS MD Patient complains of: Shortness of breath and fever History of Present Illness: ENE HOLGUIN is a 73 year old female with a past medical history of chronic bronchitis, oxygen dependent COPD, rheumatic heart disease, moderate aortic stenosis, diastolic heart failure, coronary artery disease and atrial fibrillation on Eliquis. She presents with a 3-day course of progressively worsening shortness of breath, productive cough of yellow sputum and fever. EMS found her tachypneic, she is placed on oxygen with BiPAP and brought to the emergency department for evaluation where she is found to have retractions, use of accessory muscles of persistent tachypnea and a fever of 102.0. A BNP of 4400 and hemoglobin of 10. She received empiric treatment for pneumonia given a persistent right upper lung nodule and chronic bronchitis. She is referred to the hospitalist for admission, her CODE STATUS is verified is DO NOT RESUSCITATE. She denies recent antibiotic use Past Medical History Cardiac Medical History: Reports: Atrial Fibrillation, Congestive Heart Failure, Coronary Artery Disease, Myocardial Infarction, Hypertension, Heart Murmur Pulmonary Medical History: Reports: Bronchitis, Chronic Obstructive Pulmonary Disease (COPD), Pneumonia, Respiratory Failure Neurological Medical History: Denies: Migraine, Seizures Malignancy Medical History: Reports: Breast Cancer - left GI Medical History: Reports: Gastroesophageal Reflux Disease Denies: Crohn's Disease, Ulcerative Colitis Musculoskeltal Medical History: Reports: Arthritis Psychiatric Medical History: Reports: Dementia Denies: Depression Hematology: Reports: Anemia Past Surgical History Past Surgical History: Reports: Appendectomy, Hysterectomy, Tonsillectomy Social History Information Source: Patient, [facility] Records Lives with: Alone Smoking Status: Former Smoker Cigarettes Packs Per Day: 1 Number of Years Smokin Last Time Smoked: 30 Years Ago Frequency of Alcohol Use: None Hx Recreational Drug Use: No Drugs: None Hx Prescription Drug Abuse: No - Advance Directive Resuscitation Status: Do Not Resuscitate Family History Family History: COPD, Hypertension Parental Family History Reviewed: Yes Children Family History Reviewed: Yes Sibling(s) Family History Reviewed.: Yes Medication/Allergy Home Medications: Bumetanide [Bumex 0.5 mg Tablet] 0.5 mg PO [facility] 10/21/18 Cholecalciferol (Vitamin D3) [Vitamin D3 400 Unit Tablet] 400 unit PO QAM 10/21/18 Clopidogrel Bisulfate [Plavix 75 mg Tablet] 75 mg PO QAM 10/21/18 Folic Acid [Folvite 1 mg Tablet] 1 mg PO QAM 10/21/18 Gabapentin [Neurontin 300 mg Capsule] 300 mg PO QHS 10/21/18 Lisinopril [Zestril] 5 mg PO QAM 10/21/18 Metoprolol Succinate [Toprol Xl 25 mg Tab.sr] 25 mg PO QAM 10/21/18 Sertraline HCl [Zoloft 50 mg Tablet] 50 mg PO QPM 10/21/18 Simvastatin [Zocor 20 mg Tablet] 20 mg PO QPM 10/21/18 Apixaban [Eliquis 5 mg Tablet] 5 mg PO Q12 30 Days #60 tablet 10/27/18 Butalb/Acetaminophen/Caffeine [Fioricet (50-325-40 mg) Tablet] 1 tab PO Q6HP PRN #30 each 10/27/18 Clopidogrel Bisulfate [Plavix 75 mg Tablet] 75 mg PO DAILY tablet 10/27/18 Doxycycline Hyclate [Vibramycin 100 mg Tablet] 100 mg PO Q12A 7 Days #14 tablet 10/27/18 Ferrous Sulfate [Feosol 325 mg Tablet] 325 mg PO MEALS tablet 10/27/18 Fluticasone Propionate [Flonase Nasal [place] 50 Mcg/[place] 16 gm] 2 spray NASL Q12 #1 spray.pump 10/27/18 Gabapentin [Neurontin 300 mg Capsule] 300 mg PO QHS capsule 10/27/18 Guaifenesin [Mucinex Sr 600 mg Tablet.sa] 600 mg PO Q12 tablet.sa 10/27/18 Ipratropium/Albuterol Sulfate [Duoneb 3 ml Ampul] 3 ml NEB RTQ6 30 Days #120 vial.neb 10/27/18 Metoprolol Succinate [Toprol Xl 25 mg Tab.sr] 25 mg PO DAILY tab.sr.24h 10/27/18 Sertraline HCl [Zoloft 50 mg Tablet] 50 mg PO QPM tablet 10/27/18 Allergies/Adverse Reactions: aspirin [Aspirin] Allergy (Verified 04/04/18 14:13) azithromycin Allergy (Verified 04/04/18 14:13) codeine [Codeine] Allergy (Verified 04/04/18 14:13) erythromycin base [Erythromycin Base] Allergy (Verified 04/04/18 14:13) hydrocodone Allergy (Verified 04/04/18 14:13) levofloxacin [From Levaquin] Allergy (Verified 04/04/18 14:13) Penicillins Allergy (Verified 04/04/18 14:13) Sulfa (Sulfonamide Antibiotics) Allergy (Verified 04/04/18 14:13) Review of Systems Constitutional: PRESENT: as per HPI, chills, fatigue, fever(s), weight gain. ABSENT: headache(s) Eyes: ABSENT: visual disturbances Ears: ABSENT: hearing changes Cardiovascular: PRESENT: as per HPI, dyspnea on exertion, orthropnea. ABSENT: palpitations Respiratory: PRESENT: as per HPI, cough, dyspnea, sputum. ABSENT: hemoptysis Gastrointestinal: ABSENT: abdominal pain, constipation, diarrhea, hematemesis, hematochezia, nausea, vomiting Genitourinary: ABSENT: dysuria, hematuria Musculoskeletal: ABSENT: joint swelling Integumentary: ABSENT: rash, wounds Neurological: ABSENT: abnormal gait, abnormal speech, confusion, dizziness, focal weakness, syncope Psychiatric: ABSENT: anxiety, depression, homidical ideation, suicidal ideation Endocrine: ABSENT: cold intolerance, heat intolerance, polydipsia, polyuria Hematologic/Lymphatic: ABSENT: easy bleeding, easy bruising Physical Exam Vital Signs: Temp Pulse Resp BP Pulse Ox 97.5 F 98 22 H 111/43 L 100 04/21/19 05:04 04/21/19 05:04 04/21/19 05:04 04/21/19 05:04 04/21/19 05:04 Intake & Output 04/19/19 04/20/19 04/21/19 11:59 11:59 11:59 Intake Total 608 Balance 608 Weight 76.8 kg General appearance: PRESENT: cooperative, mild distress, well-developed, well- nourished Head exam: PRESENT: atraumatic, normocephalic Eye exam: PRESENT: conjunctiva pale, EOMI, PERRLA. ABSENT: scleral icterus Ear exam: PRESENT: normal external ear exam Mouth exam: PRESENT: moist, tongue midline Neck exam: ABSENT: carotid bruit, JVD, lymphadenopathy, thyromegaly Respiratory exam: PRESENT: accessory muscle use, crackles, decreased breath sounds, rales, retraction, tachypnea. ABSENT: stridor Cardiovascular exam: PRESENT: diastolic murmur, irregular rhythm, +S1, +S2, systolic murmur Pulses: PRESENT: normal dorsalis pedis pul Vascular exam: PRESENT: normal capillary refill GI/Abdominal exam: PRESENT: normal bowel sounds, soft. ABSENT: distended, guarding, mass, organolmegaly, rebound, tenderness Rectal exam: PRESENT: deferred Extremities exam: PRESENT: full ROM. ABSENT: calf tenderness, clubbing, pedal edema Neurological exam: PRESENT: alert, awake, oriented to person, oriented to place, oriented to time, oriented to situation, CN II-XII grossly intact. ABSENT: motor sensory deficit Psychiatric exam: PRESENT: appropriate affect, normal mood. ABSENT: homicidal ideation, suicidal ideation Skin exam: PRESENT: dry, intact, warm. ABSENT: cyanosis, rash Results Laboratory Results: 04/21/19 04/21/19 04/21/19 00:48 00:48 00:48 WBC 8.3 RBC 3.05 L Hgb 10.3 L Hct 31.1 L MCV 102 H MCH 33.8 H MCHC 33.1 RDW 13.8 Plt Count 204 Seg Neutrophils % 82.4 H Lymphocytes % 10.3 L Monocytes % 6.1 Eosinophils % 0.9 Basophils % 0.3 Absolute Neutrophils 6.9 Absolute Lymphocytes 0.9 Absolute Monocytes 0.5 Absolute Eosinophils 0.1 Absolute Basophils 0.0 Retic Count (auto) Absolute Retic Sodium 141.7 Potassium 4.1 Chloride 105 Carbon Dioxide 23 Anion Gap 14 BUN 34 H Creatinine 1.50 H Est GFR ( Amer) 41 L Est GFR (Non-Af Amer) 34 L Glucose 174 H Calcium 8.8 Iron Cancelled TIBC Cancelled % Saturation Cancelled Ferritin Cancelled Total Bilirubin 0.3 AST 22 ALT 21 Alkaline Phosphatase 179 H Total Protein 7.4 Albumin 4.0 Vitamin B12 Cancelled Folate Cancelled 04/21/19 04/21/19 05:14 06:00 WBC RBC Hgb Hct MCV MCH MCHC RDW Plt Count Seg Neutrophils % Not Reportable Lymphocytes % Not Reportable Monocytes % Not Reportable Eosinophils % Not Reportable Basophils % Not Reportable Absolute Neutrophils Not Reportable Absolute Lymphocytes Not Reportable Absolute Monocytes Not Reportable Absolute Eosinophils Not Reportable Absolute Basophils Not Reportable Retic Count (auto) Cancelled Absolute Retic Cancelled Sodium Potassium Chloride Carbon Dioxide Anion Gap BUN Creatinine Est GFR ( Amer) Est GFR (Non-Af Amer) Glucose Calcium Iron TIBC % Saturation Ferritin Total Bilirubin AST ALT Alkaline Phosphatase Total Protein Albumin Vitamin B12 Folate 04/21/19 00:48 Troponin I 0.017 NT-Pro-B Natriuret Pep 4430 H Impressions: Chest X-Ray 04/20/19 23:59 IMPRESSION: Persistent right upper lobe pulmonary nodule. No definite pneumonia. Assessment and Plan - Diagnosis (1) Pneumonia Qualifiers: Pneumonia type: due to unspecified organism Laterality: unspecified laterality Lung location: unspecified part of lung Qualified Code(s): J18.9 - Pneumonia, unspecified organism Is this a current diagnosis for this admission?: Yes Plan: Present clinically, pneumonia care set deployed, multiple antibiotic allergies, doxycycline and aztreonam for Pseudomonas coverage initiated. Follow-up blood culture and CBC (2) COPD exacerbation Is this a current diagnosis for this admission?: Yes Plan: Secondary to #1, incentive spirometry, flutter valve, BiPAP (3) Acute and chronic respiratory failure with hypoxia Is this a current diagnosis for this admission?: Yes Plan: Secondary to #1, (4) Anemia Qualifiers: Anemia type: B12 deficiency Vitamin B12 deficiency anemia type: unspecified B12 deficiency Qualified Code(s): D51.9 - Vitamin B12 deficiency anemia, unspecified Is this a current diagnosis for this admission?: Yes Plan: Suspect macrocytic anemia, follow-up labs, cobalamin ordered empirically (5) Chronic diastolic (congestive) heart failure Is this a current diagnosis for this admission?: Yes Plan: Complicated by high output state with pneumonia and anemia. Continue BiPAP and optimize volume status. (6) Atrial fibrillation Qualifiers: Atrial fibrillation type: paroxysmal Qualified Code(s): I48.0 - Paroxysmal atrial fibrillation Is this a current diagnosis for this admission?: Yes Plan: Rate controlled continue Eliquis (7) Pulmonary nodule Is this a current diagnosis for this admission?: Yes Plan: Patient a poor surgical candidate, otherwise stable appearing over 6 months. - Time Time Spent with patient: 35 or more minutes - Inpatient Certification Medical Necessity: Need Close Monitoring Due to Risk of Patient Decompensation
[2019-04-21 07:04] LABS: FOLATE > 20.00 ng/mL (>2.76)
[2019-04-21] MEDS: ACETAMINOPHEN 325 MG TABLET PO PRN ×3 (07:05→22:44)
--- NOTE | 2019-04-21 07:41 | EKG REPORT ---
SEVERITY:- ABNORMAL ECG - SINUS TACHYCARDIA LEFT BUNDLE BRANCH BLOCK : Confirmed by: Nola Mooney MD 21-Apr-2019 07:40:16
[2019-04-21] MEDS: LISINOPRIL 5 MG TABLET PO SCH (09:03)
[2019-04-21] MEDS: METOPROLOL SUCCINATE 25 MG TAB.SR.24H PO SCH (09:03)
[2019-04-21] MEDS: CYANOCOBALAMIN (VITAMIN B-12) 1,000 MCG TABLET PO SCH (09:38)
[2019-04-21] MEDS: DOXYCYCLINE HYCLATE 100 MG in DEXTROSE 5%-WATER 250 ML IV SCH ×2 (09:38→21:57)
[2019-04-21] MEDS: GUAIFENESIN 600 MG TABLET.SA PO SCH ×2 (09:38→21:50)
[2019-04-21] MEDS: CLOPIDOGREL BISULFATE 75 MG TABLET PO SCH (09:51)
[2019-04-21] MEDS ORDERED: LEVALBUTEROL HCL NEB 1.25 MG/3 ML AMPUL NEB PRN (09:52)
[2019-04-21] MEDS ORDERED: CLOPIDOGREL BISULFATE 75 MG TABLET PO SCH (10:00)
[2019-04-21] MEDS ORDERED: METOPROLOL SUCCINATE 25 MG TAB.SR.24H PO SCH (10:00)
[2019-04-21] MEDS ORDERED: LISINOPRIL 5 MG TABLET PO SCH (10:00)
[2019-04-21] MEDS: CHOLECALCIFEROL (D3) 400 UNIT TABLET PO SCH (11:53)
[2019-04-21] MEDS: FOLIC ACID 1 MG TABLET PO SCH (11:54)
[2019-04-21] MEDS: BUMETANIDE 1 MG TABLET PO SCH (11:54)
[2019-04-21] MEDS ORDERED: CHLORPHENIRAMINE MALEATE 4 MG TABLET PO SCH (12:00)
[2019-04-21] MEDS ORDERED: IPRATROPIUM/ALBUTEROL 0.5-2.5 MG/3 ML AMPUL NEB SCH (12:00)
[2019-04-21] MEDS ORDERED: METOPROLOL TARTRATE PF/INJ 5 MG/5 ML SDV IV PRN (12:43)
[2019-04-21] MEDS ORDERED: LEVALBUTEROL HCL NEB 1.25 MG/3 ML AMPUL NEB SCH (12:45)
[2019-04-21] MEDS: METHYLPREDNISOLONE INJ 40 MG/1 ML SDV IV SCH ×2 (15:01→21:51)
[2019-04-21] MEDS: AZTREONAM 1 GM in DEXTROSE 5%-WATER 50 ML IV SCH ×2 (15:01→21:51)
[2019-04-21] MEDS: GUAIFENESIN SYRP 200 MG/10 ML UDC PO PRN (15:09)
--- NOTE | 2019-04-21 15:41 | Progress Note ---
Provider Note Provider Note: 73 y.o. F with a PMH COPD (on home O2 PRN), CHF, A. fib, CAD, HTN, breast CA, arthritis. She is admitted to the hospitalist service with a clinical diagnosis of pneumonia. Initially requiring BiPAP, presented with a fever of 102 and BNP 4400. 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 1. Acute on chronic respiratory failure: secondary to PNA. Antibiotics, nebulizers, steroids, mucinex. 2. PNA: multiple drug allergies. aztreonam. doxycycline. 3. COPD exacerbation: (+) wheezing. continuous nasal cannula. Increase Duoneb frequency q4h. Add xopenex PRN. Initiate IV solumedrol. 4. CHF: [id number]. Resume home dose Bumex. Continue lisinopril. 5. Anemia: Macrocytic anemia. Low Iron and TIBC. Elevated ferretin. Likely r elated to chronic disease. 6. AFIB: Currently on apixaban and Toprol 7. Pulmonary nodule: nonoperative. Seen on XRAY. Stable since previous imaging approx. 6 months ago. Nursing staff requesting to utilize Peter [place]berry that has not been accessed in 15 years. Will obtain port study prior to utilization.
[2019-04-21 15:56] LABS: CREATINE KINASE MB 4.53 ng/mL (<4.55); TROPONIN I 0.035 ng/mL
--- NOTE | 2019-04-21 16:08 | RADIOLOGY REPORT (SQ) ---
EXAM DESCRIPTION: INJECT VENOUS ACCESS DEVICE COMPLETED DATE/TIME: 04/21/2019 3:54 pm REASON FOR STUDY: port study evaluate for patency, gain access to the port COMPARISON: AP chest 04/21/2019 PET-CT 08/03/2018 FLUOROSCOPY TIME: 0.1 minutes 1 series of digital fluoroscopic images saved to PACS. TECHNIQUE: Intra-operative images acquired during surgical procedure to evaluate progress. NUMBER OF IMAGES: 1 series of digital fluoroscopic images saved to pac's LIMITATIONS: None. FINDINGS: The right permanent central line was accessed using sterile technique and fluoroscopic jean carlos dance. Once accessed, the port was easily aspirated with blood return. Gentle hand injection of 7 mL of Omn ipaque 300 contrast demonstrates that the catheter is widely patent without evidence of fibrin sheath . No breakage in the catheter tubing. No leakage from the access hub. The port was dressed with a sterile bandage and access was maintained for use on the nursing floor. IMPRESSION: Patent right-sided permanent central line. Muhammad needle access was maintained postproce dure for use on the nursing floor. COMMENT: Quality ID [id number]: Final reports for procedures using fluoroscopy that document radiation exp osure indices, or exposure time and number of fluorographic images (if radiation exposure indices are not available) Please consult full operative report of the attending physician for description of the procedure. TECHNICAL DOCUMENTATION: JOB ID: [id number] [employer]- All Rights Reserved Reading location - IP/workstation name: [email or web address]
[2019-04-21] MEDS ORDERED: DILTIAZEM HCL INJ 25 MG/5 ML VIAL IV PRN (16:46)
[2019-04-21] MEDS: SERTRALINE HCL 50 MG TABLET PO SCH (17:53)
[2019-04-21] MEDS ORDERED: SERTRALINE HCL 50 MG TABLET PO SCH (18:00)
[2019-04-21] MEDS ORDERED: SIMVASTATIN 10 MG TABLET PO SCH ×2 (18:00)
--- NOTE | 2019-04-21 18:38 | EKG REPORT ---
SEVERITY:- ABNORMAL ECG - SINUS RHYTHM LEFT BUNDLE BRANCH BLOCK : Confirmed by: Nola Mooney MD 21-Apr-2019 18:37:43
--- NOTE | 2019-04-21 18:38 | EKG REPORT ---
SEVERITY:- ABNORMAL ECG - SINUS RHYTHM LEFT BUNDLE BRANCH BLOCK : Confirmed by: Nola Mooney MD 21-Apr-2019 18:37:48
[2019-04-21] MEDS: GABAPENTIN 300 MG CAPSULE PO SCH (21:50)
[2019-04-21] MEDS: SIMVASTATIN 10 MG TABLET PO SCH (21:50)
[2019-04-22] MEDS: CHLORPHENIRAMINE MALEATE 4 MG TABLET PO SCH ×2 (00:41→05:07)
[2019-04-22] MEDS: METHYLPREDNISOLONE INJ 40 MG/1 ML SDV IV SCH ×3 (05:06→21:20)
[2019-04-22] MEDS: AZTREONAM 1 GM in DEXTROSE 5%-WATER 50 ML IV SCH ×3 (05:06→21:17)
[2019-04-22 05:58] LABS: ABSOLUTE LYMPHOCYTES (AUTO) 0.8 10^3/uL (0.5-4.7); ABSOLUTE MONOCYTES (AUTO) 0.3 10^3/uL (0.1-1.4); ABSOLUTE NEUT (AUTO) 12.1 10^3/uL (1.7-8.2); BASOPHILS % (AUTO) 0.1 % (0-2); HEMATOCRIT 29.3 % (36.0-47.0); HEMOGLOBIN 9.6 g/dL (12.0-15.5); LYMPHOCYTES % (AUTO) 6.2 % (13-45); MEAN CORPUSCULAR HEMOGLOBIN 33.6 pg (27.0-33.4); MEAN CORPUSCULAR HGB CONC 32.8 g/dL (32.0-36.0); MEAN CORPUSCULAR VOLUME 102 fl (80-97); MONOCYTES % (AUTO) 2.6 % (3-13); PLATELET COUNT 216 10^3/uL (150-450); RED BLOOD COUNT 2.86 10^6/uL (3.72-5.28); RED CELL DISTRIBUTION WIDTH 13.9 % (11.5-14.0); SEGMENTED NEUTROPHILS % (AUTO) 91.1 % (42-78); TOTAL CELLS COUNTED % (AUTO) 100 %
[2019-04-22 06:11] LABS: WHITE BLOOD COUNT 13.3 10^3/uL (4.0-10.5)
[2019-04-22 06:22] LABS: ALANINE AMINOTRANSFERASE 21 U/L (9-52); ALBUMIN 3.4 g/dL (3.5-5.0); ALKALINE PHOSPHATASE 133 U/L (38-126); ANION GAP 14 (5-19); ASPARTATE AMINO TRANSFERASE 22 U/L (14-36); BILIRUBIN,DIRECT 0.3 mg/dL (0.0-0.4); BILIRUBIN,TOTAL 0.3 mg/dL (0.2-1.3); BLOOD UREA NITROGEN 53 mg/dL (7-20); CALCIUM 8.8 mg/dL (8.4-10.2); CARBON DIOXIDE 24 mmol/L (22-30); CHLORIDE 102 mmol/L (98-107); GLUCOSE 157 mg/dL (75-110); PHOSPHORUS 5.5 mg/dL (2.5-4.5); POTASSIUM 4.7 mmol/L (3.6-5.0); TOTAL PROTEIN 6.2 g/dL (6.3-8.2)
[2019-04-22] MEDS: METOPROLOL SUCCINATE 25 MG TAB.SR.24H PO SCH (07:59)
[2019-04-22] MEDS: LISINOPRIL 5 MG TABLET PO SCH (07:59)
[2019-04-22] MEDS: ACETAMINOPHEN 325 MG TABLET PO PRN ×2 (07:59→19:50)
[2019-04-22] MEDS: APIXABAN 5 MG TABLET PO SCH ×2 (09:36→21:18)
[2019-04-22] MEDS: CHOLECALCIFEROL (D3) 400 UNIT TABLET PO SCH (09:36)
[2019-04-22] MEDS: CYANOCOBALAMIN (VITAMIN B-12) 1,000 MCG TABLET PO SCH (09:36)
[2019-04-22] MEDS: FOLIC ACID 1 MG TABLET PO SCH (09:36)
[2019-04-22] MEDS: CLOPIDOGREL BISULFATE 75 MG TABLET PO SCH (09:36)
[2019-04-22] MEDS: GUAIFENESIN 600 MG TABLET.SA PO SCH ×2 (09:36→21:18)
[2019-04-22] MEDS: BUMETANIDE 1 MG TABLET PO SCH (09:40)
[2019-04-22] MEDS: FLUTICASONE NASAL SPRAY 50 MCG/SPRY 120 SPRAY/16 GM NASL SCH ×2 (09:40→21:19)
[2019-04-22] MEDS: IPRATROPIUM/ALBUTEROL 0.5-2.5 MG/3 ML AMPUL NEB PRN (09:51)
[2019-04-22] MEDS: DOXYCYCLINE HYCLATE 100 MG in DEXTROSE 5%-WATER 250 ML IV SCH ×2 (10:10→21:16)
[2019-04-22] MEDS ORDERED: METOPROLOL SUCCINATE 25 MG TAB.SR.24H PO ONE (11:00)
[2019-04-22] MEDS ORDERED: FUROSEMIDE INJ/PF 20 MG/2 ML SDV IV ONE (17:01)
--- NOTE | 2019-04-22 17:02 | PDOC PROGRESS REPORT ---
Subjective Progress Note for:: 04/22/19 Subjective:: 73 y.o. F with a PMH COPD (on home O2 PRN), CHF, A. fib, CAD, HTN, breast CA, arthritis. She is admitted to the hospitalist service with a clinical diagnosis of pneumonia. Per nursing staff, the patient has been experiencing intermittent episodes of SVT. Her heart rate will increase to 150s for brief periods of time (1 to 2 minutes), and often spontaneously resolve. Nursing staff has administered IV Cardizem for 1 prolonged episode last night, heart rate decreased from 150--> 70 bpm following a single dose of Cardizem 10 mg IV. Patient was seen this morning on rounds, she is resting comfortably in bed on supplemental oxygen. Lungs are clear to auscultation, this is a wagner improvement from yesterday. Patient admits to mild shortness of breath and en dorses dyspnea on exertion. Plan to continue current treatment regimen. Will increase Toprol-XL dosage for better HR control. Reason For Visit: PNA, COPD AND CHF EXACERBATION Physical Exam Vital Signs: Temp Pulse Resp BP Pulse Ox 98.5 F 73 20 125/53 L 98 04/22/19 11:06 04/22/19 15:32 04/22/19 15:32 04/22/19 11:06 04/22/19 15:32 Intake & Output 04/21/19 04/22/19 04/23/19 06:59 06:59 06:59 Intake Total 1208 1062 250 Output Total 1750 Balance 1208 -688 250 Weight 76.8 kg 76.7 kg General appearance: PRESENT: morbidly obese Eye exam: PRESENT: conjunctiva pink, PERRLA Mouth exam: PRESENT: moist, tongue midline Neck exam: PRESENT: full ROM Respiratory exam: PRESENT: clear to auscultation isael, decreased breath sounds - Bilateral lower lobes, symmetrical, unlabored Cardiovascular exam: PRESENT: RRR Pulses: PRESENT: normal radial pulses, +1 pedal pulses bilateral Vascular exam: PRESENT: normal capillary refill GI/Abdominal exam: PRESENT: normal bowel sounds, soft. ABSENT: distended, tenderness Rectal exam: PRESENT: deferred Extremities exam: PRESENT: full ROM, pedal edema Musculoskeletal exam: PRESENT: ambulatory - With assistance. Able to sit at the edge of the bed, full ROM. ABSENT: deformity Neurological exam: PRESENT: alert, awake, oriented to person, oriented to place, oriented to time, oriented to situation Psychiatric exam: PRESENT: appropriate affect Skin exam: PRESENT: dry, intact, normal color Results Laboratory Results: 04/22/19 05:17 04/22/19 05:17 04/22/19 04/22/19 05:17 05:17 WBC 13.3 H D RBC 2.86 L Hgb 9.6 L Hct 29.3 L MCV 102 H MCH 33.6 H MCHC 32.8 RDW 13.9 Plt Count 216 Seg Neutrophils % 91.1 H Lymphocytes % 6.2 L Monocytes % 2.6 L Eosinophils % 0.0 Basophils % 0.1 Absolute Neutrophils 12.1 H Absolute Lymphocytes 0.8 Absolute Monocytes 0.3 Absolute Eosinophils 0.0 Absolute Basophils 0.0 Sodium 140.0 Potassium 4.7 Chloride 102 Carbon Dioxide 24 Anion Gap 14 BUN 53 H Creatinine 1.76 H Est GFR ( Amer) 34 L Est GFR (Non-Af Amer) 28 L Glucose 157 H Calcium 8.8 Phosphorus 5.5 H Magnesium 2.5 H Total Bilirubin 0.3 AST 22 ALT 21 Alkaline Phosphatase 133 H Total Protein 6.2 L Albumin 3.4 L 04/21/19 04/21/19 04/21/19 00:48 12:52 12:52 Creatine Kinase 133 CK-MB (CK-2) Cancelled Troponin I 0.017 Cancelled NT-Pro-B Natriuret Pep 4430 H 04/21/19 04/22/19 14:40 05:17 Creatine Kinase CK-MB (CK-2) 4.53 Troponin I 0.035 NT-Pro-B Natriuret Pep 35547 H Impressions: Chest X-Ray 04/20/19 23:59 IMPRESSION: Persistent right upper lobe pulmonary nodule. No definite pneumonia. Venous Access Device Injection 04/21/19 00:00 IMPRESSION: Patent right-sided permanent central line. Muhammad needle access was maintained postprocedure for use on the nursing floor. Status: Imported from PACS Assessment and Plan - Diagnosis (1) Acute and chronic respiratory failure with hypoxia Is this a current diagnosis for this admission?: Yes Plan: Secondary to PNA Antibiotics, nebulizers, steroids, Mucinex (2) Pulmonary nodule Is this a current diagnosis for this admission?: Yes Plan: Nonoperative. Seen on XRAY. Stable since previous imaging approx. 6 months ago. (3) Atrial fibrillation Qualifiers: Atrial fibrillation type: paroxysmal Qualified Code(s): I48.0 - Paroxysmal atrial fibrillation Is this a current diagnosis for this admission?: Yes Plan: Currently on apixaban and Toprol Rhythm is NSR with LBBB Poor rate control, patient intermittently experiencing SVT Cardiology consulted, recommend PRN Cardizem IV and increase Toprol from 25 mg to 50 mg daily (4) COPD exacerbation Is this a current diagnosis for this admission?: Yes Plan: Improving Very minimal wheezing on exam Continuous nasal cannula Scheduled and PRN nebulizer treatments Switched from duo nebs to Xopenex due to heart rate Scheduled IV Solu-Medrol (5) Pneumonia Qualifiers: Pneumonia type: due to unspecified organism Laterality: unspecified laterality Lung location: unspecified part of lung Qualified Code(s): J18.9 - Pneumonia, unspecified organism Is this a current diagnosis for this admission?: Yes Plan: Multiple drug allergies Continue aztreonam and doxycycline (6) Anemia Qualifiers: Anemia type: B12 deficiency Vitamin B12 deficiency anemia type: unspecified B12 deficiency Qualified Code(s): D51.9 - Vitamin B12 deficiency anemia, unspecified Is this a current diagnosis for this admission?: Yes Plan: Macrocytic anemia Low iron and TIBC Elevated ferritin Likely related to chronic disease Transfuse for Hgb<8.0 (7) Chronic diastolic (congestive) heart failure Is this a current diagnosis for this admission?: Yes Plan: BNP increased from 4400-->33533 Continue home dose BUMEX Crackles heard in LLL Will administer one time dose of lasix - Time Time Spent with patient: 15-24 minutes Medications reviewed and adjusted accordingly: Yes Anticipated discharge: Home - Inpatient Certification Based on my medical assessment, after consideration of the patient's comorbidities, presenting symptoms, or acuity I expect that the services needed warrant INPATIENT care.: Yes I certify that my determination is in accordance with my understanding of Medicare's requirements for reasonable and necessary INPATIENT services [42 CFR 412.3e].: Yes Medical Necessity: Need For Continuous Telemetry Monitoring, Risk of Complication if Not Cared For in Hospital
[2019-04-22] MEDS: SERTRALINE HCL 50 MG TABLET PO SCH (18:49)
[2019-04-22] MEDS: GABAPENTIN 300 MG CAPSULE PO SCH (21:18)
[2019-04-22] MEDS: SIMVASTATIN 10 MG TABLET PO SCH (21:18)
[2019-04-23] MEDS: AZTREONAM 1 GM in DEXTROSE 5%-WATER 50 ML IV SCH ×3 (07:03→21:16)
[2019-04-23] MEDS: METHYLPREDNISOLONE INJ 40 MG/1 ML SDV IV SCH ×3 (07:04→21:18)
[2019-04-23 07:33] LABS: ABSOLUTE LYMPHOCYTES (AUTO) 0.9 10^3/uL (0.5-4.7); ABSOLUTE MONOCYTES (AUTO) 0.5 10^3/uL (0.1-1.4); ABSOLUTE NEUT (AUTO) 12.8 10^3/uL (1.7-8.2); BASOPHILS % (AUTO) 0.1 % (0-2); HEMATOCRIT 27.3 % (36.0-47.0); LYMPHOCYTES % (AUTO) 6.4 % (13-45); MEAN CORPUSCULAR HEMOGLOBIN 33.9 pg (27.0-33.4); MEAN CORPUSCULAR VOLUME 103 fl (80-97); MONOCYTES % (AUTO) 3.2 % (3-13); PLATELET COUNT 228 10^3/uL (150-450); RED BLOOD COUNT 2.66 10^6/uL (3.72-5.28); RED CELL DISTRIBUTION WIDTH 13.8 % (11.5-14.0); SEGMENTED NEUTROPHILS % (AUTO) 90.3 % (42-78); TOTAL CELLS COUNTED % (AUTO) 100 %; WHITE BLOOD COUNT 14.2 10^3/uL (4.0-10.5)
[2019-04-23 07:55] LABS: ALANINE AMINOTRANSFERASE 25 U/L (9-52); ALBUMIN 3.4 g/dL (3.5-5.0); ALKALINE PHOSPHATASE 157 U/L (38-126); ANION GAP 12 (5-19); ASPARTATE AMINO TRANSFERASE 29 U/L (14-36); BILIRUBIN,DIRECT 0.2 mg/dL (0.0-0.4); BILIRUBIN,TOTAL 0.2 mg/dL (0.2-1.3); BLOOD UREA NITROGEN 67 mg/dL (7-20); CALCIUM 8.7 mg/dL (8.4-10.2); CARBON DIOXIDE 23 mmol/L (22-30); CHLORIDE 101 mmol/L (98-107); GLUCOSE 127 mg/dL (75-110); PHOSPHORUS 5.7 mg/dL (2.5-4.5); POTASSIUM 5.2 mmol/L (3.6-5.0); SODIUM 135.5 mmol/L (137-145)
[2019-04-23] MEDS: BUMETANIDE 1 MG TABLET PO SCH (09:02)
[2019-04-23] MEDS: LISINOPRIL 5 MG TABLET PO SCH (09:02)
[2019-04-23] MEDS: GUAIFENESIN 600 MG TABLET.SA PO SCH ×2 (09:02→21:17)
[2019-04-23] MEDS: APIXABAN 5 MG TABLET PO SCH ×2 (09:02→21:17)
[2019-04-23] MEDS: CYANOCOBALAMIN (VITAMIN B-12) 1,000 MCG TABLET PO SCH (09:02)
[2019-04-23] MEDS: CLOPIDOGREL BISULFATE 75 MG TABLET PO SCH (09:02)
[2019-04-23] MEDS: FOLIC ACID 1 MG TABLET PO SCH (09:02)
[2019-04-23] MEDS: CHOLECALCIFEROL (D3) 400 UNIT TABLET PO SCH (09:02)
[2019-04-23] MEDS: FLUTICASONE NASAL SPRAY 50 MCG/SPRY 120 SPRAY/16 GM NASL SCH ×2 (09:02→21:21)
[2019-04-23] MEDS: DOXYCYCLINE HYCLATE 100 MG in DEXTROSE 5%-WATER 250 ML IV SCH ×2 (09:07→21:16)
[2019-04-23] MEDS ORDERED: METOPROLOL SUCCINATE 50 MG TAB.SR.24H PO SCH (10:00)
[2019-04-23] MEDS: IPRATROPIUM/ALBUTEROL 0.5-2.5 MG/3 ML AMPUL NEB PRN ×2 (13:18→21:57)
[2019-04-23] MEDS: SERTRALINE HCL 50 MG TABLET PO SCH (18:46)
--- NOTE | 2019-04-23 19:29 | PDOC PROGRESS REPORT ---
Subjective Progress Note for:: 04/23/19 Subjective:: 73 y.o. F with a PMH COPD (on home O2 PRN), CHF, A. fib, CAD, HTN, breast CA, arthritis. She is admitted to the hospitalist service with a clinical diagnosis of pneumonia. Per nursing staff, the patient had been experiencing intermittent episodes of SVT during this hospitalization. Her heart rate will increase to 150s for brief periods of time (1 to 2 minutes), and often spontaneously resolve. Increased Toprol XL from 25mg-->50mg and patient's HR has been controlled for 24hrs+ Patient was seen this morning on rounds, she is resting comfortably in bed on s upplemental oxygen. Lungs are clear to auscultation. Patient admits she does "not feel well today." States she is weak and tired. Plan to continue current treatment regimen. Consult PT/OT. OOB to chair q shift. Likely discharge home in 24-48 hours. Reason For Visit: PNA, COPD AND CHF EXACERBATION Physical Exam Vital Signs: Temp Pulse Resp BP Pulse Ox 98.2 F 75 22 H 115/40 L 99 04/23/19 15:52 04/23/19 15:52 04/23/19 15:52 04/23/19 15:52 04/23/19 15:52 Intake & Output 04/22/19 04/23/19 04/24/19 06:59 06:59 06:59 Intake Total 1062 1610 794 Output Total 4884 359 7154 Balance -688 810 -856 Weight 76.7 kg 78.5 kg General appearance: PRESENT: no acute distress, obese Head exam: PRESENT: atraumatic, normocephalic Eye exam: PRESENT: conjunctiva pink, EOMI, PERRLA. ABSENT: scleral icterus Ear exam: PRESENT: normal external ear exam Mouth exam: PRESENT: moist, tongue midline Neck exam: ABSENT: carotid bruit, JVD, lymphadenopathy, thyromegaly Respiratory exam: PRESENT: clear to auscultation isael, symmetrical, unlabored. ABSENT: rales, rhonchi, wheezes Cardiovascular exam: PRESENT: RRR. ABSENT: diastolic murmur, rubs, systolic murmur Pulses: PRESENT: normal radial pulses, +1 pedal pulses bilateral Vascular exam: PRESENT: normal capillary refill GI/Abdominal exam: PRESENT: normal bowel sounds, soft. ABSENT: distended, guarding, mass, organolmegaly, rebound, tenderness Rectal exam: PRESENT: deferred Extremities exam: PRESENT: full ROM, pedal edema. ABSENT: calf tenderness, clubbing Musculoskeletal exam: PRESENT: ambulatory, full ROM Neurological exam: PRESENT: alert, awake, oriented to person, oriented to place, oriented to time, oriented to situation, CN II-XII grossly intact. ABSENT: motor sensory deficit Psychiatric exam: PRESENT: appropriate affect, normal mood Skin exam: PRESENT: dry, intact, warm. ABSENT: cyanosis, rash Results Laboratory Results: 04/23/19 07:00 04/23/19 07:00 04/23/19 04/23/19 07:00 07:00 WBC 14.2 H RBC 2.66 L Hgb 9.0 L Hct 27.3 L MCV 103 H MCH 33.9 H MCHC 33.0 RDW 13.8 Plt Count 228 Seg Neutrophils % 90.3 H Lymphocytes % 6.4 L Monocytes % 3.2 Eosinophils % 0.0 Basophils % 0.1 Absolute Neutrophils 12.8 H Absolute Lymphocytes 0.9 Absolute Monocytes 0.5 Absolute Eosinophils 0.0 Absolute Basophils 0.0 Sodium 135.5 L Potassium 5.2 H Chloride 101 Carbon Dioxide 23 Anion Gap 12 BUN 67 H Creatinine 1.68 H Est GFR ( Amer) 36 L Est GFR (Non-Af Amer) 30 L Glucose 127 H Calcium 8.7 Phosphorus 5.7 H Magnesium 2.4 H Total Bilirubin 0.2 AST 29 ALT 25 Alkaline Phosphatase 157 H Total Protein 6.0 L Albumin 3.4 L 04/21/19 04/21/19 04/21/19 00:48 12:52 12:52 Creatine Kinase 133 CK-MB (CK-2) Cancelled Troponin I 0.017 Cancelled NT-Pro-B Natriuret Pep 4430 H 04/21/19 04/22/19 04/23/19 14:40 05:17 07:00 Creatine Kinase CK-MB (CK-2) 4.53 Troponin I 0.035 NT-Pro-B Natriuret Pep 42972 H 98751 H Impressions: Chest X-Ray 04/20/19 23:59 IMPRESSION: Persistent right upper lobe pulmonary nodule. No definite pneumonia. Venous Access Device Injection 04/21/19 00:00 IMPRESSION: Patent right-sided permanent central line. Muhammad needle access was maintained postprocedure for use on the nursing floor. Status: Imported from PACS Assessment and Plan - Diagnosis (1) Acute and chronic respiratory failure with hypoxia Is this a current diagnosis for this admission?: Yes Plan: Secondary to PNA Antibiotics, nebulizers, steroids, Mucinex (2) Pulmonary nodule Is this a current diagnosis for this admission?: Yes Plan: Nonoperative. Seen on XRAY. Stable since previous imaging approx. 6 months ago. (3) Atrial fibrillation Qualifiers: Atrial fibrillation type: paroxysmal Qualified Code(s): I48.0 - Paroxysmal atrial fibrillation Is this a current diagnosis for this admission?: Yes Plan: Rate controlled on apixaban and Toprol Rhythm is NSR with LBBB Initially, patient had poor rate control, intermittently experiencing SVT Cardiology consulted, recommend PRN Cardizem IV and increased Toprol from 25 mg to 50 mg daily (4) COPD exacerbation Is this a current diagnosis for this admission?: Yes Plan: Improving Very mild wheezing on exam today 3L p/min via nasal cannula (home dose) Scheduled and PRN nebulizer treatments Switched from duo nebs to Xopenex due to heart rate Scheduled IV Solu-Medrol (5) Pneumonia Qualifiers: Pneumonia type: due to unspecified organism Laterality: unspecified laterality Lung location: unspecified part of lung Qualified Code(s): J18.9 - Pneumonia, unspecified organism Is this a current diagnosis for this admission?: Yes Plan: Multiple drug allergies Continue aztreonam and doxycycline (6) Anemia Qualifiers: Anemia type: B12 deficiency Vitamin B12 deficiency anemia type: unspecified B12 deficiency Qualified Code(s): D51.9 - Vitamin B12 deficiency anemia, unspecified Is this a current diagnosis for this admission?: Yes Plan: Macrocytic anemia Low iron and TIBC Elevated ferritin Likely related to chronic disease Transfuse for Hgb<8.0 (7) Chronic diastolic (congestive) heart failure Is this a current diagnosis for this admission?: Yes Plan: BNP improved today 4400-->53102-->95501 Continue home dose BUMEX - Time Time Spent with patient: 15-24 minutes Medications reviewed and adjusted accordingly: Yes Anticipated discharge: Home Within: within 24 hours - Inpatient Certification Based on my medical assessment, after consideration of the patient's comorbidities, presenting symptoms, or acuity I expect that the services needed warrant INPATIENT care.: Yes I certify that my determination is in accordance with my understanding of Medicare's requirements for reasonable and necessary INPATIENT services [42 CFR 412.3e].: Yes Medical Necessity: Need For Continuous Telemetry Monitoring, Risk of Complication if Not Cared For in Hospital
--- NOTE | 2019-04-23 20:34 | Progress Note ---
Provider Note Provider Note: CARDIOLOGY PROGRESS NOTE by Dr.Lakshmi Mooney on 04/23/2019. SUBJECTIVE: The patient continues to be short of breath although she states she is slightly improved. She continues to have wheezing. She has cough with this productive very scanty yellowish sputum. There is no chest pain or discomfort. There is no PND. She has orthopnea. She denies any palpitations. There is no further runs of nonsustained supraventricular tachycardia. There is no ventricular tachycardia. There is no bleeding on Eliquis. There is no TIA CVA symptoms. PSYCHIATRIC: The patient is well-built. In mild distress due to breathing problems. She is well-groomed. Selected Entries 04/23/19 15:52 Temperature 98.2 F Temperature Oral Source Pulse Rate 75 Respiratory 22 H Rate Blood Pressure 115/40 L Blood Pressure 65 Mean BP Location Right Arm BP Position Supine O2 Sat by Pulse 99 Oximetry Oxygen Flow 3.00 Rate Oxygen Delivery Nasal Cannula Method HEAD: Is atraumatic normocephalic. EYES: Pupils equal round regular reactive to light and accommodation. Extraocular movements are normal. There is no conjunctival pallor. THERE is no scleral icterus. EARS: TYMPANIC membranes are intact. External auditory canals are clear. NOSE: There is no deviated nasal septum. There is no inflammation of the nasal mucous membrane. MOUTH: Mucous members of mouth are moist tongue is moist. There is no ulcers. There is no bleeding from the gums. THROAT: There is no redness of the oropharynx. There is no exudates. SKIN: There is no skin rashes or skin lesions. There is no petechia or ecchymosis. NECK: Is supple. There is no JVD. Carotids are equal there is no bruits there is no accessory muscles of respiration use. There is no lymphadenopathy. There is no goiter. Trachea central. LUNGS: There is diminished air entry prolonged expiration with scattered end expiratory wheezing bilaterally. There is a few occasional rhonchi. There is a few dry crackles in the right lower lobe. There is no rales of CHF. On percussion there is hyperresonance. On palpation there is no chest wall tenderness. HEART: S1-S2 is heard. There is murmur of moderate aortic stenosis without any thrill. There is some mild carotid delay. A2 is preserved although slightly soft. There is systolic murmur at the left sternal border and the apex. There is murmur of mitral mitral regurgitation present. There is no aortic regurgitation murmur. There is no rub. ABDOMEN: Soft. There is no hepatosplenomegaly. Bowel sounds are well heard there is no tender areas masses. EXTREMITIES: Femorals are slightly diminished. There is no femoral bruits. Leg pulses are diminished. There is no pedal edema. There is no DVT or cellulitis. There is no calf tenderness. There is no sinus or clubbing. 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 There is no focal deficits. PSYCHIATRIC: The patient does not appear to be agitated or anxious. In spite of her dementia seems seems to be answering questions appropriately and her judgment seems to be intact. 04/23/19 04/23/19 07:00 07:00 WBC 14.2 H RBC 2.66 L Hgb 9.0 L Hct 27.3 L MCV 103 H MCH 33.9 H MCHC 33.0 RDW 13.8 Plt Count 228 Seg Neutrophils % 90.3 H Lymphocytes % 6.4 L Monocytes % 3.2 Eosinophils % 0.0 Basophils % 0.1 Absolute Neutrophils 12.8 H Absolute Lymphocytes 0.9 Absolute Monocytes 0.5 Absolute Eosinophils 0.0 Absolute Basophils 0.0 Sodium 135.5 L Potassium 5.2 H Chloride 101 Carbon Dioxide 23 Anion Gap 12 BUN 67 H Creatinine 1.68 H Est GFR (Non-Af Amer) 30 L Glucose 127 H Calcium 8.7 Phosphorus 5.7 H Magnesium 2.4 H IMPRESSION/RECOMMENDATION: 1. Acute on chronic respiratory failure. Since there is only minimal i mprovement. Continue oxygen, continue antibiotics and respiratory treatments. 2. Acute asthmatic bronchitis. Continue current treatment. 3. Possible right lower lobe pneumonia by physical exam. Continue antibiotics. Continue respiratory treatments. Will check chest x-ray in a.m. 4. COPD with exacerbation: Continue respiratory treatments. 5. Short runs of nonsustained supraventricular tachycardia. No recurrence with the increase in the beta-blockers. If the patient continues to wheeze then would recommend hold the beta-blockers and substituted for Cardizem. And then switch back to metoprolol with the patient's wheezing resolved. 6. Hypertension: Blood pressure well controlled 7. Chronic kidney disease stage III: Avoid nephrotoxic drugs 8. Coronary artery disease: No evidence of anginal symptoms. 9. History of paroxysmal atrial flutter: With no recurrence. Continue Eliquis and continue beta-bill. If the patient continues to wheeze as mentioned earlier would recommend changing it to Cardizem. 10. Chronic left bundle branch block pattern. 11. Moderate aortic stenosis by prior echo and by physical exam. 12. History of dementia: At present patient seems to be oriented x3 MEDICATIONS reviewed. Management plan discussed with attending physician on the case. At present medical decision making is of moderate complexity from cardiac standpoint of view. 40 minutes spent on this patient with more than 50% of time spent in direct patient care. Will follow. Note that the patient is a DNR. Her daughter is her surrogate healthcare decision maker
[2019-04-23] MEDS: SIMVASTATIN 10 MG TABLET PO SCH (21:17)
[2019-04-23] MEDS: GABAPENTIN 300 MG CAPSULE PO SCH (21:17)
[2019-04-24] MEDS: ACETAMINOPHEN 325 MG TABLET PO PRN ×2 (03:11→21:23)
[2019-04-24] MEDS: AZTREONAM 1 GM in DEXTROSE 5%-WATER 50 ML IV SCH ×3 (06:33→21:14)
[2019-04-24] MEDS: METHYLPREDNISOLONE INJ 40 MG/1 ML SDV IV SCH (06:34)
[2019-04-24 07:16] LABS: ABSOLUTE LYMPHOCYTES (AUTO) 0.7 10^3/uL (0.5-4.7); ABSOLUTE MONOCYTES (AUTO) 0.3 10^3/uL (0.1-1.4); ABSOLUTE NEUT (AUTO) 10.2 10^3/uL (1.7-8.2); BASOPHILS % (AUTO) 0.1 % (0-2); LYMPHOCYTES % (AUTO) 6.1 % (13-45); MEAN CORPUSCULAR HEMOGLOBIN 33.9 pg (27.0-33.4); MEAN CORPUSCULAR HGB CONC 33.3 g/dL (32.0-36.0); MEAN CORPUSCULAR VOLUME 102 fl (80-97); MONOCYTES % (AUTO) 2.7 % (3-13); PLATELET COUNT 217 10^3/uL (150-450); RED BLOOD COUNT 2.65 10^6/uL (3.72-5.28); RED CELL DISTRIBUTION WIDTH 13.7 % (11.5-14.0); SEGMENTED NEUTROPHILS % (AUTO) 91.1 % (42-78); TOTAL CELLS COUNTED % (AUTO) 100 %; WHITE BLOOD COUNT 11.2 10^3/uL (4.0-10.5)
[2019-04-24] MEDS: LISINOPRIL 5 MG TABLET PO SCH (09:23)
[2019-04-24] MEDS: FOLIC ACID 1 MG TABLET PO SCH (09:23)
[2019-04-24] MEDS: CLOPIDOGREL BISULFATE 75 MG TABLET PO SCH (09:23)
[2019-04-24] MEDS: APIXABAN 5 MG TABLET PO SCH ×2 (09:24→21:17)
[2019-04-24] MEDS: BUMETANIDE 1 MG TABLET PO SCH (09:25)
[2019-04-24] MEDS: CHOLECALCIFEROL (D3) 400 UNIT TABLET PO SCH (09:25)
[2019-04-24] MEDS: GUAIFENESIN 600 MG TABLET.SA PO SCH ×2 (09:25→21:17)
[2019-04-24] MEDS: DOXYCYCLINE HYCLATE 100 MG in DEXTROSE 5%-WATER 250 ML IV SCH ×2 (09:26→21:18)
[2019-04-24] MEDS: CYANOCOBALAMIN (VITAMIN B-12) 1,000 MCG TABLET PO SCH (09:26)
[2019-04-24] MEDS: FLUTICASONE NASAL SPRAY 50 MCG/SPRY 120 SPRAY/16 GM NASL SCH ×2 (09:27→21:32)
[2019-04-24] MEDS ORDERED: METOPROLOL SUCCINATE 25 MG TAB.SR.24H PO SCH (10:00)
--- NOTE | 2019-04-24 10:45 | RADIOLOGY REPORT (SQ) ---
EXAM DESCRIPTION: CHEST SINGLE VIEW COMPLETED DATE/TIME: 04/24/2019 9:09 am REASON FOR STUDY: Pneumonia COMPARISON: 04/21/2019 NUMBER OF VIEWS: One view. TECHNIQUE: Single frontal radiographic image of the chest acquired. LIMITATIONS: None. FINDINGS: LUNGS AND PLEURA: Known right upper lobe hypermetabolic nodule. No infiltrate. MEDIASTINUM AND HEART: Stable heart size and mediastinal structures. SUPPORT DEVICES: Appropriate location without change. BONY STRUCTURES: No acute findings. HARDWARE: Left axillary clips. OTHER: No other significant finding. IMPRESSION: No evidence of pneumonia. Reading location - IP/workstation name: [email or web address]
[2019-04-24] MEDS: IPRATROPIUM/ALBUTEROL 0.5-2.5 MG/3 ML AMPUL NEB PRN (10:59)
[2019-04-24] MEDS: DILTIAZEM HCL/D5W 125 MG/125 ML RTUINJ IV PRN (11:01)
[2019-04-24] MEDS ORDERED: METHYLPREDNISOLONE INJ 40 MG/1 ML SDV IV SCH (12:00)
[2019-04-24] MEDS: LEVALBUTEROL HCL NEB 1.25 MG/3 ML AMPUL NEB SCH ×3 (12:11→19:28)
[2019-04-24] MEDS: TIOTROPIUM BROMIDE DPI 5 CAP/KIT (18 MCG/CAP) IH SCH (13:39)
[2019-04-24] MEDS: SALMETEROL XINAFOATE DISKUS 50 MCG/1 DOSE 28 DOSE IH SCH ×2 (13:39→21:17)
[2019-04-24] MEDS: METHYLPREDNISOLONE INJ 125 MG/2 ML SDV IV SCH ×3 (13:40→23:36)
[2019-04-24] MEDS: SERTRALINE HCL 50 MG TABLET PO SCH (17:37)
[2019-04-24] MEDS: GABAPENTIN 300 MG CAPSULE PO SCH (21:17)
[2019-04-24] MEDS: SIMVASTATIN 10 MG TABLET PO SCH (21:17)
[2019-04-24] MEDS: GUAIFENESIN SYRP 200 MG/10 ML UDC PO PRN (21:22)
--- NOTE | 2019-04-24 21:43 | Progress Note ---
Provider Note Provider Note: CARDIOLOGY PROGRESS NOTE by Dr. Nola Ko on 04/24/2019. SUBJECTIVE: Patient continues to wheeze. Hence will discontinue the patient's metoprolol and start the patient on a Cardizem drip. She is still has a few short bursts of nonsustained few beats of supraventricular tachycardia. She is asymptomatic from it. There is no PND orthopnea. The patient does have cough but is unable to produce any sputum and if it all is very scanty and yellowish in color. She denies any chest pain or discomfort. There is no ventricular arrhythmias on the monitor. There is no leg edema. There is no TIA CVA symptoms. PHYSICAL EXAMINATION: The patient is well-built. At present in mild respiratory distress. She is well-groomed. Selected Entries 04/24/19 11:09 Temperature 98.3 F Temperature Oral Source Pulse Rate 78 Respiratory 22 H Rate Blood Pressure 122/91 H Blood Pressure 101 Mean BP Location Right Arm BP Position Supine O2 Sat by Pulse 100 Oximetry Oxygen Flow 3.00 Rate Oxygen Delivery Nasal Cannula Method HEAD: Is atraumatic normocephalic. EYES: Pupils equal round regular reactive to light and accommodation. Extraocular movements are normal. There is no conjunctival pallor. THERE is no scleral icterus. EARS: TYMPANIC membranes are intact. External auditory canals are clear. NOSE: There is no deviated nasal septum. There is no inflammation of the nasal mucous membrane. MOUTH: Mucous members of mouth are moist tongue is moist. There is no ulcers. There is no bleeding from the gums. THROAT: There is no redness of the oropharynx. There is no exudates. SKIN: There is no skin rashes or skin lesions. There is no petechia or ecchymosis. NECK: Is supple. There is no JVD. Carotids are equal there is no bruits there is no accessory muscles of respiration use. There is no lymphadenopathy. There is no goiter. Trachea central. LUNGS: There is diminished air entry prolonged expiration with scattered end expiratory wheezing bilaterally. There is a few occasional rhonchi. There is a few dry crackles in the right lower lobe. There is no rales of CHF. On percussion there is hyperresonance. On palpation there is no chest wall tenderness. HEART: S1-S2 is heard. There is murmur of moderate aortic stenosis without any thrill. There is some mild carotid delay. A2 is preserved although slightly soft. There is systolic murmur at the left sternal border and the apex. There is murmur of mitral mitral regurgitation present. There is no aortic regurgitation murmur. There is no rub. ABDOMEN: Soft. There is no hepatosplenomegaly. Bowel sounds are well heard there is no tender areas masses. EXTREMITIES: Femorals are slightly diminished. There is no femoral bruits. Leg pulses are diminished. There is no pedal edema. There is no DVT or cellulitis. There is no calf tenderness. There is no sinus or clubbing. 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 There is no focal deficits. PSYCHIATRIC: The patient does not appear to be agitated or anxious. In spite of her dementia seems seems to be answering questions appropriately and her judgment seems to be intact. 04/24/19 06:35 WBC 11.2 H RBC 2.65 L Hgb 9.0 L Hct 27.0 L MCV 102 H MCH 33.9 H MCHC 33.3 RDW 13.7 Plt Count 217 Seg Neutrophils % 91.1 H CHECKS x-ray: Is reported as without pneumonia. But my interpretation there is a faint patchy infiltrate in the right lower lobe consistent with pneumonia. The x-ray has been reviewed by myself, and my own clinical conclusion have been drawn. IMPRESSION/RECOMMENDATION: 1. Acute on chronic respiratory failure. Since there is only minimal improvement. Continue oxygen, continue antibiotics and respiratory treatments. 2. Acute asthmatic bronchitis. Continue current treatment. The patient continues to wheeze. Hence we will stop the patient's metoprolol and start the patient on Cardizem drip initially at 2.5 mg/h and increase as tolerated. This has been entered in the order sheet. 3. Possible right lower lobe pneumonia by physical exam. Continue antibiotics. Continue respiratory treatments. Chest x-ray shows no evidence of pneumonia, as per report, but my interpretation is that there is a faint right lower lobe pneumonia present. But clinically the patient does have pneumonia. 4. COPD with exacerbation: Continue respiratory treatments. 5. Short runs of nonsustained supraventricular tachycardia. These are much less. Will increase Cardizem drip if necessary and as needed.. If the patient continues to wheeze then would recommend hold the beta-blockers and substituted for Cardizem. This has been done and then switch back to metoprolol with the patient's wheezing resolved. 6. Hypertension: Blood pressure well controlled 7. Chronic kidney disease stage III: Avoid nephrotoxic drugs 8. Coronary artery disease: No evidence of anginal symptoms. 9. History of paroxysmal atrial flutter: With no recurrence. Continue Eliquis and continue beta-bill. If the patient continues to wheeze as mentioned earlier would recommend changing it to Cardizem. 10. Chronic left bundle branch block pattern. 11. Moderate aortic stenosis by prior echo and by physical exam. 12. History of dementia: At present patient seems to be oriented x3 Medications reviewed. Medications added and adjusted. Management plan discussed with attending physician on the case. Medical decision making today is of high complexity in view of the need for medication changes. And also interpretation of the chest x-ray. 40 minutes spent on this patient with more than 50% of time spent in direct patient care. Will follow.
--- NOTE | 2019-04-24 21:44 | PDOC PROGRESS REPORT ---
Subjective Progress Note for:: 04/24/19 Subjective:: 73 y.o. F with a PMH COPD (on home O2 PRN), CHF, A. fib, CAD, HTN, breast CA, arthritis. She is admitted to the hospitalist service with a clinical diagnosis of pneumonia. Repeat CXR done today because patient is exhibiting worsening wheezing. Airspace disease appears to have improved but on exam the patient has wheezing in all lung mcdonald. She reports she does not feel well. Dr. Sánchez recommends holding the Toprol XL (beta bill) in the face of worsening COPD exacerbation. Transitioned to diltiazem gtt temporarily. Once the patient's respiratory status improves, will transition back to Toprol XL. Additionally, will increase dose and frequency of IV solumedrol and nebulizer treatments. Plan to continue current treatment regimen. Consult PT/OT. OOB to chair q shift. The patient remains hospitalized due to her poor respiratory status. Reason For Visit: PNA, COPD AND CHF EXACERBATION Physical Exam Vital Signs: Temp Pulse Resp BP Pulse Ox 97.8 F 91 22 H 124/46 L 90 L 04/24/19 19:19 04/24/19 19:50 04/24/19 19:50 04/24/19 20:45 04/24/19 19:50 Intake & Output 04/23/19 04/24/19 04/25/19 06:59 06:59 06:59 Intake Total 1610 1422 855 Output Total 800 2700 1200 Balance 810 -8054 -345 Weight 78.5 kg 78.3 kg General appearance: PRESENT: no acute distress, obese Head exam: PRESENT: atraumatic, normocephalic Eye exam: PRESENT: conjunctiva pink, EOMI, PERRLA. ABSENT: scleral icterus Ear exam: PRESENT: normal external ear exam Mouth exam: PRESENT: moist, tongue midline Neck exam: PRESENT: full ROM. ABSENT: carotid bruit, JVD, lymphadenopathy, thyromegaly Respiratory exam: PRESENT: symmetrical, wheezes, other - nonproductive cough. on nasal cannula.. ABSENT: rales, rhonchi Cardiovascular exam: PRESENT: RRR. ABSENT: diastolic murmur, rubs, systolic murmur Pulses: PRESENT: normal radial pulses, normal dorsalis pedis pul Vascular exam: PRESENT: normal capillary refill GI/Abdominal exam: PRESENT: normal bowel sounds, soft. ABSENT: distended, guarding, mass, organolmegaly, rebound, tenderness Rectal exam: PRESENT: deferred Extremities exam: PRESENT: full ROM, pedal edema - trace. ABSENT: calf tenderness, clubbing Musculoskeletal exam: PRESENT: ambulatory - with assistance, full ROM Neurological exam: PRESENT: alert, awake, oriented to person, oriented to place, oriented to time, oriented to situation Psychiatric exam: PRESENT: appropriate affect, normal mood Skin exam: PRESENT: dry, intact, warm. ABSENT: cyanosis, rash Results Laboratory Results: 04/24/19 06:35 04/23/19 07:00 04/24/19 06:35 WBC 11.2 H RBC 2.65 L Hgb 9.0 L Hct 27.0 L MCV 102 H MCH 33.9 H MCHC 33.3 RDW 13.7 Plt Count 217 Seg Neutrophils % 91.1 H Lymphocytes % 6.1 L Monocytes % 2.7 L Eosinophils % 0.0 Basophils % 0.1 Absolute Neutrophils 10.2 H Absolute Lymphocytes 0.7 Absolute Monocytes 0.3 Absolute Eosinophils 0.0 Absolute Basophils 0.0 04/21/19 04/21/19 04/21/19 00:48 12:52 12:52 Creatine Kinase 133 CK-MB (CK-2) Cancelled Troponin I 0.017 Cancelled NT-Pro-B Natriuret Pep 4430 H 04/21/19 04/22/19 04/23/19 14:40 05:17 07:00 Creatine Kinase CK-MB (CK-2) 4.53 Troponin I 0.035 NT-Pro-B Natriuret Pep 54287 H 56528 H Impressions: Venous Access Device Injection 04/21/19 00:00 IMPRESSION: Patent right-sided permanent central line. Muhammad needle access was maintained postprocedure for use on the nursing floor. Chest X-Ray 04/24/19 06:00 IMPRESSION: No evidence of pneumonia. Status: Imported from PACS Assessment and Plan - Diagnosis (1) Acute and chronic respiratory failure with hypoxia Is this a current diagnosis for this admission?: Yes Plan: Secondary to PNA Antibiotics, nebulizers, steroids, Mucinex (2) Pulmonary nodule Is this a current diagnosis for this admission?: Yes Plan: Nonoperative. Seen on XRAY. Stable since previous imaging approx. 6 months ago. (3) Atrial fibrillation Qualifiers: Atrial fibrillation type: paroxysmal Qualified Code(s): I48.0 - Paroxysmal atrial fibrillation Is this a current diagnosis for this admission?: Yes Plan: Rate controlled on apixaban and Toprol Rhythm is NSR with LBBB Initially, patient had poor rate control, intermittently experiencing SVT Cardiology consulted, initially treated with increasing the dose of Toprol XL Today, hold Toprol XL and switch to diltiazem gtt to maintain HR control while patient's pulmonary status is rehabilitated (4) COPD exacerbation Is this a current diagnosis for this admission?: Yes Plan: Worsening Wheezing in all lung mcdonald on exam today 3L p/min via nasal cannula (home dose) Scheduled and PRN nebulizer treatments, increase xopenex to q4h Switched from duo nebs to Xopenex due to heart rate Scheduled IV Solu-Medrol, increase dose from 40mg to 60mg q6h (5) Pneumonia Qualifiers: Pneumonia type: due to unspecified organism Laterality: unspecified laterality Lung location: unspecified part of lung Qualified Code(s): J18.9 - Pneumonia, unspecified organism Is this a current diagnosis for this admission?: Yes Plan: Community acquired PNA in the face of COPD exacerbation Multiple drug allergies Continue aztreonam and doxycycline (6) Anemia Qualifiers: Anemia type: B12 deficiency Vitamin B12 deficiency anemia type: unspecified B12 deficiency Qualified Code(s): D51.9 - Vitamin B12 deficiency anemia, unspecified Is this a current diagnosis for this admission?: Yes Plan: Macrocytic anemia Low iron and TIBC Elevated ferritin Likely related to chronic disease Transfuse for Hgb<8.0 (7) Chronic diastolic (congestive) heart failure Is this a current diagnosis for this admission?: Yes Plan: BNP improved today 4400-->20532-->62422 Continue home dose BUMEX - Time Time Spent with patient: 15-24 minutes Medications reviewed and adjusted accordingly: Yes Anticipated discharge: Home, Home with Homehealth Within: within 72 hours - Inpatient Certification Based on my medical assessment, after consideration of the patient's comorbidities, presenting symptoms, or acuity I expect that the services needed warrant INPATIENT care.: Yes I certify that my determination is in accordance with my understanding of Medicare's requirements for reasonable and necessary INPATIENT services [42 CFR 412.3e].: Yes Medical Necessity: Need For Continuous Telemetry Monitoring, Need for Nebulizer Therapy and Monitoring of Response, Risk of Complication if Not Cared For in Hospital
[2019-04-25] MEDS: LEVALBUTEROL HCL NEB 1.25 MG/3 ML AMPUL NEB SCH ×6 (00:10→20:13)
[2019-04-25] MEDS: ACETAMINOPHEN 325 MG TABLET PO PRN (04:07)
[2019-04-25] MEDS: AZTREONAM 1 GM in DEXTROSE 5%-WATER 50 ML IV SCH ×3 (05:47→22:08)
[2019-04-25] MEDS: METHYLPREDNISOLONE INJ 125 MG/2 ML SDV IV SCH ×3 (05:48→17:25)
[2019-04-25 07:03] LABS: HEMATOCRIT 26.6 % (36.0-47.0); HEMOGLOBIN 8.8 g/dL (12.0-15.5); MEAN CORPUSCULAR HGB CONC 33.1 g/dL (32.0-36.0); MEAN CORPUSCULAR VOLUME 103 fl (80-97); PLATELET COUNT 235 10^3/uL (150-450); RED BLOOD COUNT 2.59 10^6/uL (3.72-5.28); RED CELL DISTRIBUTION WIDTH 13.7 % (11.5-14.0); WHITE BLOOD COUNT 14.6 10^3/uL (4.0-10.5)
[2019-04-25 07:37] LABS: ALANINE AMINOTRANSFERASE 27 U/L (9-52); ALBUMIN 3.2 g/dL (3.5-5.0); ALKALINE PHOSPHATASE 143 U/L (38-126); ANION GAP 12 (5-19); ASPARTATE AMINO TRANSFERASE 16 U/L (14-36); BILIRUBIN,DIRECT 0.3 mg/dL (0.0-0.4); BILIRUBIN,TOTAL 0.3 mg/dL (0.2-1.3); BLOOD UREA NITROGEN 75 mg/dL (7-20); CALCIUM 8.9 mg/dL (8.4-10.2); CARBON DIOXIDE 22 mmol/L (22-30); CHLORIDE 102 mmol/L (98-107); GLUCOSE 156 mg/dL (75-110); PHOSPHORUS 4.3 mg/dL (2.5-4.5); POTASSIUM 4.9 mmol/L (3.6-5.0); TOTAL PROTEIN 5.7 g/dL (6.3-8.2)
[2019-04-25] MEDS: FLUTICASONE NASAL SPRAY 50 MCG/SPRY 120 SPRAY/16 GM NASL SCH ×2 (09:29→22:08)
[2019-04-25] MEDS: GUAIFENESIN 600 MG TABLET.SA PO SCH ×2 (09:30→22:06)
[2019-04-25] MEDS: FOLIC ACID 1 MG TABLET PO SCH (09:30)
[2019-04-25] MEDS: CHOLECALCIFEROL (D3) 400 UNIT TABLET PO SCH (09:30)
[2019-04-25] MEDS: CLOPIDOGREL BISULFATE 75 MG TABLET PO SCH (09:30)
[2019-04-25] MEDS: APIXABAN 5 MG TABLET PO SCH ×2 (09:30→22:06)
[2019-04-25] MEDS: BUMETANIDE 1 MG TABLET PO SCH (09:30)
[2019-04-25] MEDS: CYANOCOBALAMIN (VITAMIN B-12) 1,000 MCG TABLET PO SCH (09:30)
[2019-04-25] MEDS: SALMETEROL XINAFOATE DISKUS 50 MCG/1 DOSE 28 DOSE IH SCH ×2 (09:31→22:04)
[2019-04-25] MEDS: LISINOPRIL 5 MG TABLET PO SCH (09:31)
[2019-04-25] MEDS: TIOTROPIUM BROMIDE DPI 5 CAP/KIT (18 MCG/CAP) IH SCH (09:32)
[2019-04-25] MEDS: DOXYCYCLINE HYCLATE 100 MG in DEXTROSE 5%-WATER 250 ML IV SCH ×2 (09:32→22:03)
[2019-04-25] MEDS: GUAIFENESIN SYRP 200 MG/10 ML UDC PO PRN (09:40)
[2019-04-25] MEDS: DILTIAZEM HCL/D5W 125 MG/125 ML RTUINJ IV PRN (09:48)
[2019-04-25] MEDS: BUDESONIDE NEB 0.5 MG/2 ML AMPUL NEB SCH ×2 (11:53→20:11)
--- NOTE | 2019-04-25 12:54 | PDOC PROGRESS REPORT ---
Subjective Progress Note for:: 04/25/19 Subjective:: 73 y.o. F with a PMH COPD (on home O2 PRN), CHF, A. fib, CAD, HTN, breast CA, arthritis. She is admitted to the hospitalist service with a clinical diagnosis of pneumonia. Patient seen on rounds this morning, states she feels mildly better when compared to yesterday. Her HR remains controlled on a diltiazem drip. Upon exam, wheezing can be auscultated in all lung mcdonald. No evidence of peripheral or central cyanosis. Continue scheduled IV Solu-Medrol and every 4 hours nebulizer treatments. Consult PT/OT. OOB to chair q shift. The patient remains hospitalized due to her poor respiratory status. Reason For Visit: PNA, COPD AND CHF EXACERBATION Physical Exam Vital Signs: Temp Pulse Resp BP Pulse Ox 97.5 F 71 16 108/38 L 97 04/25/19 07:34 04/25/19 11:55 04/25/19 11:55 04/25/19 07:34 04/25/19 11:55 Intake & Output 04/24/19 04/25/19 04/26/19 06:59 06:59 06:59 Intake Total 1422 1327 68 Output Total 2700 3000 Balance -3088 -9145 68 Weight 78.3 kg 81 kg General appearance: PRESENT: no acute distress, morbidly obese Head exam: PRESENT: atraumatic, normocephalic Eye exam: PRESENT: conjunctiva pink, EOMI, PERRLA. ABSENT: scleral icterus Ear exam: PRESENT: normal external ear exam Mouth exam: PRESENT: moist, tongue midline Neck exam: PRESENT: full ROM. ABSENT: carotid bruit, JVD, lymphadenopathy, thyromegaly Respiratory exam: PRESENT: symmetrical, wheezes. ABSENT: chest wall tenderness, crackles, rales, retraction, rhonchi Cardiovascular exam: PRESENT: RRR. ABSENT: diastolic murmur, rubs, systolic murmur Pulses: PRESENT: normal radial pulses, normal dorsalis pedis pul Vascular exam: PRESENT: normal capillary refill GI/Abdominal exam: PRESENT: normal bowel sounds, soft. ABSENT: distended, guarding, mass, organolmegaly, rebound, tenderness Rectal exam: PRESENT: deferred Extremities exam: PRESENT: full ROM, pedal edema - trace. ABSENT: calf tenderness, clubbing Musculoskeletal exam: PRESENT: ambulatory, full ROM Neurological exam: PRESENT: alert, awake, oriented to person, oriented to place, oriented to time, oriented to situation Psychiatric exam: PRESENT: appropriate affect, normal mood Skin exam: PRESENT: dry, intact, warm. ABSENT: cyanosis, rash Results Laboratory Results: 04/25/19 06:00 04/25/19 06:00 04/25/19 04/25/19 06:00 06:00 WBC 14.6 H RBC 2.59 L Hgb 8.8 L Hct 26.6 L MCV 103 H MCH 34.0 H MCHC 33.1 RDW 13.7 Plt Count 235 Sodium 136.0 L Potassium 4.9 Chloride 102 Carbon Dioxide 22 Anion Gap 12 BUN 75 H Creatinine 1.46 H Est GFR ( Amer) 43 L Est GFR (Non-Af Amer) 35 L Glucose 156 H Calcium 8.9 Phosphorus 4.3 Magnesium 2.2 Total Bilirubin 0.3 AST 16 ALT 27 Alkaline Phosphatase 143 H Total Protein 5.7 L Albumin 3.2 L 04/21/19 04/21/19 04/21/19 00:48 12:52 12:52 Creatine Kinase 133 CK-MB (CK-2) Cancelled Troponin I 0.017 Cancelled NT-Pro-B Natriuret Pep 4430 H 04/21/19 04/22/19 04/23/19 14:40 05:17 07:00 Creatine Kinase CK-MB (CK-2) 4.53 Troponin I 0.035 NT-Pro-B Natriuret Pep 23461 H 10533 H 04/25/19 06:00 Creatine Kinase CK-MB (CK-2) Troponin I NT-Pro-B Natriuret Pep 51824 H Impressions: Venous Access Device Injection 04/21/19 00:00 IMPRESSION: Patent right-sided permanent central line. Muhammad needle access was maintained postprocedure for use on the nursing floor. Chest X-Ray 04/24/19 06:00 IMPRESSION: No evidence of pneumonia. Status: Imported from PACS Assessment and Plan - Diagnosis (1) Acute and chronic respiratory failure with hypoxia Is this a current diagnosis for this admission?: Yes Plan: Secondary to PNA Antibiotics, nebulizers, steroids, Mucinex BIPAP QHS (2) Pulmonary nodule Is this a current diagnosis for this admission?: Yes Plan: Nonoperative. Seen on XRAY. Stable since previous imaging approx. 6 months ago. (3) Atrial fibrillation Qualifiers: Atrial fibrillation type: paroxysmal Qualified Code(s): I48.0 - Paroxysmal atrial fibrillation Is this a current diagnosis for this admission?: Yes Plan: Rate controlled on apixaban and diltiazem gtt Rhythm is NSR with LBBB Initially, patient had poor rate control, intermittently experiencing SVT Cardiology consulted, initially treated with increasing the dose of Toprol XL Today, Toprol XL remains on hold and continue diltiazem gtt to maintain HR control while patient's pulmonary status is rehabilitated (4) COPD exacerbation Is this a current diagnosis for this admission?: Yes Plan: Worsening Wheezing in all lung mcdonald on exam today 3L p/min via nasal cannula (home dose) Scheduled and PRN nebulizer treatments, xopenex to q4h Switched from duo nebs to Xopenex due to heart rate Scheduled IV Solu-Medrol 60mg q6h (5) Pneumonia Qualifiers: Pneumonia type: due to unspecified organism Laterality: unspecified laterality Lung location: unspecified part of lung Qualified Code(s): J18.9 - Pneumonia, unspecified organism Is this a current diagnosis for this admission?: Yes Plan: Community acquired PNA in the face of COPD exacerbation Multiple drug allergies Continue aztreonam and doxycycline (6) Anemia Qualifiers: Anemia type: B12 deficiency Vitamin B12 deficiency anemia type: unspecified B12 deficiency Qualified Code(s): D51.9 - Vitamin B12 deficiency anemia, unspecified Is this a current diagnosis for this admission?: Yes Plan: Macrocytic anemia Low iron and TIBC Elevated ferritin Likely related to chronic disease Transfuse for Hgb<8.0 (7) Chronic diastolic (congestive) heart failure Is this a current diagnosis for this admission?: Yes Plan: BNP improved today 14,900 (peak)-->11,400 (today) Continue home dose BUMEX - Time Time Spent with patient: 15-24 minutes Medications reviewed and adjusted accordingly: Yes Anticipated discharge: Home Within: within 72 hours - Inpatient Certification Based on my medical assessment, after consideration of the patient's comorbidities, presenting symptoms, or acuity I expect that the services needed warrant INPATIENT care.: Yes I certify that my determination is in accordance with my understanding of Medicare's requirements for reasonable and necessary INPATIENT services [42 CFR 412.3e].: Yes Medical Necessity: Need For Continuous Telemetry Monitoring, Need for Nebulizer Therapy and Monitoring of Response, Risk of Complication if Not Cared For in Hospital
[2019-04-25] MEDS: SERTRALINE HCL 50 MG TABLET PO SCH (17:25)
[2019-04-25] MEDS ORDERED: NYSTATIN/DEXAMETH/DIPHEN SUSP 120 ML PO ONE (17:28)
[2019-04-25] MEDS: NYSTATIN/DEXAMETH/DIPHEN SUSP 120 ML PO SCH ×2 (17:31→22:06)
--- NOTE | 2019-04-25 18:26 | Progress Note ---
Provider Note Provider Note: CARDIOLOGY PROGRESS NOTE by Dr. Nola Ko on 04/25/2019. SUBJECTIVE: The patient continues to wheeze, but less so. She is slightly less short of breath. She has no PND orthopnea. There is no leg edema. She has no further episodes of SVT nonsustained or sustained. There is no ventricular arrhythmia seen. The patient has no anginal symptoms. She still has cough but states that he still unable to produce any sputum. There is no hemoptysis. PHYSICAL EXAMINATION: The patient is well-built and well-nourished. In no major distress. Selected Entries 04/25/19 07:34 Temperature 97.5 F Temperature Axillary Source Pulse Rate 64 Respiratory 21 H Rate Blood Pressure 108/38 L Blood Pressure 61 Mean BP Location Right Arm BP Position Supine O2 Sat by Pulse 98 Oximetry Oxygen Delivery Bipap Method HEAD: Is atraumatic normocephalic. EYES: Pupils equal round regular reactive to light and accommodation. Extraocular movements are normal. There is no conjunctival pallor. THERE is no scleral icterus. EARS: TYMPANIC membranes are intact. External auditory canals are clear. NOSE: There is no deviated nasal septum. There is no inflammation of the nasal mucous membrane. MOUTH: Mucous members of mouth are moist tongue is moist. There is no ulcers. There is no bleeding from the gums. THROAT: There is no redness of the oropharynx. There is no exudates. SKIN: There is no skin rashes or skin lesions. There is no petechia or ecchymosis. NECK: Is supple. There is no JVD. Carotids are equal there is no bruits there is no accessory muscles of respiration use. There is no lymphadenopathy. There is no goiter. Trachea central. LUNGS: There is diminished air entry prolonged expiration with scattered end expiratory wheezing bilaterally. There is a few occasional rhonchi. There is a few dry crackles in the right lower lobe. There is no rales of CHF. On percussion there is hyperresonance. On palpation there is no chest wall tenderness. HEART: S1-S2 is heard. There is murmur of moderate aortic stenosis without any thrill. There is some mild carotid delay. A2 is preserved although slightly soft. There is systolic murmur at the left sternal border and the apex. There is murmur of mitral mitral regurgitation present. There is no aortic regurgitation murmur. There is no rub. ABDOMEN: Soft. There is no hepatosplenomegaly. Bowel sounds are well heard there is no tender areas masses. EXTREMITIES: Femorals are slightly diminished. There is no femoral bruits. Leg pulses are diminished. There is no pedal edema. There is no DVT or cellulitis. There is no calf tenderness. There is no sinus or clubbing. ASSISTANT MANAGER QUALITY MANAGEMENT: The patient is con scious awake alert seems to be oriented x2 in spite of a history of dementia. There is no focal deficits. PSYCHIATRIC: The patient does not appear to be agitated or anxious. In spite of her dementia seems seems to be answering questions appropriately and her judgment seems to be intact. Labs- All tests 24 hr 04/25/19 04/25/19 04/25/19 06:00 06:00 06:00 WBC 14.6 H RBC 2.59 L Hgb 8.8 L Hct 26.6 L MCV 103 H MCH 34.0 H MCHC 33.1 RDW 13.7 Plt Count 235 Sodium 136.0 L Potassium 4.9 Chloride 102 Carbon Dioxide 22 Anion Gap 12 BUN 75 H Creatinine 1.46 H Est GFR ( Amer) 43 L Est GFR (Non-Af Amer) 35 L Glucose 156 H Calcium 8.9 Phosphorus 4.3 Magnesium 2.2 Total Bilirubin 0.3 Direct Bilirubin 0.3 Neonat Total Bilirubin Not Reportable Neonat Direct Bilirubin Not Reportable Neonat Indirect Bili Not Reportable AST 16 ALT 27 Alkaline Phosphatase 143 H NT-Pro-B Natriuret Pep 80435 H Total Protein 5.7 L Albumin 3.2 L Chest X-Ray 04/20/19 23:59 IMPRESSION: Persistent right upper lobe pulmonary nodule. No definite pneumonia. Venous Access Device Injection 04/21/19 00:00 IMPRESSION: Patent right-sided permanent central line. Muhammad needle access was maintained postprocedure for use on the nursing floor. Chest X-Ray 04/24/19 06:00 IMPRESSION: No evidence of pneumonia. IMPRESSION/RECOMMENDATION: 1. Acute on chronic respiratory failure. Since there is only minimal improvement. Continue oxygen, continue antibiotics and respiratory treatments. 2. Acute asthmatic bronchitis. Continue current treatment. Note that the patient's Lopressor has been discontinued and the patient is on a Cardizem drip at 5 mg/h. Her wheezing is slightly improved. 3. Possible right lower lobe pneumonia by physical exam. Continue antibiotics. Continue respiratory treatments. Will check chest x-ray in a.m. 4. COPD with exacerbation: Continue respiratory treatments. 5. Short runs of nonsustained supraventricular tachycardia. No recurrence with the increase in the beta-blockers. If the patient continues to wheeze then would recommend hold the beta-blockers and substituted for Cardizem. And then switch back to metoprolol with the patient's wheezing resolved. 6. Hypertension: Blood pressure well controlled 7. Chronic kidney disease stage III: Avoid nephrotoxic drugs 8. Coronary artery disease: No evidence of anginal symptoms. 9. History of paroxysmal atrial flutter: With no recurrence. Continue Eliquis and continue beta-bill. If the patient continues to wheeze as mentioned earlier would recommend continuing Cardizem. 10. Chronic left bundle branch block pattern. 11. Moderate aortic stenosis by prior echo and by physical exam. 12. History of dementia: At present patient seems to be oriented x3 MEDICATIONS reviewed. Medications and management plan discussed with attending physician on the case. Note medical decision making is of moderate complexity. 40 minutes spent on this patient with more than 50% of time spent in direct patient care. The patient is a DNR. Her daughter is her surrogate healthcare decision maker.
[2019-04-25] MEDS: SIMVASTATIN 10 MG TABLET PO SCH (22:06)
[2019-04-25] MEDS: GABAPENTIN 300 MG CAPSULE PO SCH (22:06)
[2019-04-26] MEDS: LEVALBUTEROL HCL NEB 1.25 MG/3 ML AMPUL NEB SCH ×6 (00:11→20:10)
[2019-04-26] MEDS: METHYLPREDNISOLONE INJ 125 MG/2 ML SDV IV SCH ×4 (00:52→18:28)
[2019-04-26 05:45] LABS: HEMOGLOBIN 8.6 g/dL (12.0-15.5); MEAN CORPUSCULAR HEMOGLOBIN 33.7 pg (27.0-33.4); MEAN CORPUSCULAR VOLUME 102 fl (80-97); PLATELET COUNT 235 10^3/uL (150-450); RED BLOOD COUNT 2.55 10^6/uL (3.72-5.28); RED CELL DISTRIBUTION WIDTH 13.9 % (11.5-14.0); WHITE BLOOD COUNT 15.2 10^3/uL (4.0-10.5)
[2019-04-26] MEDS: AZTREONAM 1 GM in DEXTROSE 5%-WATER 50 ML IV SCH ×3 (06:09→21:36)
[2019-04-26 06:11] LABS: ALANINE AMINOTRANSFERASE 26 U/L (9-52); ALBUMIN 3.2 g/dL (3.5-5.0); ALKALINE PHOSPHATASE 129 U/L (38-126); ANION GAP 12 (5-19); ASPARTATE AMINO TRANSFERASE 12 U/L (14-36); BILIRUBIN,DIRECT 0.2 mg/dL (0.0-0.4); BILIRUBIN,TOTAL 0.2 mg/dL (0.2-1.3); BLOOD UREA NITROGEN 94 mg/dL (7-20); CALCIUM 8.9 mg/dL (8.4-10.2); CARBON DIOXIDE 21 mmol/L (22-30); CHLORIDE 98 mmol/L (98-107); GLUCOSE 167 mg/dL (75-110); PHOSPHORUS 4.4 mg/dL (2.5-4.5); POTASSIUM 5.1 mmol/L (3.6-5.0); SODIUM 131.3 mmol/L (137-145); TOTAL PROTEIN 5.5 g/dL (6.3-8.2)
[2019-04-26] MEDS: BUDESONIDE NEB 0.5 MG/2 ML AMPUL NEB SCH ×2 (07:42→20:10)
[2019-04-26] MEDS: BUMETANIDE 1 MG TABLET PO SCH (09:56)
[2019-04-26] MEDS: GUAIFENESIN 600 MG TABLET.SA PO SCH ×2 (09:56→21:35)
[2019-04-26] MEDS: SALMETEROL XINAFOATE DISKUS 50 MCG/1 DOSE 28 DOSE IH SCH ×2 (09:57→21:37)
[2019-04-26] MEDS: CLOPIDOGREL BISULFATE 75 MG TABLET PO SCH (09:57)
[2019-04-26] MEDS: CHOLECALCIFEROL (D3) 400 UNIT TABLET PO SCH (09:57)
[2019-04-26] MEDS: LISINOPRIL 5 MG TABLET PO SCH (09:57)
[2019-04-26] MEDS: CYANOCOBALAMIN (VITAMIN B-12) 1,000 MCG TABLET PO SCH (09:57)
[2019-04-26] MEDS: FLUTICASONE NASAL SPRAY 50 MCG/SPRY 120 SPRAY/16 GM NASL SCH ×2 (09:57→21:37)
[2019-04-26] MEDS: APIXABAN 5 MG TABLET PO SCH ×2 (09:57→21:35)
[2019-04-26] MEDS: FOLIC ACID 1 MG TABLET PO SCH (09:57)
[2019-04-26] MEDS: NYSTATIN/DEXAMETH/DIPHEN SUSP 120 ML PO SCH ×4 (09:58→21:36)
[2019-04-26] MEDS: DOXYCYCLINE HYCLATE 100 MG in DEXTROSE 5%-WATER 250 ML IV SCH ×2 (09:58→21:36)
[2019-04-26] MEDS: TIOTROPIUM BROMIDE DPI 5 CAP/KIT (18 MCG/CAP) IH SCH (09:58)
[2019-04-26] MEDS: DILTIAZEM HCL/D5W 125 MG/125 ML RTUINJ IV PRN (10:02)
--- NOTE | 2019-04-26 12:24 | PDOC PROGRESS REPORT ---
Subjective Progress Note for:: 04/26/19 Subjective:: 73 y.o. F with a PMH COPD (on home O2 PRN), CHF, A. fib, CAD, HTN, breast CA, arthritis. She is admitted to the hospitalist service with a clinical diagnosis of pneumonia and COPD exacerbation. Patient seen on rounds this morning, states she feels "a little better". Her HR remains controlled on a diltiazem drip. Upon exam, wheezing can be auscultated in all lung mcdonald but it has improved when compared to yesterday. No evidence of peripheral or central cyanosis. The patient was seen by Dr. Porter yesterday who recommended scheduled Pulmicort nebulizer treatments. Continue scheduled IV Solu-Medrol and every 4 hours Xopenex nebulizer treatments. The patient's creatinine remains elevated above her baseline. Upon review of her medical records, it appears that she has a history of stage III CKD. The patient is able to make urine, anywhere from 1600-3000ml per day. Consulted Dr. Nicholas to see the patient tomorrow regarding her worsening renal function. Continue PT/OT. OOB to chair q shift. The patient remains hospitalized due to her poor respiratory status. Reason For Visit: PNA, COPD AND CHF EXACERBATION Physical Exam Vital Signs: Temp Pulse Resp BP Pulse Ox 98.1 F 52 L 15 96/36 L 98 04/25/19 19:10 04/26/19 07:42 04/26/19 07:42 04/26/19 09:00 04/26/19 07:42 Intake & Output 04/25/19 04/26/19 04/27/19 06:59 06:59 06:59 Intake Total 1327 686 121 Output Total 3000 500 Balance -1673 186 121 Weight 81 kg 82 kg General appearance: PRESENT: obese, well-developed, well-nourished Eye exam: PRESENT: conjunctiva pink, PERRLA Mouth exam: PRESENT: moist, tongue midline Neck exam: PRESENT: full ROM Respiratory exam: PRESENT: symmetrical, unlabored, wheezes - all lung mcdonald Cardiovascular exam: PRESENT: RRR - NSR/LBBB Pulses: PRESENT: normal radial pulses, +1 pedal pulses bilateral Vascular exam: PRESENT: normal capillary refill GI/Abdominal exam: PRESENT: soft. ABSENT: distended, tenderness Rectal exam: PRESENT: deferred Extremities exam: PRESENT: full ROM, pedal edema - TRACE Musculoskeletal exam: PRESENT: ambulatory, full ROM Neurological exam: PRESENT: alert, awake, oriented to person, oriented to place, oriented to time, oriented to situation Psychiatric exam: PRESENT: appropriate affect Skin exam: PRESENT: dry, intact, normal color Results Laboratory Results: 04/26/19 05:25 04/26/19 05:25 04/26/19 04/26/19 05:25 05:25 WBC 15.2 H RBC 2.55 L Hgb 8.6 L Hct 26.0 L MCV 102 H MCH 33.7 H MCHC 33.0 RDW 13.9 Plt Count 235 Sodium 131.3 L Potassium 5.1 H Chloride 98 Carbon Dioxide 21 L Anion Gap 12 BUN 94 H Creatinine 1.68 H Est GFR ( Amer) 36 L Est GFR (Non-Af Amer) 30 L Glucose 167 H Calcium 8.9 Phosphorus 4.4 Magnesium 2.2 Total Bilirubin 0.2 AST 12 L ALT 26 Alkaline Phosphatase 129 H Total Protein 5.5 L Albumin 3.2 L 04/21/19 05:14 Blood Blood Culture - Final NO GROWTH IN 5 DAYS 04/21/19 00:48 Blood Blood Culture - Final NO GROWTH IN 5 DAYS 04/21/19 04/21/19 04/21/19 00:48 12:52 12:52 Creatine Kinase 133 CK-MB (CK-2) Cancelled Troponin I 0.017 Cancelled NT-Pro-B Natriuret Pep 4430 H 04/21/19 04/22/19 04/23/19 14:40 05:17 07:00 Creatine Kinase CK-MB (CK-2) 4.53 Troponin I 0.035 NT-Pro-B Natriuret Pep 60740 H 61428 H 04/25/19 04/26/19 06:00 05:25 Creatine Kinase CK-MB (CK-2) Troponin I NT-Pro-B Natriuret Pep 58251 H 8610 H Impressions: Venous Access Device Injection 04/21/19 00:00 IMPRESSION: Patent right-sided permanent central line. Muhammad needle access was maintained postprocedure for use on the nursing floor. Chest X-Ray 04/24/19 06:00 IMPRESSION: No evidence of pneumonia. Status: Imported from PACS Assessment and Plan - Diagnosis (1) Acute and chronic respiratory failure with hypoxia Is this a current diagnosis for this admission?: Yes Plan: Secondary to PNA Antibiotics, nebulizers, steroids, Mucinex BIPAP QHS (2) Pulmonary nodule Is this a current diagnosis for this admission?: Yes Plan: Nonoperative. Seen on XRAY. Stable since previous imaging approx. 6 months ago. (3) Atrial fibrillation Qualifiers: Atrial fibrillation type: paroxysmal Qualified Code(s): I48.0 - Paroxysmal atrial fibrillation Is this a current diagnosis for this admission?: Yes Plan: Rate controlled on diltiazem gtt Continue home dose apixaban Rhythm is NSR with LBBB Initially, patient had poor rate control, intermittently experiencing SVT Cardiology consulted, initially treated with increasing the dose of Toprol XL Today, Toprol XL remains on hold and continue diltiazem gtt to maintain HR control while patient's pulmonary status is rehabilitated (4) COPD exacerbation Is this a current diagnosis for this admission?: Yes Plan: Improving Secondary to PNA Wheezing in all lung mcdonald on exam today 3L p/min via nasal cannula (home dose) Scheduled and PRN nebulizer treatments, xopenex to q4h Switched from duo nebs to Xopenex due to heart rate Scheduled IV Solu-Medrol 60mg q6h BID Mucinex Scheduled long acting inhalers, Spiriva and Serevent IS/flutter valve at bedside (5) Pneumonia Qualifiers: Pneumonia type: due to unspecified organism Laterality: unspecified laterality Lung location: unspecified part of lung Qualified Code(s): J18.9 - Pneumonia, unspecified organism Is this a current diagnosis for this admission?: Yes Plan: Community acquired PNA in the face of COPD exacerbation Multiple drug allergies Continue aztreonam and doxycycline (6) Anemia Qualifiers: Anemia type: B12 deficiency Vitamin B12 deficiency anemia type: unspecified B12 deficiency Qualified Code(s): D51.9 - Vitamin B12 deficiency anemia, unspecified Is this a current diagnosis for this admission?: Yes Plan: Macrocytic anemia Low iron and TIBC Elevated ferritin Likely related to chronic disease Transfuse for Hgb<8.0 (7) Chronic diastolic (congestive) heart failure Is this a current diagnosis for this admission?: Yes Plan: BNP improved today 14,900 (peak)-->8,610(today) Continue home dose BUMEX Continue diltiazem gtt for HR control (8) Chronic renal disease, stage 3, moderately decreased glomerular filtration rate (GFR) between 30-59 mL/min/1.73 square meter Is this a current diagnosis for this admission?: Yes Plan: Based on previous records, the patient has a history of CKD Not currently on HD Patient is onoliguric Creatinine appears to be elevated above her baseline Continue home dose BUMEX to treat her diastolic heart failure Consult nephrology, Dr. Nicholas, regarding the patient's acute on chronic CKD - Time Time Spent with patient: 15-24 minutes Medications reviewed and adjusted accordingly: Yes Anticipated discharge: Home Within: within 72 hours - Inpatient Certification Based on my medical assessment, after consideration of the patient's comorbidities, presenting symptoms, or acuity I expect that the services needed warrant INPATIENT care.: Yes I certify that my determination is in accordance with my understanding of Medicare's requirements for reasonable and necessary INPATIENT services [42 CFR 412.3e].: Yes Medical Necessity: Need For Continuous Telemetry Monitoring, Need for Nebulizer Therapy and Monitoring of Response, Need for IV Antibiotics, Risk of Complication if Not Cared For in Hospital - Plan Summary Plan Summary: CONTINUE ANTIBIOTICS, STEROIDS, NEBULIZERS, INHALERS, MUCINEX, SUPPLEMENTAL O2. PLEASE GET PATIENT OOB TODAY AND ENCOURAGE IS AND FLUTTER VALVE USE.
--- NOTE | 2019-04-26 14:25 | Progress Note ---
Provider Note Provider Note: CARDIOLOGY PROGRESS NOTE by Dr. Nola Mooney on 04/26/2019. SUBJECTIVE: The patient states that she is less short of breath and is showing some slight improvement. She still has some wheezing but it is much less than yesterday. She still states that she has a cough and now is bringing up albeit only scanty sputum which is yellowish in color. There is no chest pain or discomfort. There is no recurrence of short bursts of SVT or sustained SVT. There is no ventricular arrhythmia seen. There is no leg edema. There is no PND orthopnea. There is no near syncope or syncope. There is no TIA CVA symptoms. PHYSICAL EXAMINATION: The patient is mildly obese. In no acute distress. Selected Entries Afebrile 04/26/19 04/26/19 09:00 12:15 Pulse Rate 60 Respiratory 16 Rate Respiratory Normal Depth Respiratory Normal Effort Blood Pressure 96/36 L Blood Pressure 56 Mean O2 Sat by Pulse 96 Oximetry Oxygen Flow 3 Rate HEAD: Is atraumatic normocephalic. EYES: Pupils equal round regular reactive to light and accommodation. Extraocular movements are normal. There is no conjunctival pallor. THERE is no scleral icterus. EARS: TYMPANIC membranes are intact. External auditory canals are clear. NOSE: There is no deviated nasal septum. There is no inflammation of the nasal mucous membrane. MOUTH: Mucous members of mouth are moist tongue is moist. There is no ulcers. There is no bleeding from the gums. THROAT: There is no redness of the oropharynx. There is no exudates. SKIN: There is no skin rashes or skin lesions. There is no petechia or ecchymosis. NECK: Is supple. There is no JVD. Carotids are equal there is no bruits there is no accessory muscles of respiration use. There is no lymphadenopathy. There is no goiter. Trachea central. LUNGS: There is diminished air entry prolonged expiration with scattered end expiratory wheezing bilaterally. There is a few occasional rhonchi. There is a few dry crackles in the right lower lobe. There is no rales of CHF. On percussion there is hyperresonance. On palpation there is no chest wall tenderness. HEART: S1-S2 is heard. There is murmur of moderate aortic stenosis without any thrill. There is some mild carotid delay. A2 is preserved although slightly soft. There is systolic murmur at the left sternal border and the apex. There is murmur of mitral mitral regurgitation present. There is no aortic regurgitation murmur. There is no rub. ABDOMEN: Soft. There is no hepatosplenomegaly. Bowel sounds are well heard there is no tender areas masses. EXTREMITIES: Femorals are slightly diminished. There is no femoral bruits. Leg pulses are diminished. There is no pedal edema. There is no DVT or cellulitis. There is no calf tenderness. There is no sinus or clubbing. ADOLESCENT COORDINATOR: The patient is conscious awake alert seems to be oriented x2 in spite of a history of dementia. There is no focal deficits. PSYCHIATRIC: The patient does not appear to be agitated or anxious. In spite of her dementia seems seems to be answering questions appropriately and her judgment seems to be intact. 04/26/19 04/26/19 04/26/19 05:25 05:25 05:25 WBC 15.2 H RBC 2.55 L Hgb 8.6 L Hct 26.0 L MCV 102 H MCH 33.7 H MCHC 33.0 RDW 13.9 Plt Count 235 Sodium 131.3 L Potassium 5.1 H Chloride 98 Carbon Dioxide 21 L Anion Gap 12 BUN 94 H Creatinine 1.68 H Est GFR (Non-Af Amer) 30 L Total Bilirubin 0.2 Direct Bilirubin 0.2 Neonat Total Bilirubin Not Reportable Neonat Direct Bilirubin Not Reportable Neonat Indirect Bili Not Reportable AST 12 L ALT 26 Alkaline Phosphatase 129 H NT-Pro-B Natriuret Pep 8610 H Total Protein 5.5 L Albumin 3.2 L IMPRESSION/RECOMMENDATION: 1. Acute on chronic respiratory failure. Since there is only minimal improvement. Continue oxygen, continue antibiotics and respiratory treatments. 2. Acute asthmatic bronchitis. Continue current treatment. Note that the patient's Lopressor has been discontinued and the patient is on a Cardizem drip at 5 mg/h. Her wheezing is slightly improved. 3. Possible right lower lobe pneumonia by physical exam. Continue antibiotics. Continue respiratory treatments. Will check chest x-ray in a.m. 4. COPD with exacerbation: Continue respiratory treatments. 5. Short runs of nonsustained supraventricular tachycardia. No recurrence with the increase in the beta-blockers. If the patient continues to wheeze then would recommend hold the beta-blockers and substituted for Cardizem. And then switch back to metoprolol with the patient's wheezing resolved. 6. Hypertension: Blood pressure well controlled 7. Chronic kidney disease stage III: Avoid nephrotoxic drugs 8. Coronary artery disease: No evidence of anginal symptoms. 9. History of paroxysmal atrial flutter: With no recurrence. Continue Eliquis and continue beta-bill. If the patient continues to wheeze as mentioned earlier would recommend continuing Cardizem. 10. Chronic left bundle branch block pattern. 11. Moderate aortic stenosis by prior echo and by physical exam. 12. History of dementia: At present patient seems to be oriented x3 MEDICATIONS reviewed. Medications and management plan discussed with attending physician on the case. Note medical decision making is of moderate complexity. 40 minutes spent on this patient with more than 50% of time spent in direct patient care. The patient is a DNR. Her daughter is her surrogate healthcare decision maker
[2019-04-26] MEDS: SERTRALINE HCL 50 MG TABLET PO SCH (18:28)
[2019-04-26] MEDS: GABAPENTIN 300 MG CAPSULE PO SCH (21:35)
[2019-04-26] MEDS: SIMVASTATIN 10 MG TABLET PO SCH (21:36)
[2019-04-27] MEDS: LEVALBUTEROL HCL NEB 1.25 MG/3 ML AMPUL NEB SCH ×7 (00:13→23:34)
[2019-04-27] MEDS: METHYLPREDNISOLONE INJ 125 MG/2 ML SDV IV SCH ×4 (06:14→21:09)
[2019-04-27] MEDS: AZTREONAM 1 GM in DEXTROSE 5%-WATER 50 ML IV SCH ×3 (06:15→21:06)
[2019-04-27] MEDS: BUDESONIDE NEB 0.5 MG/2 ML AMPUL NEB SCH ×2 (07:36→19:27)
[2019-04-27 08:46] LABS: HEMATOCRIT 26.2 % (36.0-47.0); HEMOGLOBIN 8.7 g/dL (12.0-15.5); MEAN CORPUSCULAR HEMOGLOBIN 33.5 pg (27.0-33.4); MEAN CORPUSCULAR HGB CONC 33.1 g/dL (32.0-36.0); MEAN CORPUSCULAR VOLUME 101 fl (80-97); PLATELET COUNT 248 10^3/uL (150-450); RED BLOOD COUNT 2.59 10^6/uL (3.72-5.28); RED CELL DISTRIBUTION WIDTH 13.9 % (11.5-14.0); WHITE BLOOD COUNT 15.3 10^3/uL (4.0-10.5)
[2019-04-27 09:01] LABS: ALANINE AMINOTRANSFERASE 23 U/L (9-52); ALBUMIN 2.8 g/dL (3.5-5.0); ALKALINE PHOSPHATASE 115 U/L (38-126); ANION GAP 15 (5-19); ASPARTATE AMINO TRANSFERASE 11 U/L (14-36); BILIRUBIN,DIRECT 0.3 mg/dL (0.0-0.4); BILIRUBIN,TOTAL 0.3 mg/dL (0.2-1.3); BLOOD UREA NITROGEN 119 mg/dL (7-20); CALCIUM 8.8 mg/dL (8.4-10.2); CARBON DIOXIDE 20 mmol/L (22-30); CHLORIDE 95 mmol/L (98-107); GLUCOSE 168 mg/dL (75-110); PHOSPHORUS 4.7 mg/dL (2.5-4.5); POTASSIUM 5.4 mmol/L (3.6-5.0); SODIUM 129.5 mmol/L (137-145); TOTAL PROTEIN 5.3 g/dL (6.3-8.2)
[2019-04-27] MEDS: NYSTATIN/DEXAMETH/DIPHEN SUSP 120 ML PO SCH ×4 (09:37→21:12)
[2019-04-27] MEDS: FLUTICASONE NASAL SPRAY 50 MCG/SPRY 120 SPRAY/16 GM NASL SCH ×2 (09:38→21:14)
[2019-04-27] MEDS: SALMETEROL XINAFOATE DISKUS 50 MCG/1 DOSE 28 DOSE IH SCH ×2 (09:38→21:14)
[2019-04-27] MEDS: TIOTROPIUM BROMIDE DPI 5 CAP/KIT (18 MCG/CAP) IH SCH (09:38)
[2019-04-27] MEDS: DOXYCYCLINE HYCLATE 100 MG in DEXTROSE 5%-WATER 250 ML IV SCH ×2 (09:39→21:33)
[2019-04-27] MEDS: CLOPIDOGREL BISULFATE 75 MG TABLET PO SCH (09:40)
[2019-04-27] MEDS: FOLIC ACID 1 MG TABLET PO SCH (09:40)
[2019-04-27] MEDS: APIXABAN 5 MG TABLET PO SCH ×2 (09:40→21:08)
[2019-04-27] MEDS: CYANOCOBALAMIN (VITAMIN B-12) 1,000 MCG TABLET PO SCH (09:40)
[2019-04-27] MEDS: GUAIFENESIN 600 MG TABLET.SA PO SCH ×2 (09:40→21:09)
[2019-04-27] MEDS: CHOLECALCIFEROL (D3) 400 UNIT TABLET PO SCH (09:40)
[2019-04-27] MEDS: LISINOPRIL 5 MG TABLET PO SCH (09:48)
[2019-04-27] MEDS: BUMETANIDE 1 MG TABLET PO SCH ×2 (09:48→10:00)
[2019-04-27] MEDS ORDERED: NORMAL SALINE 1000 ML 500 ML IV ONE (10:00)
--- NOTE | 2019-04-27 12:26 | PDOC CONSULTATION ---
Consultation Consult Date: 04/27/19 Provider Consulted: CECILIA BARNES Consult reason:: I was asked to see the patient because of worsening kidney function. History of Present Illness Admission Date/PCP: 04/21/19 02:21 JENAE MARS MD History of Present Illness: ENE HOLGUIN is a 73 year old female with history of oxygen dependent COPD, rheumatic heart disease with aortic stenosis, diastolic congestive heart failure, coronary artery disease and paroxysmal atrial fibrillation on antico agulation with Gayle who was admitted on 04/21/2019 for shortness of breath, productive cough and fever. Patient was initially placed on BiPAP but is currently now on nasal cannula and has improved in terms of the breathing. She is currently being treated for pneumonia, COPD exacerbation, paroxysmal atrial fibrillation with episodes of nonsustained SVT, and congestive heart failure. She is currently on IV antibiotics with aztreonam and doxycycline for the pneumonia. She is on Cardizem drip for the paroxysmal atrial fibrillation and nonsustained SVT. She is also still on methylprednisolone for her COPD along with her nebulizer treatments. Her blood pressure stays on the low side between 90-100/30s- 40s. With regard to the patient's kidney function she came in with a BUN of 33, creatinine of 1.5 and EGFR 35. During the course of hospitalization it started to slowly get worse more so on the last couple of days. Today she has a BUN of 119, creatinine of 2.25 and EGFR of 21. Prev iously on October 27 she had a BUN of 52, creatinine of 0.99 and EGFR 55. Since admission she is making an adequate amount of urine output anywhere between 800 to 3000 mL of urine output per day but for the last 2 days it has declined to anywhere between 300 to 500 mL. Patient has actually noted that her urine output is decreased for the last couple of days. Her potassium is mildly elevated at 5.4 and her sodium is also mildly low at 129.5 which have also been worse compared to the last few days. She has a bicarb of 20 also starting to go down. From the way the patient is describing she does not seem to be drinking a lot of fluids. For instance yesterday she drank a can of Pepsi and only 3-4 small glasses of grapefruit juice and she admits she hates drinking water. Aside from decreased urine output she denies any problems with urination including dysuria, hematuria, nor urgency. She does not have any leg swelling. Currently she denies any chest pains, shortness of breath, nausea or vomiting. She always feels tired and fatigue. She said her appetite is okay. She denies any leg swelling. Past Medical History Cardiac Medical History: Reports: Atrial Fibrillation, CHF-Diastolic, Coronary Artery Disease, Heart Murmur, Hypertension-primary, Myocardial Infarction Pulmonary Medical History: Reports: Chronic Obstructive Pulmonary Disease (COPD), Pneumonia, Respiratory Failure, Other - Pulmonary nodule, per daughter patient has right lung cancer on 07/2018 Renal/ Medical History: Reports: Chronic Kidney Disease Stage III Malignancy Medical History: Reports: Breast Cancer - left,S/P mastectomy and chemotherapy, Lung Cancer - Per daughter patient does not want any treatment. GI Medical History: Reports: Gastroesophageal Reflux Disease Musculoskeltal Medical History: Reports: Arthritis Psychiatric Medical History: Reports: Dementia Hematology Medical History: Reports Anemia Past Surgical History Past Surgical History: Reports: Appendectomy, Hysterectomy, Mastectomy - Left, Tonsillectomy Social History Information Source: Patient Lives with: Spouse/Significant other Smoking Status: Former Smoker Cigarettes Packs Per Day: 1 Number of Years Smokin Last Time Smoked: 30 Years Ago Frequency of Alcohol Use: None Hx Recreational Drug Use: No Drugs: None Hx Prescription Drug Abuse: No - Advance Directive Resuscitation Status: Do Not Resuscitate Family History Family History: CAD - Father and mother, Hypertension - Father and mother Parental Family History Reviewed: Yes Children Family History Reviewed: Yes Sibling(s) Family History Reviewed.: Yes Medication/Allergy Home Medications: Bumetanide [Bumex 1 mg Tablet] 1 mg PO DAILY 04/21/19 Cholecalciferol (Vitamin D3) [Vitamin D3 400 Unit Tablet] 400 unit PO DAILY 04/21/19 Clopidogrel Bisulfate [Plavix 75 mg Tablet] 75 mg PO DAILY 04/21/19 Folic Acid [Folvite 1 mg Tablet] 1 mg PO DAILY 04/21/19 Gabapentin [Neurontin 300 mg Capsule] 300 mg PO QHS 04/21/19 Hydrocodone/Acetaminophen [[place] 5-325 mg Tablet] 1 tab PO Q12HP PRN 04/21/19 Lisinopril [Prinivil 5 mg Tablet] 5 mg PO DAILY 04/21/19 Metoprolol Succinate [Toprol Xl] 25 mg PO DAILY 04/21/19 Sertraline HCl [Zoloft 50 mg Tablet] 50 mg PO QPM 04/21/19 Simvastatin [Zocor 20 mg Tablet] 20 mg PO QPM 04/21/19 Allergies/Adverse Reactions: aspirin [Aspirin] Allergy (Verified 04/04/18 14:13) azithromycin Allergy (Verified 04/04/18 14:13) codeine [Codeine] Allergy (Verified 04/04/18 14:13) erythromycin base [Erythromycin Base] Allergy (Verified 04/04/18 14:13) hydrocodone Allergy (Verified 04/04/18 14:13) levofloxacin [From Levaquin] Allergy (Verified 04/04/18 14:13) Penicillins Allergy (Verified 04/04/18 14:13) Sulfa (Sulfonamide Antibiotics) Allergy (Verified 04/04/18 14:13) Review of Systems All systems: reviewed and no additional remarkable complaints except as stated Review of Systems: Constitutional: ABSENT: chills, fatigue, fever(s), headache(s), weight gain, weight loss Eyes: ABSENT: visual disturbances Ears: ABSENT: hearing changes Cardiovascular: ABSENT: chest pain, dyspnea on exertion, edema, orthropnea, palpitations Respiratory: ABSENT: dyspnea, hemoptysis; admits cough Gastrointestinal: ABSENT: abdominal pain, constipation, diarrhea, hematemesis, hematochezia, nausea, vomiting Genitourinary: ABSENT: dysuria, hematuria; reports decreased urine output Musculoskeletal: ABSENT: joint swelling Integumentary: ABSENT: rash, wounds Neurological: ABSENT: abnormal gait, abnormal speech, confusion, dizziness, focal weakness, numbness, syncope Psychiatric: ABSENT: anxiety, depression Endocrine: ABSENT: cold intolerance, heat intolerance, polydipsia, polyuria Hematologic/Lymphatic: ABSENT: easy bleeding, easy bruising, lymphadenopathy Physical Exam Vital Signs: Temp Pulse Resp BP Pulse Ox 97.6 F 77 18 98/42 L 95 04/27/19 07:00 04/27/19 07:37 04/27/19 07:37 04/27/19 07:00 04/27/19 07:37 Intake & Output 04/26/19 04/27/19 04/28/19 06:59 06:59 06:59 Intake Total 686 2371 Output Total 500 300 Balance 186 2071 Weight 82 kg 82 kg Exam: General appearance: No acute distress, cooperative, well-developed, well- nourished Head exam: PRESENT: atraumatic, normocephalic Eye exam: PRESENT: Conjunctiva pale, EOMI, PERRLA. ABSENT: conjunctival injection, scleral icterus Mouth exam: PRESENT: moist, neck supple, tongue midline Neck exam: PRESENT: full ROM. ABSENT: carotid bruit, JVD, lymphadenopathy, thyromegaly Respiratory exam: PRESENT: Diminished to auscultation bilaterally. Bibasilar crackles ABSENT: Rhonchi, stridor, wheezes Cardiovascular exam: PRESENT: RRR, +S1, +S2. Grade 2/6 systolic murmur Pulses: PRESENT: normal radial pulses, normal dorsalis pedis pulses GI/Abdominal exam: PRESENT: normal bowel sounds, soft. ABSENT: guarding, mass, tenderness Rectal exam: Deferred Extremities exam: PRESENT: full ROM. ABSENT: calf tenderness, pedal edema Musculoskeletal: PRESENT: full ROM. ABSENT: deformity Neurological exam: PRESENT: alert, Awake, Oriented to person, Oriented to place, Oriented to time, reflexes normal, CN II-XII grossly intact. ABSENT: motor sensory deficit Psychiatric exam: PRESENT: appropriate affect, normal mood. ABSENT: homicidal ideation, suicidal ideation Skin exam: PRESENT: intact, dry, warm. ABSENT: rash Results Laboratory Results: 04/27/19 05:55 04/27/19 05:55 04/27/19 04/27/19 05:55 05:55 WBC 15.3 H RBC 2.59 L Hgb 8.7 L Hct 26.2 L MCV 101 H MCH 33.5 H MCHC 33.1 RDW 13.9 Plt Count 248 Sodium 129.5 L Potassium 5.4 H Chloride 95 L Carbon Dioxide 20 L Anion Gap 15 BUN 119 H Creatinine 2.25 H Est GFR ( Amer) 26 L Est GFR (Non-Af Amer) 21 L Glucose 168 H Calcium 8.8 Phosphorus 4.7 H Magnesium 2.2 Total Bilirubin 0.3 AST 11 L ALT 23 Alkaline Phosphatase 115 Total Protein 5.3 L Albumin 2.8 L 04/21/19 04/21/19 04/21/19 00:48 12:52 12:52 Creatine Kinase 133 CK-MB (CK-2) Cancelled Troponin I 0.017 Cancelled NT-Pro-B Natriuret Pep 4430 H 04/21/19 04/22/19 04/23/19 14:40 05:17 07:00 Creatine Kinase CK-MB (CK-2) 4.53 Troponin I 0.035 NT-Pro-B Natriuret Pep 30272 H 59223 H 04/25/19 04/26/19 06:00 05:25 Creatine Kinase CK-MB (CK-2) Troponin I NT-Pro-B Natriuret Pep 58818 H 8610 H Impressions: Venous Access Device Injection 04/21/19 00:00 IMPRESSION: Patent right-sided permanent central line. Muhammad needle access was maintained postprocedure for use on the nursing floor. Chest X-Ray 04/24/19 06:00 IMPRESSION: No evidence of pneumonia. Assessment & Plan - Diagnosis (1) Acute kidney injury Is this a current diagnosis for this admission?: Yes Plan: Patient has decreased urine output per record. We need to put a Horvath catheter for accurate quantification of urine output. This is most likely secondary to multifactorial causes which can include prerenal azotemia to include ongoing congestive heart failure, episodes of arrhythmia, with concomitant effect of current infection including pneumonia which could also lead to ATN. The disproportionate elevation of her BUN could be secondary to steroids, CHF and diuretics. At this time she is not uremic and does not warrant any urgent renal replacement therapy. However she needs to be monitored very carefully and cautiously. I would continue Bumex with current dose at this time but may need to be increased depending on her urine output. Advised to decrease Solu-Medrol since COPD seems to be improving. Avoid any nephrotoxic medications and adjust medication doses depending on the kidney function. Monitor kidney function and electrolytes daily. Will get kidney ultrasound as well. Check urinalysis. I spoke to the patient regarding the possibility of requiring dialysis if her kidney function continues to get worse and initially she said she does not want to do any dialysis treatment. However I explained to her that sometimes in cases of acute kidney injury she may not need it permanently but she may need it only temporarily and that something that she might need to consider. She said she will think about it. (2) Pneumonia Qualifiers: Pneumonia type: due to unspecified organism Laterality: unspecified l aterality Lung location: unspecified part of lung Qualified Code(s): J18.9 - Pneumonia, unspecified organism Is this a current diagnosis for this admission?: Yes Plan: Continue IV antibiotics per hospitalist service. (3) COPD exacerbation Is this a current diagnosis for this admission?: Yes Plan: Try to wean the patient off for taper down Solu-Medrol. (4) Acute on chronic diastolic heart failure Is this a current diagnosis for this admission?: Yes Plan: Continue Bumex of the same dose at this time. (5) Paroxysmal atrial fibrillation Is this a current diagnosis for this admission?: Yes Plan: Currently on Cardizem drip. (6) Hyperkalemia Is this a current diagnosis for this admission?: Yes Plan: We will start Veltassa 8.4 g daily starting today. (7) Hypotension Is this a current diagnosis for this admission?: Yes Plan: This seems to be chronic. (8) Hyponatremia Is this a current diagnosis for this admission?: Yes Plan: Could likely be secondary to her CHF. (9) Hyperphosphatemia Is this a current diagnosis for this admission?: Yes (10) Metabolic acidosis Is this a current diagnosis for this admission?: Yes Plan: Mild and will monitor for now. (11) Anemia Qualifiers: Anemia type: B12 deficiency Vitamin B12 deficiency anemia type: unspecified B12 deficiency Qualified Code(s): D51.9 - Vitamin B12 deficiency anemia, unspecified Is this a current diagnosis for this admission?: Yes Plan: Likely multifactorial due to acute and chronic illness. - Notes Notes: Thank you very much for this consultation. I will follow the patient with you. Assessment and plan discussed with the patient and also her daughter, Dena who came afterwards. - Time Time Spent: Greater than 70 Minutes
[2019-04-27] MEDS ORDERED: ACETAMINOPHEN 325 MG TABLET PO PRN (12:45)
[2019-04-27] MEDS: DILTIAZEM HCL/D5W 125 MG/125 ML RTUINJ IV PRN (13:40)
--- NOTE | 2019-04-27 14:53 | PDOC PROGRESS REPORT ---
Addendum entered and electronically signed by ANTONI VANEGAS NP 04/27/19 14:55: Assessment and Plan - Assessment and Plan (1) Acute and chronic respiratory failure with hypoxia Is this a current diagnosis for this admission?: Yes (2) Pulmonary nodule Is this a current diagnosis for this admission?: Yes (3) Atrial fibrillation Qualifiers: Atrial fibrillation type: paroxysmal Qualified Code(s): I48.0 - Paroxysmal atrial fibrillation Is this a current diagnosis for this admission?: Yes (4) COPD exacerbation Is this a current diagnosis for this admission?: Yes (5) Pneumonia Qualifiers: Pneumonia type: due to unspecified organism Laterality: unspecified laterality Lung location: unspecified part of lung Qualified Code(s): J18.9 - Pneumonia, unspecified organism Is this a current diagnosis for this admission?: Yes (6) Anemia Qualifiers: Anemia type: B12 deficiency Vitamin B12 deficiency anemia type: unspecified B12 deficiency Qualified Code(s): D51.9 - Vitamin B12 deficiency anemia, unspecified Is this a current diagnosis for this admission?: Yes (7) Chronic diastolic (congestive) heart failure Is this a current diagnosis for this admission?: Yes (8) Chronic renal disease, stage 3, moderately decreased glomerular filtration rate (GFR) between 30-59 mL/min/1.73 square meter Is this a current diagnosis for this admission?: Yes (9) Thrush, oral Is this a current diagnosis for this admission?: Yes Plan: Multifactoral - 1. patient does not swish/spit after using daily inhalers 2. IV antibiotic regimen Patient was advised to swish/spit following inhaler treatments Magic mouthwash ordered IV antibiotics regimen will be completed after today - Time Spent with Patient Medications reviewed and adjusted accordingly: Yes - Disposition Anticipated Discharge: Home Original Note: Subjective Progress Note for:: 04/27/19 Subjective:: 73 y.o. F with a PMH COPD (on home O2 PRN), CHF, A. fib, CAD, HTN, breast CA, arthritis. She is admitted to the hospitalist service with a clinical diagnosis of pneumonia and COPD exacerbation. Patient seen on rounds this morning, states she feels "a little better". Her HR remains controlled on a diltiazem drip. Upon exam, very mild wheezing can be auscultated in all lung mcdonald. It has significantly improved compared to yesterday. Continue scheduled IV Solu-Medrol and every 4 hours Xopenex nebulizer treatments. Will wean IV steroids today. The patient's creatinine continues to rise above her baseline. Nursing staff states the patient only drinks Pepsi all day. She does not drink water. Consulted Dr. Barnes to see the patient tomorrow regarding her worsening renal function. Plan for one time bolus of 500mL NS IV. Also, encouraged patient to drink gatorade with each meal. Continue PT/OT. OOB to chair q shift. The patient remains hospitalized due to her poor respiratory status and worsening renal function. Reason For Visit: PNA, COPD AND CHF EXACERBATION Physical Exam Vital Signs: Temp Pulse Resp BP Pulse Ox 97.6 F 77 16 98/42 L 100 04/27/19 07:00 04/27/19 12:35 04/27/19 12:35 04/27/19 07:00 04/27/19 12:35 Intake & Output 04/26/19 04/27/19 04/28/19 06:59 06:59 06:59 Intake Total 686 2371 Output Total 500 300 Balance 186 2071 Weight 82 kg 82 kg General appearance: PRESENT: morbidly obese Eye exam: PRESENT: conjunctiva pink, PERRLA Mouth exam: PRESENT: moist, tongue midline Neck exam: PRESENT: full ROM Respiratory exam: PRESENT: clear to auscultation isael, symmetrical, unlabored Cardiovascular exam: PRESENT: irregular rhythm, systolic murmur - history of aortic stenosis Pulses: PRESENT: normal radial pulses, normal dorsalis pedis pul Vascular exam: PRESENT: normal capillary refill GI/Abdominal exam: PRESENT: soft. ABSENT: distended, tenderness Rectal exam: PRESENT: deferred Extremities exam: PRESENT: full ROM, pedal edema - trace Musculoskeletal exam: PRESENT: ambulatory, full ROM Neurological exam: PRESENT: alert, awake, oriented to person, oriented to place, oriented to time, oriented to situation Psychiatric exam: PRESENT: appropriate affect Skin exam: PRESENT: dry, intact, normal color Results Laboratory Results: 04/27/19 05:55 04/27/19 05:55 04/27/19 04/27/19 05:55 05:55 WBC 15.3 H RBC 2.59 L Hgb 8.7 L Hct 26.2 L MCV 101 H MCH 33.5 H MCHC 33.1 RDW 13.9 Plt Count 248 Sodium 129.5 L Potassium 5.4 H Chloride 95 L Carbon Dioxide 20 L Anion Gap 15 BUN 119 H Creatinine 2.25 H Est GFR ( Amer) 26 L Est GFR (Non-Af Amer) 21 L Glucose 168 H Calcium 8.8 Phosphorus 4.7 H Magnesium 2.2 Total Bilirubin 0.3 AST 11 L ALT 23 Alkaline Phosphatase 115 Total Protein 5.3 L Albumin 2.8 L 04/21/19 04/21/19 04/21/19 00:48 12:52 12:52 Creatine Kinase 133 CK-MB (CK-2) Cancelled Troponin I 0.017 Cancelled NT-Pro-B Natriuret Pep 4430 H 04/21/19 04/22/19 04/23/19 14:40 05:17 07:00 Creatine Kinase CK-MB (CK-2) 4.53 Troponin I 0.035 NT-Pro-B Natriuret Pep 87217 H 57984 H 04/25/19 04/26/19 06:00 05:25 Creatine Kinase CK-MB (CK-2) Troponin I NT-Pro-B Natriuret Pep 16488 H 8610 H Impressions: Venous Access Device Injection 04/21/19 00:00 IMPRESSION: Patent right-sided permanent central line. Muhammad needle access was maintained postprocedure for use on the nursing floor. Chest X-Ray 04/24/19 06:00 IMPRESSION: No evidence of pneumonia. Status: Imported from PACS Assessment and Plan - Diagnosis (1) Acute and chronic respiratory failure with hypoxia Is this a current diagnosis for this admission?: Yes Plan: Secondary to PNA Antibiotics, nebulizers, steroids, Mucinex BIPAP QHS Detailed plan listed below (2) Pulmonary nodule Is this a current diagnosis for this admission?: Yes Plan: Nonoperative. Seen on XRAY. Stable since previous imaging approx. 6 months ago. (3) Atrial fibrillation Qualifiers: Atrial fibrillation type: paroxysmal Qualified Code(s): I48.0 - Paroxysmal atrial fibrillation Is this a current diagnosis for this admission?: Yes Plan: Rate controlled on diltiazem gtt Continue home dose apixaban Rhythm is NSR with LBBB Initially, patient had poor rate control, intermittently experiencing SVT Cardiology consulted, initially treated with increasing the home dose of Toprol XL Today, Toprol XL remains on hold and continue diltiazem gtt to maintain HR control while patient's pulmonary status is rehabilitated (4) COPD exacerbation Is this a current diagnosis for this admission?: Yes Plan: Improving Secondary to PNA Wheezing in all lung mcdonald on exam today 3L p/min via nasal cannula (home dose) Scheduled and PRN nebulizer treatments, xopenex to q4h Switched from duo nebs to Xopenex due to heart rate Scheduled IV Solu-Medrol, weaned from 60mg q6h to 60mg q8h today BID Mucinex Scheduled long acting inhalers, Spiriva and Serevent IS/flutter valve at bedside Patient was seen by Dr Porter 04/25/2019 who recommended Pulmicort (5) Pneumonia Qualifiers: Pneumonia type: due to unspecified organism Laterality: unspecified laterality Lung location: unspecified part of lung Qualified Code(s): J18.9 - Pneumonia, unspecified organism Is this a current diagnosis for this admission?: Yes Plan: Community acquired PNA in the face of COPD exacerbation Multiple drug allergies Final dose aztreonam and doxycycline today. Completed 7 day course of ant ibiotics. (6) Anemia Qualifiers: Anemia type: B12 deficiency Vitamin B12 deficiency anemia type: unspecified B12 deficiency Qualified Code(s): D51.9 - Vitamin B12 deficiency anemia, unspecified Is this a current diagnosis for this admission?: Yes Plan: Macrocytic anemia Low iron and TIBC Elevated ferritin Likely related to chronic disease Transfuse for Hgb<8.0 (7) Chronic diastolic (congestive) heart failure Is this a current diagnosis for this admission?: Yes Plan: BNP improved today 14,900 (peak)-->7,640(today) Continue home dose BUMEX Continue diltiazem gtt for HR control (8) Chronic renal disease, stage 3, moderately decreased glomerular filtration rate (GFR) between 30-59 mL/min/1.73 square meter Is this a current diagnosis for this admission?: Yes Plan: Worsening creatinine 1.5-->2.25 Based on previous records, the patient has a history of CKD III Not currently on HD Patient is onoliguric Creatinine appears to be elevated above her baseline Continue home dose BUMEX to treat her diastolic heart failure Consulted nephrology, Dr. Barnes, regarding the patient's acute on chronic CKD. Believes this is prerenal. Will check renal US. Horvath catheter for strict I&O. - Time Medications reviewed and adjusted accordingly: Yes Anticipated discharge: Home Within: within 72 hours - Inpatient Certification Based on my medical assessment, after consideration of the patient's comorbidities, presenting symptoms, or acuity I expect that the services needed warrant INPATIENT care.: Yes I certify that my determination is in accordance with my understanding of Medicare's requirements for reasonable and necessary INPATIENT services [42 CFR 412.3e].: Yes Medical Necessity: Significant Comorbidiites Make Outpatient Treatment Too Risky, Need For Continuous Telemetry Monitoring, Need for IV Antibiotics, Risk o f Complication if Not Cared For in Hospital - Plan Summary Plan Summary: WILL FOLLOW RECOMMENDATIONS OF DR BARNES. PATIENT ADVISED TO DRINK SOMETHING OTHER THAN JUST PEPSI. STRICT I&O. 500ML BOLUS X 1 FOR HYDRATION. WILL HOLD OFF ON CONTINUOUS IVF DUE TO CHF HISTORY. SINCE PATIENT'S RESPIRATORY STATUS IS IMPROVING, WILL CONTINUE CURRENT PLAN OF CARE.
[2019-04-27] MEDS: SERTRALINE HCL 50 MG TABLET PO SCH (18:18)
[2019-04-27] MEDS: PATIROMER 8.4 GM SUSP PACKET PO SCH (18:21)
--- NOTE | 2019-04-27 20:31 | Progress Note ---
Provider Note Provider Note: CARDIOLOGY PROGRESS NOTE by Dr. Nola Mooney on 04/27/2019. SUBJECTIVE: The patient states her shortness of breath is improved. She is also wheezing very much less than yesterday, and there is only occasional minimal end expiratory wheezing. The patient denies any chest pain or discomfort. There is no further episodes of nonsustained runs of supraventricular tachycardia. There is no PND orthopnea or leg edema. There is no TIA CVA symptoms. There is no ventricular arrhythmia seen on the monitor. PHYSICAL EXAMINATION: The patient is mildly obese. No acute distress. She is well-groomed. Selected Entries 04/27/19 04/27/19 07:00 07:37 Temperature 97.6 F Temperature Axillary Source Pulse Rate 75 Respiratory 16 Rate Blood Pressure 98/42 L Blood Pressure 60 Mean BP Location Right Arm BP Position Sitting Oxygen Flow 2 Rate Oxygen Delivery Nasal Cannula Method HEAD: Is atraumatic normocephalic. EYES: Pupils equal round regular reactive to light and accommodation. Extraocular movements are normal. There is no conjunctival pallor. THERE is no scleral icterus. EARS: TYMPANIC membranes are intact. External auditory canals are clear. NOSE: There is no deviated nasal septum. There is no inflammation of the nasal mucous membrane. MOUTH: Mucous members of mouth are moist tongue is moist. There is no ulcers. There is no bleeding from the gums. THROAT: There is no redness of the oropharynx. There is no exudates. SKIN: There is no skin rashes or skin lesions. There is no petechia or ecchymosis. NECK: Is supple. There is no JVD. Carotids are equal there is no bruits there is no accessory muscles of respiration use. There is no lymphadenopathy. There is no goiter. Trachea central. LUNGS: There is diminished air entry prolonged expiration. There is very occasional end expiratory wheezing. There is a few occasional rhonchi. There is a few dry crackles in the right lower lobe. There is no rales of CHF. On percussion there is hyperresonance. On palpation there is no chest wall tenderness. HEART: S1-S2 is heard. There is murmur of moderate aortic stenosis without any thrill. There is some mild carotid delay. A2 is preserved although slightly soft. There is systolic murmur at the left sternal border and the apex. There is murmur of mitral mitral regurgitation present. There is no aortic regurgitation murmur. There is no rub. ABDOMEN: Soft. There is no hepatosplenomegaly. Bowel sounds are well heard there is no tender areas masses. EXTREMITIES: Femorals are slightly diminished. There is no femoral bruits. Leg pulses are diminished. There is no pedal edema. There is no DVT or cellulitis. There is no calf tenderness. There is no sinus or clubbing. FENCE BUILDER: The patient is conscious awake alert seems to be oriented x2 in spite of a history of dementia. There is no focal deficits. PSYCHIATRIC: The patient does not appear to be agitated or anxious. In spite of her dementia seems seems to be answering questions appropriately and her judgment seems to be intact. 04/27/19 04/27/19 04/27/19 05:55 05:55 05:55 WBC 15.3 H RBC 2.59 L Hgb 8.7 L Hct 26.2 L MCV 101 H MCH 33.5 H MCHC 33.1 RDW 13.9 Plt Count 248 Sodium 129.5 L Potassium 5.4 H Chloride 95 L Carbon Dioxide 20 L Anion Gap 15 BUN 119 H Creatinine 2.25 H Est GFR (Non-Af Amer) 21 L Glucose 168 H Calcium 8.8 Phosphorus 4.7 H Magnesium 2.2 Total Bilirubin 0.3 Direct Bilirubin 0.3 Neonat Total Bilirubin Not Reportable Neonat Direct Bilirubin Not Reportable Neonat Indirect Bili Not Reportable AST 11 L ALT 23 Alkaline Phosphatase 115 NT-Pro-B Natriuret Pep 7460 H Total Protein 5.3 L Albumin 2.8 L IMPRESSION/RECOMMENDATION: 1. Acute on chronic respiratory failure. Since there is only minimal improvement. Continue oxygen, continue antibiotics and respiratory treatments. 2. Acute asthmatic bronchitis. Continue current treatment. Note that the patient's Lopressor has been discontinued and the patient is on a Cardizem drip at 5 mg/h. Her wheezing is vastly improved. 3. Possible right lower lobe pneumonia by physical exam. Continue antibiotics. Continue respiratory treatments. Will check chest x-ray in a.m. chest x-ray is been ordered by me. 4. COPD with exacerbation: Continue respiratory treatments. 5. Short runs of nonsustained supraventricular tachycardia. No recurrence with the increase in the beta-blockers. If the patient continues to wheeze then would recommend hold the beta-blockers and substituted for Cardizem. And then switch back to metoprolol with the patient's wheezing resolved. 6. Hypertension: Blood pressure well controlled 7. Chronic kidney disease stage III: Avoid nephrotoxic drugs note the kidney function is worsened. Now patient is a stage IV chronic kidney disease. 8. Coronary artery disease: No evidence of anginal symptoms. 9. History of paroxysmal atrial flutter: With no recurrence. Continue Eliquis and continue beta-bill. If the patient continues to wheeze as mentioned earlier would recommend continuing Cardizem. 10. Chronic left bundle branch block pattern. 11. Moderate aortic stenosis by prior echo and by physical exam. 12. History of dementia: At present patient seems to be oriented x3 Medications reviewed. Management plan discussed with attending physician on the case. Medical decision making is of moderate complexity. 40 minutes spent on this patient with more than 50% of time spent in direct patient care. Will follow.
[2019-04-27 20:35] LABS: APPEARANCE,URINE SLIGHTLY-CLOUDY; BILIRUBIN,URINE NEGATIVE (NEGATIVE); COLOR,URINE YELLOW; GLUCOSE, URINE NEGATIVE (NEGATIVE); KETONES,URINE NEGATIVE (NEGATIVE); LEUKOCYTE ESTERASE,URINE NEGATIVE (NEGATIVE); NITRITE,URINE NEGATIVE (NEGATIVE); PROTEIN,URINE NEGATIVE (NEGATIVE); URINE SPECIFIC GRAVITY 1.014; UROBILINOGEN,URINE NEGATIVE mg/dL (<2.0)
[2019-04-27] MEDS: GABAPENTIN 300 MG CAPSULE PO SCH (21:08)
[2019-04-27] MEDS: SIMVASTATIN 10 MG TABLET PO SCH (21:08)
[2019-04-28] MEDS: LEVALBUTEROL HCL NEB 1.25 MG/3 ML AMPUL NEB SCH ×5 (04:08→20:13)
[2019-04-28] MEDS: METHYLPREDNISOLONE INJ 125 MG/2 ML SDV IV SCH (05:03)
[2019-04-28] MEDS: AZTREONAM 1 GM in DEXTROSE 5%-WATER 50 ML IV SCH (05:03)
[2019-04-28] MEDS: BUDESONIDE NEB 0.5 MG/2 ML AMPUL NEB SCH ×2 (07:35→20:12)
--- NOTE | 2019-04-28 08:35 | RADIOLOGY REPORT (SQ) ---
EXAM DESCRIPTION: U/S RETROPERITON LTD COMPLETED DATE/TIME: 04/27/2019 8:45 pm REASON FOR STUDY: MATIAS COMPARISON: 08/09/2016. TECHNIQUE: Dynamic and static grayscale images acquired of the kidneys and bladder and recorded on P ACS. Additional selected color Doppler and spectral images recorded. LIMITATIONS: None. FINDINGS: RIGHT KIDNEY: Normal size. Normal echogenicity. No solid or suspicious masses. No h ydronephrosis. No calcifications. LEFT KIDNEY: Normal size. Normal echogenicity. No solid or suspicious masses. No hydronephrosi s. No calcifications. BLADDER: No masses. OTHER FINDINGS: No other significant finding. IMPRESSION: NORMAL RENAL AND BLADDER ULTRASOUND. TECHNICAL DOCUMENTATION: JOB ID: [id number] [employer]- All Rights Reserved Reading location - IP/workstation name: [email or web address]
[2019-04-28] MEDS ORDERED: DOXYCYCLINE HYCLATE 100 MG in DEXTROSE 5%-WATER 250 ML IV SCH (10:00)
[2019-04-28] MEDS: APIXABAN 5 MG TABLET PO SCH ×2 (10:03→21:13)
[2019-04-28] MEDS: CYANOCOBALAMIN (VITAMIN B-12) 1,000 MCG TABLET PO SCH (10:03)
[2019-04-28] MEDS: CHOLECALCIFEROL (D3) 400 UNIT TABLET PO SCH (10:03)
[2019-04-28] MEDS: LISINOPRIL 5 MG TABLET PO SCH (10:03)
[2019-04-28] MEDS: GUAIFENESIN 600 MG TABLET.SA PO SCH ×2 (10:03→21:13)
[2019-04-28] MEDS: SALMETEROL XINAFOATE DISKUS 50 MCG/1 DOSE 28 DOSE IH SCH ×2 (10:04→21:14)
[2019-04-28] MEDS: CLOPIDOGREL BISULFATE 75 MG TABLET PO SCH (10:04)
[2019-04-28] MEDS: FOLIC ACID 1 MG TABLET PO SCH (10:04)
[2019-04-28] MEDS: FLUTICASONE NASAL SPRAY 50 MCG/SPRY 120 SPRAY/16 GM NASL SCH ×2 (10:05→21:14)
[2019-04-28] MEDS: NYSTATIN/DEXAMETH/DIPHEN SUSP 120 ML PO SCH ×4 (10:05→21:14)
[2019-04-28] MEDS: TIOTROPIUM BROMIDE DPI 5 CAP/KIT (18 MCG/CAP) IH SCH (10:05)
[2019-04-28] MEDS: BUMETANIDE 1 MG TABLET PO SCH (10:12)
[2019-04-28] MEDS ORDERED: METHYLPREDNISOLONE INJ 125 MG/2 ML SDV IV SCH (14:00)
[2019-04-28] MEDS ORDERED: AZTREONAM 1 GM in DEXTROSE 5%-WATER 50 ML IV SCH (14:00)
[2019-04-28] MEDS: DILTIAZEM HCL/D5W 125 MG/125 ML RTUINJ IV PRN (15:05)
[2019-04-28] MEDS: METHYLPREDNISOLONE INJ 40 MG/1 ML SDV IV SCH ×2 (15:07→21:13)
[2019-04-28] MEDS: SERTRALINE HCL 50 MG TABLET PO SCH (18:03)
--- NOTE | 2019-04-28 18:10 | PDOC PROGRESS REPORT ---
Subjective Progress Note for:: 04/28/19 Subjective:: Patient tells me that she is feeling better today. She made about 650 mL of urine since the Horvath catheter insertion yesterday. Her blood pressure remains to be in the low side. Her kidney ultrasound is normal. Today she told me that she will not go on dialysis letter acute or chronic. Reason For Visit: PNA, COPD AND CHF EXACERBATION Physical Exam Vital Signs: Temp Pulse Resp BP Pulse Ox 97.3 F 77 18 106/64 95 04/28/19 03:41 04/28/19 15:52 04/28/19 15:52 04/28/19 07:00 04/28/19 15:52 Intake & Output 04/27/19 04/28/19 04/29/19 06:59 06:59 06:59 Intake Total 2371 3047 905 Output Total 300 650 300 Balance 2071 0447 605 Weight 82 kg 85.7 kg Exam: General appearance: PRESENT: no acute distress, cooperative, well-developed, well-nourished Head exam: PRESENT: atraumatic, normocephalic Eye exam: PRESENT: conjunctiva pale, PERRLA. ABSENT: scleral icterus Neck exam: ABSENT: JVD Respiratory exam: PRESENT: Diminished breath sounds. Bilateral basal crackles ABSENT: Rhonchi, unlabored, wheezes Cardiovascular exam: PRESENT: Regular rate rhythm -+S1, +S2. Grade 2/6 systolic murmur GI/Abdominal exam: PRESENT: normal bowel sounds, soft. ABSENT: guarding, mass, tenderness Extremities exam: Trace bilateral lower extremity edema Neurological exam: PRESENT: alert, awake, oriented to person, place and time. Skin exam: PRESENT: dry, warm, positive pallor Results Laboratory Results: 04/27/19 05:55 04/27/19 05:55 04/27/19 18:15 Urine Color YELLOW Urine Appearance SLIGHTLY-CLOUDY Urine pH 5.0 Ur Specific [place] 1.014 Urine Protein NEGATIVE Urine Glucose (UA) NEGATIVE Urine Ketones NEGATIVE Urine Blood LARGE H Urine Nitrite NEGATIVE Ur Leukocyte Esterase NEGATIVE Urine WBC (Auto) 3 Urine RBC (Auto) 57 04/21/19 04/21/19 04/21/19 00:48 12:52 12:52 Creatine Kinase 133 CK-MB (CK-2) Cancelled Troponin I 0.017 Cancelled NT-Pro-B Natriuret Pep 4430 H 04/21/19 04/22/19 04/23/19 14:40 05:17 07:00 Creatine Kinase CK-MB (CK-2) 4.53 Troponin I 0.035 NT-Pro-B Natriuret Pep 22264 H 85051 H 04/25/19 04/26/19 04/27/19 06:00 05:25 05:55 Creatine Kinase CK-MB (CK-2) Troponin I NT-Pro-B Natriuret Pep 15856 H 8610 H 7460 H Impressions: Venous Access Device Injection 04/21/19 00:00 IMPRESSION: Patent right-sided permanent central line. Muhammad needle access was maintained postprocedure for use on the nursing floor. Chest X-Ray 04/24/19 06:00 IMPRESSION: No evidence of pneumonia. Renal Ultrasound 04/27/19 00:00 IMPRESSION: NORMAL RENAL AND BLADDER ULTRASOUND. Assessment & Plan - Diagnosis (1) Acute kidney injury Is this a current diagnosis for this admission?: Yes Plan: Secondary to multifactorial cause causing prerenal azotemia/ATN. Patient is currently nonoliguric. Patient did not have any lab work today so we will check tomorrow. As I mentioned earlier patient does not want to go to dialysis under any circumstances. (2) Pneumonia Qualifiers: Pneumonia type: due to unspecified organism Laterality: unspecified late rality Lung location: unspecified part of lung Qualified Code(s): J18.9 - Pneumonia, unspecified organism Is this a current diagnosis for this admission?: Yes Plan: Treated with IV antibiotics per hospitalist service. (3) COPD exacerbation Is this a current diagnosis for this admission?: Yes (4) Acute on chronic diastolic heart failure Is this a current diagnosis for this admission?: Yes (5) Paroxysmal atrial fibrillation Is this a current diagnosis for this admission?: Yes Plan: On Cardizem drip. (6) Hyperkalemia Is this a current diagnosis for this admission?: Yes Plan: On [place]. (7) Hypotension Is this a current diagnosis for this admission?: Yes Plan: Chronic. (8) Hyponatremia Is this a current diagnosis for this admission?: Yes (9) Hyperphosphatemia Is this a current diagnosis for this admission?: Yes (10) Metabolic acidosis Is this a current diagnosis for this admission?: Yes (11) Anemia Qualifiers: Anemia type: B12 deficiency Vitamin B12 deficiency anemia type: unspecified B12 deficiency Qualified Code(s): D51.9 - Vitamin B12 deficiency anemia, uns pecified Is this a current diagnosis for this admission?: Yes Plan: Check iron panel. - Time Time with patient: 15-25 minutes
[2019-04-28] MEDS: PATIROMER 8.4 GM SUSP PACKET PO SCH (18:11)
--- NOTE | 2019-04-28 18:28 | PDOC PROGRESS REPORT ---
Subjective Progress Note for:: 04/28/19 Subjective:: 73 y.o. F with a PMH COPD (on home O2 PRN), CHF, A. fib, CAD, HTN, breast CA, arthritis. She is admitted to the hospitalist service with a clinical diagnosis of pneumonia and COPD exacerbation. The patient was seen on afternoon rounds. She was found resting in bed comfortably on BiPAP; she was sleeping when I entered the room but woke easily when I set her name. She reports that she is feeling much better today; denies fever, chills, chest pain, palpitations, dyspnea, orthopnea, and cough. She does confirm that she would refuse all dialysis treatments whether this be acute or long-term. She has no new questions or concerns. No concerns per nursing. Reason For Visit: PNA, COPD AND CHF EXACERBATION Physical Exam Vital Signs: Temp Pulse Resp BP Pulse Ox 97.3 F 77 18 93/30 L 95 04/28/19 03:41 04/28/19 15:52 04/28/19 15:52 04/28/19 18:00 04/28/19 15:52 Intake & Output 04/27/19 04/28/19 04/29/19 06:59 06:59 06:59 Intake Total 2371 3047 905 Output Total 300 650 300 Balance 2071 2397 605 Weight 82 kg 85.7 kg General appearance: PRESENT: no acute distress, obese, well-developed, well-nourished Head exam: PRESENT: atraumatic, normocephalic Eye exam: PRESENT: conjunctiva pink, EOMI, PERRLA. ABSENT: scleral icterus Mouth exam: PRESENT: moist, tongue midline Neck exam: ABSENT: carotid bruit, JVD, lymphadenopathy, thyromegaly Respiratory exam: PRESENT: clear to auscultation isael, symmetrical, unlabored, other - BiPAP. ABSENT: rales, rhonchi, wheezes Cardiovascular exam: PRESENT: irregular rhythm, +S1, +S2, systolic murmur. ABSENT: diastolic murmur, rubs Pulses: PRESENT: normal dorsalis pedis pul Vascular exam: PRESENT: normal capillary refill GI/Abdominal exam: PRESENT: normal bowel sounds, soft. ABSENT: distended, guarding, mass, organolmegaly, rebound, tenderness Rectal exam: PRESENT: deferred Gentrourinary exam: PRESENT: indwelling catheter Extremities exam: PRESENT: full ROM, pedal edema - Trace bilaterally. ABSENT: calf tenderness, clubbing Neurological exam: PRESENT: alert, awake, oriented to person, oriented to place, oriented to time, oriented to situation, CN II-XII grossly intact. ABSENT: motor sensory deficit Psychiatric exam: PRESENT: appropriate affect, normal mood. ABSENT: homicidal ideation, suicidal ideation Skin exam: PRESENT: dry, intact, warm. ABSENT: cyanosis, rash Results Laboratory Results: 04/27/19 05:55 04/27/19 05:55 04/27/19 18:15 Urine Color YELLOW Urine Appearance SLIGHTLY-CLOUDY Urine pH 5.0 Ur Specific [place] 1.014 Urine Protein NEGATIVE Urine Glucose (UA) NEGATIVE Urine Ketones NEGATIVE Urine Blood LARGE H Urine Nitrite NEGATIVE Ur Leukocyte Esterase NEGATIVE Urine WBC (Auto) 3 Urine RBC (Auto) 57 04/21/19 04/21/19 04/21/19 00:48 12:52 12:52 Creatine Kinase 133 CK-MB (CK-2) Cancelled Troponin I 0.017 Cancelled NT-Pro-B Natriuret Pep 4430 H 04/21/19 04/22/19 04/23/19 14:40 05:17 07:00 Creatine Kinase CK-MB (CK-2) 4.53 Troponin I 0.035 NT-Pro-B Natriuret Pep 91908 H 93922 H 04/25/19 04/26/19 04/27/19 06:00 05:25 05:55 Creatine Kinase CK-MB (CK-2) Troponin I NT-Pro-B Natriuret Pep 10095 H 8610 H 7460 H Impressions: Venous Access Device Injection 04/21/19 00:00 IMPRESSION: Patent right-sided permanent central line. Muhammad needle access was maintained postprocedure for use on the nursing floor. Chest X-Ray 04/24/19 06:00 IMPRESSION: No evidence of pneumonia. Renal Ultrasound 04/27/19 00:00 IMPRESSION: NORMAL RENAL AND BLADDER ULTRASOUND. Assessment and Plan - Diagnosis (1) Acute and chronic respiratory failure with hypoxia Is this a current diagnosis for this admission?: Yes Plan: Secondary to PNA Antibiotics, nebulizers, steroids, Mucinex BIPAP QHS Detailed plan listed below (2) Anemia Qualifiers: Anemia type: B12 deficiency Vitamin B12 deficiency anemia type: unspecified B12 deficiency Qualified Code(s): D51.9 - Vitamin B12 deficiency anemia, unspecified Is this a current diagnosis for this admission?: Yes Plan: Macrocytic anemia Low iron and TIBC Elevated ferritin Likely related to chronic disease Transfuse for Hgb<8.0 Start multivitamin and iron supplementation. Nephrology is consulted. (3) Atrial fibrillation Qualifiers: Atrial fibrillation type: paroxysmal Qualified Code(s): I48.0 - Paroxysmal atrial fibrillation Is this a current diagnosis for this admission?: Yes Plan: Rate controlled on diltiazem gtt Rhythm is NSR with LBBB Initially, patient had poor rate control, intermittently experiencing SVT Continue home dose apixaban Cardiology consulted, initially treated with increasing the home dose of Toprol XL; discontinued secondary to exacerbation of asthmatic bronchitis. Toprol XL remains on hold; continue diltiazem gtt to maintain HR control while patient's pulmonary status is rehabilitated (4) Chronic diastolic (congestive) heart failure Is this a current diagnosis for this admission?: Yes Plan: BNP improved today 14,900 (peak)-->7,640 Cardiac diet and daily weights. Weight up ~6 kg Continue home dose BUMEX Continue diltiazem gtt for HR control Cardiology is consulted; appreciate Dr. Sánchez's assistance. (5) Chronic renal disease, stage 3, moderately decreased glomerular filtration rate (GFR) between 30-59 mL/min/1.73 square meter Is this a current diagnosis for this admission?: Yes Plan: Worsening creatinine 1.5-->2.25. Multifactorial; prerenal/ATN Based on previous records, the patient has a history of CKD III Renal ultrasound is normal. Not currently on HD; patient confirmed today that she would not be agreeable to short or penitentiary dialysis Continue home dose BUMEX to treat her diastolic heart failure Consulted nephrology, Dr. Nicholas; appreciate nephrology's assistance. Will hold on additional IVF as patient is up ~6 kg w/ bibasilar crackles and +1 pedal edema Horvath catheter for strict I&O. Optimize cardiac function; CHF management as above. (6) COPD exacerbation Is this a current diagnosis for this admission?: Yes Plan: Improving; now on her baseline oxygen requirement (3lpm), lung sound w/ rhonchi and bibasilar crackles, no wheezing. Secondary to PNA Continue scheduled and PRN nebulizer treatments Switched from duo nebs to Xopenex due to heart rate Twice daily Pulmicort nebs. Scheduled IV Solu-Medrol, continue weaning BID Mucinex Scheduled long acting inhalers, Spiriva and Serevent IS/flutter valve at bedside Pulmonology consulted; appreciate Dr. Porter's assistance. (7) Pneumonia Qualifiers: Pneumonia type: due to unspecified organism Laterality: unspecified laterality Lung location: unspecified part of lung Qualified Code(s): J18.9 - Pneumonia, unspecified organism Is this a current diagnosis for this admission?: Yes Plan: Resolved. Community acquired PNA in setting of COPD exacerbation Multiple drug allergies Completed 7 day course of aztreonam and doxycycline. Remaining management as above. (8) Pulmonary nodule Is this a current diagnosis for this admission?: Yes Plan: Nonoperative. Seen on XRAY. Stable since previous imaging approx. 6 months ago. Continue routine outpatient monitoring. (9) Hyperkalemia Is this a current diagnosis for this admission?: Yes Plan: Likely secondary to A/CKD. Continue daily V[place]. Nephrology is consulted. (10) Hyperglycemia Is this a current diagnosis for this admission?: Yes Plan: Persistently elevated hyperglycemia; possible related to steroids for treatment of COPD exacerbation. Will check A1C w/ AM lab work. - Time Time Spent with patient: 25-34 minutes Medications reviewed and adjusted accordingly: Yes Anticipated discharge: Home Within: within 72 hours
[2019-04-28] MEDS: GABAPENTIN 300 MG CAPSULE PO SCH (21:13)
[2019-04-28] MEDS: SIMVASTATIN 10 MG TABLET PO SCH (21:13)
--- NOTE | 2019-04-28 21:48 | Progress Note ---
Provider Note Provider Note: CARDIOLOGY PROGRESS NOTE by Dr. Nola Mooney on 04/28/2019. SUBJECTIVE: The patient states she has more cough now and is bringing up more sputum which is yellowish in color. She has no chest pain or discomfort. There is no shortness of breath at rest. Her wheezing is only minimal and hence has improved a lot. There is no PND orthopnea. There is no further episodes of short runs of SVT. There is no ventricular arrhythmia seen on the monitor. PHYSICAL EXAMINATION: The patient is mildly obese. She is in no acute respiratory distress. She is well-groomed Selected Entries 04/28/19 04/28/19 04/28/19 15:52 16:00 16:19 Pulse Rate 77 58 L Heart Rate ( 77 Monitors) Respiratory 18 Rate Blood Pressure 92/39 L Blood Pressure Mean O2 Sat by Pulse 95 Oximetry Oxygen Flow 3 Rate 04/28/19 17:00 Pulse Rate Heart Rate ( Monitors) Respiratory Rate Blood Pressure 114/79 Blood Pressure 90 Mean O2 Sat by Pulse Oximetry Oxygen Flow Rate HEAD: Is atraumatic normocephalic. EYES: Pupils equal round regular reactive to light and accommodation. Extraocular movements are normal. There is no conjunctival pallor. THERE is no scleral icterus. EARS: TYMPANIC membranes are intact. External auditory canals are clear. NOSE: There is no deviated nasal septum. There is no inflammation of the nasal mucous membrane. MOUTH: Mucous members of mouth are moist tongue is moist. There is no ulcers. There is no bleeding from the gums. THROAT: There is no redness of the oropharynx. There is no exudates. SKIN: There is no skin rashes or skin lesions. There is no petechia or ecchymosis. NECK: Is supple. There is no JVD. Carotids are equal there is no bruits there is no accessory muscles of respiration use. There is no lymphadenopathy. There is no goiter. Trachea central. LUNGS: There is diminished air entry prolonged expiration. There is very minimal and occasional end expiratory wheezing. There is a few occasional rhonchi. There is a few dry crackles in the right lower lobe. There is no rales of CHF. On percussion there is hyperresonance. On palpation there is no chest wall tenderness. HEART: S1-S2 is heard. There is murmur of moderate aortic stenosis without any thrill. There is some mild carotid delay. A2 is preserved although slightly soft. There is systolic murmur at the left sternal border and the apex. There is murmur of mitral mitral regurgitation present. There is no aortic regurgitation murmur. There is no rub. ABDOMEN: Soft. There is no hepatosplenomegaly. Bowel sounds are well heard there is no tender areas masses. EXTREMITIES: Femorals are slightly diminished. There is no femoral bruits. Leg pulses are diminished. There is no pedal edema. There is no DVT or cellulitis. There is no calf tenderness. There is no sinus or clubbing. 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 There is no focal deficits. PSYCHIATRIC: The patient does not appear to be agitated or anxious. In spite of her dementia seems seems to be answering questions appropriately and her judgment seems to be intact. IMPRESSION/RECOMMENDATION: 1. Acute on chronic respiratory failure. Since there is only minimal improvement. Continue oxygen, continue antibiotics and respiratory treatments. 2. Acute asthmatic bronchitis. Continue current treatment. Note that the patient's Lopressor has been discontinued and the patient is on a Cardizem drip at 5 mg/h. Her wheezing is vastly improved. 3. Possible right lower lobe pneumonia by physical exam. Continue antibiotics. Continue respiratory treatments. Will check chest x-ray in a.m. chest x-ray is been ordered by me. 4. COPD with exacerbation: Continue respiratory treatments. 5. Short runs of nonsustained supraventricular tachycardia. No recurrence with the increase in the beta-blockers. If the patient continues to wheeze then would recommend hold the beta-blockers and substituted for Cardizem. And then switch back to metoprolol with the patient's wheezing resolved. 6. Hypertension: Blood pressure well controlled 7. Chronic kidney disease stage III: Avoid nephrotoxic drugs note the kidney function is worsened. Now patient is a stage IV chronic kidney disease. 8. Coronary artery disease: No evidence of anginal symptoms. 9. History of paroxysmal atrial flutter: With no recurrence. Continue Eliquis and continue beta-bill. If the patient continues to wheeze as mentioned earlier would recommend continuing Cardizem. 10. Chronic left bundle branch block pattern. 11. Moderate aortic stenosis by prior echo and by physical exam. 12. History of dementia: At present patient seems to be oriented x3 Medications reviewed. Management plan discussed with attending physician on the case. Medical decision making is of moderate complexity. 40 minutes spent on this patient with more than 50% of time spent in direct patient care. Will follow.
[2019-04-29] MEDS: LEVALBUTEROL HCL NEB 1.25 MG/3 ML AMPUL NEB SCH ×3 (00:19→08:16)
[2019-04-29 05:00] LABS: ANION GAP 16 (5-19); CALCIUM 8.7 mg/dL (8.4-10.2); CARBON DIOXIDE 17 mmol/L (22-30); CHLORIDE 89 mmol/L (98-107); GLUCOSE 148 mg/dL (75-110); PHOSPHORUS 7.4 mg/dL (2.5-4.5)
[2019-04-29 05:08] LABS: ABSOLUTE RETICS # 0.034 10^6/uL (0.028-0.122); HEMATOCRIT 26.5 % (36.0-47.0); HEMOGLOBIN 8.9 g/dL (12.0-15.5); MEAN CORPUSCULAR HEMOGLOBIN 33.9 pg (27.0-33.4); MEAN CORPUSCULAR HGB CONC 33.7 g/dL (32.0-36.0); MEAN CORPUSCULAR VOLUME 101 fl (80-97); PLATELET COUNT 271 10^3/uL (150-450); RED BLOOD COUNT 2.64 10^6/uL (3.72-5.28); RED CELL DISTRIBUTION WIDTH 13.9 % (11.5-14.0); RETICULOCYTE COUNT (AUTO) 1.29 % (0.66-2.85)
[2019-04-29 05:10] LABS: BLOOD UREA NITROGEN 152 mg/dL (7-20)
[2019-04-29 05:12] LABS: POTASSIUM 6.4 mmol/L (3.6-5.0)
[2019-04-29] MEDS: METHYLPREDNISOLONE INJ 40 MG/1 ML SDV IV SCH ×3 (05:42→21:56)
[2019-04-29] MEDS ORDERED: CALCIUM GLUCONATE 1,000 MG in DEXTROSE 5%-WATER 50 ML IV ONE (05:57)
[2019-04-29] MEDS ORDERED: LACTULOSE SYRUP 20 GM/30 ML UDCUP PO ONE (06:00)
[2019-04-29] MEDS ORDERED: NORMAL SALINE 1000 ML 1,000 ML IV SCH (06:00)
[2019-04-29 06:07] LABS: FOLATE > 20.00 ng/mL (>2.76)
[2019-04-29] MEDS ORDERED: CALCIUM GLUCONATE 1000 MG/10 ML INJ IV ONE (06:31)
[2019-04-29 06:44] LABS: ABSOLUTE LYMPHOCYTES# (MANUAL) 0.2 10^3/uL (0.5-4.7); ABSOLUTE MONOCYTES # (MANUAL) 0.3 10^3/uL (0.1-1.4); ABSOLUTE NEUTROPHILS# (MANUAL) 15.5 10^3/uL (1.7-8.2); BAND NEUTROPHILS % (MANUAL) 3 % (3-5); BASOPHILS % (MANUAL) 0 % (0-2); EOSINOPHILS % (MANUAL) 0 % (0-6); LYMPHOCYTES % (MANUAL) 1 % (13-45); MONOCYTES % (MANUAL) 2 % (3-13); SEGMENTED NEUTROPHILS % (MAN) 94 % (42-78); TOTAL CELLS COUNTED 100
[2019-04-29 06:45] LABS: OVALOCYTES 1+; PLATELET COMMENT ADEQUATE
[2019-04-29] MEDS: BUDESONIDE NEB 0.5 MG/2 ML AMPUL NEB SCH (08:16)
[2019-04-29] MEDS: LISINOPRIL 5 MG TABLET PO SCH (08:20)
[2019-04-29] MEDS ORDERED: FUROSEMIDE INJ/PF 20 MG/2 ML SDV IV ONE (09:00)
[2019-04-29] MEDS ORDERED: INSULIN REG, HUMAN 100 UNIT/ML 3 ML VIAL (PYX) IV ONE (09:00)
[2019-04-29] MEDS ORDERED: DEXTROSE 50%-WATER 25 GM/50 ML DISP.SYRIN IV ONE (09:00)
[2019-04-29] MEDS: CHOLECALCIFEROL (D3) 400 UNIT TABLET PO SCH (09:40)
[2019-04-29] MEDS: CLOPIDOGREL BISULFATE 75 MG TABLET PO SCH (09:40)
[2019-04-29] MEDS: FOLIC ACID 1 MG TABLET PO SCH (09:40)
[2019-04-29] MEDS: GUAIFENESIN 600 MG TABLET.SA PO SCH ×2 (09:40→21:56)
[2019-04-29] MEDS: APIXABAN 5 MG TABLET PO SCH ×2 (09:41→21:56)
[2019-04-29] MEDS: CYANOCOBALAMIN (VITAMIN B-12) 1,000 MCG TABLET PO SCH (09:41)
[2019-04-29] MEDS: FERROUS SULFATE 325 MG TABLET PO SCH ×2 (09:41→18:10)
[2019-04-29] MEDS ORDERED: NORMAL SALINE 1000 ML 1,000 ML IV PRN (09:44)
[2019-04-29] MEDS: FLUTICASONE NASAL SPRAY 50 MCG/SPRY 120 SPRAY/16 GM NASL SCH ×2 (09:48→21:59)
[2019-04-29 09:53] LABS: APPEARANCE,URINE CLOUDY; BILIRUBIN,URINE NEGATIVE (NEGATIVE); COLOR,URINE YELLOW; GLUCOSE, URINE NEGATIVE (NEGATIVE); KETONES,URINE NEGATIVE (NEGATIVE); LEUKOCYTE ESTERASE,URINE TRACE (NEGATIVE); NITRITE,URINE NEGATIVE (NEGATIVE); PROTEIN,URINE NEGATIVE (NEGATIVE); URINE SPECIFIC GRAVITY 1.013; UROBILINOGEN,URINE NEGATIVE mg/dL (<2.0)
--- NOTE | 2019-04-29 09:56 | RADIOLOGY REPORT (SQ) ---
EXAM DESCRIPTION: CHEST SINGLE VIEW COMPLETED DATE/TIME: 04/29/2019 9:38 am REASON FOR STUDY: dyspnea COMPARISON: 04/24/2019 EXAM PARAMETERS: NUMBER OF VIEWS: One view. TECHNIQUE: Single frontal radiographic view of the chest acquired. RADIATION DOSE: NA LIMITATIONS: None. FINDINGS: LUNGS AND PLEURA: Stable right upper lobe opacity, better seen on prior CT. Chronic inter stitial changes with out evidence of focal consolidation, pleural effusion or pneumothorax. MEDIASTINUM AND HILAR STRUCTURES: Stable. HEART AND VASCULAR STRUCTURES: Enlarged. Aortic atherosclerosis. BONES: Decreased mineralization. No acute findings. Spondylosis. HARDWARE: Right-sided chest port with catheter tip at SVC. Left axillary surgical clips. OTHER: No other significant finding. IMPRESSION: Chronic changes without evidence of acute cardiopulmonary process. TECHNICAL DOCUMENTATION: JOB ID: [id number] [employer]- All Rights Reserved Reading location - IP/workstation name: [email or web address]
[2019-04-29] MEDS: NYSTATIN/DEXAMETH/DIPHEN SUSP 120 ML PO SCH ×4 (09:57→22:00)
[2019-04-29] MEDS ORDERED: MULTIVITAMIN TABLET PO SCH (10:00)
[2019-04-29 10:06] LABS: ANION GAP 19 (5-19); CALCIUM 9.1 mg/dL (8.4-10.2); CARBON DIOXIDE 15 mmol/L (22-30); CHLORIDE 90 mmol/L (98-107); GLUCOSE 157 mg/dL (75-110); SODIUM 123.8 mmol/L (137-145)
[2019-04-29 10:36] LABS: BLOOD UREA NITROGEN 155 mg/dL (7-20)
[2019-04-29 10:39] LABS: POTASSIUM 6.2 mmol/L (3.6-5.0)
[2019-04-29 10:41] LABS: URINE CREATININE 82.8 mg/dL (15-278)
[2019-04-29 10:44] LABS: URINE SODIUM < 5 mmol/L (30-90)
--- NOTE | 2019-04-29 11:57 | Progress Note ---
Provider Note Provider Note: CARDIOLOGY PROGRESS NOTE by Dr. Nola Mooney on 04/29/2019. SUBJECTIVE: The patient continued to show slow improvement. She is less short of breath. She continues to have some cough with a productive of yellowish sputum. There is no anginal symptoms. There is no pleuritic chest pain. There is no hemoptysis. The patient's wheezing is now rare, but still the wheezing has not totally resolved. There is no PND orthopnea. There is no further episodes of SVT. There is no atrial or ventricular arrhythmia seen on the monitor. There is no leg edema. There is no PND, or orthopnea PHYSICAL EXAMINATION: The patient mildly obese. In no acute distress. Selected Entries 04/29/19 07:44 Temperature 97.8 F Temperature Oral Source Pulse Rate 76 Respiratory 21 H Rate Blood Pressure 94/67 L Blood Pressure 76 Mean BP Location Right Arm BP Position Supine O2 Sat by Pulse 93 Oximetry Oxygen Flow 4.00 Rate Oxygen Delivery Nasal Cannula Method HEAD: Is atraumatic normocephalic. EYES: Pupils equal round regular reactive to light and accommodation. Extraocular movements are normal. There is no conjunctival pallor. THERE is no scleral icterus. EARS: TYMPANIC membranes are intact. External auditory canals are clear. NOSE: There is no deviated nasal septum. There is no inflammation of the nasal mucous membrane. MOUTH: Mucous members of mouth are moist tongue is moist. There is no ulcers. There is no bleeding from the gums. THROAT: There is no redness of the oropharynx. There is no exudates. SKIN: There is no skin rashes or skin lesions. There is no petechia or ecchymosis. NECK: Is supple. There is no JVD. Carotids are equal there is no bruits there is no accessory muscles of respiration use. There is no lymphadenopathy. There is no goiter. Trachea central. LUNGS: There is diminished air entry prolonged expiration. There is very minimal and occasional end expiratory wheezing. There is a few occasional rhonchi. There is a few dry crackles in the right lower lobe. There is no rales of CHF. On percussion there is hyperresonance. On palpation there is no chest wall tenderness. HEART: S1-S2 is heard. There is murmur of moderate aortic stenosis without any thrill. There is some mild carotid delay. A2 is preserved although slightly soft. There is systolic murmur at the left sternal border and the apex. There is murmur of mitral mitral regurgitation present. There is no aortic regurgitation murmur. There is no rub. ABDOMEN: Soft. There is no hepatosplenomegaly. Bowel sounds are well heard there is no tender areas masses. EXTREMITIES: Femorals are slightly diminished. There is no femoral bruits. Leg pulses are diminished. There is no pedal edema. There is no DVT or cellulitis. There is no calf tenderness. There is no sinus or clubbing. LICENSED NURSE PRACTITIONER: The patient is conscious awake alert seems to be oriented x2 in spite of a history of dementia. There is no focal deficits. PSYCHIATRIC: The patient does not appear to be agitated or anxious. In spite of her dementia seems seems to be answering questions appropriately and her judgment seems to be intact. Labs- All tests 24 hr 04/29/19 04/29/19 04/29/19 04:25 04:25 04:25 WBC 16.0 H RBC 2.64 L Hgb 8.9 L Hct 26.5 L MCV 101 H MCH 33.9 H MCHC 33.7 RDW 13.9 Plt Count 271 Total Counted 100 Seg Neutrophils % Not Reportable Seg Neuts % (Manual) 94 H Band Neutrophils % 3 Lymphocytes % Not Reportable Lymphocytes % (Manual) 1 L Monocytes % Not Reportable Monocytes % (Manual) 2 L Eosinophils % Not Reportable Eosinophils % (Manual) 0 Basophils % Not Reportable Basophils % (Manual) 0 Absolute Neutrophils Not Reportable Abs Neuts (Manual) 15.5 H Absolute Lymphocytes Not Reportable Abs Lymphs (Manual) 0.2 L Absolute Monocytes Not Reportable Abs Monocytes (Manual) 0.3 Absolute Eosinophils Not Reportable Absolute Eos (Manual) 0.0 Absolute Basophils Not Reportable Abs Basophils (Manual) 0.0 Platelet Comment ADEQUATE Ovalocytes 1+ Retic Count (auto) 1.29 Absolute Retic 0.034 Sodium 122.0 L Potassium 6.4 H* Chloride 89 L Carbon Dioxide 17 L Anion Gap 16 BUN 152 H Creatinine 3.05 H Est GFR ( Amer) 18 L Est GFR (Non-Af Amer) 15 L Glucose 148 H Hemoglobin A1c % 5.8 Calcium 8.7 Phosphorus 7.4 H Iron 145.0 TIBC 127 L % Saturation 114 Ferritin 580.00 H Vitamin B12 > 1000.0 H Folate > 20.00 Urine Color Urine Appearance Urine pH Ur Specific [place] Urine Protein Urine Glucose (UA) Urine Ketones Urine Blood Urine Nitrite Urine Bilirubin Urine Urobilinogen Ur Leukocyte Esterase Urine WBC (Auto) Urine RBC (Auto) U Hyaline Cast (Auto) Urine Bacteria (Auto) Urine WBC Clumps Squamous Epi Cells Auto Urine Mucus (Auto) Urine Yeast (Budding) Urine Creatinine Urine Sodium Urine Ascorbic Acid 04/29/19 04/29/19 04/29/19 09:19 09:20 09:20 WBC RBC Hgb Hct MCV MCH MCHC RDW Plt Count Total Counted Seg Neutrophils % Seg Neuts % (Manual) Band Neutrophils % Lymphocytes % Lymphocytes % (Manual) Monocytes % Monocytes % (Manual) Eosinophils % Eosinophils % (Manual) Basophils % Basophils % (Manual) Absolute Neutrophils Abs Neuts (Manual) Absolute Lymphocytes Abs Lymphs (Manual) Absolute Monocytes Abs Monocytes (Manual) Absolute Eosinophils Absolute Eos (Manual) Absolute Basophils Abs Basophils (Manual) Platelet Comment Ovalocytes Retic Count (auto) Absolute Retic Sodium 123.8 L Potassium 6.2 H* Chloride 90 L Carbon Dioxide 15 L Anion Gap 19 BUN 155 H Creatinine 3.09 H Est GFR ( Amer) 18 L Est GFR (Non-Af Amer) 15 L Glucose 157 H Hemoglobin A1c % Calcium 9.1 Phosphorus Iron TIBC % Saturation Ferritin Vitamin B12 Folate Urine Color YELLOW Urine Appearance CLOUDY Urine pH 5.0 Ur Specific [place] 1.013 Urine Protein NEGATIVE Urine Glucose (UA) NEGATIVE Urine Ketones NEGATIVE Urine Blood LARGE H Urine Nitrite NEGATIVE Urine Bilirubin NEGATIVE Urine Urobilinogen NEGATIVE Ur Leukocyte Esterase TRACE H Urine WBC (Auto) 13 Urine RBC (Auto) >182 U Hyaline Cast (Auto) 67 Urine Bacteria (Auto) TRACE Urine WBC Clumps FEW Squamous Epi Cells Auto 3 Urine Mucus (Auto) RARE Urine Yeast (Budding) PRESENT Urine Creatinine 82.8 Urine Sodium < 5 L Urine Ascorbic Acid 40 H Chest X-Ray 04/20/19 23:59 IMPRESSION: Persistent right upper lobe pulmonary nodule. No definite pneumonia. Venous Access Device Injection 04/21/19 00:00 IMPRESSION: Patent right-sided permanent central line. Muhammad needle access was maintained postprocedure for use on the nursing floor. Chest X-Ray 04/24/19 06:00 IMPRESSION: No evidence of pneumonia. Renal Ultrasound 04/27/19 00:00 IMPRESSION: NORMAL RENAL AND BLADDER ULTRASOUND. Chest X-Ray 04/29/19 00:00 IMPRESSION: Chronic changes without evidence of acute cardiopulmonary process. IMPRESSION/RECOMMENDATION: 1. Acute on chronic respiratory failure. Since there is only minimal improvement. Continue oxygen, continue antibiotics and respiratory treatments. 2. Acute asthmatic bronchitis. Continue current treatment. Note that the pat ient's Lopressor has been discontinued and the patient is on a Cardizem drip at 5 mg/h. Her wheezing is vastly improved. Will decrease the patient's Cardizem drip to 2.5 mg/h in view of the patient's systolic blood pressure being 94. Later we will reinstitute the patient's beta-bill. 3. Possible right lower lobe pneumonia by physical exam. Continue antibiotics. Continue respiratory treatments. 4. COPD with exacerbation: Continue respiratory treatments. 5. Short runs of nonsustained supraventricular tachycardia. No recurrence with the increase in the beta-blockers. If the patient continues to wheeze then would recommend hold the beta-blockers and substituted for Cardizem. And then switch back to metoprolol with the patient's wheezing resolved. 6. Hypertension: Blood pressure well controlled 7. Chronic kidney disease stage III: Avoid nephrotoxic drugs note the kidney function is worsened. Now patient is a stage IV chronic kidney disease. 8. Coronary artery disease: No evidence of anginal symptoms. 9. History of paroxysmal atrial flutter: With no recurrence. Continue Eliquis and continue beta-bill. If the patient continues to wheeze as mentioned earlier would recommend continuing Cardizem. 10. Chronic left bundle branch block pattern. 11. Moderate aortic stenosis by prior echo and by physical exam. 12. History of dementia: At present patient seems to be oriented x3 Medications reviewed. Management plan discussed with attending physician on the case. Medical decision making is of moderate complexity. 40 minutes spent on this patient with more than 50% of time spent in direct patient care. Will follow.
[2019-04-29] MEDS: BUMETANIDE 1 MG TABLET PO SCH (13:21)
[2019-04-29] MEDS ORDERED: LEVALBUTEROL HCL NEB 1.25 MG/3 ML AMPUL NEB SCH (14:00)
[2019-04-29 14:05] LABS: ANION GAP 18 (5-19); CALCIUM 8.8 mg/dL (8.4-10.2); CARBON DIOXIDE 15 mmol/L (22-30); CHLORIDE 91 mmol/L (98-107); GLUCOSE 135 mg/dL (75-110); POTASSIUM 5.8 mmol/L (3.6-5.0); SODIUM 123.7 mmol/L (137-145)
[2019-04-29] MEDS: PROMETHAZINE HCL INJ 25 MG/1 ML VIAL IV PRN (14:13)
[2019-04-29] MEDS: SALMETEROL XINAFOATE DISKUS 50 MCG/1 DOSE 28 DOSE IH SCH ×2 (14:16→21:59)
[2019-04-29] MEDS: TIOTROPIUM BROMIDE DPI 5 CAP/KIT (18 MCG/CAP) IH SCH (14:16)
[2019-04-29 14:17] LABS: BLOOD UREA NITROGEN 152 mg/dL (7-20)
[2019-04-29] MEDS: ALBUMIN HUMAN 12.5 GM/50 ML RTUINJ IV SCH ×2 (14:25→15:27)
--- NOTE | 2019-04-29 16:16 | PDOC PROGRESS REPORT ---
Subjective Progress Note for:: 04/29/19 Subjective:: Patient was seen sitting up in her bed. She has a severally elevated potassium and a severally elevated BUN. Currently asymptomatic for both of them. She is receivng veltassa, lactulose, insulin and albutirol for improving the potassium. She still has poor urine output at this time. After discussing dialysis and the risks of not doing dialysis with the patient. She choose to not do dialysis. Yesterday and the day before she told Dr. Nicholas the same thing. Reason For Visit: PNA, COPD AND CHF EXACERBATION Physical Exam Vital Signs: Temp Pulse Resp BP Pulse Ox 97.4 F 82 20 95/47 L 100 04/29/19 11:36 04/29/19 14:26 04/29/19 14:26 04/29/19 11:36 04/29/19 14:26 Intake & Output 04/28/19 04/29/19 04/30/19 06:59 06:59 06:59 Intake Total 3047 1145 515 Output Total 650 300 600 Balance 2397 845 -85 Weight 85.7 kg General appearance: PRESENT: no acute distress, morbidly obese, well-developed, well-nourished Mouth exam: PRESENT: moist, neck supple Neck exam: PRESENT: tracheal deviation. ABSENT: JVD Respiratory exam: PRESENT: crackles, rales. ABSENT: accessory muscle use, clear to auscultation isael, rhonchi, wheezes Cardiovascular exam: PRESENT: +S1, +S2 GI/Abdominal exam: PRESENT: soft. ABSENT: tenderness Extremities exam: ABSENT: pedal edema, tenderness, +1 edema, +2 edema Musculoskeletal exam: PRESENT: normal inspection. ABSENT: tenderness Neurological exam: PRESENT: alert, awake, oriented to person, oriented to place, oriented to time, oriented to situation Psychiatric exam: PRESENT: appropriate affect, normal mood Skin exam: PRESENT: dry, intact, warm Results Laboratory Results: 04/29/19 04:25 04/29/19 13:35 04/29/19 04/29/19 04/29/19 04:25 04:25 09:19 WBC 16.0 H RBC 2.64 L Hgb 8.9 L Hct 26.5 L MCV 101 H MCH 33.9 H MCHC 33.7 RDW 13.9 Plt Count 271 Seg Neutrophils % Not Reportable Lymphocytes % Not Reportable Monocytes % Not Reportable Eosinophils % Not Reportable Basophils % Not Reportable Absolute Neutrophils Not Reportable Absolute Lymphocytes Not Reportable Absolute Monocytes Not Reportable Absolute Eosinophils Not Reportable Absolute Basophils Not Reportable Retic Count (auto) 1.29 Absolute Retic 0.034 Sodium 122.0 L 123.8 L Potassium 6.4 H* 6.2 H* Chloride 89 L 90 L Carbon Dioxide 17 L 15 L Anion Gap 16 19 BUN 152 H 155 H Creatinine 3.05 H 3.09 H Est GFR ( Amer) 18 L 18 L Est GFR (Non-Af Amer) 15 L 15 L Glucose 148 H 157 H Calcium 8.7 9.1 Phosphorus 7.4 H Iron 145.0 TIBC 127 L % Saturation 114 Ferritin 580.00 H Vitamin B12 > 1000.0 H Folate > 20.00 TSH Urine Color Urine Appearance Urine pH Ur Specific [place] Urine Protein Urine Glucose (UA) Urine Ketones Urine Blood Urine Nitrite Ur Leukocyte Esterase Urine WBC (Auto) Urine RBC (Auto) 04/29/19 04/29/19 04/29/19 09:19 09:20 13:35 WBC RBC Hgb Hct MCV MCH MCHC RDW Plt Count Seg Neutrophils % Lymphocytes % Monocytes % Eosinophils % Basophils % Absolute Neutrophils Absolute Lymphocytes Absolute Monocytes Absolute Eosinophils Absolute Basophils Retic Count (auto) Absolute Retic Sodium 123.7 L Potassium 5.8 H Chloride 91 L Carbon Dioxide 15 L Anion Gap 18 BUN 152 H Creatinine 3.15 H Est GFR ( Amer) 18 L Est GFR (Non-Af Amer) 15 L Glucose 135 H Calcium 8.8 Phosphorus Iron TIBC % Saturation Ferritin Vitamin B12 Folate TSH 0.06 L Urine Color YELLOW Urine Appearance CLOUDY Urine pH 5.0 Ur Specific [place] 1.013 Urine Protein NEGATIVE Urine Glucose (UA) NEGATIVE Urine Ketones NEGATIVE Urine Blood LARGE H Urine Nitrite NEGATIVE Ur Leukocyte Esterase TRACE H Urine WBC (Auto) 13 Urine RBC (Auto) >182 04/21/19 04/21/19 04/21/19 00:48 12:52 12:52 Creatine Kinase 133 CK-MB (CK-2) Cancelled Troponin I 0.017 Cancelled NT-Pro-B Natriuret Pep 4430 H 04/21/19 04/22/19 04/23/19 14:40 05:17 07:00 Creatine Kinase CK-MB (CK-2) 4.53 Troponin I 0.035 NT-Pro-B Natriuret Pep 52012 H 51453 H 04/25/19 04/26/19 04/27/19 06:00 05:25 05:55 Creatine Kinase CK-MB (CK-2) Troponin I NT-Pro-B Natriuret Pep 61557 H 8610 H 7460 H Impressions: Venous Access Device Injection 04/21/19 00:00 IMPRESSION: Patent right-sided permanent central line. Muhammad needle access was maintained postprocedure for use on the nursing floor. Renal Ultrasound 04/27/19 00:00 IMPRESSION: NORMAL RENAL AND BLADDER ULTRASOUND. Chest X-Ray 04/29/19 00:00 IMPRESSION: Chronic changes without evidence of acute cardiopulmonary process. Assessment & Plan - Diagnosis (1) Acute kidney injury Is this a current diagnosis for this admission?: Yes Plan: Looks to be worse, needs dialysis at this point because of the BUN and potassium. The patient does not want do dialysis at this time. Will look to increase the veltassa to see if that decreases the potassium. At this point with the patient's current illnesses I recommend that hospices be discussed with her. (2) COPD exacerbation Is this a current diagnosis for this admission?: Yes Plan: per hospitalist services (3) Hyperkalemia Is this a current diagnosis for this admission?: Yes Plan: increasing veltassa to 16.8g per a day at dinner time. (4) Hyperphosphatemia Is this a current diagnosis for this admission?: Yes Plan: will look to start calcium acetate two with every meal. (5) Hyponatremia Is this a current diagnosis for this admission?: Yes Plan: worsening, patient needs to be fluid restricted 1000mL per. (6) Metabolic acidosis Is this a current diagnosis for this admission?: Yes Plan: starting on sodium bicarb (7) Paroxysmal atrial fibrillation Is this a current diagnosis for this admission?: Yes Plan: per cardiology (8) Pneumonia Qualifiers: Pneumonia type: due to unspecified organism Laterality: unspecified laterality Lung location: unspecified part of lung Qualified Code(s): J18.9 - Pneumonia, unspecified organism Is this a current diagnosis for this admission?: Yes Plan: treated previously with IV antibiotics (9) Acute and chronic respiratory failure with hypoxia Is this a current diagnosis for this admission?: Yes Plan: improving, claims to be less short of breath today
[2019-04-29] MEDS ORDERED: PATIROMER 8.4 GM SUSP PACKET PO SCH ×2 (17:00→22:00)
[2019-04-29] MEDS: CALCIUM ACETATE 667 MG CAPSULE PO SCH (18:10)
[2019-04-29] MEDS: SERTRALINE HCL 50 MG TABLET PO SCH (18:10)
--- NOTE | 2019-04-29 18:37 | ADVANCED CARE ---
- Diagnosis (1) Acute and chronic respiratory failure with hypoxia Diagnosis Current: Yes (2) Anemia Diagnosis Current: Yes (3) Atrial fibrillation Diagnosis Current: Yes (4) Chronic diastolic (congestive) heart failure Diagnosis Current: Yes (5) Chronic renal disease, stage 3, moderately decreased glomerular filtration rate (GFR) between 30-59 mL/min/1.73 square meter Diagnosis Current: Yes (6) COPD exacerbation Diagnosis Current: Yes (7) Pneumonia Diagnosis Current: Yes (8) Pulmonary nodule Diagnosis Current: Yes (10) Hyperglycemia Diagnosis Current: Yes Attendance: Patient, daughter (Dena), granddaughter, myself Resuscitation Status: Do Not Resuscitate Discussion: We reviewed the patient's resolution of COPD exacerbation/pneumonia and then discussed patient's CHF and worsening renal function. Specific labs were reviewed including creatinine, GFR, potassium, and sodium levels. 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 She tells me, very clearly, that she does not want to have dialysis for either short-term or long-term measures. She is able to explain that without dialysis her electrolytes will continue to worsen, leading to confusion, fatigue, and ultimately . The patient discussed with her granddaughter and daughters (1 by phone) her desire to discharge to home with hospice services. Granddaughter and daughter (Dena) present in the room during our conversation were provided opportunities to ask questions. Both are understandably tearful, but support the patient's decision to discharge with hospice services. Nurse liaison with [facility] is contacted and advised of the jasmeet pena's request so that arrangements can be made. Care Planning Goals: Discharge to home with Hospice services Time Spent: 35 min
[2019-04-29] MEDS: DILTIAZEM HCL/D5W 125 MG/125 ML RTUINJ IV PRN (19:49)
--- NOTE | 2019-04-29 20:44 | PDOC PROGRESS REPORT ---
Subjective Progress Note for:: 04/29/19 Subjective:: 73 y.o. F with a PMH COPD (on home O2 PRN), CHF, A. fib, CAD, HTN, breast CA, arthritis. She is admitted to the hospitalist service with a clinical diagnosis of pneumonia and COPD exacerbation. The patient was seen on afternoon rounds with patient's daughter and gr anddaughter present. She reports slight nausea, without emesis, but otherwise feeling well today. She denies fever, chills, chest pain, dyspnea, and cough. We discussed nephrology's recommendations for dialysis and her lab work concerning for worsening renal failure (hyperkalemia, hyponatremia). She confirm that she refuses all dialysis treatments whether this be acute or long- term. Long discussion had with patient and family members regarding Goals of Care; see separate ACP note for details. Ultimately, patient has decided to d/c home with hospice services. All questions and concerns were addressed. No concerns per nursing. Reason For Visit: PNA, COPD AND CHF EXACERBATION Physical Exam Vital Signs: Temp Pulse Resp BP Pulse Ox 97.4 F 82 20 95/47 L 100 04/29/19 11:36 04/29/19 14:26 04/29/19 14:26 04/29/19 11:36 04/29/19 14:26 Intake & Output 04/28/19 04/29/19 04/30/19 06:59 06:59 06:59 Intake Total 3047 1145 515 Output Total 650 300 600 Balance 2397 845 -85 Weight 85.7 kg General appearance: PRESENT: no acute distress, cooperative, obese, well- developed, well-nourished Head exam: PRESENT: atraumatic, normocephalic Eye exam: PRESENT: conjunctiva pink, EOMI, PERRLA. ABSENT: scleral icterus Ear exam: PRESENT: normal external ear exam Mouth exam: PRESENT: moist, tongue midline Neck exam: ABSENT: carotid bruit, JVD, lymphadenopathy, thyromegaly Respiratory exam: PRESENT: prolonged expiratory phas, rhonchi, symmetrical, unlabored, other - supplemental oxygen via NC. ABSENT: rales, wheezes Cardiovascular exam: PRESENT: irregular rhythm, +S1, +S2. ABSENT: diastolic murmur, rubs, systolic murmur Pulses: PRESENT: normal dorsalis pedis pul Vascular exam: PRESENT: normal capillary refill GI/Abdominal exam: PRESENT: normal bowel sounds, soft. ABSENT: distended, guarding, mass, organolmegaly, rebound, tenderness Rectal exam: PRESENT: deferred Gentrourinary exam: PRESENT: indwelling catheter Extremities exam: PRESENT: full ROM, pedal edema - trace bilaterally. ABSENT: calf tenderness, clubbing Neurological exam: PRESENT: alert, awake, oriented to person, oriented to place, oriented to time, oriented to situation, CN II-XII grossly intact. ABSENT: motor sensory deficit Psychiatric exam: PRESENT: appropriate affect, normal mood. ABSENT: homicidal ideation, suicidal ideation Skin exam: PRESENT: dry, intact, warm. ABSENT: cyanosis, rash Results Laboratory Results: 04/29/19 04:25 04/29/19 13:35 04/29/19 04/29/19 04/29/19 04:25 04:25 09:19 WBC 16.0 H RBC 2.64 L Hgb 8.9 L Hct 26.5 L MCV 101 H MCH 33.9 H MCHC 33.7 RDW 13.9 Plt Count 271 Seg Neutrophils % Not Reportable Lymphocytes % Not Reportable Monocytes % Not Reportable Eosinophils % Not Reportable Basophils % Not Reportable Absolute Neutrophils Not Reportable Absolute Lymphocytes Not Reportable Absolute Monocytes Not Reportable Absolute Eosinophils Not Reportable Absolute Basophils Not Reportable Retic Count (auto) 1.29 Absolute Retic 0.034 Sodium 122.0 L 123.8 L Potassium 6.4 H* 6.2 H* Chloride 89 L 90 L Carbon Dioxide 17 L 15 L Anion Gap 16 19 BUN 152 H 155 H Creatinine 3.05 H 3.09 H Est GFR ( Amer) 18 L 18 L Est GFR (Non-Af Amer) 15 L 15 L Glucose 148 H 157 H Calcium 8.7 9.1 Phosphorus 7.4 H Iron 145.0 TIBC 127 L % Saturation 114 Ferritin 580.00 H Vitamin B12 > 1000.0 H Folate > 20.00 TSH Urine Color Urine Appearance Urine pH Ur Specific [place] Urine Protein Urine Glucose (UA) Urine Ketones Urine Blood Urine Nitrite Ur Leukocyte Esterase Urine WBC (Auto) Urine RBC (Auto) 04/29/19 04/29/19 04/29/19 09:19 09:20 13:35 WBC RBC Hgb Hct MCV MCH MCHC RDW Plt Count Seg Neutrophils % Lymphocytes % Monocytes % Eosinophils % Basophils % Absolute Neutrophils Absolute Lymphocytes Absolute Monocytes Absolute Eosinophils Absolute Basophils Retic Count (auto) Absolute Retic Sodium 123.7 L Potassium 5.8 H Chloride 91 L Carbon Dioxide 15 L Anion Gap 18 BUN 152 H Creatinine 3.15 H Est GFR ( Amer) 18 L Est GFR (Non-Af Amer) 15 L Glucose 135 H Calcium 8.8 Phosphorus Iron TIBC % Saturation Ferritin Vitamin B12 Folate TSH 0.06 L Urine Color YELLOW Urine Appearance CLOUDY Urine pH 5.0 Ur Specific [place] 1.013 Urine Protein NEGATIVE Urine Glucose (UA) NEGATIVE Urine Ketones NEGATIVE Urine Blood LARGE H Urine Nitrite NEGATIVE Ur Leukocyte Esterase TRACE H Urine WBC (Auto) 13 Urine RBC (Auto) >182 04/21/19 04/21/19 04/21/19 00:48 12:52 12:52 Creatine Kinase 133 CK-MB (CK-2) Cancelled Troponin I 0.017 Cancelled NT-Pro-B Natriuret Pep 4430 H 04/21/19 04/22/19 04/23/19 14:40 05:17 07:00 Creatine Kinase CK-MB (CK-2) 4.53 Troponin I 0.035 NT-Pro-B Natriuret Pep 05830 H 74293 H 04/25/19 04/26/19 04/27/19 06:00 05:25 05:55 Creatine Kinase CK-MB (CK-2) Troponin I NT-Pro-B Natriuret Pep 86873 H 8610 H 7460 H Impressions: Venous Access Device Injection 04/21/19 00:00 IMPRESSION: Patent right-sided permanent central line. Muhammad needle access was maintained postprocedure for use on the nursing floor. Renal Ultrasound 04/27/19 00:00 IMPRESSION: NORMAL RENAL AND BLADDER ULTRASOUND. Chest X-Ray 04/29/19 00:00 IMPRESSION: Chronic changes without evidence of acute cardiopulmonary process. Assessment and Plan - Diagnosis (1) Acute and chronic respiratory failure with hypoxia Is this a current diagnosis for this admission?: Yes Plan: Acute exacerbation has resolved; now maintaining oxygen saturations on her baseline oxygen requirement of 3lpm. Secondary to PNA Antibiotics, nebulizers, steroids, Mucinex BIPAP QHS Detailed plan listed below (2) Anemia Qualifiers: Anemia type: B12 deficiency Vitamin B12 deficiency anemia type: unspecified B12 deficiency Qualified Code(s): D51.9 - Vitamin B12 deficiency anemia, unspecified Is this a current diagnosis for this admission?: Yes Plan: Macrocytic anemia Low iron and TIBC Elevated ferritin Likely related to chronic disease; stable at 8.9 Patient has decided to d/c home with hospice services. No further evaluation or interventions planned. (3) Atrial fibrillation Qualifiers: Atrial fibrillation type: paroxysmal Qualified Code(s): I48.0 - Paroxysmal atrial fibrillation Is this a current diagnosis for this admission?: Yes Plan: Rate controlled on diltiazem gtt Rhythm is NSR with LBBB Initially, patient had poor rate control, intermittently experiencing SVT Continue home dose apixaban Cardiology consulted, initially treated with increasing the home dose of Toprol XL; discontinued secondary to exacerbation of asthmatic bronchitis. Toprol XL remains on hold; continue diltiazem gtt to maintain HR control while patient's pulmonary status is rehabilitated Will discuss w/ cardiology transition to p.o. diltiazem in anticipation of d/c home with hospice services. (4) Chronic diastolic (congestive) heart failure Is this a current diagnosis for this admission?: Yes Plan: BNP improved 14,900 (peak)-->7,640 Cardiac diet and daily weights. Weight up ~6 kg Continue home dose BUMEX Continue diltiazem gtt for HR control Cardiology is consulted; appreciate Dr. Sánchez's assistance. (5) Chronic renal disease, stage 3, moderately decreased glomerular filtration rate (GFR) between 30-59 mL/min/1.73 square meter Is this a current diagnosis for this admission?: Yes Plan: Worsening creatinine 1.5-->2.25-> 3.15. Multifactorial; prerenal/ATN Based on previous records, the patient has a history of CKD III Renal ultrasound is normal. Not currently on HD; patient continues to confirm that she would not be agreeable to short or intermediate frame tender dialysis. Now requesting arrangements to be made for d/c home with hospice services. Consulted nephrology, Dr. Nicholas; appreciate nephrology's assistance. Patient did receive 1 L NS today for correction of hyponatremia and hyperkalemia; follow up lab work essentially unchanged. Will hold on additional IVF as patient is up ~6 kg and +1 pedal edema Horvath catheter for strict I&O. Optimize cardiac function; CHF management as above. Now requesting to d/c home with hospice services. (6) COPD exacerbation Is this a current diagnosis for this admission?: Yes Plan: Improved; now on her baseline oxygen requirement (3lpm), lung sound w/ rhonchi, no wheezing. Secondary to PNA Continue PRN nebulizer treatments Scheduled IV Solu-Medrol, continue weaning. Will transition to p.o. prednisone with taper for discharge tomorrow morning. BID Mucinex Continue scheduled long acting inhalers, Spiriva and Serevent IS/flutter valve at bedside Pulmonology consulted; appreciate Dr. Porter's assistance. (7) Pneumonia Qualifiers: Pneumonia type: due to unspecified organism Laterality: unspecified laterality Lung location: unspecified part of lung Qualified Code(s): J18.9 - Pneumonia, unspecified organism Is this a current diagnosis for this admission?: Yes Plan: Resolved. Community acquired PNA in setting of COPD exacerbation Multiple drug allergies Completed 7 day course of aztreonam and doxycycline. Remaining management as above. (8) Pulmonary nodule Is this a current diagnosis for this admission?: Yes Plan: Nonoperative. Seen on XRAY. Stable since previous imaging approx. 6 months ago. Continue routine outpatient monitoring. (9) Hyperkalemia Is this a current diagnosis for this admission?: Yes Plan: Likely secondary to A/CKD. Recieved 1 L NS, Calcium gluconate, D5 25 gm, and Insulin 10 units this morning for K correction; 6.4-> 6.2-> 5.8 Continue daily Valtessa; dose increased by Nephrology today Nephrology is consulted; appreciate their assistance. Has been started on p.o. Phoslo and Sodium bicarb. Patient declines dialysis and now requesting d/c home with hospice. (10) Hyperglycemia Is this a current diagnosis for this admission?: Yes Plan: A1c is nml. Persistently elevated hyperglycemia; possible related to steroids for treatment of COPD exacerbation. (11) Hyponatremia Is this a current diagnosis for this admission?: Yes Plan: Secondary to fluid volume overload and A/CKD. Nephrology has been consulted; appreciate their assistance. Patient provided 1 L NS this morning; Na essentially unchanged. Na 135-> 131-> 129-> 122-> 123 - Time Time Spent with patient: 25-34 minutes Medications reviewed and adjusted accordingly: Yes Anticipated discharge: Hospice Within: within 24 hours
[2019-04-29] MEDS: SODIUM BICARBONATE 650 MG TABLET PO SCH (21:56)
[2019-04-29] MEDS: GABAPENTIN 300 MG CAPSULE PO SCH (21:56)
[2019-04-30] MEDS: METHYLPREDNISOLONE INJ 40 MG/1 ML SDV IV SCH ×2 (05:17→13:35)
[2019-04-30 05:30] LABS: ANION GAP 14 (5-19); CALCIUM 8.8 mg/dL (8.4-10.2); CARBON DIOXIDE 18 mmol/L (22-30); CHLORIDE 92 mmol/L (98-107); GLUCOSE 105 mg/dL (75-110); SODIUM 124.4 mmol/L (137-145)
[2019-04-30 05:40] LABS: BLOOD UREA NITROGEN 159 mg/dL (7-20)
[2019-04-30 05:43] LABS: POTASSIUM 6.2 mmol/L (3.6-5.0)
[2019-04-30] MEDS: FERROUS SULFATE 325 MG TABLET PO SCH (08:42)
[2019-04-30] MEDS: CALCIUM ACETATE 667 MG CAPSULE PO SCH ×2 (08:42→12:21)
[2019-04-30] MEDS: NYSTATIN/DEXAMETH/DIPHEN SUSP 120 ML PO SCH ×2 (09:58→13:35)
[2019-04-30] MEDS: SODIUM BICARBONATE 650 MG TABLET PO SCH (09:58)
[2019-04-30] MEDS: CLOPIDOGREL BISULFATE 75 MG TABLET PO SCH (09:58)
[2019-04-30] MEDS: SALMETEROL XINAFOATE DISKUS 50 MCG/1 DOSE 28 DOSE IH SCH (09:58)
[2019-04-30] MEDS: FLUTICASONE NASAL SPRAY 50 MCG/SPRY 120 SPRAY/16 GM NASL SCH (09:58)
[2019-04-30] MEDS: GUAIFENESIN 600 MG TABLET.SA PO SCH (09:58)
[2019-04-30] MEDS: APIXABAN 5 MG TABLET PO SCH (09:58)
[2019-04-30] MEDS: PROMETHAZINE HCL INJ 25 MG/1 ML VIAL IV PRN (10:41)
[2019-04-30] MEDS: TIOTROPIUM BROMIDE DPI 5 CAP/KIT (18 MCG/CAP) IH SCH (12:18)
--- NOTE | 2019-04-30 12:47 | PDOC DISCHARGE SUMMARY ---
General - Admit/Disc Date/PCP Admission Date/Primary Care Provider: 04/21/19 02:21 JENAE MARS MD Discharge Date: 04/30/19 - Discharge Diagnosis (1) Acute and chronic respiratory failure with hypoxia Is this a current diagnosis for this admission?: Yes Summary: Acute exacerbation has resolved; now maintaining oxygen saturations on her baseline oxygen requirement of 3lpm. Secondary to PNA (2) Anemia Is this a current diagnosis for this admission?: Yes Summary: Macrocytic anemia Low iron and TIBC Elevated ferritin Likely related to chronic disease; stable at 8.9 Patient has decided to d/c home with hospice services. Recommend continuing multivitamin and ferrous sulfate supplementation as tolerated. (3) Atrial fibrillation Is this a current diagnosis for this admission?: Yes Summary: Rate controlled on diltiazem gtt Rhythm is NSR with LBBB Initially, patient had poor rate control, intermittently experiencing SVT Unfortunately, patient is hypotensive 90s/40s; likely secondary to CHF and end- stage renal disease. We will discharge home on diltiazem 30 mg p.o. every 12 hours; long discussion had with patient's daughter regarding option of discontinuing medications as she is now entering hospice services. Recommend that they speak with the hospice provider before doing so. (4) Chronic diastolic (congestive) heart failure Is this a current diagnosis for this admission?: Yes Summary: BNP improved 14,900 (peak)-->7,640 Cardiac diet and daily weights. Weight up ~6 kg Continue home dose BUMEX Continue diltiazem for HR control (5) Chronic renal disease, stage 3, moderately decreased glomerular filtration rate (GFR) between 30-59 mL/min/1.73 square meter Is this a current diagnosis for this admission?: Yes Summary: Worsening creatinine 1.5-->2.25-> 3.15. Multifactorial; prerenal/ATN Renal ultrasound is normal. Not currently on HD; patient continues to confirm that she would not be agreeable to short or residential dialysis. Consulted nephrology, Dr. Nicholas; appreciate nephrology's assistance. Nephrology has started the patient on PhosLo, sodium bicarb, and Veltassa 16.8 g p.o. nightly. Patient adamantly declines dialysis recommendations. She has been discharged to home with home hospice services. (6) COPD exacerbation Is this a current diagnosis for this admission?: Yes Summary: Improved; now on her baseline oxygen requirement (3lpm), lung sound w/ rhonchi, no wheezing. Secondary to PNA Continue PRN nebulizer treatments Have transitioned to p.o. prednisone with taper to continue post discharge. Continue scheduled Spiriva and Serevent IS/flutter valve at bedside (7) Pneumonia Is this a current diagnosis for this admission?: Yes Summary: Resolved. Community acquired PNA in setting of COPD exacerbation Multiple drug allergies Completed 7 day course of aztreonam and doxycycline. (8) Pulmonary nodule Is this a current diagnosis for this admission?: Yes Summary: Nonoperative. Stable since previous imaging approx. 6 months ag (9) Hyperkalemia Is this a current diagnosis for this admission?: Yes Summary: Likely secondary to A/CKD. Attempts to correct were unsuccessful. Received 1 L NS, Calcium gluconate, D5 25 gm, and Insulin 10 units this morning for K correction; 6.4-> 6.2-> 5.8-> 6.2 Nephrology has been consulted and increased patient's Veltessa dose; Rx provided at discharge. (10) Hyperglycemia Is this a current diagnosis for this admission?: Yes Summary: A1c is nml. Persistently elevated hyperglycemia; possible related to steroids for treatment of COPD exacerbation. (11) Hyponatremia Is this a current diagnosis for this admission?: Yes Summary: Secondary to fluid volume overload and A/CKD. Nephrology has been consulted; appreciate their assistance. Na essentially unchanged despite attempts to correct. Na 135-> 131-> 129-> 122- > 123-> 124 Now discharging home with hospice services. - Additional Information Resuscitation Status: Do Not Resuscitate Discharge Diet: Cardiac, Other (Comments) - Renal Discharge Activity: Activity As Tolerated Prescriptions: Calcium Acetate [Phoslo 667 mg Capsule] 1,334 mg PO MEALS #90 capsule Diltiazem HCl [Cardizem 30 mg Tablet] 1 tab PO BID #30 tab Ipratropium/Albuterol Sulfate [Duoneb 3 ml Ampul] 3 ml NEB RTQ4HP PRN #60 vial.neb PRN Reason: Ondansetron [Zofran Odt 4 mg Tablet] 1 - 2 tab PO Q4HP PRN #20 tab.rapdis PRN Reason: Patiromer Calcium Sorbitex [Veltassa 8.4 gm Susp Packet] 16.8 gm PO QHS #60 packet Prednisone [Deltasone 20 mg Tablet] 20 mg PO ASDIR PRN #20 tablet PRN Reason: Promethazine HCl [Promethegan] 25 mg RC Q8HP PRN #6 supp.rect PRN Reason: Salmeterol Xinafoate [Serevent Diskus 50 Mcg/Dose 28 Dose/Diskus] 50 mcg IH Q12 #1 disk Sodium Bicarbonate [Sodium Bicarbonate 650 mg Tablet] 1,300 mg PO Q12 #60 tablet Tiotropium [place] [Spiriva Handihaler 5 Cap/Kit (18 Mcg/Cap)] 1 cap IH DAILY #1 kit Home Medications: Bumetanide [Bumex 1 mg Tablet] 1 mg PO DAILY 04/21/19 Cholecalciferol (Vitamin D3) [Vitamin D3 400 Unit Tablet] 400 unit PO DAILY 04/21/19 Clopidogrel Bisulfate [Plavix 75 mg Tablet] 75 mg PO DAILY 04/21/19 Folic Acid [Folvite 1 mg Tablet] 1 mg PO DAILY 04/21/19 Gabapentin [Neurontin 300 mg Capsule] 300 mg PO QHS 04/21/19 Hydrocodone/Acetaminophen [[place] 5-325 mg Tablet] 1 tab PO Q12HP PRN 04/21/19 Sertraline HCl [Zoloft 50 mg Tablet] 50 mg PO QPM 04/21/19 Acetaminophen [Tylenol 325 mg Tablet] 650 mg PO Q6HP PRN tablet 04/30/19 Apixaban [Eliquis 5 mg Tablet] 5 mg PO Q12 tablet 04/30/19 Calcium Acetate [Phoslo 667 mg Capsule] 1,334 mg PO MEALS #90 capsule 04/30/19 Diltiazem HCl [Cardizem 30 mg Tablet] 1 tab PO BID #30 tab 04/30/19 Ferrous Sulfate [Feosol 325 mg Tablet] 325 mg PO BIDPCBS tablet 04/30/19 Fluticasone Propionate [Flonase Nasal [place] 50 Mcg/[place] 16 gm] 2 spray NASL Q12 spray.pump 04/30/19 Gabapentin [Neurontin 300 mg Capsule] 300 mg PO QHS capsule 04/30/19 Ipratropium/Albuterol Sulfate [Duoneb 3 ml Ampul] 3 ml NEB RTQ4HP PRN #60 vial.neb 04/30/19 Ondansetron [Zofran Odt 4 mg Tablet] 1 - 2 tab PO Q4HP PRN #20 tab.rapdis 04/30/19 Patiromer Calcium Sorbitex [Veltassa 8.4 gm Susp Packet] 16.8 gm PO QHS #60 packet 04/30/19 Prednisone [Deltasone 20 mg Tablet] 20 mg PO ASDIR PRN #20 tablet 04/30/19 Promethazine HCl [Promethegan] 25 mg RC Q8HP PRN #6 supp.rect 04/30/19 Salmeterol Xinafoate [Serevent Diskus 50 Mcg/Dose 28 Dose/Diskus] 50 mcg IH Q12 #1 disk 04/30/19 Sertraline HCl [Zoloft 50 mg Tablet] 50 mg PO QPM #0 tablet 04/30/19 Sodium Bicarbonate [Sodium Bicarbonate 650 mg Tablet] 1,300 mg PO Q12 #60 tablet 04/30/19 Tiotropium [place] [Spiriva Handihaler 5 Cap/Kit (18 Mcg/Cap)] 1 cap IH DAILY #1 kit 04/30/19 History of Present Illness History of Present Illness: Per H&P by Dr. Campos: ENE HOLGUIN is a 73 year old female with a past medical history of chronic bronchitis, oxygen dependent COPD, rheumatic heart disease, moderate aortic stenosis, diastolic heart failure, coronary artery disease and atrial fibrillation on Eliquis. She presents with a 3-day course of progressively worsening shortness of breath, productive cough of yellow sputum and fever. EMS found her tachypneic, she is placed on oxygen with BiPAP and brought to the emergency department for evaluation where she is found to have retractions, use of accessory muscles of persistent tachypnea and a fever of 102.0. A BNP of 4400 and hemoglobin of 10. She received empiric treatment for pneumonia given a persistent right upper lung nodule and chronic bronchitis. She is referred to the hospitalist for admission, her CODE STATUS is verified is DO NOT RESUSCITATE. She denies recent antibiotic use Physical Exam Vital Signs: Temp Pulse Resp BP Pulse Ox 97.7 F 84 19 97/46 L 97 04/30/19 07:36 04/30/19 07:36 04/30/19 07:36 04/30/19 07:36 04/30/19 07:36 Intake & Output 04/29/19 04/30/19 05/01/19 06:59 06:59 06:59 Intake Total 1145 855 Output Total 300 1600 Balance 845 -745 Weight 89.6 kg General appearance: PRESENT: no acute distress, cooperative, obese, well-d eveloped, well-nourished Head exam: PRESENT: atraumatic, normocephalic Eye exam: PRESENT: conjunctiva pink, EOMI, PERRLA. ABSENT: scleral icterus Ear exam: PRESENT: normal external ear exam Mouth exam: PRESENT: moist, tongue midline Neck exam: ABSENT: carotid bruit, JVD, lymphadenopathy, thyromegaly Respiratory exam: PRESENT: clear to auscultation isael, prolonged expiratory phas, symmetrical, unlabored, other - supplemental oxygen via NC. ABSENT: rales, rhonchi, wheezes Cardiovascular exam: PRESENT: irregular rhythm, +S1, +S2, systolic murmur. ABSENT: diastolic murmur, rubs Pulses: PRESENT: normal dorsalis pedis pul Vascular exam: PRESENT: normal capillary refill GI/Abdominal exam: PRESENT: normal bowel sounds, soft. ABSENT: distended, g uarding, mass, organolmegaly, rebound, tenderness Rectal exam: PRESENT: deferred Extremities exam: PRESENT: full ROM. ABSENT: calf tenderness, clubbing, pedal edema Neurological exam: PRESENT: alert, awake, oriented to person, oriented to place, oriented to time, oriented to situation, CN II-XII grossly intact. ABSENT: mo tor sensory deficit Psychiatric exam: PRESENT: appropriate affect, normal mood. ABSENT: homicidal ideation, suicidal ideation Skin exam: PRESENT: dry, intact, warm. ABSENT: cyanosis, rash Results Laboratory Results: 04/29/19 04:25 04/30/19 04:25 04/29/19 04/29/19 04/29/19 09:19 09:19 13:35 Sodium 123.8 L 123.7 L Potassium 6.2 H* 5.8 H Chloride 90 L 91 L Carbon Dioxide 15 L 15 L Anion Gap 19 18 BUN 155 H 152 H Creatinine 3.09 H 3.15 H Est GFR ( Amer) 18 L 18 L Est GFR (Non-Af Amer) 15 L 15 L Glucose 157 H 135 H Calcium 9.1 8.8 TSH 0.06 L 04/30/19 04:25 Sodium 124.4 L Potassium 6.2 H* Chloride 92 L Carbon Dioxide 18 L Anion Gap 14 BUN 159 H Creatinine 3.09 H Est GFR ( Amer) 18 L Est GFR (Non-Af Amer) 15 L Glucose 105 Calcium 8.8 TSH 04/21/19 04/21/19 04/21/19 00:48 12:52 12:52 Creatine Kinase 133 CK-MB (CK-2) Cancelled Troponin I 0.017 Cancelled NT-Pro-B Natriuret Pep 4430 H 04/21/19 04/22/19 04/23/19 14:40 05:17 07:00 Creatine Kinase CK-MB (CK-2) 4.53 Troponin I 0.035 NT-Pro-B Natriuret Pep 18961 H 64379 H 04/25/19 04/26/19 04/27/19 06:00 05:25 05:55 Creatine Kinase CK-MB (CK-2) Troponin I NT-Pro-B Natriuret Pep 57768 H 8610 H 7460 H Impressions: Venous Access Device Injection 04/21/19 00:00 IMPRESSION: Patent right-sided permanent central line. Muhammad needle access was maintained postprocedure for use on the nursing floor. Renal Ultrasound 04/27/19 00:00 IMPRESSION: NORMAL RENAL AND BLADDER ULTRASOUND. Chest X-Ray 04/29/19 00:00 IMPRESSION: Chronic changes without evidence of acute cardiopulmonary process. Qualifiers - * PATIENT BEING DISCHARGED WITH ANY OF THE FOLLOWING DIAGNOSIS: No Acute Heart Failure Is this a Heart Failure Patient?: Yes b) Discharges on ARB?: No-document contraindications Reason(s) not discharged on ARB: Impaired/worsening renal functions c) Discharged on ARNI?: No-Document Contraindications Reason(s) not discharged on ARNI: Hypotension, Impaired/worsening renal functions, Other - Hospice d) Discharged on evidence-based Beta bill(carvedilol, sustained release metoprolol succinate, or bisoprolol)?: No, document contraindications Reason(s) not discharged on Evidence-Based Beta Blockers (carvedilol, sustained released metoprolol succinate, or bisoprolol): Hypotension, Severe COPD/Asthma, Other - Hospice e) For LVEF <35%, discharged on Aldosterone antagonist?: No-document contraincations Reason(s) not discharged on Aldosterone antagonist for LVEF < 35%: Renal dysfunction (creatinine >2.5 mg/dL in men or 2.0 mg/dL in women) 3. Anticoagulant therapy for permanect/persistent/paraoxysmal Afib or Aflutter: Yes Plan Discharge Plan: Discharge to home with [facility] services. Time Spent: Greater than 30 Minutes
[2019-04-30 15:02] VITALS: BP 100/82
== END 2019-04-30 15:33 | disposition hospice, home (50) | DRG 190 ==
LOC: ER 23:46 → EH 04-21 02:21 → 3W 04-21 03:53
PROVIDERS: ADMIT Internal Medicine; ATTEND Internal Medicine
PROC: 5A09357 Assistance with Respiratory Ventilation, Less than 24 Consecutive Hours, Continuous Positive Airway Pressure (ICD-10-PCS; principal; 2019-04-21)
DX: J44.0 Chronic obstructive pulmonary disease with (acute) lower respiratory infection (principal); J96.21 Acute and chronic respiratory failure with hypoxia; J18.9 Pneumonia, unspecified organism; I50.33 Acute on chronic diastolic (congestive) heart failure; E87.1 Hypo-osmolality and hyponatremia; I47.1 Supraventricular tachycardia; I13.0 Hypertensive heart and chronic kidney disease with heart failure and stage 1 through stage 4 chronic kidney disease, or unspecified chronic kidney disease; C34.91 Malignant neoplasm of unspecified part of right bronchus or lung; N17.9 Acute kidney failure, unspecified; E87.2 Acidosis; B37.0 Candidal stomatitis; I95.9 Hypotension, unspecified; E87.5 Hyperkalemia; Z99.81 Dependence on supplemental oxygen; I48.0 Paroxysmal atrial fibrillation; D51.9 Vitamin B12 deficiency anemia, unspecified; I06.0 Rheumatic aortic stenosis; E66.01 Morbid (severe) obesity due to excess calories; I44.7 Left bundle-branch block, unspecified; N18.3 Chronic kidney disease, stage 3 (moderate); F03.90 Unspecified dementia, unspecified severity, without behavioral disturbance, psychotic disturbance, mood disturbance, and anxiety; E83.39 Other disorders of phosphorus metabolism; D53.9 Nutritional anemia, unspecified; J44.1 Chronic obstructive pulmonary disease with (acute) exacerbation; R91.1 Solitary pulmonary nodule; R73.9 Hyperglycemia, unspecified; Z66 Do not resuscitate; I25.10 Atherosclerotic heart disease of native coronary artery without angina pectoris; K21.9 Gastro-esophageal reflux disease without esophagitis; M19.90 Unspecified osteoarthritis, unspecified site; Z79.02 Long term (current) use of antithrombotics/antiplatelets; Z79.01 Long term (current) use of anticoagulants; Z68.31 Body mass index [BMI] 31.0-31.9, adult; I25.2 Old myocardial infarction; Z87.01 Personal history of pneumonia (recurrent); Z85.3 Personal history of malignant neoplasm of breast; Z90.12 Acquired absence of left breast and nipple; Z92.21 Personal history of antineoplastic chemotherapy; Z87.891 Personal history of nicotine dependence; Z88.6 Allergy status to analgesic agent; Z88.1 Allergy status to other antibiotic agents; Z88.3 Allergy status to other anti-infective agents; Z88.0 Allergy status to penicillin; Z88.2 Allergy status to sulfonamides; Z82.49 Family history of ischemic heart disease and other diseases of the circulatory system
CPT/HCPCS: 36415; 36598; 71045; 76775; 80048; 80053; 81001; 82533; 82550; 82553; 82570; 82607; 82728; 82746; 83036; 83540; 83550; 83735; 83880; 84100; 84300; 84443; 84484; 85025; 85027; 85045; 87040; 93005; 93010; 94640; 94660; 94667; 94668; 94799; 96365; 96367; 99291; J0610; J1642; J1815; J1940; J2405; J2550; J2920; J2930; J3420; J3475; J3490; J7030; J7060; J7120; J7620; P9047